=== PATIENT | female | born 1960 | race Caucasian/White ===

== ENCOUNTER 2018-01-19 02:14 | Inpatient (IN) | payer MEDICAID, SELFPAY ==
[2018-01-19] VITALS (16 sets, daily range): BP systolic 134–198; BP diastolic 61–101; PULSE 76–107; RESP 15–20; TEMP 36.4–37.3; O2SAT 92–98; BMI 13.8; BMI 14.1
--- NOTE | 2018-01-19 02:25 | ED.RN ---
LAURA HONG CALLED TO INFORM STAFF ALL OF PATIENT'S MEDICATION ARE ACCOUNTED FOR
--- NOTE | 2018-01-19 02:46 | CT_ITS ---
STUDY: CT BRAIN WITHOUT CONTRAST REASON FOR EXAM: Female, 57 years old. Altered mental status and seizures RADIATION DOSAGE (If Supplied By Facility): CTDIvol = ( 44.99 ) mGy, DLP = ( 812.98 ) mGycm TECHNIQUE: Transaxial CT imaging of the brain was performed without administration of intravenous contrast material. Individualized dose optimization techniques were used for this CT. COMPARISON: None. FINDINGS: Normal soft tissue structures. Normal calvarium. Normal size ventricles and extra-axial spaces for the patient's age. There are areas of decreased attenuation within the white matter tracts of the supratentorial brain, consistent with microvascular disease changes. Normal age-related changes of the basal ganglia. Remote lacunar infarct in the left thalamus. Remote punctate infarct in the right silver. Normal cerebellum. There is no intracranial hemorrhage. There are no findings of an acute ischemic infarction. Normal visualized paranasal sinuses. CT/Brain/Head without Contrast IMPRESSION: No CT evidence of acute infarct or hemorrhage. 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 If there is clinical concern for hyperacute ischemia that is not evident by CT, MRI should be considered if possible. Electronically Signed: Tree Rodriguez MD at 3:41 EST Tel , Service support ,
--- NOTE | 2018-01-19 02:47 | EKG12_ITS ---
Test Reason : FALL Blood Pressure : / mmHG Vent. Rate : 083 BPM Atrial Rate : 083 BPM P-R Int : 124 ms QRS Dur : 072 ms QT Int : 442 ms P-R-T Axes : 077 058 085 degrees QTc Int : 519 ms Normal sinus rhythm Nonspecific ST and T wave abnormality Prolonged QT Abnormal ECG Confirmed by CLAUDIO ACEVEDO, ALEJANDRA ([id number]), primer expeditor and drier ROYA OCAMPO ([id number]) on 01/21/2018 2:56:10 PM Referred By: BB Confirmed By:ALEJANDRA SNYDER MD
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
[2018-01-19] MEDS: 0.9% Normal Saline 1,000 ML 1000 ML IV (03:12)
[2018-01-19 03:24] LABS: Absolute Lymphocyte Count 1.63 X10^3/ul (0.83-4.51); Absolute Neutrophil Count 6.8 X10^3/uL (2.0-7.7); Basophil# 0.03 X10^3/uL; Basophil% 0.3 % (0-1); Eosinophil# 0.14 X10^3/uL; Eosinophils% 1.5 % (0-5); Hematocrit 30.7 % (37-47); Hemoglobin 9.5 g/dl (12.0-15.0); Lymphocyte # 1.63 X10^3/ul (4.0); Lymphocyte % 17.4 % (19-41); Mean Corp Hgb Conc 30.9 g/gl (32-36); Mean Corpuscular Hgb 26.5 pg (27.0-32.0); Mean Corpuscular Volume 85.5 fL (81-99); Mean Platelet Vol. 9.8 fl (6.2-12.0); Monocyte# 0.81 X10^3/uL; Monocyte% 8.6 % (0-10); Neutrophil # 6.77 X10^3/uL (2.7-7.7); Neutrophil % 72.1 % (47-70); Platelet Count 346 K/mm3 (150-450); RBC Distribution Width CV 19.9 % (11.6-14.6); Red Blood Count 3.59 M/mm3 (4.2-5.4); White Blood Count 9.4 K/mm3 (4.4-11.0)
[2018-01-19 03:30] LABS: POSITIVE COUNT NO; POSITIVE DIFFERENTIAL NO; POSITIVE MORPHOLOGY NO
--- NOTE | 2018-01-19 03:45 | RAD_ITS ---
STUDY: X-RAY CHEST REASON FOR EXAM: Female, 57 years old. Cough TECHNIQUE: Single frontal view of the chest. COMPARISON: 12/02/2013 FINDINGS: The lungs are clear and expanded. There is no demonstrated pleural abnormality. Normal size heart. Normal mediastinum and olga. Normal visualized pulmonary arteries. Normal visualized aortic arch and descending thoracic aorta. Normal visualized thoracic spine. Normal visualized ribs, clavicles, and shoulders. There is no demonstrated abnormality of the visualized soft tissue structures of the upper abdomen. RAD/Chest 1 View (Portable) IMPRESSION: No acute pulmonary findings. Electronically Signed: Tree Rodriguez MD at 4:19 EST Tel , Service support ,
--- NOTE | 2018-01-19 03:45 | RAD_ITS ---
STUDY: X-RAY - RIGHT KNEE REASON FOR EXAM: Female, 57 years old. Abrasions TECHNIQUE: 4 view(s) of the knee. COMPARISON: None. FINDINGS: Normal visualized distal femur. Normal visualized proximal tibia and fibula. Normal proximal tibiofibular articulation. There is moderate degenerative arthrosis of the medial femorotibial compartment with moderate joint space narrowing. Normal lateral femorotibial compartment. Normal patellofemoral articulation. Infrapatellar soft tissue swelling. RAD/Knee 4 or More Views IMPRESSION: No acute osseous injury is evident. Electronically Signed: Tree Rodriguez MD at 4:37 EST Tel , Service support ,
--- NOTE | 2018-01-19 03:45 | RAD_ITS ---
STUDY: X-RAY - LEFT KNEE REASON FOR EXAM: Female, 57 years old. Abrasions TECHNIQUE: 4 view(s) of the knee. COMPARISON: None. FINDINGS: Normal visualized distal femur. Normal visualized proximal tibia and fibula. Normal proximal tibiofibular articulation. There is mild degenerative arthrosis of the medial femorotibial compartment. Normal lateral femorotibial compartment. Normal patellofemoral articulation. Suprapatellar effusion. RAD/Knee 4 or More Views IMPRESSION: No acute osseous injury is evident. Suprapatellar effusion. Electronically Signed: Tree Rodriguez MD at 4:25 EST Tel , Service support ,
[2018-01-19 03:47] LABS: Anion Gap 12 (5-15); BUN 11 mg/dL (7-18); BUN/Creat Ratio 10.4 RATIO (10-20); CPK Total, Creatine Kinase 209 U/L (26-192); Calcium,Total 8.7 mg/dL (8.5-10.1); Chloride 100 mmol/L (98-107); Creatinine, Serum 1.06 mg/dL (0.55-1.02); EST Glomerular Filtration Rate 57 mL/min (>60); Est Glom Filt Rate - Afr Amer 68 mL/min (>60); Estimated Creatinine Clearance 30.23 ml/min; Glucose 117 mg/dL (74-106); Potassium 2.4 mmol/L (3.5-5.1); Sodium Level 143 mmol/L (136-145)
--- NOTE | 2018-01-19 03:52 | ED.RN ---
potassium of 2.[address] martinez. verbalized understanding
[2018-01-19 04:09] LABS: Mucous, Urine 0 SEEN /hpf (<or=2+); Squamous Epithelial Cells - UA 0 SEEN /hpf (5-10)
[2018-01-19 04:14] LABS: Color, Urine Yellow (Yellow); Glucose, Dipstick Normal (Normal); Ketone-Dipstick Negative (Negative); Leukocyte Esterase-Dipstick 25 /ul (Negative); Nitrite-Dipstick Positive (Negative); Occult Blood-Urine 10 /ul (Negative); Protein-Dipstick 15 mg/dl (Negative); Urine Bilirubin Dipstick Negative (Negative); Urine Clarity Cloudy (Clear); Urine Urobilinogen Normal (Normal)
[2018-01-19 04:55] LABS: Amorphous Sediment 2+; Bacteria 2+ /hpf (None Seen); Red Blood Cells-Urine 0-5 SEEN /hpf (0-5); White Blood Cells 10-25 SEEN /hpf (0-5)
[2018-01-19 04:56] LABS: Amphetamine Urine VISTA NEGATIVE (<1000 ng/mL); Barbiturate Urine VISTA POSITIVE (< 200 ng/mL); Benzodiazepine Urine VISTA NEGATIVE (< 200 ng/mL); Cocaine Urine VISTA NEGATIVE (< 300 ng/mL); Ecstacy Urine VISTA NEGATIVE (< 500 ng/mL); Methadone Urine VISTA NEGATIVE (< 300 ng/mL); PCP Urine VISTA NEGATIVE (< 25 ng/mL); THC Urine VISTA NEGATIVE (< 50 ng/mL); Vista UDS pH Range 5
[2018-01-19] MEDS: Ceftriaxone 1 GM/50 ML BAG IV (05:39)
--- NOTE | 2018-01-19 06:35 | ED.RN ---
DR PACHECO IN THE ROOM SPEAKING WITH THE PT. PT INFORMED DR PACHECO THAT SHE IS SUICIDAL BUT DOES NOT CURRENTLY HAVE A PLAN. WHEN THE PT WAS ADMITTED INTO THE ER SHE DENIED BEING SUICIDAL.
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
[2018-01-19 08:19] LABS: AST(SGOT) 25 U/L (15-37); Alanine Aminotransfer ALT/SGPT 20 U/L (13-56); Albumin, Serum 2.8 g/dL (3.2-5.0); Alkaline Phosphatase 168 U/L (45-117); Bilirubin, Direct 0.11 mg/dL (0.00-0.30); Ferritin 19 ng/mL (8-252); Iron 18 ug/dL (50-170); Iron Binding Capacity,Total 321 ug/dL (250-450); Magnesium 2.3 mg/dL (1.6-2.6); PERCENT IRON SATURATION 5.6 % (15.0-55.0); Phosphorus 4.3 mg/dL (2.5-4.9); Protein, Total 6.8 g/dL (6.4-8.2); Thyroid Stim Hormone (TSH) 1.58 uIU/mL (0.358-3.74)
--- NOTE | 2018-01-19 08:36 | NURSING ---
awaiting medications from pharmacy.
[2018-01-19] MEDS: Folic Acid 1 MG Tablet PO (09:15)
[2018-01-19] MEDS: Multivitamins,Therapeutic Tablet 1 TABLET PO (09:15)
[2018-01-19] MEDS: Famotidine 20 MG Tablet PO (09:17)
[2018-01-19] MEDS: Potassium Chloride 40 MEQ in 0.9% Normal Saline 1,000 ML 100 MEQ IV ×2 (09:29→19:58)
[2018-01-19 09:53] LABS: Protein, Urine (Random) 28.3 mg/dL (<11.9); Protein:Creat Ratio 487 mg/g CRE (0-200)
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
--- NOTE | 2018-01-19 11:32 | PCM.PN.HOSP ---
Patient Problems: Active and Suspected Problems UTI (urinary tract infection) (Acute) Hypokalemia due to inadequate potassium intake (Acute) Normocytic anemia (Acute) Generalized weakness (Acute) Contusion of knee, left (Acute) Contusion of knee, right (Acute) Delirium (Acute) Subjective: 57-year-old patient admitted this morning with suicidal ideation, generalized weakness and fall. Patient was seen in her room room, sitter at the bedside, family at the bedside. Family states she has history of additional do not want her to be on any pain medication. She complains of pain shooting down her lower extremities. Patient admits to wanting to hurt herself, she has no plan at the moment. Denies any fever or chills or nausea or vomiting. Vitals/I&O's: Vital Signs Temp Pulse Resp BP Pulse Ox 98.1 F 100 18 172/85 H 96 01/19/18 07:30 01/19/18 11:10 01/19/18 07:30 01/19/18 07:30 01/19/18 07:30 Oxygen Delivery Method Room Air Weight: 33.9 kg Body Mass Index (BMI) 14.1 Intake and Output for Last 24 Hours 01/17/18 01/18/18 01/19/18 23:59 23:59 23:59 Output Total 1125 / 1125 Balance -1125 / -1125 General: Alert, Oriented x3, Cooperative, - - Cachectic HEENT: Atraumatic, PERRLA, EOMI, Normocephalic Oral: Dry Mucosa Neck: Supple, No JVD, Negative Carotid Bruits Lungs: Clear to auscultation, Normal air movement, Diminished - at the lung bases Cardiovascular: Regular rate, Regular Rhythm, Normal S1, Normal S2, No murmurs Abdomen: Bowel Sounds Present, Soft, Non Tender, Non-Distended, No Hepato-splenomegaly Extremities: Edema Skin: - - Bruises over her knees and lower extremities, discoloration of the plantar surface of left foot more than the right, ulcer at the plantar surface of right 1st and 2nd metatarsal region. Musculoskeletal: No Tenderness to Palpation of Joints or Extremities Neurological: Cranial nerves II-XII grossly intact Psych/Mental Status: Normal Affect, Appropriate Laboratory Results 01/19/18 03:12: WBC 9.4, RBC 3.59 L, Hgb 9.5 L, Hct 30.7 L, MCV 85.5, MCH 26.5 L, MCHC 30.9 L, RDW 19.9 H, RDW Differential 62.0 H, Plt Count 346, MPV 9.8, Immature Gran % (Auto) 0.100, Neut % (Auto) 72.1 H, Lymph % (Auto) 17.4 L, [place] % (Auto) 8.6, Eos % (Auto) 1.5, Baso % (Auto) 0.3, Absolute Neuts (auto) 6.8, Absolute Lymphs (auto) 1.63, Total Counted Not Reportable 01/19/18 03:12: Sodium 143, Potassium 2.4 L*, Chloride 100, Carbon Dioxide 31.0, Anion Gap 12, BUN 11, Creatinine 1.06 H, Estim Creat Clear Calc 30.23, Est GFR (MDRD) Af Amer 68, Est GFR (MDRD) Non-Af 57 L, BUN/Creatinine Ratio 10.4, Glucose 117 H, Calcium 8.7, Total Creatine Kinase 209 H, Troponin I 0.024 01/19/18 03:12: Ethyl Alcohol 4.0 01/19/18 03:12: Phosphorus 4.3, Magnesium 2.3, Iron 18 L, TIBC 321, Iron Saturation 5.6 L, Ferritin 19, Total Bilirubin 0.20, Direct Bilirubin 0.11, AST 25, ALT 20, Alkaline Phosphatase 168 H, Total Protein 6.8, Albumin 2.8 L, Globulin 4.0, TSH 1.58 01/19/18 03:12: Vitamin B12 Pending, Vitamin D 25-Hydroxy Pending 01/19/18 03:12: Folate 7.80 01/19/18 04:05: Urine Color Yellow, Urine Clarity Cloudy, Urine pH 5.0, Ur Specific [place] 1.020, Urine Protein 15 H, Urine Glucose (UA) Normal, Urine Ketones Negative, Urine Occult Blood 10 H, Urine Nitrite Positive H, Urine Bilirubin Negative, Urine Urobilinogen Normal, Ur Leukocyte Esterase 25 H, Urine RBC 0-5 SEEN, Urine WBC 10-25 SEEN, Ur Squamous Epith Cells 0 SEEN, Amorphous Sediment 2+, Urine Bacteria 2+, Urine Mucus 0 SEEN 01/19/18 04:05: Urine Opiates Screen POSITIVE H, Urine Methadone Screen NEGATIVE, Ur Barbiturates Screen POSITIVE H, Ur Phencyclidine Scrn NEGATIVE, Ur Amphetamines Screen NEGATIVE, U Methamphetamin-MDMA NEGATIVE, U Benzodiazepines Scrn NEGATIVE, Urine Cocaine Screen NEGATIVE, U Cannabinoids Screen NEGATIVE, Ur Drug Screen Comment 01/19/18 09:10: U Random Total Protein 28.3 H, Urine Creatinine 58.10, Protein/Creatinin Ratio 487 H Current Medications Acetaminophen (Tylenol) 650 mg PO Q6H PRN PRN PRN Reason: Mild Pain (scale 0-3)/T>100.7 Bisacodyl (Dulcolax) 5 mg PO DAILY PRN PRN PRN Reason: Constipation Famotidine (Pepcid) 20 mg PO DAILY [facility] Last Admin: 01/19/18 09:17 Dose: 20 mg Fluoxetine HCl (Prozac) 10 mg PO DAILY [facility] Folic Acid (Folic Acid) 1 mg PO DAILY@0800 [facility] Last Admin: 01/19/18 09:15 Dose: 1 mg Ceftriaxone Sodium (Rocephin) 1 gm in 50 mls @ 100 mls/hr IV Q24 [facility] Potassium Chloride 40 meq/ (Sodium Chloride) 1,020 mls @ 100 mls/hr IV .[id number] [facility] Stop: 01/20/18 04:59 Last Admin: 01/19/18 09:29 Dose: 100 mls/hr Thiamine HCl 200 mg/ Sodium (Chloride) 52 mls @ 200 mls/hr IV DAILY [facility] Last Admin: 01/19/18 09:29 Dose: 200 mls/hr Magnesium Hydroxide (Milk Of Magnesia) 30 ml PO DAILY PRN PRN Reason: Constipation [facility]it[facility] ([facility]) [facility] Admin: 01/19/18 09:15 Dose: 1 tablet Mupirocin (Bactroban) 1 applic TOPICAL BID [facility]; Protocol Nicotine (Nicoderm Cq (Pbkc)) 14 mg TRANSDERM. DAILY [facility] Nutritional Formula (Lactose Free) (Ensure Enlive) 120 ml PO 4X/DAY [facility] Potassium Chloride (K-Dur) 40 [facility] Last Admin: 01/19/18 09:15 Dose: 40 meq Medical Necessity - Tobacco Use Smoking Status: Current every day smoker Tobacco Use: Cigarettes Assessment/Plan All Active Problems UTI (urinary tract infection) (Acute) Hypokalemia due to inadequate potassium intake (Acute) Normocytic anemia (Acute) Generalized weakness (Acute) Contusion of knee, left (Acute) Contusion of knee, right (Acute) Delirium (Acute) 57-year-old female past medical history of complex regional pain syndrome, urinary retention status post catheterization who comes in with worsening weakness, inability to walk, and suicidal ideation 1. Active suicidal ideation, anxiety/depression, patient has a sitter at the bedside, add on fluoxetine, will need mobile crisis consult 2. Severe hypokalemia, on replacement, no diarrhea or nausea or vomiting, replace electrolytes, recheck in a.m. 3. Asymptomatic bacteriuria, likely second to catheterization, started on IV ceftriaxone, urine cultures are pending, on IV ceftriaxone, follow-up on cultures 4. Urine retention, history of self-catheterization,patient is too weak to now self catheterize, will put in Olson catheter 5. Iron deficiency anemia, iron saturation 5.6, will start patient on oral iron 6. Severe protein calorie malnutrition, BMI 14.1, faculty instructor consulted, will start on supplements, started on thiamine, folic acid and multivitamin 7. AK I secondary dehydration, started on IV fluids, will trend lab 8. Bilateral leg edema, secondary to malnutrition/protein losing enteropathy, UA concerning for proteinuria, urine protein ratio is 487, will have to be careful interpreting this in the light of UTI, will need to repeat and trend 9. Complex regional pain syndrome, patient was on codeine/butalbital/aspirin/caffeine, family expressed concern about narcotic use, will hold that, continue scheduled Tylenol, will add gabapentin 100 mg p.o. nightly 10. Nicotine dependence, on replacement 11. Debility, falls, multiple abrasions on the lower extremities, wound care consulted, PT and OT to evaluate and treat 12. DVT prophylaxis-heparin subcu Code Visit Inpatient E&M: 46301 Subs Hosp L2
[2018-01-19] MEDS: FLUoxetine 10 MG Capsule PO (11:52)
[2018-01-19] MEDS: Mupirocin Ointment 22gm Tube 1 APPLIC TOPICAL ×2 (11:52→22:58)
[2018-01-19 13:17] LABS: Anion Gap 8 (5-15); BUN 8 mg/dL (7-18); BUN/Creat Ratio 9.7 RATIO (10-20); Calcium,Total 7.5 mg/dL (8.5-10.1); Chloride 107 mmol/L (98-107); Creatinine, Serum 0.82 mg/dL (0.55-1.02); EST Glomerular Filtration Rate 76 mL/min (>60); Est Glom Filt Rate - Afr Amer 91 mL/min (>60); Estimated Creatinine Clearance 40.02 ml/min; Glucose 201 mg/dL (74-106); Magnesium 2.1 mg/dL (1.6-2.6); Potassium 2.8 mmol/L (3.5-5.1); Sodium Level 143 mmol/L (136-145)
[2018-01-19] MEDS: Acetaminophen 500 MG Tablet 1000 MG PO ×2 (14:54→21:32)
[2018-01-19] MEDS: Ferrous Sulfate 325 MG Tablet PO (16:54)
[2018-01-19 18:10] LABS: International Normalized Ratio 0.9; Prothrombin Time (Protime)PT. 11.7 SECONDS (11.7-14.9)
[2018-01-19] MEDS: Gabapentin 100 MG Capsule PO (21:31)
[2018-01-19] MEDS: Labetalol 20 MG/4 ML Vial 10 MG IV (22:12)
[2018-01-19] MEDS: 0.9% NaCl Peripheral Flush Adult/Peds IV ×2 (22:12→22:19)
[2018-01-20] VITALS (37 sets, daily range): BP systolic 141–215; BP diastolic 54–111; PULSE 42–128; RESP 20–40; TEMP 36.3–38.2; O2SAT 2–100
[2018-01-20] MEDS: 0.9% NaCl Peripheral Flush Adult/Peds IV ×5 (03:29→18:41)
[2018-01-20] MEDS: Labetalol 20 MG/4 ML Vial 10 MG IV (03:29)
--- NOTE | 2018-01-20 05:01 | PCM.PN.BLA ---
Progress Note Responded to rapid response. Patient has a sitter. Patient wanted to use the restroom. She was helped onto the side of the bed. However, she began to lean forward and was about to fall. Patient was helped back to bed. Her heart rate was in the 40s and she had defecated on herself. Upon examination patient was alert and oriented. She is lethargic as previous. Heart sounds diminished. Lung sounds diminished. Patient was orthostatic negative. Assessment and plan Different diagnosis include vasovagal syncope; debility due protein calorie malnutrition; psychomotor retardation secondary to depression or other. Continue current treatment plan of potassium supplementation; and IV normal saline with potassium. Continue Telemetry monitoring. Her phosphorus level is normal. Patient on thiamine, folate and multivitamins. Continue aggressive feeding and consider checking phosphorus level while feeding patient to prevent refeeding syndrome. Patient and nursing staff were updated of the plan.
--- NOTE | 2018-01-20 05:22 | EKG12_ITS ---
Test Reason : Blood Pressure : / mmHG Vent. Rate : 090 BPM Atrial Rate : 090 BPM P-R Int : 118 ms QRS Dur : 072 ms QT Int : 382 ms P-R-T Axes : 083 047 067 degrees QTc Int : 467 ms Normal sinus rhythm Normal ECG Confirmed by CLAUDIO ACEVEDO, ALEJANDRA ([id number]), photographic editor ROYA OCAMPO ([id number] on 01/23/2018 2:14:15 PM Referred By: Confirmed By:ALEJANDRA SNYDER MD
[2018-01-20 05:25] LABS: Absolute Lymphocyte Count 1.04 X10^3/ul (0.83-4.51); Basophil# 0.02 X10^3/uL; Basophil% 0.2 % (0-1); Eosinophil# 0.01 X10^3/uL; Eosinophils% 0.1 % (0-5); Hematocrit 26.4 % (37-47); Lymphocyte # 1.04 X10^3/ul (4.0); Lymphocyte % 10.5 % (19-41); Mean Corp Hgb Conc 30.3 g/gl (32-36); Mean Corpuscular Hgb 26.6 pg (27.0-32.0); Mean Corpuscular Volume 87.7 fL (81-99); Mean Platelet Vol. 9.9 fl (6.2-12.0); Monocyte# 0.81 X10^3/uL; Monocyte% 8.2 % (0-10); Neutrophil # 8.02 X10^3/uL (2.7-7.7); Neutrophil % 80.8 % (47-70); Platelet Count 330 K/mm3 (150-450); RBC Distribution Width CV 20.8 % (11.6-14.6); RBC Distribution Width SD 67.4 fl (35.1-43.9); Red Blood Count 3.01 M/mm3 (4.2-5.4); White Blood Count 9.9 K/mm3 (4.4-11.0)
[2018-01-20 05:29] LABS: Differential Indicated SCAN CRITERIA MET; POSITIVE COUNT NO; POSITIVE DIFFERENTIAL NO; POSITIVE MORPHOLOGY YES
[2018-01-20 05:40] LABS: Bedside Glucose 156 mg/dL (70-110)
[2018-01-20 05:49] LABS: Differential Comment SCANNED
[2018-01-20 05:50] LABS: Anisocytosis 1+
[2018-01-20 05:59] LABS: Anion Gap 10 (5-15); BUN 8 mg/dL (7-18); BUN/Creat Ratio 11.4 RATIO (10-20); Calcium,Total 7.3 mg/dL (8.5-10.1); Chloride 113 mmol/L (98-107); EST Glomerular Filtration Rate 91 mL/min (>60); Est Glom Filt Rate - Afr Amer 111 mL/min (>60); Estimated Creatinine Clearance 46.88 ml/min; Glucose 140 mg/dL (74-106); Sodium Level 144 mmol/L (136-145)
[2018-01-20 06:21] LABS: Bedside Glucose 147 mg/dL (70-110)
--- NOTE | 2018-01-20 06:25 | CPS ---
stereotype caster called,ekg done.
[2018-01-20] MEDS: Acetaminophen 500 MG Tablet 1000 MG PO (06:27)
[2018-01-20] MEDS: Potassium Chloride 40 MEQ in 0.9% Normal Saline 1,000 ML 100 MEQ IV (06:33)
[2018-01-20] MEDS: cloNIDine HCl 0.1 MG Tablet PO ×2 (06:47→15:48)
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
[2018-01-20 08:21] LABS: Bedside Glucose 146 mg/dL (70-110)
--- NOTE | 2018-01-20 09:15 | RAD_ITS ---
STUDY: X-RAY - ABDOMEN/PELVIS REASON FOR EXAM: Female, 57 years old. Abdominal pain. TECHNIQUE: Two AP supine views of the abdomen and pelvis. COMPARISON: None. FINDINGS: Normal visualized lung bases. Gaseous distention of the stomach. Moderate amount of fecal material is seen in the colon. There is evidence of bilateral tubal ligation. Normal soft tissue structures. Normal visualized osseous structures. RAD/Abdomen Single View (Portable) IMPRESSION: Gaseous distention of the stomach. Moderate amount of fecal material is seen in the colon. Electronically Signed: Karan Cruz MD at 13:20 EST Tel [phone], Service support ,
[2018-01-20 10:43] LABS: Phosphorus 3.2 mg/dL (2.5-4.9)
[2018-01-20] MEDS: 0.9% Normal Saline 1,000 ML 75 ML IV (10:55)
[2018-01-20] MEDS: Ondansetron 4 MG/2 ML Vial IV (10:58)
[2018-01-20] MEDS: hydrOXYzine PAM 25 MG Capsule 50 MG PO ×2 (11:00→17:32)
[2018-01-20] MEDS: Ceftriaxone 1 GM/50 ML BAG IV (11:00)
[2018-01-20] MEDS: FLUoxetine 10 MG Capsule PO (11:24)
[2018-01-20] MEDS: Mupirocin Ointment 22gm Tube 1 APPLIC TOPICAL ×2 (11:25→21:58)
[2018-01-20] MEDS: Heparin Injection (Vial) 5,000 UNIT/ML VIAL 5000 UNIT SC (11:25)
--- NOTE | 2018-01-20 11:57 | CASEMGMT ---
Physician said patient is going to need placement. Therapy has not yet seen patient and she appears to be going through withdrawal. Patient is self pay. SW met with patient, introduced self and role at [facility]. SW asked patient if she has insurance and she does not. She has not completed a Medicaid application. SW asked if she would be able to complete application with SW and she said she could not right now. She is very anxious, shaking, and moving around in bed a lot. SW will follow up. Mitra CLINE MSW
[2018-01-20] MEDS: chlordiazePOXIDE 25 MG Capsule 50 MG PO ×3 (12:28→22:49)
--- NOTE | 2018-01-20 12:33 | CPS ---
Pt refused I.S., says she won't do it. RN sitter in room & aware.
[2018-01-20 13:08] LABS: Vitamin B12 436 pg/mL (211-911); Vitamin D,25 Hydroxy 6.9 ng/mL (29.95-100.01)
[2018-01-20] MEDS: hydrALAZINE 20 MG/ML Vial 5 MG IV (13:42)
--- NOTE | 2018-01-20 14:20 | PN_ITS ---
<Santos Trevizo - Last Filed: 01/20/18 14:15> Patient Problems: Active and Suspected Problems UTI (urinary tract infection) (Acute) Hypokalemia due to inadequate potassium intake (Acute) Normocytic anemia (Acute) Generalized weakness (Acute) Contusion of knee, left (Acute) Contusion of knee, right (Acute) Delirium (Acute) Subjective: Pt complains of LLQ abdominal pain, R lower extremity pain (this is chronic from RSD). Initial injury was foot fracture, she has been using chronic pain medications at home since this occurred in 1998. Her family is here stating that she has had multiple overdoses, they have tried to get her off of opiates. She takes T3 and Fioricet with codeine in large quantities. She smokes > 3 ppd and reportedly passes out at home while smoking and there are mason all over the house. Pt and family confirm she does not drink at all. She lives at her mothers home, who is also sick in the hospital in ICU being placed in hospice. She has a khoury in place here. No khoury discomfort. No fever or chills. She has been nauseous without vomiting. She has been incontinent of stool. She has had epis odes of lightheadedness with nausea, bowel incontinence, and bradycardia. She fell last night. Family believes she is withdrawing. She is very agitated and restless in bed thrashing frequently. She reportedly is eating very little at home as well. - Physical Exam General: Alert, Oriented x3, Cooperative HEENT: Atraumatic, PERRLA, EOMI, Normocephalic Neck: Supple, No JVD, Negative Carotid Bruits Lungs: Clear to auscultation, Normal air movement Cardiovascular: Regular rate, No murmurs Abdomen: Bowel Sounds Present, Soft, Non Tender Extremities: No edema, Capillary Refill Less than 3 Seconds Skin: No rashes, No breakdown Musculoskeletal: No Tenderness to Palpation of Joints or Extremities Neurological: Cranial nerves II-XII grossly intact Psych/Mental Status: Normal Affect, Appropriate, Alert and oriented to time, place, person, mood and affect Vital Signs Temp Pulse Resp BP Pulse Ox 97.4 F L 97 22 H 143/54 H 97 01/20/18 13:56 01/20/18 13:56 01/20/18 13:56 01/20/18 13:56 01/20/18 13:56 Oxygen Flow Rate (L/min) 2 Oxygen Delivery Method Nasal Cannula Weight: 74 lb 11.787 oz Body Mass Index (BMI) 14.1 Intake and Output for Last 24 Hours 01/18/18 01/19/18 01/20/18 23:59 23:59 23:59 Intake Total 1890 / 1890 1480 / 1480 Output Total 1275 / 1275 555 / 555 Balance 615 / 615 925 / 925 Microbiology Past 72 Hours 01/19/18 04:05 Urine Culture - Preliminary Urine, Catheterized Culture exhibits no growth. Laboratory Tests Past 24 Hrs 01/19/18 01/19/18 01/20/18 03:12 17:38 05:10 WBC 9.9 RBC 3.01 L Hgb 8.0 L Hct 26.4 L MCV 87.7 MCH 26.6 L MCHC 30.3 L RDW 20.8 H RDW Differential 67.4 H Plt Count 330 MPV 9.9 Immature Gran % (Auto) 0.200 Neut % (Auto) 80.8 H Lymph % (Auto) 10.5 L [place] % (Auto) 8.2 Eos % (Auto) 0.1 Baso % (Auto) 0.2 Absolute Neuts (auto) 8.0 H Absolute Lymphs (auto) 1.04 Total Counted Not Reportable Differential Comment SCANNED Anisocytosis 1+ PT 11.7 INR 0.9 Sodium Potassium Chloride Carbon Dioxide Anion Gap BUN Creatinine Estim Creat Clear Calc Est GFR (MDRD) Af Amer Est GFR (MDRD) Non-Af BUN/Creatinine Ratio Glucose Calcium Phosphorus Vitamin B12 436 Vitamin D 25-Hydroxy 6.9 L 01/20/18 01/20/18 05:10 05:10 WBC RBC Hgb Hct MCV MCH MCHC RDW RDW Differential Plt Count MPV Immature Gran % (Auto) Neut % (Auto) Lymph % (Auto) [place] % (Auto) Eos % (Auto) Baso % (Auto) Absolute Neuts (auto) Absolute Lymphs (auto) Total Counted Differential Comment Anisocytosis PT INR Sodium 144 Potassium 5.0 Chloride 113 H Carbon Dioxide 21.0 Anion Gap 10 BUN 8 Creatinine 0.70 Estim Creat Clear Calc 46.88 Est GFR (MDRD) Af Amer 111 Est GFR (MDRD) Non-Af 91 BUN/Creatinine Ratio 11.4 Glucose 140 H Calcium 7.3 L Phosphorus 3.2 Vitamin B12 Vitamin D 25-Hydroxy POC Glucose 01/20/18 01/20/18 01/20/18 08:17 06:13 04:56 POC Glucose 146 H 147 H 156 H Medical Necessity - Tobacco Use Smoking Status: Current every day smoker Tobacco Use: Cigarettes Assessment/Plan All Active Problems UTI (urinary tract infection) (Acute) Hypokalemia due to inadequate potassium intake (Acute) Normocytic anemia (Acute) Generalized weakness (Acute) Contusion of knee, left (Acute) Contusion of knee, right (Acute) Delirium (Acute) 1. Acute opiate and barbiturate withdrawal - initiate medical stabilization protocol with librium. KUB with gas, stool. CT brain with remote infarcts. Knee xrays neg. 2. Hypokalemia - resolved 3. Bradycardia and syncope - likely vasovagal 2/2 withdrawal, nausea, vomiting, malnourishment. Continue IV fluids. Stop potassium supplements now that this is normalized. 4. Severe HTN - should improve with withdrawal stabilization. PRN hydralazine ordered. No further lebatolol given bradycardia. 5. Iron def anemia - continue supplement. B12/folate normal. 6. Vit D def - replete. 7. Heavy smoker - > 3 ppd currently. Nicotine patch provided. currently on o2, and with some SOB. No wheezing. Aerosols added. Denies hx COPD/Asthma. CXR negative. 8. Severe protein calorie malnutrition - dietary eval, thiamine and MVI provided, vitD supplements, iron. TSH normal. Mag/Phos normal. 9. Debility / Found down - PTOT. Pt unsafe at home, falling, overdosing, not eating correctly, not caring for herself. 10. SI - sitter present. 11. UTI - ruled out. Stop rocephin. No fever/leukocytosis. Urine culture neg. DVT ppx: heparin DC planning: SNF if she is agreeable. She is unsafe to be home alone. This patient was seen by Santos Trevizo PA-C under the supervision of Doctor Tavo forbes. <Gregorio Waterman - Last Filed: 01/20/18 14:47> - Physical Exam Vital Signs Temp Pulse Resp BP Pulse Ox 97.4 F L 97 22 H 143/54 H 97 01/20/18 13:56 01/20/18 13:56 01/20/18 13:56 01/20/18 13:56 01/20/18 13:56 Oxygen Flow Rate (L/min) 2 Oxygen Delivery Method Nasal Cannula Weight: 33.9 kg Body Mass Index (BMI) 14.1 Intake and Output for Last 24 Hours 01/18/18 01/19/18 01/20/18 23:59 23:59 23:59 Intake Total 1890 / 1890 1621 / 1621 Output Total 1275 / 1275 630 / 630 Balance 615 / 615 991 / 991 Microbiology Past 72 Hours 01/19/18 04:05 Urine Culture - Preliminary Urine, Catheterized Culture exhibits no growth. Laboratory Tests Past 24 Hrs 01/19/18 01/19/18 01/20/18 03:12 17:38 05:10 WBC 9.9 RBC 3.01 L Hgb 8.0 L Hct 26.4 L MCV 87.7 MCH 26.6 L MCHC 30.3 L RDW 20.8 H RDW Differential 67.4 H Plt Count 330 MPV 9.9 Immature Gran % (Auto) 0.200 Neut % (Auto) 80.8 H Lymph % (Auto) 10.5 L [place] % (Auto) 8.2 Eos % (Auto) 0.1 Baso % (Auto) 0.2 Absolute Neuts (auto) 8.0 H Absolute Lymphs (auto) 1.04 Total Counted Not Reportable Differential Comment SCANNED Anisocytosis 1+ PT 11.7 INR 0.9 Sodium Potassium Chloride Carbon Dioxide Anion Gap BUN Creatinine Estim Creat Clear Calc Est GFR (MDRD) Af Amer Est GFR (MDRD) Non-Af BUN/Creatinine Ratio Glucose Calcium Phosphorus Vitamin B12 436 Vitamin D 25-Hydroxy 6.9 L 01/20/18 01/20/18 05:10 05:10 WBC RBC Hgb Hct MCV MCH MCHC RDW RDW Differential Plt Count MPV Immature Gran % (Auto) Neut % (Auto) Lymph % (Auto) [place] % (Auto) Eos % (Auto) Baso % (Auto) Absolute Neuts (auto) Absolute Lymphs (auto) Total Counted Differential Comment Anisocytosis PT INR Sodium 144 Potassium 5.0 Chloride 113 H Carbon Dioxide 21.0 Anion Gap 10 BUN 8 Creatinine 0.70 Estim Creat Clear Calc 46.88 Est GFR (MDRD) Af Amer 111 Est GFR (MDRD) Non-Af 91 BUN/Creatinine Ratio 11.4 Glucose 140 H Calcium 7.3 L Phosphorus 3.2 Vitamin B12 Vitamin D 25-Hydroxy POC Glucose 01/20/18 01/20/18 01/20/18 08:17 06:13 04:56 POC Glucose 146 H 147 H 156 H Assessment/Plan This patient was seen in conjunction with Santos Trevizo PA-C . I have independently interviewed and examined the patient and reviewed pertinent historical, laboratory, and other data. Please refer to Santos Trevizo PA-C note for details of this patient's presentation, findings, and recommendations. I have reviewed Santos Trevizo PA-C note and concur with documented findings. In brief, patient is a 57-year-old lady who was brought to the emergency department after she was found laying in her driveway by her niece. Was found to be severely cachectic on admission. She was hypokalemic with potassium of 2.8 admitted to a monitored bed for further Physical Examination: GENERAL: Appears cachectic HEENT: Atraumatic EYES; Anicteric, NECK; supple, normal thyroid, RESPIRATORY: Diminished to auscultation bilaterally, CARDIOVASCULAR: Regular S1 S2, GI: soft, non-tender, NEURO: Awake; PSYCH; flat affect Assessment: 1. Polysubstance abuse with suspected opioid withdrawal 2. Severe hypokalemia 3. Severe protein calorie malnutrition 4. Iron deficiency anemia 5. Transient bradycardia 6. Syncopal episode 7. Vitamin D deficiency 8. Apparent suicidal ideation 10. Tobacco dependence 11. Labile hypertension 12. Physical debility 13. DVT prophylaxis Recommendations: 1. I have discussed the results of my overview and impressions with the patient 2. Options for management were reviewed Code Visit Inpatient E&M: 07529 Subs Hosp L3
[2018-01-20] MEDS: Bisacodyl 5 MG Tablet PO (15:48)
[2018-01-20] MEDS: Dicyclomine 10 MG Capsule 20 MG PO ×2 (15:48→22:51)
[2018-01-20] MEDS: Calcium Carbonate 500 MG Tablet PO (16:42)
[2018-01-20 17:01] LABS: Iron 55 ug/dL (50-170); Iron Binding Capacity,Total 259 ug/dL (250-450); PERCENT IRON SATURATION 21.2 % (15.0-55.0)
[2018-01-20 17:06] LABS: Vitamin B12 529 pg/mL (211-911)
[2018-01-20] MEDS: Ipratropium/Albuterol Sulfate 3 ML AMPUL.NEB INHALATION (17:09)
[2018-01-20] MEDS: Ferrous Sulfate 325 MG Tablet PO (17:32)
[2018-01-20] MEDS: Gabapentin 100 MG Capsule PO (21:56)
[2018-01-20] MEDS: Acetaminophen 500 MG Tablet PO (21:58)
[2018-01-20] MEDS: Famotidine 20 MG Tablet PO (21:59)
[2018-01-20] MEDS: Metoprolol Tartrate 50 MG Tablet PO (23:29)
[2018-01-21] VITALS (30 sets, daily range): BP systolic 107–164; BP diastolic 62–109; PULSE 95–136; RESP 18–32; TEMP 37–38; O2SAT 86–100
[2018-01-21] MEDS: hydrALAZINE 20 MG/ML Vial 5 MG IV (00:26)
[2018-01-21] MEDS: 0.9% Normal Saline 1,000 ML 75 ML IV ×2 (00:26→12:29)
[2018-01-21] MEDS: 0.9% NaCl Peripheral Flush Adult/Peds IV (00:49)
[2018-01-21] MEDS: Ondansetron 4 MG/2 ML Vial IV (00:49)
[2018-01-21] MEDS: Acetaminophen 500 MG Tablet PO ×3 (02:41→19:36)
[2018-01-21] MEDS: Albuterol 2.5 MG/3 ML VIAL.NEB. INHALATION (02:51)
[2018-01-21 07:01] LABS: Anion Gap 9 (5-15); BUN 8 mg/dL (7-18); BUN/Creat Ratio 12.3 RATIO (10-20); Calcium,Total 8.3 mg/dL (8.5-10.1); Chloride 113 mmol/L (98-107); Creatinine, Serum 0.65 mg/dL (0.55-1.02); EST Glomerular Filtration Rate 99 mL/min (>60); Est Glom Filt Rate - Afr Amer 120 mL/min (>60); Estimated Creatinine Clearance 50.49 ml/min; Glucose 121 mg/dL (74-106); Potassium 4.8 mmol/L (3.5-5.1); Sodium Level 146 mmol/L (136-145)
[2018-01-21] MEDS: Ipratropium/Albuterol Sulfate 3 ML AMPUL.NEB INHALATION ×3 (07:02→19:50)
[2018-01-21 07:08] LABS: Absolute Lymphocyte Count 1.32 X10^3/ul (0.83-4.51); Absolute Neutrophil Count 7.2 X10^3/uL (2.0-7.7); Basophil# 0.01 X10^3/uL; Basophil% 0.1 % (0-1); Differential Indicated SCAN CRITERIA MET; Hematocrit 27.4 % (37-47); Hemoglobin 8.1 g/dl (12.0-15.0); Lymphocyte # 1.32 X10^3/ul (4.0); Lymphocyte % 13.7 % (19-41); Mean Corp Hgb Conc 29.6 g/gl (32-36); Mean Corpuscular Hgb 26.6 pg (27.0-32.0); Mean Corpuscular Volume 90.1 fL (81-99); Mean Platelet Vol. 11.4 fl (6.2-12.0); Monocyte# 1.03 X10^3/uL; Monocyte% 10.7 % (0-10); Neutrophil # 7.22 X10^3/uL (2.7-7.7); POSITIVE COUNT NO; POSITIVE DIFFERENTIAL NO; POSITIVE MORPHOLOGY YES; Platelet Count 338 K/mm3 (150-450); RBC Distribution Width CV 21.6 % (11.6-14.6); RBC Distribution Width SD 67.2 fl (35.1-43.9); Red Blood Count 3.04 M/mm3 (4.2-5.4); White Blood Count 9.6 K/mm3 (4.4-11.0)
[2018-01-21 07:36] LABS: Differential Comment SCAN
[2018-01-21 07:37] LABS: Anisocytosis 1+; Hypochromasia 1+; Microcytosis 1+; Polychromasia 1+
--- NOTE | 2018-01-21 08:55 | RAD_ITS ---
STUDY: X-RAY CHEST REASON FOR EXAM: Female, 57 years old. Shortness of breath. Dyspnea. TECHNIQUE: AP and lateral views of the chest. COMPARISON: Comparison is made with prior study dated January 19, 2018. FINDINGS: EKG electrodes are seen. There now is evidence of small bilateral pleural effusions with bibasilar atelectasis. There is also evidence of mild degree of vascular congestion. There is no demonstrated pleural abnormality. Normal size heart. Normal mediastinum and olga. Normal visualized pulmonary arteries. There is atherosclerotic tortuosity of the aortic arch and descending thoracic aorta. There is demineralization of the osseous structures. Normal visualized ribs, clavicles, and shoulders. There is no demonstrated abnormality of the visualized soft tissue structures of the upper abdomen. RAD/Chest PA and Lateral IMPRESSION: Vascular congestion. Small bilateral pleural effusions with some mild bibasilar atelectasis. Electronically Signed: Karan Cruz MD at 10:17 EST Tel [phone], Service support ,
[2018-01-21] MEDS: Thiamine Hydrochloride 100 MG Tablet PO (09:57)
[2018-01-21] MEDS: Mupirocin Ointment 22gm Tube 1 APPLIC TOPICAL (09:57)
[2018-01-21] MEDS: Multivitamins,Therapeutic Tablet 1 TABLET PO (09:57)
[2018-01-21] MEDS: Heparin Injection (Vial) 5,000 UNIT/ML VIAL 5000 UNIT SC (09:58)
[2018-01-21] MEDS: FLUoxetine 10 MG Capsule PO (09:59)
[2018-01-21] MEDS: Famotidine 20 MG Tablet PO ×2 (09:59→22:02)
[2018-01-21] MEDS: chlordiazePOXIDE 25 MG Capsule PO ×2 (10:02→17:15)
[2018-01-21] MEDS: Ceftriaxone 1 GM/50 ML BAG IV (12:26)
[2018-01-21] MEDS: Dicyclomine 10 MG Capsule 20 MG PO ×2 (12:26→22:02)
[2018-01-21] MEDS: Ferrous Sulfate 325 MG Tablet PO ×2 (12:27→17:16)
--- NOTE | 2018-01-21 13:29 | CASEMGMT ---
Physician feels patient needs SNF and patient is agreeable. SW went to see patient to complete Medicaid application. She was sleeping, but SW asked if she could wake up long enough to do a Medicaid application. She did this and application was completed and faxed to [facility]. Patient was not sure which facility she would go to. She asked SW to call her niece, Marianna. She did not know her phone number. Mitra CLINE MSW
[2018-01-21] MEDS: Calcium Carbonate 500 MG Tablet PO (13:42)
--- NOTE | 2018-01-21 14:16 | PN_ITS ---
Addendum entered and electronically signed by STACI Webber 01/21/18 14:23: Code Visit Addendum: Acute cystitis is likely 2/2 patient self straight cathing at home Original Note: <Santos Trevizo - Last Filed: 01/21/18 14:23> Patient Problems: Active and Suspected Problems UTI (urinary tract infection) (Acute) Hypokalemia due to inadequate potassium intake (Acute) Normocytic anemia (Acute) Generalized weakness (Acute) Contusion of knee, left (Acute) Contusion of knee, right (Acute) Delirium (Acute) Subjective: No khoury discomfort. Pt less agitated today. No thrashing behavior today. She is resting comfortably in chair at bedside. She is mildly SOB. She does not use O2 at home. She has a nonproductive cough. She complains of chronic abdominal and RLE pain. Pain is somewhat controlled but she would like more pain medication. No LE edema. No CP, dizziness, LH. She had a fever this AM. No subjective fever/chills. Pt is worried about going home, but also scared to go to SNF. I explained to her that we were concerned that she was not safe to go home with regards to her falling, overdosing, and being malnourished and she seemed amenable to considering it. Also her son was present last night and reinformed what the nieces were saying, he reports that she takes about 100 tablets of her pain medications per week and is not using them as prescribed, and that she passes out at home frequently. - Physical Exam General: Alert, Oriented x3, Cooperative HEENT: Atraumatic, PERRLA, EOMI, Normocephalic Neck: Supple, No JVD, Negative Carotid Bruits Lungs: Clear to auscultation, Normal air movement Cardiovascular: Regular rate, No murmurs Abdomen: Bowel Sounds Present, Soft, Non Tender Extremities: No edema, Capillary Refill Less than 3 Seconds Skin: No rashes, No breakdown Musculoskeletal: No Tenderness to Palpation of Joints or Extremities Neurological: Cranial nerves II-XII grossly intact Psych/Mental Status: Normal Affect, Appropriate Vital Signs Temp Pulse Resp BP Pulse Ox 98.9 F 102 H 22 H 136/90 H 100 01/21/18 10:00 01/21/18 13:53 01/21/18 13:53 01/21/18 10:00 01/21/18 10:00 Oxygen Flow Rate (L/min) 2 Oxygen Delivery Method Nasal Cannula Weight: 74 lb 11.787 oz Body Mass Index (BMI) 14.1 Intake and Output for Last 24 Hours 01/19/18 01/20/18 01/21/18 23:59 23:59 23:59 Intake Total 1890 / 1890 2340 / 2340 1220 / 1220 Output Total 1275 / 1275 930 / 930 350 / 350 Balance 615 / 615 1410 / 1410 870 / 870 Microbiology Past 72 Hours 01/19/18 04:05 Urine Culture - Preliminary Urine, Catheterized Alpha Hemolytic Streptococcus Laboratory Tests Past 24 Hrs 01/20/18 01/20/18 01/21/18 15:50 15:50 06:30 WBC 9.6 RBC 3.04 L Hgb 8.1 L Hct 27.4 L MCV 90.1 MCH 26.6 L MCHC 29.6 L RDW 21.6 H RDW Differential 67.2 H Plt Count 338 MPV 11.4 Immature Gran % (Auto) 0.500 Neut % (Auto) 75.0 H Lymph % (Auto) 13.7 L [place] % (Auto) 10.7 H Eos % (Auto) 0.0 Baso % (Auto) 0.1 Absolute Neuts (auto) 7.2 Absolute Lymphs (auto) 1.32 Total Counted Not Reportable Differential Comment SCAN Polychromasia 1+ Hypochromasia 1+ Anisocytosis 1+ Microcytosis 1+ Sodium Potassium Chloride Carbon Dioxide Anion Gap BUN Creatinine Estim Creat Clear Calc Est GFR (MDRD) Af Amer Est GFR (MDRD) Non-Af BUN/Creatinine Ratio Glucose Calcium Iron 55 TIBC 259 Iron Saturation 21.2 Vitamin B12 529 01/21/18 06:30 WBC RBC Hgb Hct MCV MCH MCHC RDW RDW Differential Plt Count MPV Immature Gran % (Auto) Neut % (Auto) Lymph % (Auto) [place] % (Auto) Eos % (Auto) Baso % (Auto) Absolute Neuts (auto) Absolute Lymphs (auto) Total Counted Differential Comment Polychromasia Hypochromasia Anisocytosis Microcytosis Sodium 146 H Potassium 4.8 Chloride 113 H Carbon Dioxide 24.0 Anion Gap 9 BUN 8 Creatinine 0.65 Estim Creat Clear Calc 50.49 Est GFR (MDRD) Af Amer 120 Est GFR (MDRD) Non-Af 99 BUN/Creatinine Ratio 12.3 Glucose 121 H Calcium 8.3 L Iron TIBC Iron Saturation Vitamin B12 Medical Necessity - Tobacco Use Smoking Status: Current every day smoker Tobacco Use: Cigarettes Assessment/Plan All Active Problems UTI (urinary tract infection) (Acute) Hypokalemia due to inadequate potassium intake (Acute) Normocytic anemia (Acute) Generalized weakness (Acute) Contusion of knee, left (Acute) Contusion of knee, right (Acute) Delirium (Acute) 1. Acute opiate and barbiturate withdrawal -Continue librium taper. Decreased taper doses due to some increased lethargy this AM, likely because patient is so frail she needs lower doses. KUB with gas, stool. CT brain with remote infarcts. Knee xrays neg. -Pts mentation drastically improved since last night 2. Suspected COPD exacerbation - increased O2 demand and wheezing last night. Added aerosols and steroids - will taper. Repeat CXR with mild pleural effusions/vasc congestions/atelectasis. Mild wheezing today. SOB is improved and O2 demand improved today. 3. Acute cystitis - fever present, culture now showing alpha hemolytic strep. Continue rocephin. No leukocytosis, will recheck in AM. 4. Hypokalemia - resolved 5. Bradycardia and syncope - No further episodes. 2/2 withdrawal, incontinence, nausea, increased abdominal pressure, vagus nerve stimulation. 6. Severe HTN - very much improved. 7. Iron def anemia - continue supplement. B12/folate normal. Repeat iron panel shows improvement in iron stores. 8. Vit D def - replete. 9. Heavy smoker - > 3 ppd currently. Nicotine patch provided. 10. Severe protein calorie malnutrition - dietary eval, thiamine and MVI provided, vitD supplements, iron. TSH normal. Mag/Phos normal. 11. Debility / Found down - PTOT. Pt unsafe at home, falling, overdosing, not eating correctly, not caring for herself. 12. SI - sitter present. She is conversational and less confused today. Crisis is consulted today. DVT ppx: heparin DC planning: SNF if she is agreeable. She is unsafe to be home alone. Mother was just placed in hospice, whom she was helping care for at home. This patient was seen by Santos Trevizo PA-C under the supervision of Doctor Guevara. <Gregorio Waterman - Last Filed: 01/21/18 14:38> - Physical Exam Vital Signs Temp Pulse Resp BP Pulse Ox 98.9 F 102 H 22 H 136/90 H 100 01/21/18 10:00 01/21/18 13:53 01/21/18 13:53 01/21/18 10:00 01/21/18 10:00 Oxygen Flow Rate (L/min) 2 Oxygen Delivery Method Nasal Cannula Weight: 33.9 kg Body Mass Index (BMI) 14.1 Intake and Output for Last 24 Hours 01/19/18 01/20/18 01/21/18 23:59 23:59 23:59 Intake Total 1890 / 1890 2340 / 2340 1220 / 1220 Output Total 1275 / 1275 930 / 930 350 / 350 Balance 615 / 615 1410 / 1410 870 / 870 Microbiology Past 72 Hours 01/19/18 04:05 Urine Culture - Preliminary Urine, Catheterized Alpha Hemolytic Streptococcus Laboratory Tests Past 24 Hrs 01/20/18 01/20/18 01/21/18 15:50 15:50 06:30 WBC 9.6 RBC 3.04 L Hgb 8.1 L Hct 27.4 L MCV 90.1 MCH 26.6 L MCHC 29.6 L RDW 21.6 H RDW Differential 67.2 H Plt Count 338 MPV 11.4 Immature Gran % (Auto) 0.500 Neut % (Auto) 75.0 H Lymph % (Auto) 13.7 L [place] % (Auto) 10.7 H Eos % (Auto) 0.0 Baso % (Auto) 0.1 Absolute Neuts (auto) 7.2 Absolute Lymphs (auto) 1.32 Total Counted Not Reportable Differential Comment SCAN Polychromasia 1+ Hypochromasia 1+ Anisocytosis 1+ Microcytosis 1+ Sodium Potassium Chloride Carbon Dioxide Anion Gap BUN Creatinine Estim Creat Clear Calc Est GFR (MDRD) Af Amer Est GFR (MDRD) Non-Af BUN/Creatinine Ratio Glucose Calcium Iron 55 TIBC 259 Iron Saturation 21.2 Vitamin B12 529 01/21/18 06:30 WBC RBC Hgb Hct MCV MCH MCHC RDW RDW Differential Plt Count MPV Immature Gran % (Auto) Neut % (Auto) Lymph % (Auto) [place] % (Auto) Eos % (Auto) Baso % (Auto) Absolute Neuts (auto) Absolute Lymphs (auto) Total Counted Differential Comment Polychromasia Hypochromasia Anisocytosis Microcytosis Sodium 146 H Potassium 4.8 Chloride 113 H Carbon Dioxide 24.0 Anion Gap 9 BUN 8 Creatinine 0.65 Estim Creat Clear Calc 50.49 Est GFR (MDRD) Af Amer 120 Est GFR (MDRD) Non-Af 99 BUN/Creatinine Ratio 12.3 Glucose 121 H Calcium 8.3 L Iron TIBC Iron Saturation Vitamin B12 Assessment/Plan This patient was seen in conjunction with Santos Trevizo PA-C . I have independently interviewed and examined the patient and reviewed pertinent historical, laboratory, and other data. Please refer to Santos Trevizo PA-C note for details of this patient's presentation, findings, and recommendations. I have reviewed Santos Trevizo PA-C note and concur with documented findings. In brief, patient is a 57-year-old lady who was brought to the emergency department after she was found laying in her driveway by her niece. Was found to be severely cachectic on admission. She was hypokalemic with potassium of 2.8 admitted to a monitored bed for further 01/21/2018: Patient did spike fever, review of patient diagnostic workup on admission demonstrated cystitis started on Rocephin cultures later obtained came back positive for alpha hemolytic strep Physical Examination: GENERAL: Appears cachectic HEENT: Atraumatic EYES; Anicteric, NECK; supple, normal thyroid, RESPIRATORY: Diminished to auscultation bilaterally, CARDIOVASCULAR: Regular S1 S2, GI: soft, non-tender, NEURO: Awake; PSYCH; flat affect Assessment: 1. Polysubstance abuse with suspected opioid withdrawal 2. Severe hypokalemia 3. Severe protein calorie malnutrition 4. Iron deficiency anemia 5. Transient bradycardia 6. Syncopal episode 7. Vitamin D deficiency 8. Apparent suicidal ideation 10. Tobacco dependence 11. Labile hypertension 12. Physical debility 13. Acute cystitis with alpha hemolytic strep 14. DVT prophylaxis Recommendations: 1. I have discussed the results of my overview and impressions with the patient 2. Options for management were reviewed Code Visit Inpatient E&M: 08657 Subs Hosp L3
--- NOTE | 2018-01-21 14:53 | CASEMGMT ---
SW tried a few different things, but was not able to find patient's niece's phone number. SW spoke with patient and let her know SW was not able to locate Marianna's phone number. JACKSON asked if it would be okay if SW started contacting facilities to see if they can take her. She said that is fine. JACKSON called [facility] with referral and also faxed over information. Mitra CLINE MSW
[2018-01-21] MEDS: Gabapentin 100 MG Capsule PO (22:02)
[2018-01-22] VITALS (21 sets, daily range): BP systolic 130–174; BP diastolic 64–115; PULSE 103–129; RESP 16–26; TEMP 36.8–37.1; O2SAT 94–98
[2018-01-22] MEDS: Acetaminophen 500 MG Tablet PO ×3 (00:03→21:59)
[2018-01-22] MEDS: Ondansetron 4 MG/2 ML Vial IV (00:03)
[2018-01-22] MEDS: 0.9% Normal Saline 1,000 ML 75 ML IV (01:04)
[2018-01-22] MEDS: Calcium Carbonate 500 MG Tablet PO (01:05)
[2018-01-22] MEDS: chlordiazePOXIDE 25 MG Capsule PO ×2 (01:08→09:02)
[2018-01-22] MEDS: hydrOXYzine PAM 25 MG Capsule 50 MG PO (04:22)
[2018-01-22] MEDS: Dicyclomine 10 MG Capsule 20 MG PO (04:22)
[2018-01-22] MEDS: cloNIDine HCl 0.1 MG Tablet PO ×2 (04:22→06:14)
[2018-01-22] MEDS: Ipratropium/Albuterol Sulfate 3 ML AMPUL.NEB INHALATION ×3 (04:27→19:17)
[2018-01-22 06:56] LABS: Absolute Lymphocyte Count 0.77 X10^3/ul (0.83-4.51); Absolute Neutrophil Count 10.1 X10^3/uL (2.0-7.7); Anion Gap 7 (5-15); BUN 8 mg/dL (7-18); BUN/Creat Ratio 11.7 RATIO (10-20); Basophil# 0.01 X10^3/uL; Basophil% 0.1 % (0-1); Calcium,Total 8.2 mg/dL (8.5-10.1); Chloride 111 mmol/L (98-107); Creatinine, Serum 0.68 mg/dL (0.55-1.02); EST Glomerular Filtration Rate 94 mL/min (>60); Est Glom Filt Rate - Afr Amer 114 mL/min (>60); Estimated Creatinine Clearance 48.26 ml/min; Glucose 164 mg/dL (74-106); Hematocrit 26.9 % (37-47); Hemoglobin 8.1 g/dl (12.0-15.0); Lymphocyte # 0.77 X10^3/ul (4.0); Lymphocyte % 6.4 % (19-41); Mean Corp Hgb Conc 30.1 g/gl (32-36); Mean Corpuscular Hgb 27.1 pg (27.0-32.0); Monocyte# 0.98 X10^3/uL; Monocyte% 8.2 % (0-10); Neutrophil % 84.2 % (47-70); Platelet Count 348 K/mm3 (150-450); RBC Distribution Width CV 21.7 % (11.6-14.6); RBC Distribution Width SD 68.1 fl (35.1-43.9); Red Blood Count 2.99 M/mm3 (4.2-5.4); Sodium Level 143 mmol/L (136-145)
[2018-01-22 07:02] LABS: Differential Indicated SCAN CRITERIA MET; POSITIVE COUNT NO; POSITIVE DIFFERENTIAL NO; POSITIVE MORPHOLOGY YES
[2018-01-22 07:23] LABS: Anisocytosis 1+; Differential Comment SCAN; Microcytosis 1+
[2018-01-22 07:24] LABS: Hypochromasia 1+; Polychromasia 1+
[2018-01-22] MEDS: Thiamine Hydrochloride 100 MG Tablet PO (07:52)
[2018-01-22] MEDS: Multivitamins,Therapeutic Tablet 1 TABLET PO (07:52)
--- NOTE | 2018-01-22 08:56 | ECHOD_ITS ---
Reason For Study: CHF Procedure This was a 2D Doppler, Color Flow transthoracic echocardiogram. The study was technically difficult. Poor parasternal accoustic windows. Exam performed portable in patient room. Left Ventricle Normal size and thickness. The estimated ejection fraction is 40-45 %. Stage 1 diastolic dysfunction. There are regional wall motion abnormalities as specified. Wall motion abnormalities may be c/w Takotsubos cardiomyopathy vs old marii/septal/apical DE. Right Ventricle Normal size and thickness. Normal systolic function. Atria Normal left atrium. Normal right atrium. Normal atrial septum. Mitral Valve The mitral valve is structurally normal. No prolapse or stenosis seen. Tricuspid Valve Normal tricuspid valve. Mild (1+) tricuspid valve insufficiency. Right ventricular systolic pressure estimated to be 40 mmHg. Mild pulmonary hypertension. Aortic Valve Normal aortic valve. Trisinus/trileaflet aortic valve. Pulmonic Valve Normal pulmonic valve. Great Vessels Normal aortic root. Normal arch. Normal inferior vena cava. Inferior vena cava collapse with sniff. Pericardium/Pleural No pericardial effusion. MMode/2D Measurements & Calculations LVIDd: 3.9 cm IVSd: 0.69 cm Ao root diam: 2.7 cm LVIDs: 3.0 cm LVPWd: 0.72 cm RVDd: 2.4 cm FS: 22.7 % LAV(MOD-bp): 40.9 ml LA A4 area: 14.2 cm2 LA dimension(2D): 2.6 cm LAV(MOD-bp) Indexed: 32.9 ml/m2 LAV(MOD-sp2): 42.8 ml LAV(MOD-sp4): 37.6 ml RA A4 area: 8.6 cm2 Doppler Measurements & Calculations MV E max antonio: 125.0 cm/sec Lat Peak E' Antonio: 12.6 cm/sec Med Peak E' Antonio: 13.0 cm/sec MV A max antonio: 32.6 cm/sec E/E' lat: 9.9 E/E' med: 9.6 MV E/A: 3.8 Ao V2 max: 119.7 cm/sec LV V1 max: 107.2 cm/sec PA V2 max: 77.9 cm/sec Ao max P.7 mmHg LV V1 max P.6 mmHg TR max antonio: 302.6 cm/sec TR max P.6 mmHg Interpretation Summary The estimated ejection fraction is 40-45 %. Stage 1 diastolic dysfunction. Wall motion abnormalities may be c/w Takotsubos cardiomyopathy vs old marii/septal/apical DE. Mild (1+) tricuspid valve insufficiency. Right ventricular systolic pressure estimated to be 40 mmHg. Mild pulmonary hypertension. There is no comparison study available. Ordering Physician: Santos Trevizo Referring Physician: Florencio Stafford Performed By: Radha Delcid, MILKA, RVT
[2018-01-22] MEDS: Ceftriaxone 1 GM/50 ML BAG IV (09:01)
[2018-01-22] MEDS: Famotidine 20 MG Tablet PO ×2 (09:02→22:03)
[2018-01-22] MEDS: Heparin Injection (Vial) 5,000 UNIT/ML VIAL 5000 UNIT SC ×2 (09:02→21:45)
[2018-01-22] MEDS: FLUoxetine 10 MG Capsule PO (09:02)
--- NOTE | 2018-01-22 09:05 | CASEMGMT ---
JACKSON spoke with Ronit from [facility] as they had some questions and concerns about patient. JACKSON answered her questions and addressed her concerns. She said they should be able to take patient as long as she is free of a sitter for 24 hours and we have the pending Medicaid. JACKSON did talk with Sanjuanita from [facility] and let her know it will likely be [facility]. She will give the levi to Yenni as she handles [facility] applications and she will call JACKSON with the pending application number. Mitra CLINE MSW
[2018-01-22 09:24] LABS: Lipase 41 U/L (73-393)
--- NOTE | 2018-01-22 11:00 | NURSING ---
Sitter removed from room, patient cleared by crisis deemed not suicidal.
[2018-01-22] MEDS: Furosemide 40 MG/4 ML Vial IV (12:33)
[2018-01-22] MEDS: Ferrous Sulfate 325 MG Tablet PO ×2 (12:34→17:40)
[2018-01-22] MEDS: Furosemide 20 MG/2 ML VIAL IV ×2 (12:34→21:47)
--- NOTE | 2018-01-22 13:00 | PN_ITS ---
<Santos Trevizo - Last Filed: 01/22/18 12:55> Patient Problems: Active and Suspected Problems UTI (urinary tract infection) (Acute) Hypokalemia due to inadequate potassium intake (Acute) Normocytic anemia (Acute) Generalized weakness (Acute) Contusion of knee, left (Acute) Contusion of knee, right (Acute) Delirium (Acute) Subjective: Pt c/o diffuse abdominal pain but this is the same chronic pain she has daily for the past three years. She remains on O2 and is SOB with a nonproductive cough. No fever or chills. No CP/tightness/heaviness, no palpitations. She is moving her bowels. She has a khoury in place. Denies prior hx of copd or CHF. - Physical Exam General: Alert, Oriented x3, Cooperative HEENT: Atraumatic, PERRLA, EOMI, Normocephalic Neck: Supple, No JVD, Negative Carotid Bruits Lungs: Diminished, Rales - scattered basilar rales Cardiovascular: Regular rate, No murmurs Abdomen: Bowel Sounds Present, Soft, Tender - diffuse Extremities: No edema, Capillary Refill Less than 3 Seconds Skin: No rashes, No breakdown Musculoskeletal: No Tenderness to Palpation of Joints or Extremities Neurological: Cranial nerves II-XII grossly intact Psych/Mental Status: Anxious, Alert and oriented to time, place, person, mood a nd affect Vital Signs Temp Pulse Resp BP Pulse Ox 98.5 F 116 H 20 H 174/96 H 96 01/22/18 09:00 01/22/18 11:00 01/22/18 09:00 01/22/18 09:00 01/22/18 09:00 Oxygen Flow Rate (L/min) 2 Oxygen Delivery Method Nasal Cannula Weight: 74 lb 11.787 oz Body Mass Index (BMI) 14.1 Intake and Output for Last 24 Hours 01/20/18 01/21/18 01/22/18 23:59 23:59 23:59 Intake Total 2340 / 2340 2595 / 2595 510 / 510 Output Total 930 / 930 625 / 625 125 / 125 Balance 1410 / 1410 1970 / 1970 385 / 385 Microbiology Past 72 Hours 01/19/18 04:05 Urine Culture - Preliminary Urine, Catheterized Alpha Hemolytic Streptococcus Lactobacillus sp. Laboratory Tests Past 24 Hrs 01/22/18 01/22/18 01/22/18 06:25 06:25 06:30 WBC 12.0 H RBC 2.99 L Hgb 8.1 L Hct 26.9 L MCV 90.0 MCH 27.1 MCHC 30.1 L RDW 21.7 H RDW Differential 68.1 H Plt Count 348 MPV 11.0 Immature Gran % (Auto) 1.100 H Neut % (Auto) 84.2 H Lymph % (Auto) 6.4 L Ellis % (Auto) 8.2 Eos % (Auto) 0.0 Baso % (Auto) 0.1 Absolute Neuts (auto) 10.1 H Absolute Lymphs (auto) 0.77 L Total Counted Not Reportable Differential Comment SCAN Polychromasia 1+ Hypochromasia 1+ Anisocytosis 1+ Microcytosis 1+ Sodium 143 Potassium 4.0 Chloride 111 H Carbon Dioxide 25.0 Anion Gap 7 BUN 8 Creatinine 0.68 Estim Creat Clear Calc 48.26 Est GFR (MDRD) Af Amer 114 Est GFR (MDRD) Non-Af 94 BUN/Creatinine Ratio 11.7 Glucose 164 H Calcium 8.2 L B-Natriuretic Peptide Lipase 41 L 01/22/18 06:30 WBC RBC Hgb Hct MCV MCH MCHC RDW RDW Differential Plt Count MPV Immature Gran % (Auto) Neut % (Auto) Lymph % (Auto) Ellis % (Auto) Eos % (Auto) Baso % (Auto) Absolute Neuts (auto) Absolute Lymphs (auto) Total Counted Differential Comment Polychromasia Hypochromasia Anisocytosis Microcytosis Sodium Potassium Chloride Carbon Dioxide Anion Gap BUN Creatinine Estim Creat Clear Calc Est GFR (MDRD) Af Amer Est GFR (MDRD) Non-Af BUN/Creatinine Ratio Glucose Calcium B-Natriuretic Peptide 2022.6 H Lipase Medical Necessity - Tobacco Use Smoking Status: Current every day smoker Tobacco Use: Cigarettes Assessment/Plan All Active Problems UTI (urinary tract infection) (Acute) Hypokalemia due to inadequate potassium intake (Acute) Normocytic anemia (Acute) Generalized weakness (Acute) Contusion of knee, left (Acute) Contusion of knee, right (Acute) Delirium (Acute) 1. Acute opiate and barbiturate withdrawal -Continue librium taper. Finishes today. KUB with gas, stool. CT brain with remote infarcts. Knee xrays neg. -Pts mentation drastically improved since last night 2. Suspected acute COPD and acute CHF (type unclear) - Repat CXR with fluid. BNP drastically elevated. Lasix started. Solumedrol to po prednisone. Continue Duonebs. Maintain khoury for accurate I/O. 3. Acute cystitis - Continue rocephin. Leukocytosis likely 2/2 steroids. 4. Hypokalemia - resolved 5. Bradycardia and syncope - No further episodes. 2/2 withdrawal, incontinence, nausea, increased abdominal pressure, vagus nerve stimulation. 6. HTN - stable. 7. Iron def anemia - continue supplement. B12/folate normal. Repeat iron panel shows improvement in iron stores. 8. Vit D def - replete. 9. Heavy smoker - > 3 ppd currently. Nicotine patch provided. 10. Severe protein calorie malnutrition - dietary eval, thiamine and MVI provided, vitD supplements, iron. TSH normal. Mag/Phos normal. 11. Debility / Found down - PTOT. Pt unsafe at home, falling, overdosing, not eating correctly, not caring for herself. 12. SI - Cleared by Crisis team. 13. Chronic abdominal pain - x 3 years. Etiology unknown. KUB as above (stool), lipase neg. She has no GB or appendix. DVT ppx: heparin DC planning: She will be going to SNF when stable as she is debilitated, malnourished, and not properly caring for herself at home. This patient was seen by Santos Trevizo PA-C under the supervision of Doctor Guevara. <Gregorio Waterman - Last Filed: 01/22/18 13:06> - Physical Exam Vital Signs Temp Pulse Resp BP Pulse Ox 98.5 F 116 H 20 H 174/96 H 96 01/22/18 09:00 01/22/18 11:00 01/22/18 09:00 01/22/18 09:00 01/22/18 09:00 Oxygen Flow Rate (L/min) 2 Oxygen Delivery Method Nasal Cannula Weight: 33.9 kg Body Mass Index (BMI) 14.1 Intake and Output for Last 24 Hours 01/20/18 01/21/18 01/22/18 23:59 23:59 23:59 Intake Total 2340 / 2340 2595 / 2595 510 / 510 Output Total 930 / 930 625 / 625 125 / 125 Balance 1410 / 1410 1970 / 1970 385 / 385 Microbiology Past 72 Hours 01/19/18 04:05 Urine Culture - Preliminary Urine, Catheterized Alpha Hemolytic Streptococcus Lactobacillus sp. Laboratory Tests Past 24 Hrs 01/22/18 01/22/18 01/22/18 06:25 06:25 06:30 WBC 12.0 H RBC 2.99 L Hgb 8.1 L Hct 26.9 L MCV 90.0 MCH 27.1 MCHC 30.1 L RDW 21.7 H RDW Differential 68.1 H Plt Count 348 MPV 11.0 Immature Gran % (Auto) 1.100 H Neut % (Auto) 84.2 H Lymph % (Auto) 6.4 L Ellis % (Auto) 8.2 Eos % (Auto) 0.0 Baso % (Auto) 0.1 Absolute Neuts (auto) 10.1 H Absolute Lymphs (auto) 0.77 L Total Counted Not Reportable Differential Comment SCAN Polychromasia 1+ Hypochromasia 1+ Anisocytosis 1+ Microcytosis 1+ Sodium 143 Potassium 4.0 Chloride 111 H Carbon Dioxide 25.0 Anion Gap 7 BUN 8 Creatinine 0.68 Estim Creat Clear Calc 48.26 Est GFR (MDRD) Af Amer 114 Est GFR (MDRD) Non-Af 94 BUN/Creatinine Ratio 11.7 Glucose 164 H Calcium 8.2 L B-Natriuretic Peptide Lipase 41 L 01/22/18 06:30 WBC RBC Hgb Hct MCV MCH MCHC RDW RDW Differential Plt Count MPV Immature Gran % (Auto) Neut % (Auto) Lymph % (Auto) Ellis % (Auto) Eos % (Auto) Baso % (Auto) Absolute Neuts (auto) Absolute Lymphs (auto) Total Counted Differential Comment Polychromasia Hypochromasia Anisocytosis Microcytosis Sodium Potassium Chloride Carbon Dioxide Anion Gap BUN Creatinine Estim Creat Clear Calc Est GFR (MDRD) Af Amer Est GFR (MDRD) Non-Af BUN/Creatinine Ratio Glucose Calcium B-Natriuretic Peptide 2022.6 H Lipase Assessment/Plan This patient was seen in conjunction with Santos Trevizo PA-C . I have independently interviewed and examined the patient and reviewed pertinent historical, laboratory, and other data. Please refer to Santos Trevizo PA-C note for details of this patient's presentation, findings, and recommendations. I have reviewed Santos Trevizo PA-C note and concur with documented findings. In brief, patient is a 57-year-old lady who was brought to the emergency d epartment after she was found laying in her driveway by her niece. Was found to be severely cachectic on admission. She was hypokalemic with potassium of 2.8 admitted to a monitored bed for further 01/21/2018: Patient did spike fever, review of patient diagnostic workup on admission demonstrated cystitis started on Rocephin cultures later obtained came back positive for alpha hemolytic strep 01/22/2018 patient seen appears significantly dyspneic at rest with edema involving both upper and lower extremities. Her BNP came back elevated greater than 2000. Chest x-ray obtained the day prior was consistent with vascular congestion. An assessment of acute congestive heart failure made echo ordered patient placed on Lasix Physical Examination: GENERAL: Appears cachectic; dyspneic at rest HEENT: Atraumatic EYES; Anicteric, NECK; supple, normal thyroid, RESPIRATORY: Diminished to auscultation bilaterally, CARDIOVASCULAR: Regular S1 S2, GI: soft, non-tender, NEURO: Awake; PSYCH; flat affect Assessment: 1. Polysubstance abuse with suspected opioid withdrawal 2. Acute congestive heart failure suspected to be secondary to diastolic dysfunction (heart failure with preserved ejection fraction) 3. Acute cystitis with alpha hemolytic strep 4. Iron deficiency anemia 5. Transient bradycardia 6. Syncopal episode 7. Vitamin D deficiency 8. Apparent suicidal ideation 10. Tobacco dependence 11. Labile hypertension 12. Physical debility 13. Severe hypokalemia 14. Severe protein calorie malnutrition 10. Polysubstance abuse 16. DVT prophylaxis: SC Lovenox Recommendations: 1. I have discussed the results of my overview and impressions with the patient 2. Options for management were reviewed Clinical Impression(s) from Imaging Studies Chest X-Ray 01/21/18 08:55 IMPRESSION: Vascular congestion. Small bilateral pleural effusions with some mild bibasilar atelectasis. Electronically Signed: Karan Cruz MD at 10:17 EST Tel [phone], Service support , Code Visit Inpatient E&M: [id number] Subs Hosp L3
--- NOTE | 2018-01-22 13:35 | CASEMGMT ---
SW spoke with patient and let her know [facility] said they can take her at d/c. She was in agreement with this plan. SW received a call from Yenni at [facility] and patient's pending Medicaid number is [id number]. Crisis saw patient and cleared her so she no longer has a sitter. Sitter was removed at 11am today. SW will work on obtaining level of care. Mitra SIERRA
[2018-01-22] MEDS: Metoprolol Tartrate 25 MG Tablet 12.5 MG PO ×2 (14:35→21:49)
--- NOTE | 2018-01-22 14:45 | PCM.TXEXTCAR ---
- Diet 01/19/18 07:33 Diet: Regular Diet Food consistency:: Puree Liquid Consistency:: Regular/Thin Dietary Modifications:: Pureed Diet Diet Comments: suicide precautions, distant supervision, small sips, one at a time - Routine Orders/Code Status Suppository Type: Dulcolax 10mg Suppository Frequency: Daily PRN O2 Frequency: PRN Keep PO Greater than or Equal to (%): 89 Routine Lab Work: CBC - 5 days, BMP - 5 days - Wound(s) deandre knee bruised areas Wound Type: scabbed arasions - Therapies Physical Therapy: Eval and Treat Occupational Therapy: Eval and Treat - Problem/Diagnosis (1) Acute UTI Status: Acute Current Visit: Yes (2) Barbiturate withdrawal Status: Acute Current Visit: Yes (3) Opioid withdrawal Status: Acute Current Visit: Yes (4) CHF (congestive heart failure) Status: Acute Current Visit: Yes (5) COPD (chronic obstructive pulmonary disease) Status: Acute Current Visit: Yes (6) Fall Status: Acute Current Visit: Yes (7) RSD lower limb Status: Chronic Current Visit: Yes (8) Chronic abdominal pain Status: Chronic Current Visit: Yes (9) Severe protein-calorie malnutrition Status: Chronic Current Visit: Yes (10) Debility Status: Acute Current Visit: Yes (11) Anemia Status: Chronic Current Visit: Yes (12) Pulmonary HTN Status: Chronic Current Visit: Yes (13) Vitamin D deficiency Status: Chronic Current Visit: Yes (14) Tobacco user Status: Chronic Current Visit: No - Allergies/Procedures Done in Hospital Allergies/Adverse Reactions: Allergies amoxicillin trihydrate [From Augmentin] Allergy (Verified 01/19/18 02:26) Abd cramps/diarrhea azithromycin [From Zithromax Z-Piter] Allergy (Verified 01/19/18 02:26) Abd cramps/diarrhea ibuprofen [From Advil] Allergy (Verified 01/19/18 02:26) Abd cramps/diarrhea levofloxacin [From Levaquin] Allergy (Verified 01/19/18 02:26) Abd cramps/diarrhea naproxen sodium [From Aleve] Allergy (Verified 01/19/18 02:26) Abd cramps/diarrhea nitrofurantoin [From Macrobid] Allergy (Verified 01/19/18 02:26) Abd cramps/diarrhea nitrofurantoin macrocrystalline [From Macrobid] Allergy (Verified 01/19/18 02:26) Abd cramps/diarrhea potassium clavulanate [From Augmentin] Allergy (Verified 01/19/18 02:26) Abd cramps/diarrhea fentanyl Adverse Reaction (Verified 01/19/18 02:26) Other FASR HEART RATE, DIZZINESS pregabalin [From Lyrica] Adverse Reaction (Verified 01/19/18 02:26) Other PAIN IN HEAD Procedures: 2-D Echocardiogram - Type of Care/Length of Stay Estimated LOS: Convalescent Care Less Than 30 days Type of Care Needed: Skilled Rehab Potential: Fair Prognosis: Fair - Additional Orders/Day of Discharge Day of Discharge: 01/22/18 - Dietary and Speech Recommendations Dietitian Recommendations/Changes: Continue regular diet. Continue Ensure Enlive 120 mL 4x/day w/ medpass. Will fortify food items on tray when possible and provide Ensure Enlive w/ meals per pt preference. Rec evaluation by mental health professional to address emotional/social issues. Nutrition support if aggressive nutrition thearpy deemed appropriate- consult RD for recommendations as needed. - Follow Up Care Primary Care Physician: Florencio Stafford MD [Primary Care Provider] - Please follow up with your Primary Care Physician in: 2 weeks
--- NOTE | 2018-01-22 15:20 | CASEMGMT ---
Sent information to [facility] to obtain level of care. Mitra [employer]
[2018-01-22] MEDS: predniSONE 20 MG Tablet PO (17:39)
[2018-01-22] MEDS: Gabapentin 100 MG Capsule PO (21:49)
[2018-01-22] MEDS: 0.9% NaCl Peripheral Flush Adult/Peds IV (21:55)
[2018-01-23] VITALS (12 sets, daily range): BP systolic 125–158; BP diastolic 66–90; PULSE 85–116; RESP 18–24; TEMP 36.7–37.2; O2SAT 92–95
[2018-01-23] MEDS: Furosemide 20 MG/2 ML VIAL IV (06:06)
[2018-01-23] MEDS: 0.9% NaCl Peripheral Flush Adult/Peds IV (06:06)
[2018-01-23 06:17] LABS: Absolute Lymphocyte Count 0.96 X10^3/ul (0.83-4.51); Absolute Neutrophil Count 5.8 X10^3/uL (2.0-7.7); Differential Indicated SCAN CRITERIA MET; Eosinophil# 0.01 X10^3/uL; Eosinophils% 0.1 % (0-5); Hematocrit 25.1 % (37-47); Hemoglobin 7.6 g/dl (12.0-15.0); Lymphocyte # 0.96 X10^3/ul (4.0); Lymphocyte % 12.8 % (19-41); Mean Corp Hgb Conc 30.3 g/gl (32-36); Mean Corpuscular Volume 89.3 fL (81-99); Monocyte# 0.69 X10^3/uL; Monocyte% 9.2 % (0-10); Neutrophil % 77.5 % (47-70); POSITIVE COUNT NO; POSITIVE DIFFERENTIAL NO; POSITIVE MORPHOLOGY YES; Platelet Count 305 K/mm3 (150-450); RBC Distribution Width CV 21.9 % (11.6-14.6); RBC Distribution Width SD 66.6 fl (35.1-43.9); Red Blood Count 2.81 M/mm3 (4.2-5.4); White Blood Count 7.5 K/mm3 (4.4-11.0)
[2018-01-23] MEDS: Acetaminophen 500 MG Tablet PO ×2 (06:18→12:38)
[2018-01-23 06:32] LABS: Anisocytosis 1+; Differential Comment SCAN; Hypochromasia 2+; Microcytosis 1+; Polychromasia 1+
[2018-01-23] MEDS: Ipratropium/Albuterol Sulfate 3 ML AMPUL.NEB INHALATION (06:57)
[2018-01-23] MEDS: Multivitamins,Therapeutic Tablet 1 TABLET PO (08:38)
[2018-01-23] MEDS: Thiamine Hydrochloride 100 MG Tablet PO (08:39)
[2018-01-23] MEDS: predniSONE 20 MG Tablet PO (08:39)
[2018-01-23] MEDS: Heparin Injection (Vial) 5,000 UNIT/ML VIAL 5000 UNIT SC (10:15)
[2018-01-23] MEDS: Metoprolol Tartrate 25 MG Tablet 12.5 MG PO (10:16)
[2018-01-23] MEDS: FLUoxetine 10 MG Capsule PO (10:17)
[2018-01-23] MEDS: Famotidine 20 MG Tablet PO (10:17)
[2018-01-23] MEDS: Ceftriaxone 1 GM/50 ML BAG IV (10:18)
--- NOTE | 2018-01-23 11:40 | PCM.DC.SUM ---
<Dina Uribe - Last Filed: 01/23/18 12:02> Discharge Date and Diagnosis Date of Admission: 01/19/18 Date of Discharge: 01/23/18 - Primary Discharge Diagnosis Active and Suspected Problems 1. Acute opiate and barbiturate withdrawal, polysubstance abuse 2. Acute hypoxic respiratory insufficiency secondary to acute COPD exacerbation and acute systolic CHF 3. Acute COPD 4. Acute systolic CHF 5. Acute Streptococcus sanguinous/lactobacillus UTI 6. Hypokalemia 7. Iron deficiency anemia 8. Vitamin D deficiency 9. Hypertension 10. Tobacco dependence 11. Severe protein calorie malnutrition 12. Debility 13. History of suicidal ideation 14. Chronic abdominal pain-workup unremarkable - Secondary Discharge Diagnosis Chronic Problems RSD lower limb (Chronic) Chronic abdominal pain (Chronic) Severe protein-calorie malnutrition (Chronic) Anemia (Chronic) Pulmonary HTN (Chronic) Vitamin D deficiency (Chronic) Tobacco user (Chronic) Reflex sympathetic dystrophy (Chronic) Hospital Course and Treatment Imaging Results: Diagnostic Data Brain CT 01/19/18 02:46 IMPRESSION: No CT evidence of acute infarct or hemorrhage. 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 If there is clinical concern for hyperacute ischemia that is not evident by CT, MRI should be considered if possible. Electronically Signed: Tree Rodriguez MD at 3:41 EST Tel , Service support , Knee X-Ray 01/19/18 03:45 IMPRESSION: No acute osseous injury is evident. Electronically Signed: Tree Rodriguez MD at 4:37 EST Tel , Service support , KUB X-Ray 01/20/18 09:15 IMPRESSION: Gaseous distention of the stomach. Moderate amount of fecal material is seen in the colon. Electronically Signed: Karan Cruz MD at 13:20 EST Tel [phone], Service support , Chest X-Ray 01/21/18 08:55 IMPRESSION: Vascular congestion. Small bilateral pleural effusions with some mild bibasilar atelectasis. 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 1. Acute opiate and barbiturate withdrawal, polysubstance abuse-completed Librium taper. Mentation improved. Stable. Recommend further outpatient counseling. 2. Acute hypoxic respiratory insufficiency secondary to acute COPD exacerbation and acute systolic CHF-continue supplement oxygen to maintain O2 sat above 90%. 3. Acute COPD-continue albuterol and DuoNeb aerosols. Prednisone 40 mg for 5 days. 4. Acute systolic CHF-echocardiogram showed an EF of 40-45%, stage I diastolic dysfunction, wall motion abnormalities consistent with takotsubos cardiomyopathy versus old [place]. +1 tricuspid valve insufficiency. RVSP estimated to be 40 mmHg. Patient received IV Lasix during admission. At discharge on Lasix 40 mg p.o. daily. Started on low-dose RIAN inhibitor. Recommend follow-up with cardiology as outpatient for further evaluation regarding echocardiogram findings. 5. Acute Streptococcus sanguinous/lactobacillus UTI-patient received IV Rocephin during admission. Discharged on amoxicillin 500 mg every 8 hours for 3 days. 6. Hypokalemia-resolved, continue potassium supplementation. 7. Iron deficiency anemia-continue iron supplementation. 8. Vitamin D deficiency-continue vitamin D supplementation 2000 units daily for 6-8 weeks. 9. Hypertension-stable, continue home metoprolol, lisinopril. 10. Tobacco dependence-encouraged tobacco cessation. 11. Severe protein calorie malnutrition 12. Debility- PT/OT. SNF at [place]. 13. History of suicidal ideation-cleared by crisis. 14. Chronic abdominal pain-workup unremarkable. KUB with gas, stool. Lipase negative. General: Alert, Oriented x3, Cooperative HEENT: Atraumatic, PERRLA, EOMI, Normocephalic Neck: Supple, No JVD, Negative Carotid Bruits Lungs: Diminished, clear to auscultation Cardiovascular: Regular rate, No murmurs Abdomen: Bowel Sounds Present, Soft, Tender - diffuse Extremities: No edema, Capillary Refill Less than 3 Seconds Skin: No rashes, No breakdown Musculoskeletal: No Tenderness to Palpation of Joints or Extremities Neurological: Cranial nerves II-XII grossly intact Psych/Mental Status: Normal affect Patient seen and examined prior to discharge. Physical assessment as noted above. Patient is stable for discharge with follow up recommendations as noted above. This patient was seen by JONES Saleh under the supervision of Dr. Waterman. - Physical Exam Vital Signs Temp Pulse Resp BP Pulse Ox 98.1 F 116 H 18 141/66 H 94 01/23/18 10:00 01/23/18 10:16 01/23/18 10:00 01/23/18 10:16 01/23/18 10:00 Oxygen Flow Rate (L/min) 2 Oxygen Delivery Method Nasal Cannula Weight: 73 lb 13.678 oz Body Mass Index (BMI) 14.1 Intake and Output for Last 24 Hours 01/21/18 01/22/18 01/23/18 23:59 23:59 23:59 Intake Total 2595 / 2595 1511.8 / 1511.8 22.8 / 22.8 Output Total 625 / 625 4000 / 4000 300 / 300 Balance 1970 / 1970 -2488.2 / -2488.2 -277.2 / -277.2 Microbiology Past 72 Hours 01/19/18 04:05 Urine Culture - Final Urine, Catheterized Streptococcus sanguinis Lactobacillus sp. Laboratory Tests Past 24 Hrs 01/23/18 05:45 WBC 7.5 RBC 2.81 L Hgb 7.6 L Hct 25.1 L MCV 89.3 MCH 27.0 MCHC 30.3 L RDW 21.9 H RDW Differential 66.6 H Plt Count 305 MPV 11.0 Immature Gran % (Auto) 0.400 Neut % (Auto) 77.5 H Lymph % (Auto) 12.8 L [place] % (Auto) 9.2 Eos % (Auto) 0.1 Baso % (Auto) 0.0 Absolute Neuts (auto) 5.8 Absolute Lymphs (auto) 0.96 Total Counted Not Reportable Differential Comment SCAN Polychromasia 1+ Hypochromasia 2+ Anisocytosis 1+ Microcytosis 1+ Home Medications: Medications to take at Discharge Codeine/Butalbital/ASA/Caffein [Fiorinal with Codeine #3 Cap] 1 each PO Q4H PRN 11/30/13 Famotidine/Ca Carb/Mag Hydrox [Pepcid Complete Tablet Chew] 10 mg PO DAILY 11/30/13 P-Ephed HCl/Cetirizine HCl [Zyrtec-D Tablet] 1 tab.sr PO DAILY 11/30/13 Albuterol Aerosols [Ventolin Aerosols] 2.5 mg INHALATION Q2H PRN PRN vial.neb. 01/23/18 Amoxicillin [Amoxil] 500 mg PO Q8H #12 capsule 01/23/18 Cholecalciferol (VIT D3) [Vitamin D3] 2,000 unit PO DAILY tablet 01/23/18 Ferrous Sulfate 325 mg PO 1200,1700 tablet 01/23/18 Fluoxetine [Prozac] 10 mg PO DAILY capsule 01/23/18 Furosemide [Lasix] 40 mg PO DAILY #30 tablet 01/23/18 Gabapentin [Neurontin] 100 mg PO QHS capsule 01/23/18 Ipratropium/Albuterol Sulfate [Duoneb] 3 ml INHALATION Q6HWA.RT ampul.neb 01/23/18 Metoprolol Tartrate [Lopressor (beta cassie)] 12.5 mg PO BID tablet 01/23/18 Multivitamins,Therapeutic [Multivitamin] 1 tablet PO DAILYCM tablet 01/23/18 Nicotine [Nicoderm Cq] 21 mg TRANSDERM. DAILY patch 01/23/18 Potassium Chloride [K-Dur] 20 meq PO BIDCM tablet 01/23/18 predniSONE tablet 40 mg PO DAILY 5 Days tablet 01/23/18 Following Prescrptions Were Given to Patient: Amoxicillin [Amoxil] 500 mg PO Q8H #12 capsule Furosemide [Lasix] 40 mg PO DAILY #30 tablet Primary Care Physician: Florencio Stafford MD [Primary Care Provider] - Please follow up with your Primary Care Physician in: 2 weeks Please Follow Up With: [facility] - Any physician When: 1-2 Weeks [facility]position[facility] Minutes spent on discharge:: 35 Patient Condition:: Stable Medical Necessity - Tobacco Use Smoking Status: Current every day smoker Tobacco Use: Cigarettes Meaningful Use Info Meaningful Use Diagnoses (Choose all that apply): CHF - CHF RIAN/ARB ordered at discharge?: Yes Documented LVEF (%): 40 <Gregorio Waterman - Last Filed: 01/23/18 12:58> Discharge Date and Diagnosis - Secondary Discharge Diagnosis Chronic Problems RSD lower limb (Chronic) Chronic abdominal pain (Chronic) Severe protein-calorie malnutrition (Chronic) Anemia (Chronic) Pulmonary HTN (Chronic) Vitamin D deficiency (Chronic) Tobacco user (Chronic) Reflex sympathetic dystrophy (Chronic) Hospital Course and Treatment Consultations 01/19/18 07:33 Consult: Onc/Wound/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 I have independently interviewed and examined the patient and reviewed pertinent historical, laboratory, and other data. Please refer to JONES Saleh note for details of this patient's presentation, findings, and recommendations. I have reviewed JONES Saleh note and concur with documented findings. In brief, patient is a 57-year-old lady who was brought to the emergency department after she was found laying in her driveway by her niece. Was found to be severely cachectic on admission. She was hypokalemic with potassium of 2.8 admitted to a monitored bed for further 1. Polysubstance abuse with suspected opioid withdrawal 2. Acute congestive heart failure suspected to be secondary to diastolic dysfunction (heart failure with preserved ejection fraction) 3. Acute cystitis with alpha hemolytic strep 4. Iron deficiency anemia 5. Transient bradycardia 6. Syncopal episode 7. Vitamin D deficiency 8. Apparent suicidal ideation 10. Tobacco dependence 11. Labile hypertension 12. Physical debility 13. Severe hypokalemia 14. Severe protein calorie malnutrition 10. Polysubstance abuse 16. DVT prophylaxis: [place] Lovenox Hospital course: As detailed above by JONES Saleh - Physical Exam Vital Signs Temp Pulse Resp BP Pulse Ox 98.1 F 85 18 141/66 H 94 01/23/18 10:00 01/23/18 11:54 01/23/18 10:00 01/23/18 10:16 01/23/18 10:00 Oxygen Flow Rate (L/min) 2 Oxygen Delivery Method Nasal Cannula Weight: 33.5 kg Body Mass Index (BMI) 14.1 Intake and Output for Last 24 Hours 01/21/18 01/22/18 01/23/18 23:59 23:59 23:59 Intake Total 2595 / 2595 1511.8 / 1511.8 462.8 / 462.8 Output Total 625 / 625 4000 / 4000 1425 / 1425 Balance 1970 / 1970 -2488.2 / -2488.2 -962.2 / -962.2 Microbiology Past 72 Hours 01/19/18 04:05 Urine Culture - Final Urine, Catheterized Streptococcus sanguinis Lactobacillus sp. Laboratory Tests Past 24 Hrs 01/23/18 05:45 WBC 7.5 RBC 2.81 L Hgb 7.6 L Hct 25.1 L MCV 89.3 MCH 27.0 MCHC 30.3 L RDW 21.9 H RDW Differential 66.6 H Plt Count 305 MPV 11.0 Immature Gran % (Auto) 0.400 Neut % (Auto) 77.5 H Lymph % (Auto) 12.8 L [place] % (Auto) 9.2 Eos % (Auto) 0.1 Baso % (Auto) 0.0 Absolute Neuts (auto) 5.8 Absolute Lymphs (auto) 0.96 Total Counted Not Reportable Differential Comment SCAN Polychromasia 1+ Hypochromasia 2+ Anisocytosis 1+ Microcytosis 1+ Code Visit Inpatient E&M: 55169 Disch Hosp
--- NOTE | 2018-01-23 11:44 | DS.PCM_ITS ---
<Dina Uribe - Last Filed: 01/23/18 12:02> Discharge Date and Diagnosis Date of Admission: 01/19/18 Date of Discharge: 01/23/18 - Primary Discharge Diagnosis Active and Suspected Problems 1. Acute opiate and barbiturate withdrawal, polysubstance abuse 2. Acute hypoxic respiratory insufficiency secondary to acute COPD exacerbation and acute systolic CHF 3. Acute COPD 4. Acute systolic CHF 5. Acute Streptococcus sanguinous/lactobacillus UTI 6. Hypokalemia 7. Iron deficiency anemia 8. Vitamin D deficiency 9. Hypertension 10. Tobacco dependence 11. Severe protein calorie malnutrition 12. Debility 13. History of suicidal ideation 14. Chronic abdominal pain-workup unremarkable - Secondary Discharge Diagnosis Chronic Problems RSD lower limb (Chronic) Chronic abdominal pain (Chronic) Severe protein-calorie malnutrition (Chronic) Anemia (Chronic) Pulmonary HTN (Chronic) Vitamin D deficiency (Chronic) Tobacco user (Chronic) Reflex sympathetic dystrophy (Chronic) Hospital Course and Treatment Imaging Results: Diagnostic Data Brain CT 01/19/18 02:46 IMPRESSION: No CT evidence of acute infarct or hemorrhage. 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 If there is clinical concern for hyperacute ischemia that is not evident by CT, MRI should be considered if possible. Electronically Signed: Tree Rodriguez MD at 3:41 EST Tel , Service support , Knee X-Ray 01/19/18 03:45 IMPRESSION: No acute osseous injury is evident. Electronically Signed: Tree Rodriguez MD at 4:37 EST Tel , Service support , KUB X-Ray 01/20/18 09:15 IMPRESSION: Gaseous distention of the stomach. Moderate amount of fecal material is seen in the colon. Electronically Signed: Karan Cruz MD at 13:20 EST Tel [phone], Service support , Chest X-Ray 01/21/18 08:55 IMPRESSION: Vascular congestion. Small bilateral pleural effusions with some mild bibasilar atelectasis. Electronically Signed: Karan Cruz MD at 10:17 EST Tel [phone], Service support , Consultations 01/19/18 07:33 Consult: Onc/Wound/physiatrist Routine Comment: Reason for Consult:: Bilateral leg wounds and knee wounds 01/21/18 12:12 Consult: Mental Health/Crisis Routine Reason for consult?: SI Date Notified:: 01/21/18 Time notified:: 12:59 Operations: None Procedures: 2-D Echocardiogram Summary of Care Provided: The patient is a 57 year old F 01/19/2018 due to generalized weakness. 1. Acute opiate and barbiturate withdrawal, polysubstance abuse-completed Librium taper. Mentation improved. Stable. Recommend further outpatient counseling. 2. Acute hypoxic respiratory insufficiency secondary to acute COPD exacerbation and acute systolic CHF-continue supplement oxygen to maintain O2 sat above 90%. 3. Acute COPD-continue albuterol and DuoNeb aerosols. Prednisone 40 mg for 5 days. 4. Acute systolic CHF-echocardiogram showed an EF of 40-45%, stage I diastolic dysfunction, wall motion abnormalities consistent with takotsubos cardiomyopathy versus old [place]. +1 tricuspid valve insufficiency. RVSP estimated to be 40 mmHg. Patient received IV Lasix during admission. At discharge on Lasix 40 mg p.o. daily. Started on low-dose RIAN inhibitor. Recommend follow-up with cardiology as outpatient for further evaluation regarding echocardiogram findings. 5. Acute Streptococcus sanguinous/lactobacillus UTI-patient received IV Rocephin during admission. Discharged on amoxicillin 500 mg every 8 hours for 3 days. 6. Hypokalemia-resolved, continue potassium supplementation. 7. Iron deficiency anemia-continue iron supplementation. 8. Vitamin D deficiency-continue vitamin D supplementation 2000 units daily for 6-8 weeks. 9. Hypertension-stable, continue home metoprolol, lisinopril. 10. Tobacco dependence-encouraged tobacco cessation. 11. Severe protein calorie malnutrition 12. Debility- PT/OT. SNF at [place]. 13. History of suicidal ideation-cleared by crisis. 14. Chronic abdominal pain-workup unremarkable. KUB with gas, stool. Lipase negative. General: Alert, Oriented x3, Cooperative HEENT: Atraumatic, PERRLA, EOMI, Normocephalic Neck: Supple, No JVD, Negative Carotid Bruits Lungs: Diminished, clear to auscultation Cardiovascular: Regular rate, No murmurs Abdomen: Bowel Sounds Present, Soft, Tender - diffuse Extremities: No edema, Capillary Refill Less than 3 Seconds Skin: No rashes, No breakdown Musculoskeletal: No Tenderness to Palpation of Joints or Extremities Neurological: Cranial nerves II-XII grossly intact Psych/Mental Status: Normal affect Patient seen and examined prior to discharge. Physical assessment as noted above. Patient is stable for discharge with follow up recommendations as noted above. This patient was seen by JONES Saleh under the supervision of Dr. Waterman. - Physical Exam Vital Signs Temp Pulse Resp BP Pulse Ox 98.1 F 116 H 18 141/66 H 94 01/23/18 10:00 01/23/18 10:16 01/23/18 10:00 01/23/18 10:16 01/23/18 10:00 Oxygen Flow Rate (L/min) 2 Oxygen Delivery Method Nasal Cannula Weight: 73 lb 13.678 oz Body Mass Index (BMI) 14.1 Intake and Output for Last 24 Hours 01/21/18 01/22/18 01/23/18 23:59 23:59 23:59 Intake Total 2595 / 2595 1511.8 / 1511.8 22.8 / 22.8 Output Total 625 / 625 4000 / 4000 300 / 300 Balance 1970 / 1970 -2488.2 / -2488.2 -277.2 / -277.2 Microbiology Past 72 Hours 01/19/18 04:05 Urine Culture - Final Urine, Catheterized Streptococcus sanguinis Lactobacillus sp. Laboratory Tests Past 24 Hrs 01/23/18 05:45 WBC 7.5 RBC 2.81 L Hgb 7.6 L Hct 25.1 L MCV 89.3 MCH 27.0 MCHC 30.3 L RDW 21.9 H RDW Differential 66.6 H Plt Count 305 MPV 11.0 Immature Gran % (Auto) 0.400 Neut % (Auto) 77.5 H Lymph % (Auto) 12.8 L [place] % (Auto) 9.2 Eos % (Auto) 0.1 Baso % (Auto) 0.0 Absolute Neuts (auto) 5.8 Absolute Lymphs (auto) 0.96 Total Counted Not Reportable Differential Comment SCAN Polychromasia 1+ Hypochromasia 2+ Anisocytosis 1+ Microcytosis 1+ Home Medications: Medications to take at Discharge Codeine/Butalbital/ASA/Caffein [Fiorinal with Codeine #3 Cap] 1 each PO Q4H PRN 11/30/13 Famotidine/Ca Carb/Mag Hydrox [Pepcid Complete Tablet Chew] 10 mg PO DAILY 11/30/13 P-Ephed HCl/Cetirizine HCl [Zyrtec-D Tablet] 1 tab.sr PO DAILY 11/30/13 Albuterol Aerosols [Ventolin Aerosols] 2.5 mg INHALATION Q2H PRN PRN vial.neb. 01/23/18 Amoxicillin [Amoxil] 500 mg PO Q8H #12 capsule 01/23/18 Cholecalciferol (VIT D3) [Vitamin D3] 2,000 unit PO DAILY tablet 01/23/18 Ferrous Sulfate 325 mg PO 1200,1700 tablet 01/23/18 Fluoxetine [Prozac] 10 mg PO DAILY capsule 01/23/18 Furosemide [Lasix] 40 mg PO DAILY #30 tablet 01/23/18 Gabapentin [Neurontin] 100 mg PO QHS capsule 01/23/18 Ipratropium/Albuterol Sulfate [Duoneb] 3 ml INHALATION Q6HWA.RT ampul.neb 01/23/18 Metoprolol Tartrate [Lopressor (beta cassie)] 12.5 mg PO BID tablet 01/23/18 Multivitamins,Therapeutic [Multivitamin] 1 tablet PO DAILYCM tablet 01/23/18 Nicotine [Nicoderm Cq] 21 mg TRANSDERM. DAILY patch 01/23/18 Potassium Chloride [K-Dur] 20 meq PO BIDCM tablet 01/23/18 predniSONE tablet 40 mg PO DAILY 5 Days tablet 01/23/18 Following Prescrptions Were Given to Patient: Amoxicillin [Amoxil] 500 mg PO Q8H #12 capsule Furosemide [Lasix] 40 mg PO DAILY #30 tablet Primary Care Physician: Florencio Stafford MD [Primary Care Provider] - Please follow up with your Primary Care Physician in: 2 weeks Please Follow Up With: [facility] - Any physician When: 1-2 Weeks Disposition: [facility] facility Minutes spent on discharge:: 35 Patient Condition:: Stable Medical Necessity - Tobacco Use Smoking Status: Current every day smoker Tobacco Use: Cigarettes Meaningful Use Info Meaningful Use Diagnoses (Choose all that apply): CHF - CHF RIAN/ARB ordered at discharge?: Yes Documented LVEF (%): 40 <Gregorio Waterman - Last Filed: 01/23/18 12:58> Discharge Date and Diagnosis - Secondary Discharge Diagnosis Chronic Problems RSD lower limb (Chronic) Chronic abdominal pain (Chronic) Severe protein-calorie malnutrition (Chronic) Anemia (Chronic) Pulmonary HTN (Chronic) Vitamin D deficiency (Chronic) Tobacco user (Chronic) Reflex sympathetic dystrophy (Chronic) Hospital Course and Treatment Consultations 01/19/18 07:33 Consult: Onc/Wound/physiatrist Routine Comment: Reason for Consult:: Bilateral leg wounds and knee wounds 01/21/18 12:12 Consult: Mental Health/Crisis Routine Reason for consult?: SI Date Notified:: 01/21/18 Time notified:: 12:59 Summary of Care Provided: This patient was seen in conjunction with JONES Saleh . I have independently interviewed and examined the patient and reviewed pertinent historical, laboratory, and other data. Please refer to JONES Saleh note for details of this patient's presentation, findings, and recommendations. I have reviewed JONES Saleh note and concur with documented kam stephens. In brief, patient is a 57-year-old lady who was brought to the emergency department after she was found laying in her driveway by her niece. Was found to be severely cachectic on admission. She was hypokalemic with potassium of 2.8 admitted to a monitored bed for further 1. Polysubstance abuse with suspected opioid withdrawal 2. Acute congestive heart failure suspected to be secondary to diastolic dysfunction (heart failure with preserved ejection fraction) 3. Acute cystitis with alpha hemolytic strep 4. Iron deficiency anemia 5. Transient bradycardia 6. Syncopal episode 7. Vitamin D deficiency 8. Apparent suicidal ideation 10. Tobacco dependence 11. Labile hypertension 12. Physical debility 13. Severe hypokalemia 14. Severe protein calorie malnutrition 10. Polysubstance abuse 16. DVT prophylaxis: [place] Lovex Hospital course: As detailed above by JONES Saleh - Physical Exam Vital Signs Temp Pulse Resp BP Pulse Ox 98.1 F 85 18 141/66 H 94 01/23/18 10:00 01/23/18 11:54 01/23/18 10:00 01/23/18 10:16 01/23/18 10:00 Oxygen Flow Rate (L/min) 2 Oxygen Delivery Method Nasal Cannula Weight: 33.5 kg Body Mass Index (BMI) 14.1 Intake and Output for Last 24 Hours 01/21/18 01/22/18 01/23/18 23:59 23:59 23:59 Intake Total 2595 / 2595 1511.8 / 1511.8 462.8 / 462.8 Output Total 625 / 625 4000 / 4000 1425 / 1425 Balance 1970 / 1970 -2488.2 / -2488.2 -962.2 / -962.2 Microbiology Past 72 Hours 01/19/18 04:05 Urine Culture - Final Urine, Catheterized Streptococcus sanguinis Lactobacillus sp. Laboratory Tests Past 24 Hrs 01/23/18 05:45 WBC 7.5 RBC 2.81 L Hgb 7.6 L Hct 25.1 L MCV 89.3 MCH 27.0 MCHC 30.3 L RDW 21.9 H RDW Differential 66.6 H Plt Count 305 MPV 11.0 Immature Gran % (Auto) 0.400 Neut % (Auto) 77.5 H Lymph % (Auto) 12.8 L [place] % (Auto) 9.2 Eos % (Auto) 0.1 Baso % (Auto) 0.0 Absolute Neuts (auto) 5.8 Absolute Lymphs (auto) 0.96 Total Counted Not Reportable Differential Comment SCAN Polychromasia 1+ Hypochromasia 2+ Anisocytosis 1+ Microcytosis 1+ Code Visit Inpatient E&M: 69406 Disch Hosp
[2018-01-23] MEDS: Ferrous Sulfate 325 MG Tablet PO (11:47)
--- NOTE | 2018-01-23 12:06 | CASEMGMT ---
Received level of care. Faxed orders to [facility]. [place] [facility] [place] via [employer] van. JACKSON notified Ronit at [facility], supply chain development manager, and bedside RN. JACKSON also let patient know this information. She does not have any clothes. JACKSON told her SW can see if we can give her some pajama pants and top. She does not have her cell phone. The only contact people listed are her mom who is at the inpatient Hospice unit and her who she is from currently. JACKSON did find a number for one of her nieces, Mildred Palm. JACKSON let her know patient was going to [facility] and asked if someone could bring her some clothes. She said they will do that. JACKSON spoke with patient and let her know this information. She thanked JACKSON. Plan: [facility] under intermediate level of care on a convalescent stay on pending Medicaid ([id number]). [facility] [place] [employer]. Mitra CLINE MSW
--- NOTE | 2018-01-23 12:27 | PHA.DC.MR ---
Pharmacy Service has performed discharge medication reconciliation for this patient upon transfer to [facility]. The patient's discharge medication list was reviewed for discrepancies and discrepancies were resolved. Home Medications Codeine/Butalbital/ASA/Caffein [Fiorinal with Codeine #3 Cap] 1 each PO Q4H PRN 11/30/13 Famotidine/Ca Carb/Mag Hydrox [Pepcid Complete Tablet Chew] 10 mg PO DAILY 11/30/13 P-Ephed HCl/Cetirizine HCl [Zyrtec-D Tablet] 1 tab.sr PO DAILY 11/30/13 Albuterol Aerosols [Ventolin Aerosols] 2.5 mg INHALATION Q2H PRN PRN vial.neb. 01/23/18 Amoxicillin [Amoxil] 500 mg PO Q8H #12 capsule 01/23/18 Cholecalciferol (VIT D3) [Vitamin D3] 2,000 unit PO DAILY tablet 01/23/18 Ferrous Sulfate 325 mg PO 1200,1700 tablet 01/23/18 Fluoxetine [Prozac] 10 mg PO DAILY capsule 01/23/18 Furosemide [Lasix] 40 mg PO DAILY #30 tablet 01/23/18 Gabapentin [Neurontin] 100 mg PO QHS capsule 01/23/18 Ipratropium/Albuterol Sulfate [Duoneb] 3 ml INHALATION Q6HWA.RT ampul.neb 01/23/18 Metoprolol Tartrate [Lopressor (beta cassie)] 12.5 mg PO BID tablet 01/23/18 Multivitamins,Therapeutic [Multivitamin] 1 tablet PO DAILYCM tablet 01/23/18 Nicotine [Nicoderm Cq] 21 mg TRANSDERM. DAILY patch 01/23/18 Potassium Chloride [K-Dur] 20 meq PO BIDCM tablet 01/23/18 predniSONE tablet 40 mg PO DAILY 5 Days tablet 01/23/18
== END 2018-01-23 13:29 | disposition intermediate care facility (04) | DRG 689 ==
LOC: ED 04:59 → PCU 06:31
PROVIDERS: Internal Medicine; Physician Assistant; Admitting Provider Hospitalist; Emergency Provider Emergency Medicine; Family Provider Family Medicine; PCP Family Medicine; Visit Provider Internal Medicine
DX: N30.00 Acute cystitis without hematuria (principal); E43 Unspecified severe protein-calorie malnutrition; I50.21 Acute systolic (congestive) heart failure; G90.521 Complex regional pain syndrome I of right lower limb; Z68.1 Body mass index [BMI] 19.9 or less, adult; N17.9 Acute kidney failure, unspecified; R45.851 Suicidal ideations; F11.23 Opioid dependence with withdrawal; J44.1 Chronic obstructive pulmonary disease with (acute) exacerbation; F13.239 Sedative, hypnotic or anxiolytic dependence with withdrawal, unspecified; S80.02XA Contusion of left knee, initial encounter; S80.01XA Contusion of right knee, initial encounter; W18.30XA Fall on same level, unspecified, initial encounter; E87.6 Hypokalemia; F17.210 Nicotine dependence, cigarettes, uncomplicated; D50.9 Iron deficiency anemia, unspecified; E86.0 Dehydration; E55.9 Vitamin D deficiency, unspecified; G89.29 Other chronic pain; R10.9 Unspecified abdominal pain; I11.0 Hypertensive heart disease with heart failure; R06.89 Other abnormalities of breathing; I27.20 Pulmonary hypertension, unspecified
CPT/HCPCS: 36415; 70450; 71045; 71046; 73564; 74018; 80048; 80076; 80307; 80320; 81001; 82306; 82550; 82570; 82607; 82728; 82746; 82962; 83540; 83550; 83690; 83735; 83880; 84100; 84156; 84443; 84484; 85025; 85610; 87077; 87086; 87088; 87186; 92526; 93005; 93306; 94640; 94799; 97162; 97165; 97530; 97802; 99285; 99406; J7030; P9612; A4216; G0480; J1940; J2405; J3490

== ENCOUNTER → 2018-02-24 08:10 | Outpatient (CLI) | payer MEDICAID, SELFPAY ==
[2018-01-19 07:30] VITALS: BMI 14.1
[2018-02-24] VITALS (7 sets, daily range): BP systolic 72–106; BP diastolic 43–63; PULSE 106–114; RESP 16; TEMP 36.6–37.4; O2SAT 96–98; BMI 12.8
[2018-02-24] MEDS: Furosemide 20 MG/2 ML VIAL IV (11:46)
== END ==
PROVIDERS: Family Provider Family Medicine; PCP Family Medicine; Referring Provider Nurse Practitioner Adult Health; Visit Provider Nurse Practitioner Adult Health
DX: D64.9 Anemia, unspecified (principal)
CPT/HCPCS: 36415; 36430; 86644; 86850; 86900; 86920; 86922; J7040; P9016; A4216; J1940

== ENCOUNTER 2018-04-30 21:38 | Inpatient (IN) | payer MEDICAID, SELFPAY ==
[2018-02-24 08:50] VITALS: BMI 12.8
[2018-04-30 21:40] VITALS: BP 87/53; PULSE 84; RESP 16; TEMP 36.4; O2SAT 93; BMI 14.1
[2018-04-30 22:09] VITALS: BP 105/74; PULSE 108; RESP 25; O2SAT 100
--- NOTE | 2018-04-30 22:15 | ED.RN ---
DURING EVAL PT WAS ASKED IS SHE WAS ANOREXIC. PT DENIED, BUT STATED SHE DOESN'T EAT. SHE HAS NEVER BEEN ADMITTED FOR AN EATING DISORDER. HER LAST MEAL WAS 2 DAYS AGO AND IT WAS JUST 1 SANDWICH. WAS CONSULTED ABOUT MY CONCERNS. AFTER LEAVING THE ROOM PATIENT'S FRIEND APPROACHED ME IN THE HALLWAY AND STATED THE PATIENT WAS ANOREXIC. CASE MANAGEMENT WAS CONSULTED. Noe NAIDU RN. [id number]
--- NOTE | 2018-04-30 22:30 | CM.ED ---
SOCIAL WORK ASSESSMENT Referral Date: 04/30/18 Date of Assessment: 04/30/18 Informant: NURSELEYDI Reason for Consult: MENTAL HEALTH/D/C PLANNING/RESOURCES Information obtained from: PATIENT AND FRIEND, VALENTIN INMAN [phone] Living Arrangements: PATIENT STATES LIVES IN OWN HOME WITH 2 SONS JOHN AND DEBORAH DOWNS. HOME SET UP IS 2 STORY WITH 2 STEPS TO ENTER. Employment/Financial: PATIENT STATES IS UNEMPLOYED AND IS ON MEDICAID. Supports: PATIENT STATES GOOD SUPPORT FROM FRIEND. Social/Family Stressors: PATIENT STATES HAS HAD A BAD COUPLE DAYS, WEEKS, MONTH. PATIENT STATES I FEEL I HAVE GIVEN UP. PATIENT DOES NOT GO INTO DETAIL AND REQUIRES ADDITIONAL TIME TO ANSWER QUESTIONS. Mental Health History: PATIENT ADMITS TO HX OF ANXIETY AND STATES IT IS NOT TREATED. Substance Abuse History: PATIENT ADMITS TO HX OF MARIJUANA USE. Interventions: PATIENT OPEN TO REFERRAL FOR COUNSELING SERVICES AT THE [facility] C[facility] PATIENT OPEN TO REFERRAL TO [facility] WILL FOLLOW UP WITH [facility] TO DISCUSS REFERRALS FOR HOME HEALTH AND WAIVER AND WILL ASSIST WITH SET UP. Assessment: PATIENT IS A 57 Y/O FEMALE WHO RESIDES IN OWN HOME WITH 2 SONS. PATIENT STATES SHE FELL X2 TODAY AND DOES NOT KNOW WHY. PATIENT STATES I CAN'T GET THE SHAKING TO STOP OR THE PAIN TO GO AWAY. PATIENT REQUIRES ADDITIONAL TIME TO ANSWER ALL QUESTIONS. PATIENT STATES USES A CANE PRN FOR ASSISTANCE WITH AMBULATION AND FRIEND ASSISTS WITH TRANSPORTATION NEEDS. PATIENT STATES SONS DO NOT ASSIST PATIENT IN THE HOME. PER PATIENT AND FRIEND, PATIENT WAS D/C'ED FROM [facility] 2 WEEKS AGO AFTER A MONTH ADMISSION. FRIEND STATES PATIENT WAS ADMITTED TO PENITENTIARY AFTER FALLING OUTSIDE OF HER MOTHER'S HOUSE. FRIEND STATES PATIENT WENT TO HER MOTHER'S HOUSE AT 2AM IN HER BARE FEET AND FELL. PATIENT STATES HAS FALLEN MULTIPLE TIMES AND HAS NOT EATEN IN 2 DAYS. PATIENT STATES D/C PLAN IS FOR HOME AND WOULD LIKE SERVICES SET UP IN THE HOME. PATIENT REFUSING TO RETURN TO A PENITENTIARY THIS TIME. PATIENT OPEN TO HOME HEALTH, MOW, AND COUNSELING SERVICES. FRIEND REPORTS HOME HEALTH AND AIDE SERVICES WERE TO BE SET UP UPON D/C FROM [facility],BUT NO ONE HAS BEEN IN CONTACT WITH PATIENT REGARDING SERVICES. TABLE ASSEMBLER TO FOLLOW UP TOMORROW AND MAKE APPROPRIATE REFERRALS. PLAN: ADMIT
--- NOTE | 2018-04-30 22:38 | EKG12_ITS ---
Test Reason : CONFUSION Blood Pressure : / mmHG Vent. Rate : 107 BPM Atrial Rate : 107 BPM P-R Int : 150 ms QRS Dur : 048 ms QT Int : 330 ms P-R-T Axes : 085 054 081 degrees QTc Int : 440 ms Sinus tachycardia Low voltage QRS Nonspecific ST and T wave abnormality Abnormal ECG Confirmed by PAMELA ACEVEDO, ROSY ([id number]), business editor ROYA OCAMPO ([id number]) on 05/02/2018 8:27:17 AM Referred By: Madhavi Baires Confirmed By:ROSY SANTIAGO MD
--- NOTE | 2018-04-30 22:38 | RAD_ITS ---
STUDY: X-RAY CHEST REASON FOR EXAM: Female, 57 years old. Cough, chest pain TECHNIQUE: Single AP portable view of the chest. COMPARISON: 01/21/2018. FINDINGS: The lungs are hyperexpanded. There are coarsened interstitial markings suggestive of mild chronic fibrosis. No gross focal infiltrates. No gross effusions. Normal size heart. Normal mediastinum and olga. Normal visualized pulmonary arteries. Normal visualized aortic arch and descending thoracic aorta. Normal visualized thoracic spine. Normal visualized ribs, clavicles, and shoulders. There is no demonstrated abnormality of the visualized soft tissue structures of the upper abdomen. RAD/Chest 1 View (Portable) IMPRESSION: There are findings consistent with COPD. There is no evidence of acute chest disease. Electronically Signed: Maninder Bowser MD at 23:17 EDT , Service support ,
[2018-04-30 22:40] VITALS: BP 147/103; PULSE 108; RESP 11; O2SAT 98
[2018-04-30] MEDS: 0.9% Normal Saline 1,000 ML 1000 ML IV (22:45)
[2018-04-30 23:06] LABS: Absolute Lymphocyte Count 1.15 X10^3/ul (0.83-4.51); Absolute Neutrophil Count 5.2 X10^3/uL (2.0-7.7); Basophil# 0.03 X10^3/uL; Basophil% 0.4 % (0-1); Eosinophil# 0.34 X10^3/uL; Eosinophils% 4.3 % (0-5); Hematocrit 37.4 % (37-47); Hemoglobin 11.8 g/dl (12.0-15.0); Lymphocyte # 1.15 X10^3/ul (4.0); Lymphocyte % 14.6 % (19-41); Mean Corp Hgb Conc 31.6 g/gl (32-36); Mean Corpuscular Hgb 31.9 pg (27.0-32.0); Mean Corpuscular Volume 101.1 fL (81-99); Monocyte# 1.15 X10^3/uL; Monocyte% 14.6 % (0-10); Neutrophil # 5.19 X10^3/uL (2.7-7.7); Neutrophil % 65.8 % (47-70); POSITIVE COUNT NO; POSITIVE DIFFERENTIAL NO; POSITIVE MORPHOLOGY NO; Platelet Count 282 K/mm3 (150-450); RBC Distribution Width CV 16.6 % (11.6-14.6); RBC Distribution Width SD 60.6 fl (35.1-43.9); White Blood Count 7.9 K/mm3 (4.4-11.0)
[2018-04-30] MEDS: LORazepam 2 MG/ML Syringe 0.5 MG IV (23:24)
[2018-04-30 23:25] LABS: Phosphorus 7.2 mg/dL (2.5-4.9)
[2018-04-30 23:26] LABS: Allen Test POS; Base Excess -12 mmol/L (-2 to +2); Bicarbonate 16.3 mmol/L (22-26); Blood Gas Specimen Type ART; O2 Delivery Device Nasal Can; PO2 125 mmHG (75-100); SITE R Radial; SO2 98 % (95-99); Time Given 2310; Total Carbon Dioxide 18 mmol/L; pCO2 46.4 mmHg (35-45); pH 7.16 (7.35-7.45)
[2018-04-30 23:27] LABS: ALB/GLOB Ratio 0.8 RATIO (0.9-2.4); AST(SGOT) 70 U/L (15-37); Alanine Aminotransfer ALT/SGPT 22 U/L (13-56); Albumin, Serum 3.4 g/dL (3.2-5.0); Alkaline Phosphatase 230 U/L (45-117); Anion Gap 15 (5-15); BUN 73 mg/dL (7-18); BUN/Creat Ratio 11.6 RATIO (10-20); Calcium,Total 8.8 mg/dL (8.5-10.1); Chloride 101 mmol/L (98-107); Creatinine, Serum 6.32 mg/dL (0.55-1.02); EST Glomerular Filtration Rate 7 mL/min (>60); Est Glom Filt Rate - Afr Amer 9 mL/min (>60); Globulin 4.1 g/dL (2.2-4.2); Glucose 81 mg/dL (74-106); Magnesium 3.5 mg/dL (1.6-2.6); Potassium 5.4 mmol/L (3.5-5.1); Protein, Total 7.5 g/dL (6.4-8.2); Sodium Level 133 mmol/L (136-145); Thyroid Stim Hormone (TSH) 0.27 uIU/mL (0.358-3.74)
[2018-05-01] VITALS (52 sets, daily range): BP systolic 64–129; BP diastolic 36–89; PULSE 79–116; RESP 10–21; TEMP 35.7–37.1; O2SAT 92–100; BMI 14.7
[2018-05-01 01:00] LABS: Bedside Glucose 62 mg/dL (70-110)
[2018-05-01] MEDS: Dextrose 50%-Water 25 GM/50 ML DISP.SYRIN IV (01:04)
[2018-05-01] MEDS: 0.9% Normal Saline 1,000 ML 999 ML IV ×2 (01:04→02:36)
--- NOTE | 2018-05-01 02:04 | ED.RN ---
dr. salamanca informed of pt glucose.
[2018-05-01 02:06] LABS: Mucous, Urine 0 SEEN /hpf (<or=2+); Red Blood Cells-Urine 0 SEEN /hpf (0-5)
[2018-05-01 02:08] LABS: Color, Urine Yellow (Yellow); Glucose, Dipstick Normal (Normal); Ketone-Dipstick Negative (Negative); Leukocyte Esterase-Dipstick 500 /ul (Negative); Nitrite-Dipstick Negative (Negative); Occult Blood-Urine 50 /ul (Negative); Protein-Dipstick 100 mg/dl (Negative); Specific Gravity, Urine 1.015 (1.002-1.030); Urine Bilirubin Dipstick Negative (Negative); Urine Clarity Cloudy (Clear); Urine Urobilinogen Normal (Normal)
[2018-05-01 02:15] LABS: White Blood Cells >100 SEEN /hpf (0-5)
[2018-05-01 02:17] LABS: Bacteria 4+ /hpf (None Seen)
[2018-05-01 02:18] LABS: Squamous Epithelial Cells - UA 0-5 SEEN /hpf (5-10); Transitional Epithelial - Ur 0-5 SEEN /hpf (0-5)
[2018-05-01 02:31] LABS: Amphetamine Urine VISTA NEGATIVE (<1000 ng/mL); Barbiturate Urine VISTA POSITIVE (< 200 ng/mL); Benzodiazepine Urine VISTA NEGATIVE (< 200 ng/mL); Cocaine Urine VISTA NEGATIVE (< 300 ng/mL); Ecstacy Urine VISTA NEGATIVE (< 500 ng/mL); Methadone Urine VISTA NEGATIVE (< 300 ng/mL); PCP Urine VISTA NEGATIVE (< 25 ng/mL); THC Urine VISTA NEGATIVE (< 50 ng/mL); Vista UDS pH Range 5
[2018-05-01] MEDS: Ceftriaxone 1 GM/50 ML BAG IV ×2 (02:53→21:21)
--- NOTE | 2018-05-01 02:53 | HP.PCM_ITS ---
Problem List (1) Septic shock Status: Acute (2) Acute UTI Status: Acute (3) Encephalopathy acute Status: Acute (4) GURVINDER (acute kidney injury) Status: Acute (5) Polysubstance abuse Status: Acute (6) COPD (chronic obstructive pulmonary disease) Status: Chronic Qualifiers: COPD type: unspecified COPD Qualified Code(s): J44.9 - Chronic obstructive pulmonary disease, unspecified (7) Severe protein-calorie malnutrition Status: Chronic (8) Tobacco user Status: Chronic History of Present Illness Date of Admission: 05/01/18 Chief Complaint: Lethargy, muscle spasms, poor intake The patient is a 57 y/o F w/ PMHx: Severe Protein-Calorie Malnutrition, Reflex Sympathetic Dystrophy, Tobacco use, Chronic COPD, Anxiety and Depression, HTN, Allergic Rhinitis, Urogenic Bladder with self-catheterization program who presents to the [facility] ED on 05/01/18 with history of poor intake over the last several days, noting that she is forgetting to eat with last intake noted to be a sandwich 2 days prior with onset worsening muscle spasms and tremors and progressively worsening generalized weakness, brought in per a friend with recent discharge over the last several weeks from long term facility with no home health care currently in place. Patient is very lethargic and slow to respond although answers orientation questions appropriately. Patient cannot give any information regarding possible dysuria, adherence with her self- catheterization regimen the presence or absence of fevers, chills. Work-up in the ED included T 97.5, heart rate 84, BP initially 87/53, respiratory rate 16, 93% on room air--> heart rate 100, BP 71/53, respiratory rate 14, 94% on 4 L nasal cannula, CBC with WBC 7.9, hemoglobin 11.8, platelet 282 without market left shift, ABG with pH 7.16, PCO2 46.4, PO2 125 on 4 L nasal cannula, CMP with sodium 133, potassium 5.4, carbon dioxide 17, BUN/creatinine 73/6.32, lactic acid pending, AST/ALT 70/22, alk phos 230, TSH 0.27, urinalysis concerning for acute urinary tract infection with pending urine culture, urine drug screen with positive opiates and barbiturates, ethyl alcohol level 4, acetone level negative, blood culture x2 pending, chest x-ray with chronic COPD changes but no acute cardio primary findings otherwise, CT head with chronic involutional changes with old lacunar infarcts of the thalami, right basal ganglia and right silver with no demonstrated acute intercranial process. In the ED patient ministered aggressive IV fluids with 3L normal saline eventually transitioned to dextrose sodium chloride, Ativan 0.5 mg IV x1, dextrose, Rocephin. Past Medical History Past Medical History (Chronic Problems): Chronic Problems RSD lower limb (Chronic) Chronic abdominal pain (Chronic) COPD (chronic obstructive pulmonary disease) (Chronic) Severe protein-calorie malnutrition (Chronic) Anemia (Chronic) Pulmonary HTN (Chronic) Vitamin D deficiency (Chronic) Tobacco user (Chronic) Reflex sympathetic dystrophy (Chronic) Allergies amoxicillin trihydrate [From Augmentin] Allergy (Verified 04/30/18 21:46) Abd cramps/diarrhea azithromycin [From Zithromax Z-Piter] Allergy (Verified 04/30/18 21:46) Abd cramps/diarrhea ibuprofen [From Advil] Allergy (Verified 04/30/18 21:46) Abd cramps/diarrhea levofloxacin [From Levaquin] Allergy (Verified 04/30/18 21:46) Abd cramps/diarrhea naproxen sodium [From Aleve] Allergy (Verified 04/30/18 21:46) Abd cramps/diarrhea nitrofurantoin [From Macrobid] Allergy (Verified 04/30/18 21:46) Abd cramps/diarrhea nitrofurantoin macrocrystalline [From Macrobid] Allergy (Verified 04/30/18 21:46) Abd cramps/diarrhea potassium clavulanate [From Augmentin] Allergy (Verified 04/30/18 21:46) Abd cramps/diarrhea fentanyl Adverse Reaction (Verified 04/30/18 21:46) Other FASR HEART RATE, DIZZINESS pregabalin [From Lyrica] Adverse Reaction (Verified 04/30/18 21:46) Other PAIN IN HEAD Home Medications: Ambulatory Orders Medication Instructions Recorded Cetirizine HCl/Pseudoephedrine 1 each PO DAILY 05/01/18 [Zyrtec-D Tablet] Fluoxetine [Prozac] 10 mg PO DAILY 05/01/18 Fluticasone 0.05% [Flonase Nasal 2 spray NASAL DAILY 05/01/18 Morris] Furosemide [Lasix] 20 mg PO DAILY 05/01/18 Gabapentin [Neurontin] 100 mg PO QHS 05/01/18 Lisinopril 5 mg PO DAILY 05/01/18 Metoprolol Tartrate 12.5 mg PO BID 05/01/18 Mirtazapine [Remeron] 15 mg PO QHS 05/01/18 Surgical History: appendectomy, cholecystectomy, tonsillectomy, - - Laparotomy x2 Psychiatric History: Anxiety, Depression FORENSIC ECONOMIST History: No pertinent FORENSIC ECONOMIST history Lives: With Family Smoking Status: Current every day smoker Tobacco Use: Cigarettes Alcohol: None Drugs: None - *Family History Maternal Family History: Family History (Last Updated 01/19/18 @ 08:02 by Luis Eduardo Patel MD) Father Alzheimers disease Mother Heart problem History Items: Heart Disease Paternal Family History: Family History (Last Updated 01/19/18 @ 08:02 by Luis Eduardo Patel MD) Father Alzheimers disease Mother Heart problem History Items: - - Father with history of Alzheimer's disease. Review of Systems Constitutional: Reports: Anorexia, Malaise, Weakness, Fatigue. Denies: Chills, Fever, Weight Change HEENT: Denies: Head Aches, Sinus Congestion, Sinus Drainage Cardiovascular: Denies: Chest Pain, Palpitations Respiratory: Reports: Shortness of breath upon exertion. Denies: Cough, Shortness of breath at rest, Sputum production Gastrointestinal: Denies: Abdominal Pain, Nausea, Vomiting Genitourinary: Reports: Retention. Denies: Dysuria Musculoskeletal: Reports: Back Pain, Joint Pain. Denies: Joint Tenderness Skin: Denies: Rash, Wounds Neurological: Reports: Confusion. Denies: Focal weakness, Numbness, Tingling Psychiatric: Reports: Anxiety, Depression. Denies: Homicidal Ideations, Suicidal Ideations Hematologic/ Lymphatic: Reports: Anemia. Denies: Easy Bruising, Easy Bleeding VTE Information - Inpt Only VTE Present on Admission: No VTE Mechan Device Prophylaxis: SCD's VTE Pharm Prophylaxis ordered?: Yes Patient Problems: Active and Suspected Problems Septic shock (Acute) Acute UTI (Acute) Encephalopathy acute (Acute) GURVINDER (acute kidney injury) (Acute) Polysubstance abuse (Acute) Subjective: Laying in the ED bed, lethargic, slow to respond, no acute distress currently noted. Objective: Physical Examination: General: awake, intermittently appears alert, oriented to self, place, year but very slow to respond to questions and very lethargic still, remains intermittently cooperative, laying in the ED bed, no acute distress currently. Skin: normal color, turgor, no icterus, cyanosis. HEENT: AT/NC, EOMI, PERRLA, dry MM, no carotid bruits or JVD noted. Lungs: Diffusely diminished breath sounds, greater bilateral bases, poor effort, no rales, ronchi or wheezing. Heart: Mildly tachycardic with regular rhythm; no gallop, rub audible. Abdomen: soft, thin, cachectic, mild grimacing with suprapubic palpation otherwi se no overt tenderness palpation, ND, normal BS, no HSM. Extremities: no cyanosis, clubbing, or edema, evident muscle wasting. Neurological: awake, intermittently appears alert, oriented to self, place, year but very slow to respond to questions and very lethargic still, remains intermittently cooperative, laying in the ED bed, no acute distress currently; cognitive function not baseline intact; pupils equally reactive to light and accomodation; cranial nerves II-XII grossly normal, moving all 4 extremities, no focal deficits, strength severely globally decreased. Psychiatric: affect appears flat, lethargic, no acute evidence of depressive or anxiety feelings. - Physical Exam Vital Signs Temp Pulse Resp BP Pulse Ox 97.5 F L 100 14 71/53 L 94 04/30/18 21:40 05/01/18 02:03 05/01/18 02:03 05/01/18 02:03 05/01/18 02:03 Oxygen Flow Rate (L/min) 4 Oxygen Delivery Method Nasal Cannula Weight: 72 lb Body Mass Index (BMI) 14.1 Finger Stick Blood Glucose 62 Laboratory Tests Past 24 Hrs 04/30/18 04/30/18 04/30/18 21:59 21:59 21:59 WBC 7.9 RBC 3.70 L Hgb 11.8 L Hct 37.4 MCV 101.1 H MCH 31.9 MCHC 31.6 L RDW 16.6 H RDW Differential 60.6 H Plt Count 282 MPV 11.0 Immature Gran % (Auto) 0.300 Neut % (Auto) 65.8 Lymph % (Auto) 14.6 L Marshall % (Auto) 14.6 H Eos % (Auto) 4.3 Baso % (Auto) 0.4 Absolute Neuts (auto) 5.2 Absolute Lymphs (auto) 1.15 Total Counted Not Reportable Specimen Type Sample Site pH Bicarbonate Actual POC Total CO2 Base Excess O2 Saturation ABG pCO2 ABG pO2 Shar Test O2 Delivery Device Liter Flow Blood Gas Notified Whom Blood Gas Notified Time Sodium 133 L Potassium 5.4 H Chloride 101 Carbon Dioxide 17.0 L Anion Gap 15 BUN 73 H Creatinine 6.32 H Estim Creat Clear Calc 5.00 Est GFR (MDRD) Af Amer 9 L Est GFR (MDRD) Non-Af 7 L BUN/Creatinine Ratio 11.6 Glucose 81 Lactic Acid Calcium 8.8 Phosphorus 7.2 H Magnesium 3.5 H Total Bilirubin 0.30 AST 70 H ALT 22 Alkaline Phosphatase 230 H Total Protein 7.5 Albumin 3.4 Globulin 4.1 Albumin/Globulin Ratio 0.8 L TSH 0.27 L Urine Color Urine Clarity Urine pH Ur Specific [place] Urine Protein Urine Glucose (UA) Urine Ketones Urine Occult Blood Urine Nitrite Urine Bilirubin Urine Urobilinogen Ur Leukocyte Esterase Urine RBC Urine WBC Ur Squamous Epith Cells Ur Transition Epith Cell Urine Bacteria Urine Mucus Urine Opiates Screen Urine Methadone Screen Ur Barbiturates Screen Ur Phencyclidine Scrn Ur Amphetamines Screen U Methamphetamin-MDMA U Benzodiazepines Scrn Urine Cocaine Screen U Cannabinoids Screen Ur Drug Screen Comment Ethyl Alcohol Acetone Level 04/30/18 04/30/18 04/30/18 23:05 23:05 23:15 WBC RBC Hgb Hct MCV MCH MCHC RDW RDW Differential Plt Count MPV Immature Gran % (Auto) Neut % (Auto) Lymph % (Auto) Marshall % (Auto) Eos % (Auto) Baso % (Auto) Absolute Neuts (auto) Absolute Lymphs (auto) Total Counted Specimen Type ART Sample Site R Radial pH 7.16 L* Bicarbonate Actual 16.3 L POC Total CO2 18 Base Excess -12 L O2 Saturation 98 ABG pCO2 46.4 H ABG pO2 125 H Shar Test POS O2 Delivery Device Nasal Can Liter Flow 4.0 Blood Gas Notified Whom ED Blood Gas Notified Time 2310 Sodium Potassium Chloride Carbon Dioxide Anion Gap BUN Creatinine Estim Creat Clear Calc Est GFR (MDRD) Af Amer Est GFR (MDRD) Non-Af BUN/Creatinine Ratio Glucose Lactic Acid Calcium Phosphorus Magnesium Total Bilirubin AST ALT Alkaline Phosphatase Total Protein Albumin Globulin Albumin/Globulin Ratio TSH Urine Color Urine Clarity Urine pH Ur Specific [place] Urine Protein Urine Glucose (UA) Urine Ketones Urine Occult Blood Urine Nitrite Urine Bilirubin Urine Urobilinogen Ur Leukocyte Esterase Urine RBC Urine WBC Ur Squamous Epith Cells Ur Transition Epith Cell Urine Bacteria Urine Mucus Urine Opiates Screen Urine Methadone Screen Ur Barbiturates Screen Ur Phencyclidine Scrn Ur Amphetamines Screen U Methamphetamin-MDMA U Benzodiazepines Scrn Urine Cocaine Screen U Cannabinoids Screen Ur Drug Screen Comment Ethyl Alcohol 4.0 Acetone Level NEGATIVE 05/01/18 05/01/18 05/01/18 01:55 01:55 02:30 WBC RBC Hgb Hct MCV MCH MCHC RDW RDW Differential Plt Count MPV Immature Gran % (Auto) Neut % (Auto) Lymph % (Auto) Marshall % (Auto) Eos % (Auto) Baso % (Auto) Absolute Neuts (auto) Absolute Lymphs (auto) Total Counted Specimen Type Sample Site pH Bicarbonate Actual POC Total CO2 Base Excess O2 Saturation ABG pCO2 ABG pO2 Shar Test O2 Delivery Device Liter Flow Blood Gas Notified Whom Blood Gas Notified Time Sodium Potassium Chloride Carbon Dioxide Anion Gap BUN Creatinine Estim Creat Clear Calc Est GFR (MDRD) Af Amer Est GFR (MDRD) Non-Af BUN/Creatinine Ratio Glucose Lactic Acid Pending Calcium Phosphorus Magnesium Total Bilirubin AST ALT Alkaline Phosphatase Total Protein Albumin Globulin Albumin/Globulin Ratio TSH Urine Color Yellow Urine Clarity Cloudy Urine pH 5.0 Ur Specific [place] 1.015 Urine Protein 100 H Urine Glucose (UA) Normal Urine Ketones Negative Urine Occult Blood 50 H Urine Nitrite Negative Urine Bilirubin Negative Urine Urobilinogen Normal Ur Leukocyte Esterase 500 H Urine RBC 0 SEEN Urine WBC >100 SEEN Ur Squamous Epith Cells 0-5 SEEN Ur Transition Epith Cell 0-5 SEEN Urine Bacteria 4+ Urine Mucus 0 SEEN Urine Opiates Screen POSITIVE H Urine Methadone Screen NEGATIVE Ur Barbiturates Screen POSITIVE H Ur Phencyclidine Scrn NEGATIVE Ur Amphetamines Screen NEGATIVE U Methamphetamin-MDMA NEGATIVE U Benzodiazepines Scrn NEGATIVE Urine Cocaine Screen NEGATIVE U Cannabinoids Screen NEGATIVE Ur Drug Screen Comment Ethyl Alcohol Acetone Level POC Glucose 05/01/18 00:57 POC Glucose 62 L Assessment/Plan All Active Problems Septic shock (Acute) Acute UTI (Acute) Encephalopathy acute (Acute) GURVINDER (acute kidney injury) (Acute) Polysubstance abuse (Acute) UTI (urinary tract infection) (Acute) Hypokalemia due to inadequate potassium intake (Acute) Normocytic anemia (Acute) Generalized weakness (Acute) Contusion of knee, left (Acute) Contusion of knee, right (Acute) Delirium (Acute) CHF (congestive heart failure) (Acute) Fall (Acute) Debility (Acute) Opioid withdrawal (Acute) Barbiturate withdrawal (Acute) Acute UTI (Acute) The patient is a 57 y/o F w/ PMHx: Severe Protein-Calorie Malnutrition, Reflex Sympathetic Dystrophy, Tobacco use, Chronic COPD, Anxiety and Depression, HTN, Allergic Rhinitis, Urogenic Bladder with self-catheterization program who presents to the [facility] ED on 05/01/18 with history of poor intake over the last several days, noting that she is forgetting to eat with last intake noted to be a sandwich 2 days prior with onset worsening muscle spasms and tremors and progressively worsening generalized weakness, brought in per a friend with recent discharge over the last several weeks from long term facility with no home health care currently in place. Patient is very lethargic and slow to respond although answers orientation questions appropriately. (1) Acute Septic versus Hypovolemic Shock secondary to Acute UTI w/ associated Acute (Metabolic and Infectious) Encephalopathy: Patient w/ evidence of sepsis- induced organ dysfunction/tissue hypoperfusion and sepsis induced hypotension despite adequate fluid administration as evidenced by severe GURVINDER, hypotension. Will admit patient to the ICU, maintain on cardiac monitoring, continue to maintain on cardiac monitoring, continue IVF bolus per protocol, maintain on IV abx regimen w/ rocephin, administer IV vasopressor therapy for persistent hypotension, pending Bld Cx x 2, UCx. ICU physician consulted, pending. (2) Acute kidney injury: Secondary to severe dehydration, acute UTI with history of neurogenic bladder likely not recently self catheterizing. Admission BUN/Cr 73/6.32, prior baseline creatinine noted to be 0.6. Will need to aggressively hydrate, hold nephrotoxic medications and repeat chemistry in AM. Will obtain renal ultrasound and FeNa assessment. Nephrology consulted. (3) Concern for polysubstance abuse: Drug screen with positive opiates as well as barbiturates, not consistent with any of patient current regimen, likely contributing to encephalopathic presentation as well as acute kidney injury and hypotension. Case management consulted. (4) Chronic COPD: Will maintain on oxygen with wean as tolerated to room air, continue ATC duonebs, PRN albuterol, HOB, IS parameters. (5) Severe Protein-Calorie Malnutrition: Evidenced by reduced BMI, obvious fat and muscle loss, nutrition consulted. (6) Hypertension: Currently patient hypotensive, holding Lasix, lisinopril and metoprolol regimen. (7) Anxiety and depression given severity of renal function alterations will hold Prozac:, Mirtazapine regimen with restart once appropriate. (8) Tobacco Abuse: Encouraged cessation, inpatient consultation per RT, NR if desired. (9) Low TSH: TSH 0.27, obtained in the acute setting, will obtain free T4 but will benefit from having these repeated once clinically improved in the outpatient setting. (10) DVT prophylaxis: SCD, heparin. Critical Care Time: 60 minutes, time from 2:50-3:50, were spent addressing patients acute presentation, septic shock appearance, acute urinary tract infection, acute kidney injury, review of all data in collaboration with care team in addition. Code Visit Procedures: [id number] Critial Care 1st Hr
[2018-05-01] MEDS: Dext 5%-0.45% NS 1,000 ML 125 ML IV (02:58)
[2018-05-01 03:13] LABS: Lactic Acid 0.6 mmol/L (0.4-2.0)
[2018-05-01 03:56] LABS: Bedside Glucose 68 mg/dL (70-110)
[2018-05-01 03:56] LABS: Bedside Glucose 99 mg/dL (70-110)
--- NOTE | 2018-05-01 04:33 | RAD_ITS ---
STUDY: X-RAY CHEST REASON FOR EXAM: Female, 57 years old. Line placement. TECHNIQUE: Single AP portable view of the chest. COMPARISON: 04/30/2018. FINDINGS: There is a right internal jugular central venous catheter with its tip overlying the superior cava There is no demonstrated pneumothorax. There is hyperinflation of the lungs consistent with chronic obstructive lung disease (COPD). There is interstitial prominence in the lungs which is probably chronic. There is mild bilateral basilar atelectasis. There is no demonstrated pleural abnormality. Normal size heart. Normal mediastinum and olga. Normal visualized pulmonary arteries. Normal visualized aortic arch and descending thoracic aorta. Normal visualized thoracic spine. Normal visualized ribs, clavicles, and shoulders. There is no demonstrated abnormality of the visualized soft tissue structures of the upper abdomen. RAD/CXR for Line Placement IMPRESSION: Central line is in adequate position. COPD. No evidence for acute cardiopulmonary pathology. Electronically Signed: Iron Schmidt MD at 5:19 EDT , Service support ,
--- NOTE | 2018-05-01 04:46 | ED.RN ---
pending levophed medication from pharmacy. placed in reverse Trendelenburg position. pt disoriented and confused, mumbling at times. unable to state her name or .
--- NOTE | 2018-05-01 04:55 | ED.DCSUM_ITS ---
- ER Visit Summary Date of Service: 05/01/18 Chief Complaint: Shaking and tremor History of Present Illness: The patient is a 57 F who presents with a tremor. This began today. She reports repeated jerking movements. She fell twice today. She complains of generalized weakness. She also complains of chronic right foot pain which she has had for 18 years. She had some diarrhea couple weeks ago but this has since resolved. She denies fever cough rhinorrhea chest pain shortness of breath rashes headaches. Her friend with her does state that she is anorexic. The patient admits that she has not eaten anything in at least 2 days and last thing she had was a sandwich. Physical Examination: Initial blood pressure 105/74, heart rate 108, respiratory rate 25, pulse ox 100% on room air Patient appears malnourished she is severely underweight Dry mucous membranes Heart regular tachycardia Patient has scattered next Tory wheezes Abdomen soft nontender Extremities nontender calves nontender Skin warm and dry Drowsy slow to respond but does awake to voice and answers questions appropriately although sometimes she requires repeated questioning she is actually oriented x3 Blunted affect Test Results: EKG shows sinus rhythm at a rate of 107. Chest x-ray shows COPD, no acute disease. CT of the head shows chronic changes, old lacunar infarct, no acute findings. Labs notable for potassium 5.4, BUN 73, creatinine 6.32. Alkaline phosphatase 230 and AST 70. Urinalysis consistent with infection with 500 leukocyte esterase, greater than 100 WBCs. Lactic acid normal. Acetone negative. TSH 0.27. Alcohol negative. Urine drug screen positive for barbiturates and opiates. Phosphorus 7.2, magnesium 3.5. ABG shows pH of 7.15 with PCO2 of 46, PO2 of 125, bicarbonate of 16. Emergency Department Course and Treatment: Patient was placed on oxygen by nasal cannula. It was difficult to obtain a good waveform on her pulse oximetry so an ABG was obtained to assess her oxygenation. This shows normal oxygen saturation, PO2 of 125 although she does have a metabolic acidosis. Her workup as above is notable for significant elevation of her creatinine at greater than 6 when previous was less than 1.. She also developed significant hypotension. Her blood pressure was 60s-70s. However it is unclear if this is due to an infectious process versus severe dehydration. She had also been given 0.5 mg of IV Ativan for the tremor. This did resolve her tremor but her hypertension developed after administration of Ativan. Therefore hypotension is likely multifactorial related to hypovolemia infection and medication. Lactic acid was normal. However she remained hypotensive spite 2 L of IV fluid and was on her third liter. In discussion with the hospitalist that a decision was made to start pressors. After informed consent discussion of risks and benefits including risks of infection, bleeding, pneumothorax she verbally consented and a right internal jugular central venous catheter was placed without any immediate complication. Dark red nonpulsatile blood was obtained on first stick and the catheter was easily passed. Chest x-ray afterwards shows no pneumothorax and the line appears to be in appropriate position. Even before Levophed was started her blood pressure had improved to 85 systolic. She was treated for UTI with IV Rocephin. Patient admitted to the intensive care unit. Treatment Plan: [] Disposition: Admit Impression: Acute kidney injury Malnutrition UTI Hypotension Right IJ central venous catheter This note was generated with [employer] dictation software. It may contain incorrect words, spelling, and punctuation that were not noted in review of the chart prior to signing
--- NOTE | 2018-05-01 05:00 | NURSING ---
Report received from NELLIE Wallace in ER. Requested nurse to begin Levophed prior to transport to floor for SBP in 60's. Nurse states the medication had not arrived from pharmacy at this time. This nurse requested the delivering nurse wait for medication to assure pt stability during transport. Nurse agreed with plan for transport. Advised nurse ICU room 8 is ready for patient, as soon as pt is started on Levophed.
--- NOTE | 2018-05-01 05:03 | ED.RN ---
Called report to Marlyn in ICU. She wants Levophed started. Called pharmacy as it has been 28 minutes since order placed, no answer. Will attempt to call back in 5 minutes.
--- NOTE | 2018-05-01 05:13 | ED.RN ---
spoke with Anderson, he did not receive a fax for Levofed, he will work on that now.
--- NOTE | 2018-05-01 06:00 | US_ITS ---
STUDY: RENAL ULTRASOUND - COMPLETE REASON FOR EXAM: Female, 57 years old. Acute renal failure. TECHNIQUE: Ultrasound evaluation of the kidneys was performed with real-time and static sauer-scale imaging. COMPARISON: None. FINDINGS: RIGHT KIDNEY: Normal location of the right kidney, which is normal in size. The right kidney measures 9.3 cm x 4.7 cm x 3.6 cm. There is a normal cortex of the right kidney. The renal cortex measures 1.3 cm. There is no right renal mass or cyst. There are no right renal calculi. There is no right hydronephrosis. DISTAL RIGHT URETER: There is non-visualization of the distal right ureter. There is no demonstrated right ureterovesical junction calculus. There is no demonstrated right ureteral jet. LEFT KIDNEY: Normal location of the left kidney, which is normal in size. The left kidney measures 8.1 cm x 3.3 cm x 3.7 cm. There is a normal cortex of the left kidney. The renal cortex measures 1.5 cm. There is no left renal mass or cyst. There are no left renal calculi. There is no left hydronephrosis. DISTAL LEFT URETER: There is non-visualization of the distal left ureter. There is no demonstrated left ureterovesical junction calculus. There is no demonstrated left ureteral jet. BLADDER: A Olson catheter is seen within the urinary bladder. There is evidence of a soft tissue polypoid mass at the base of the bladder on the left side. There is diffuse bladder wall thickening. US/Kidney and Bladder IMPRESSION: Diffuse bladder wall thickening with a large polypoid mass at the base of the bladder more prominent on the left side. Electronically Signed: Karan Cruz, at 13:47 EDT , Service support ,
--- NOTE | 2018-05-01 06:27 | PCM.CON.CC ---
Reason for Consult Date of Consultation: 05/01/18 Reason for Consultation: Septic versus hypovolemic shock, UTI, GURVINDER History of Present Illness: The patient is a 57-year-old female, with a history as outlined below, who presented to the emergency department on May 01 with complaints of failure to thrive, poor p.o. intake and worsening muscle spasms. It is unclear to me what the patient's baseline mentation is. However, as of this morning, history pertinent to her hospitalization was quite difficult to ascertain from the patient herself. She is quite lethargic and often times mumbles incoherently. She does report the presence of a cough and foot pain. On presentation to the emergency department, the patient was initially noted to be afebrile and was hypotensive with a blood pressure of 87/53 mmHg. Laboratory evaluation revealed no evidence of a leukocytosis. Chemistry profile was notable for a sodium of 133, potassium of 5.4, bicarbonate of 17 and acute kidney injury with creatinine of 6.32. Lactate was within normal limits. Phosphorus was elevated at 7.2. Magnesium was elevated at 3.5. AST was increased to 70 with an increased alkaline phosphatase to 230. TSH was low at 0.27. Urinalysis was positive for leukocyte esterase with greater than 100 urine white blood cells and 4+ urine bacteria. Urine toxicology screen was positive for opiates and barbiturates. Plain film chest x-ray revealed no acute cardiopulmonary process. CT head revealed chronic involutional changes of the brain along with evidence of old lacunar infarcts. While in the emergency department, a right-sided central venous catheter was placed. The patient received a total of 3 L of supplemental IV fluids. She was placed on antibiotics and admitted to the medical intensive care unit. The patient is currently hemodynamically stable, requiring levophed to maintain hemodynamic stability. Past Medical History Past Medical History (Chronic Problems): Chronic Problems RSD lower limb (Chronic) Chronic abdominal pain (Chronic) COPD (chronic obstructive pulmonary disease) (Chronic) Severe protein-calorie malnutrition (Chronic) Anemia (Chronic) Pulmonary HTN (Chronic) Vitamin D deficiency (Chronic) Tobacco user (Chronic) Reflex sympathetic dystrophy (Chronic) Allergies amoxicillin trihydrate [From Augmentin] Allergy (Verified 04/30/18 21:46) Abd cramps/diarrhea azithromycin [From Zithromax Z-Piter] Allergy (Verified 04/30/18 21:46) Abd cramps/diarrhea ibuprofen [From Advil] Allergy (Verified 04/30/18 21:46) Abd cramps/diarrhea levofloxacin [From Levaquin] Allergy (Verified 04/30/18 21:46) Abd cramps/diarrhea naproxen sodium [From Aleve] Allergy (Verified 04/30/18 21:46) Abd cramps/diarrhea nitrofurantoin [From Macrobid] Allergy (Verified 04/30/18 21:46) Abd cramps/diarrhea nitrofurantoin macrocrystalline [From Macrobid] Allergy (Verified 04/30/18 21:46) Abd cramps/diarrhea potassium clavulanate [From Augmentin] Allergy (Verified 04/30/18 21:46) Abd cramps/diarrhea fentanyl Adverse Reaction (Verified 04/30/18 21:46) Other FASR HEART RATE, DIZZINESS pregabalin [From Lyrica] Adverse Reaction (Verified 04/30/18 21:46) Other PAIN IN HEAD Home Medications: Ambulatory Orders Medication Instructions Recorded Cetirizine HCl/Pseudoephedrine 1 each PO DAILY 05/01/18 [Zyrtec-D Tablet] Fluoxetine [Prozac] 10 mg PO DAILY 05/01/18 Fluticasone 0.05% [Flonase Nasal 2 spray NASAL DAILY 05/01/18 Cougar] Furosemide [Lasix] 20 mg PO DAILY 05/01/18 Gabapentin [Neurontin] 100 mg PO QHS 05/01/18 Lisinopril 5 mg PO DAILY 05/01/18 Metoprolol Tartrate 12.5 mg PO BID 05/01/18 Mirtazapine [Remeron] 15 mg PO QHS 05/01/18 Surgical History: appendectomy, cholecystectomy, tonsillectomy, - - Laparotomy x2 Psychiatric History: Anxiety, Depression 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 Review of Systems Constitutional: Reports: Malaise, Fatigue Eyes: Denies: Blurred vision, Double vision HEENT: Denies: Head Aches, Sinus Congestion, Sinus Drainage Cardiovascular: Denies: Chest Pain, Palpitations Respiratory: Reports: Cough Gastrointestinal: Denies: Abdominal Pain, Nausea, Vomiting Genitourinary: Denies: Dysuria Musculoskeletal: Reports: Foot Pain Skin: Reports: Rash Neurological: Reports: Confusion Psychiatric: Denies: Anxiety, Depression, Homicidal Ideations, Suicidal Ideations Hematologic/ Lymphatic: Denies: Easy Bruising, Easy Bleeding Patient Problems: Active and Suspected Problems Septic shock (Acute) Acute UTI (Acute) Encephalopathy acute (Acute) GURVINDER (acute kidney injury) (Acute) Polysubstance abuse (Acute) Objective: The patient's most recent lab work, culture data and imaging studies have all been personally reviewed. - Physical Exam General: No apparent distress, Lethargic HEENT: Atraumatic, Normocephalic Oral: Dry Mucosa Neck: Supple, No Nodes, Trachea Midline Lungs: No rhonchi, No wheeze, No rales, Diminished Cardiovascular: Regular rate, Regular Rhythm, Normal S1, Normal S2, No murmurs Abdomen: Soft, Non Tender, Hypoactive Bowel Sounds Extremities: No clubbing, No cyanosis, No edema Skin: - - Erythema noted over dorsum of bilateral feet Musculoskeletal: Cachexia, Muscle Wasting Lymphatic: No Cervical, Supraclavicular, or Inguinal Adenopathy Neurological: - - No focal deficits Psych/Mental Status: Flat Affect Vital Signs Temp Pulse Resp BP Pulse Ox 35.8 C L 109 H 10 L 129/57 H 92 05/01/18 04:45 05/01/18 05:58 05/01/18 05:01 05/01/18 05:32 05/01/18 04:45 Oxygen Flow Rate (L/min) 6 Oxygen Delivery Method Nasal Cannula Weight: 72 lb Body Mass Index (BMI) 14.1 Finger Stick Blood Glucose 99 Intake and Output for Last 24 Hours 04/29/18 04/30/18 05/01/18 23:59 23:59 23:59 Output Total 800 / 800 Balance -800 / -800 Laboratory Tests Past 24 Hrs 04/30/18 04/30/18 04/30/18 21:59 21:59 21:59 WBC 7.9 RBC 3.70 L Hgb 11.8 L Hct 37.4 MCV 101.1 H MCH 31.9 MCHC 31.6 L RDW 16.6 H RDW Differential 60.6 H Plt Count 282 MPV 11.0 Immature Gran % (Auto) 0.300 Neut % (Auto) 65.8 Lymph % (Auto) 14.6 L [place] % (Auto) 14.6 H Eos % (Auto) 4.3 Baso % (Auto) 0.4 Absolute Neuts (auto) 5.2 Absolute Lymphs (auto) 1.15 Total Counted Not Reportable Specimen Type Sample Site pH Bicarbonate Actual POC Total CO2 Base Excess O2 Saturation ABG pCO2 ABG pO2 Shar Test O2 Delivery Device Liter Flow Blood Gas Notified Whom Blood Gas Notified Time Sodium 133 L Potassium 5.4 H Chloride 101 Carbon Dioxide 17.0 L Anion Gap 15 BUN 73 H Creatinine 6.32 H Estim Creat Clear Calc 5.00 Est GFR (MDRD) Af Amer 9 L Est GFR (MDRD) Non-Af 7 L BUN/Creatinine Ratio 11.6 Glucose 81 Lactic Acid Calcium 8.8 Phosphorus 7.2 H Magnesium 3.5 H Total Bilirubin 0.30 AST 70 H ALT 22 Alkaline Phosphatase 230 H Total Protein 7.5 Albumin 3.4 Globulin 4.1 Albumin/Globulin Ratio 0.8 L TSH 0.27 L Free T4 Urine Color Urine Clarity Urine pH Ur Specific Maxwell Urine Protein Urine Glucose (UA) Urine Ketones Urine Occult Blood Urine Nitrite Urine Bilirubin Urine Urobilinogen Ur Leukocyte Esterase Urine RBC Urine WBC Ur Squamous Epith Cells Ur Transition Epith Cell Urine Bacteria Urine Mucus Urine Opiates Screen Urine Methadone Screen Ur Barbiturates Screen Ur Phencyclidine Scrn Ur Amphetamines Screen U Methamphetamin-MDMA U Benzodiazepines Scrn Urine Cocaine Screen U Cannabinoids Screen Ur Drug Screen Comment Ethyl Alcohol Acetone Level 04/30/18 04/30/18 04/30/18 23:05 23:05 23:15 WBC RBC Hgb Hct MCV MCH MCHC RDW RDW Differential Plt Count MPV Immature Gran % (Auto) Neut % (Auto) Lymph % (Auto) [place] % (Auto) Eos % (Auto) Baso % (Auto) Absolute Neuts (auto) Absolute Lymphs (auto) Total Counted Specimen Type ART Sample Site R Radial pH 7.16 L* Bicarbonate Actual 16.3 L POC Total CO2 18 Base Excess -12 L O2 Saturation 98 ABG pCO2 46.4 H ABG pO2 125 H Shar Test POS O2 Delivery Device Nasal Can Liter Flow 4.0 Blood Gas Notified Whom ED Blood Gas Notified Time 2310 Sodium Potassium Chloride Carbon Dioxide Anion Gap BUN Creatinine Estim Creat Clear Calc Est GFR (MDRD) Af Amer Est GFR (MDRD) Non-Af BUN/Creatinine Ratio Glucose Lactic Acid Calcium Phosphorus Magnesium Total Bilirubin AST ALT Alkaline Phosphatase Total Protein Albumin Globulin Albumin/Globulin Ratio TSH Free T4 Urine Color Urine Clarity Urine pH Ur Specific Maxwell Urine Protein Urine Glucose (UA) Urine Ketones Urine Occult Blood Urine Nitrite Urine Bilirubin Urine Urobilinogen Ur Leukocyte Esterase Urine RBC Urine WBC Ur Squamous Epith Cells Ur Transition Epith Cell Urine Bacteria Urine Mucus Urine Opiates Screen Urine Methadone Screen Ur Barbiturates Screen Ur Phencyclidine Scrn Ur Amphetamines Screen U Methamphetamin-MDMA U Benzodiazepines Scrn Urine Cocaine Screen U Cannabinoids Screen Ur Drug Screen Comment Ethyl Alcohol 4.0 Acetone Level NEGATIVE 05/01/18 05/01/18 05/01/18 01:55 01:55 02:45 WBC RBC Hgb Hct MCV MCH MCHC RDW RDW Differential Plt Count MPV Immature Gran % (Auto) Neut % (Auto) Lymph % (Auto) [place] % (Auto) Eos % (Auto) Baso % (Auto) Absolute Neuts (auto) Absolute Lymphs (auto) Total Counted Specimen Type Sample Site pH Bicarbonate Actual POC Total CO2 Base Excess O2 Saturation ABG pCO2 ABG pO2 Shar Test O2 Delivery Device Liter Flow Blood Gas Notified Whom Blood Gas Notified Time Sodium Potassium Chloride Carbon Dioxide Anion Gap BUN Creatinine Estim Creat Clear Calc Est GFR (MDRD) Af Amer Est GFR (MDRD) Non-Af BUN/Creatinine Ratio Glucose Lactic Acid 0.6 Calcium Phosphorus Magnesium Total Bilirubin AST ALT Alkaline Phosphatase Total Protein Albumin Globulin Albumin/Globulin Ratio TSH Free T4 Urine Color Yellow Urine Clarity Cloudy Urine pH 5.0 Ur Specific Maxwell 1.015 Urine Protein 100 H Urine Glucose (UA) Normal Urine Ketones Negative Urine Occult Blood 50 H Urine Nitrite Negative Urine Bilirubin Negative Urine Urobilinogen Normal Ur Leukocyte Esterase 500 H Urine RBC 0 SEEN Urine WBC >100 SEEN Ur Squamous Epith Cells 0-5 SEEN Ur Transition Epith Cell 0-5 SEEN Urine Bacteria 4+ Urine Mucus 0 SEEN Urine Opiates Screen POSITIVE H Urine Methadone Screen NEGATIVE Ur Barbiturates Screen POSITIVE H Ur Phencyclidine Scrn NEGATIVE Ur Amphetamines Screen NEGATIVE U Methamphetamin-MDMA NEGATIVE U Benzodiazepines Scrn NEGATIVE Urine Cocaine Screen NEGATIVE U Cannabinoids Screen NEGATIVE Ur Drug Screen Comment Ethyl Alcohol Acetone Level 05/01/18 06:05 WBC RBC Hgb Hct MCV MCH MCHC RDW RDW Differential Plt Count MPV Immature Gran % (Auto) Neut % (Auto) Lymph % (Auto) [place] % (Auto) Eos % (Auto) Baso % (Auto) Absolute Neuts (auto) Absolute Lymphs (auto) Total Counted Specimen Type Sample Site pH Bicarbonate Actual POC Total CO2 Base Excess O2 Saturation ABG pCO2 ABG pO2 Shar Test O2 Delivery Device Liter Flow Blood Gas Notified Whom Blood Gas Notified Time Sodium Pending Potassium Pending Chloride Pending Carbon Dioxide Pending Anion Gap Pending BUN Pending Creatinine Pending Estim Creat Clear Calc Est GFR (MDRD) Af Amer Pending Est GFR (MDRD) Non-Af Pending BUN/Creatinine Ratio Pending Glucose Pending Lactic Acid Calcium Pending Phosphorus Magnesium Total Bilirubin Pending AST Pending ALT Pending Alkaline Phosphatase Pending Total Protein Pending Albumin Pending Globulin Albumin/Globulin Ratio TSH Free T4 Pending Urine Color Urine Clarity Urine pH Ur Specific Maxwell Urine Protein Urine Glucose (UA) Urine Ketones Urine Occult Blood Urine Nitrite Urine Bilirubin Urine Urobilinogen Ur Leukocyte Esterase Urine RBC Urine WBC Ur Squamous Epith Cells Ur Transition Epith Cell Urine Bacteria Urine Mucus Urine Opiates Screen Urine Methadone Screen Ur Barbiturates Screen Ur Phencyclidine Scrn Ur Amphetamines Screen U Methamphetamin-MDMA U Benzodiazepines Scrn Urine Cocaine Screen U Cannabinoids Screen Ur Drug Screen Comment Ethyl Alcohol Acetone Level POC Glucose 05/01/18 05/01/18 05/01/18 02:50 01:50 00:57 POC Glucose 99 68 L 62 L Clinical Impression(s) from Imaging Studies Chest X-Ray 04/30/18 22:38 IMPRESSION: There are findings consistent with COPD. There is no evidence of acute chest disease. Electronically Signed: Maninder Bowser MD at 23:17 EDT , Service support , Chest X-Ray 05/01/18 04:33 IMPRESSION: Central line is in adequate position. COPD. No evidence for acute cardiopulmonary pathology. Electronically Signed: Iron Schmidt MD at 5:19 EDT , Service support , Brain CT 05/01/18 22:38 IMPRESSION: Chronic involutional changes of the brain. 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 No demonstrated acute intracranial process. Electronically Signed: Iron Schmidt MD at 2:02 EDT , Service support , Assessment/Plan Active and Suspected Problems Septic shock (Acute) Acute UTI (Acute) Encephalopathy acute (Acute) GURVINDER (acute kidney injury) (Acute) Polysubstance abuse (Acute) RECOMMENDATIONS: 1. Discontinue morphine, given renal insufficiency. 2. Continue Levophed in an attempt to maintain a mean arterial pressure at or above 65 mmHg. 3. Continue antibiotics, pending infectious workup 4. Will defer management of the patient's IV fluids to nephrology 5. Obtain speech therapy evaluation. Appreciate dietary recommendations 6. Avoid sedating medications. 7. Continue bronchodilators. 8. Wean supplemental oxygen to maintain saturations at or above 90%. IMPRESSIONS: 1. Septic shock with concerns for acute cystitis and lower extremity cellulitis The patient has been adequately volume resuscitated at this time. Would plan to continue Levophed to maintain a mean arterial pressure at or above 65 mmHg. Continue antimicrobial coverage, pending infectious workup. Supplemental IV fluids will be continued per nephrology recommendations. 2. Acute kidney injury Concern for prerenal etiology. Continue supplemental IV fluids as ordered. Urine culture is currently pending. Renal ultrasound is currently pending. 3. Severe protein/calorie malnutrition Nursing to encourage p.o. feeding. Appreciate nutrition recommendations. 4. Encephalopathy Likely metabolic in nature, with polypharmacy also likely a contributing factor. Recommend holding all sedating medications as tolerated. 5. Self-reported COPD/hypertension/anxiety/depression/tobacco dependency Complicates care, management, recovery and prognosis. Continue bronchodilators as ordered. Physical therapy to evaluate patient. TIME: 38 minutes of critical care time, independent of procedures, was spent addressing the patient's septic shock, acute cystitis, lower extremity cellulitis, acute kidney injury, malnutrition, encephalopathy, review of all data and collaboration with the care team. ([id number]) Code Visit [id number]: [id number] Critical care first hour
[2018-05-01 06:47] LABS: Absolute Lymphocyte Count 0.96 X10^3/ul (0.83-4.51); Absolute Neutrophil Count 4.9 X10^3/uL (2.0-7.7); Basophil# 0.02 X10^3/uL; Basophil% 0.3 % (0-1); Eosinophil# 0.26 X10^3/uL; Eosinophils% 3.8 % (0-5); Hematocrit 34.7 % (37-47); Hemoglobin 10.5 g/dl (12.0-15.0); Lymphocyte # 0.96 X10^3/ul (4.0); Mean Corp Hgb Conc 30.3 g/gl (32-36); Mean Corpuscular Hgb 30.7 pg (27.0-32.0); Mean Corpuscular Volume 101.5 fL (81-99); Monocyte# 0.65 X10^3/uL; Monocyte% 9.5 % (0-10); Neutrophil # 4.92 X10^3/uL (2.7-7.7); Neutrophil % 71.8 % (47-70); Platelet Count 272 K/mm3 (150-450); RBC Distribution Width CV 16.6 % (11.6-14.6); RBC Distribution Width SD 60.5 fl (35.1-43.9); Red Blood Count 3.42 M/mm3 (4.2-5.4); White Blood Count 6.9 K/mm3 (4.4-11.0)
[2018-05-01 06:49] LABS: ALB/GLOB Ratio 0.8 RATIO (0.9-2.4); AST(SGOT) 76 U/L (15-37); Alanine Aminotransfer ALT/SGPT 23 U/L (13-56); Albumin, Serum 2.6 g/dL (3.2-5.0); Alkaline Phosphatase 289 U/L (45-117); Anion Gap 8 (5-15); BUN 59 mg/dL (7-18); BUN/Creat Ratio 12.9 RATIO (10-20); Calcium,Total 7.4 mg/dL (8.5-10.1); Chloride 112 mmol/L (98-107); Creatinine, Serum 4.57 mg/dL (0.55-1.02); EST Glomerular Filtration Rate 11 mL/min (>60); Est Glom Filt Rate - Afr Amer 13 mL/min (>60); Estimated Creatinine Clearance 7.48 ml/min; Globulin 3.3 g/dL (2.2-4.2); Glucose 123 mg/dL (74-106); Potassium 4.6 mmol/L (3.5-5.1); Protein, Total 5.9 g/dL (6.4-8.2); Sodium Level 136 mmol/L (136-145); T4 Free Direct 1.01 ng/dL (0.76-1.46)
[2018-05-01 06:55] LABS: POSITIVE COUNT NO; POSITIVE DIFFERENTIAL NO; POSITIVE MORPHOLOGY NO
[2018-05-01 06:57] LABS: International Normalized Ratio 1.1; Prothrombin Time (Protime)PT. 13.9 SECONDS (11.7-14.9)
[2018-05-01 07:01] LABS: Urine Sodium 80 mmol/L (Not Establ.)
[2018-05-01] MEDS: Ipratropium/Albuterol Sulfate 3 ML AMPUL.NEB INHALATION ×3 (08:33→18:35)
--- NOTE | 2018-05-01 08:45 | PCM.CONS.R ---
Consultation - Renal 05/01/18 PCP/ Referring MD: Requesting physician: Madhavi Baires MD Primary care physician: Florencio Stafford MD Reason for Consultation:: GUVRINDER - History of Present Illness History of Present Illness: The patient is a 57 year old F admitted to ICU for sepsis, UTI, GURVINDER, FTT, altered mental status, polysubstance abuse. She was pancultured and started on iv antibiotics. Urine suggestive of UTI. FeNA >1%. She received fluid resuscitation and is on pressors for hypotension, shock with SBP in the 60's. Denies syncope, lightheadedness or fall. She is nonoliguric with khoury catheter insertion. She has a history of neurogenic bladder with self catheterization, RSD, polysubstance abuse, tobacco use, COPD, pulmonary hypertension. She does not recall when she did her last self cath at home. She has chronic pain syndrome on opiates. She is a poor historian. She is disoriented to time. She denied urinary complaints. She admits to a cough, no fever, chills, chest pain. She had poor oral intake for several days. She lives with her sons but her mother is the one who had her sent to the hospital. Creatinine on admit was 6.32 improved to 4.57. Baseline creatinine 0.68 in January 2018. She had severe AG metabolic acidosis with respiratory acidosis. Lactic acid 0.6. Tox screen positive for barbiturates and opiates. Denied suicidal ideation. - Allergies Allergies: Allergies amoxicillin trihydrate [From Augmentin] Allergy (Verified 04/30/18 21:46) Abd cramps/diarrhea azithromycin [From Zithromax Z-Piter] Allergy (Verified 04/30/18 21:46) Abd cramps/diarrhea ibuprofen [From Advil] Allergy (Verified 04/30/18 21:46) Abd cramps/diarrhea levofloxacin [From Levaquin] Allergy (Verified 04/30/18 21:46) Abd cramps/diarrhea naproxen sodium [From Aleve] Allergy (Verified 04/30/18 21:46) Abd cramps/diarrhea nitrofurantoin [From Macrobid] Allergy (Verified 04/30/18 21:46) Abd cramps/diarrhea nitrofurantoin macrocrystalline [From Macrobid] Allergy (Verified 04/30/18 21:46) Abd cramps/diarrhea potassium clavulanate [From Augmentin] Allergy (Verified 04/30/18 21:46) Abd cramps/diarrhea fentanyl Adverse Reaction (Verified 04/30/18 21:46) Other FASR HEART RATE, DIZZINESS pregabalin [From Lyrica] Adverse Reaction (Verified 04/30/18 21:46) Other PAIN IN HEAD - Current Medications Current Medications: Current Medications Acetaminophen (Tylenol) 650 mg PO Q6H PRN PRN PRN Reason: Non-cardiac pain (mod-severe) Hydrocodone Bitart/Acetaminophen ([place] 5mg-325mg) 1 - 2 tablet PO Q6H PRN PRN PRN Reason: Moderate-severe pain Al Hydroxide/Mg Hydroxide (Mylanta Ii) 30 ml PO Q6H PRN PRN PRN Reason: Gastric burning Albuterol Sulfate (Ventolin Aerosols) 2.5 mg INHALATION Q2H PRN PRN PRN Reason: dyspnea, wheezing Albuterol/Ipratropium (Duoneb) 3 ml INHALATION Q6HWA.RT [facility] Last Admin: 05/01/18 08:33 Dose: 3 ml Heparin Sodium (Porcine) (Heparin Na) 5,000 unit SC Q12 [facility] Hydralazine HCl (Apresoline Iv) 10 mg IV Q4H PRN PRN PRN Reason: SBP > 160 Dextrose/Sodium Chloride () 1,000 mls @ 125 mls/hr IV .Q8H [facility] Last Admin: 05/01/18 02:58 Dose: 125 mls/hr Norepinephrine Bitartrate 8 mg (/ Dextrose) 258 mls @ 9.68 mls/hr IV .[id number] [facility] Last Admin: 05/01/18 05:25 Dose: 9.68 mls/hr Ceftriaxone Sodium (Rocephin) 1 gm in 50 mls @ 100 mls/hr IV QHS [facility] Norepinephrine Bitartrate 8 mg (/ Dextrose) 258 mls @ 9.68 mls/hr IV .[id number] [facility] Sodium Chloride () 250 mls @ 15 mls/hr IV .[id number] PRN PRN Reason: SALINE FLUSH Magnesium Hydroxide (Milk Of Magnesia) 30 ml PO DAILY PRN PRN PRN Reason: Constipation Nutritional Formula (Lactose Free) (Ensure Enlive) 120 ml PO 4X/DAY [facility] Ondansetron HCl (Zofran) 4 mg IV Q8H PRN PRN PRN Reason: NAUSEA/VOMITING Sodium Chloride () 5 - 15 ml IV UD PRN PRN Reason: SALINE FLUSH Sodium Chloride () 10 - 40 ml IV UD PRN PRN Reason: MULTILUMEN/HICMAN CATH FLUSH - Past Medical History Past Medical History (Chronic Problems): Chronic Problems RSD lower limb (Chronic) Chronic abdominal pain (Chronic) COPD (chronic obstructive pulmonary disease) (Chronic) Severe protein-calorie malnutrition (Chronic) Anemia (Chronic) Pulmonary HTN (Chronic) Vitamin D deficiency (Chronic) Tobacco user (Chronic) Reflex sympathetic dystrophy (Chronic) - Past Surgical History Surgical History: appendectomy, cholecystectomy, tonsillectomy, - - Laparotomy x2 - Social History Smoking Status: Current every day smoker Alcohol: None Drugs: None - Family History Maternal Family History: Family History (Last Updated 01/19/18 @ 08:02 by Luis Eduardo Patel MD) Father Alzheimers disease Mother Heart problem History Items: Heart Disease Paternal Family History: Family History (Last Updated 01/19/18 @ 08:02 by Luis Eduardo Patel MD) Father Alzheimers disease Mother Heart problem History Items: - - Father with history of Alzheimer's disease. Review of Systems Constitutional: Reports: Anorexia, Malaise, Weakness, Fatigue. Denies: Chills, Fever Eyes: Denies: Vision Change Cardiovascular: Denies: Chest Pain, Edema, Syncope Patient Problems: Active and Suspected Problems Septic shock (Acute) Acute UTI (Acute) Encephalopathy acute (Acute) GURVINDER (acute kidney injury) (Acute) Polysubstance abuse (Acute) - Physical Exam General: Alert, Cooperative, No apparent distress, Confused, Disoriented - thinks it is 2011, - - cachectic HEENT: PERRLA, EOMI Oral: Dry Mucosa Neck: Supple Lungs: Clear to auscultation Cardiovascular: No rub noted, Tachycardic Abdomen: Bowel Sounds Present, Soft, Non Tender, Non-Distended Extremities: No edema Musculoskeletal: Muscle Wasting, - - weakness Lymphatic: No Cervical, Supraclavicular, or Inguinal Adenopathy Neurological: - - no tremor Psych/Mental Status: Anxious, Depressed, - - confused Vital Signs Temp Pulse Resp BP Pulse Ox 97.2 F L 95 11 L 93/62 92 05/01/18 07:00 05/01/18 07:41 05/01/18 07:00 05/01/18 07:00 05/01/18 04:45 Oxygen Flow Rate (L/min) 6 Oxygen Delivery Method Nasal Cannula Weight: 35.3 kg Body Mass Index (BMI) 14.7 Finger Stick Blood Glucose 99 Intake and Output for Last 24 Hours 04/29/18 04/30/18 05/01/18 23:59 23:59 23:59 Intake Total 443.5 / 443.5 Output Total 1100 / 1100 Balance -656.5 / -656.5 Laboratory Tests Past 24 Hrs 04/30/18 04/30/18 04/30/18 21:59 21:59 21:59 WBC 7.9 RBC 3.70 L Hgb 11.8 L Hct 37.4 MCV 101.1 H MCH 31.9 MCHC 31.6 L RDW 16.6 H RDW Differential 60.6 H Plt Count 282 MPV 11.0 Immature Gran % (Auto) 0.300 Neut % (Auto) 65.8 Lymph % (Auto) 14.6 L [place] % (Auto) 14.6 H Eos % (Auto) 4.3 Baso % (Auto) 0.4 Absolute Neuts (auto) 5.2 Absolute Lymphs (auto) 1.15 Total Counted Not Reportable PT INR Specimen Type Sample Site pH Bicarbonate Actual POC Total CO2 Base Excess O2 Saturation ABG pCO2 ABG pO2 Shar Test O2 Delivery Device Liter Flow Blood Gas Notified Whom Blood Gas Notified Time Sodium 133 L Potassium 5.4 H Chloride 101 Carbon Dioxide 17.0 L Anion Gap 15 BUN 73 H Creatinine 6.32 H Estim Creat Clear Calc 5.00 Est GFR (MDRD) Af Amer 9 L Est GFR (MDRD) Non-Af 7 L BUN/Creatinine Ratio 11.6 Glucose 81 Lactic Acid Calcium 8.8 Phosphorus 7.2 H Magnesium 3.5 H Total Bilirubin 0.30 AST 70 H ALT 22 Alkaline Phosphatase 230 H Total Protein 7.5 Albumin 3.4 Globulin 4.1 Albumin/Globulin Ratio 0.8 L TSH 0.27 L Free T4 Urine Color Urine Clarity Urine pH Ur Specific [place] Urine Protein Urine Glucose (UA) Urine Ketones Urine Occult Blood Urine Nitrite Urine Bilirubin Urine Urobilinogen Ur Leukocyte Esterase Urine RBC Urine WBC Ur Squamous Epith Cells Ur Transition Epith Cell Urine Bacteria Urine Mucus Ur Random Sodium Urine Creatinine Urine Opiates Screen Urine Methadone Screen Ur Barbiturates Screen Ur Phencyclidine Scrn Ur Amphetamines Screen U Methamphetamin-MDMA U Benzodiazepines Scrn Urine Cocaine Screen U Cannabinoids Screen Ur Drug Screen Comment Ethyl Alcohol Acetone Level 04/30/18 04/30/18 04/30/18 23:05 23:05 23:15 WBC RBC Hgb Hct MCV MCH MCHC RDW RDW Differential Plt Count MPV Immature Gran % (Auto) Neut % (Auto) Lymph % (Auto) [place] % (Auto) Eos % (Auto) Baso % (Auto) Absolute Neuts (auto) Absolute Lymphs (auto) Total Counted PT INR Specimen Type ART Sample Site R Radial pH 7.16 L* Bicarbonate Actual 16.3 L POC Total CO2 18 Base Excess -12 L O2 Saturation 98 ABG pCO2 46.4 H ABG pO2 125 H Shar Test POS O2 Delivery Device Nasal Can Liter Flow 4.0 Blood Gas Notified Whom ED Blood Gas Notified Time 2310 Sodium Potassium Chloride Carbon Dioxide Anion Gap BUN Creatinine Estim Creat Clear Calc Est GFR (MDRD) Af Amer Est GFR (MDRD) Non-Af BUN/Creatinine Ratio Glucose Lactic Acid Calcium Phosphorus Magnesium Total Bilirubin AST ALT Alkaline Phosphatase Total Protein Albumin Globulin Albumin/Globulin Ratio TSH Free T4 Urine Color Urine Clarity Urine pH Ur Specific [place] Urine Protein Urine Glucose (UA) Urine Ketones Urine Occult Blood Urine Nitrite Urine Bilirubin Urine Urobilinogen Ur Leukocyte Esterase Urine RBC Urine WBC Ur Squamous Epith Cells Ur Transition Epith Cell Urine Bacteria Urine Mucus Ur Random Sodium Urine Creatinine Urine Opiates Screen Urine Methadone Screen Ur Barbiturates Screen Ur Phencyclidine Scrn Ur Amphetamines Screen U Methamphetamin-MDMA U Benzodiazepines Scrn Urine Cocaine Screen U Cannabinoids Screen Ur Drug Screen Comment Ethyl Alcohol 4.0 Acetone Level NEGATIVE 05/01/18 05/01/18 05/01/18 01:55 01:55 01:55 WBC RBC Hgb Hct MCV MCH MCHC RDW RDW Differential Plt Count MPV Immature Gran % (Auto) Neut % (Auto) Lymph % (Auto) [place] % (Auto) Eos % (Auto) Baso % (Auto) Absolute Neuts (auto) Absolute Lymphs (auto) Total Counted PT INR Specimen Type Sample Site pH Bicarbonate Actual POC Total CO2 Base Excess O2 Saturation ABG pCO2 ABG pO2 Shar Test O2 Delivery Device Liter Flow Blood Gas Notified Whom Blood Gas Notified Time Sodium Potassium Chloride Carbon Dioxide Anion Gap BUN Creatinine Estim Creat Clear Calc Est GFR (MDRD) Af Amer Est GFR (MDRD) Non-Af BUN/Creatinine Ratio Glucose Lactic Acid Calcium Phosphorus Magnesium Total Bilirubin AST ALT Alkaline Phosphatase Total Protein Albumin Globulin Albumin/Globulin Ratio TSH Free T4 Urine Color Yellow Urine Clarity Cloudy Urine pH 5.0 Ur Specific [place] 1.015 Urine Protein 100 H Urine Glucose (UA) Normal Urine Ketones Negative Urine Occult Blood 50 H Urine Nitrite Negative Urine Bilirubin Negative Urine Urobilinogen Normal Ur Leukocyte Esterase 500 H Urine RBC 0 SEEN Urine WBC >100 SEEN Ur Squamous Epith Cells 0-5 SEEN Ur Transition Epith Cell 0-5 SEEN Urine Bacteria 4+ Urine Mucus 0 SEEN Ur Random Sodium Urine Creatinine 97.00 Urine Opiates Screen POSITIVE H Urine Methadone Screen NEGATIVE Ur Barbiturates Screen POSITIVE H Ur Phencyclidine Scrn NEGATIVE Ur Amphetamines Screen NEGATIVE U Methamphetamin-MDMA NEGATIVE U Benzodiazepines Scrn NEGATIVE Urine Cocaine Screen NEGATIVE U Cannabinoids Screen NEGATIVE Ur Drug Screen Comment Ethyl Alcohol Acetone Level 05/01/18 05/01/18 05/01/18 01:55 02:45 06:05 WBC RBC Hgb Hct MCV MCH MCHC RDW RDW Differential Plt Count MPV Immature Gran % (Auto) Neut % (Auto) Lymph % (Auto) [place] % (Auto) Eos % (Auto) Baso % (Auto) Absolute Neuts (auto) Absolute Lymphs (auto) Total Counted PT INR Specimen Type Sample Site pH Bicarbonate Actual POC Total CO2 Base Excess O2 Saturation ABG pCO2 ABG pO2 Shar Test O2 Delivery Device Liter Flow Blood Gas Notified Whom Blood Gas Notified Time Sodium 136 Potassium 4.6 Chloride 112 H Carbon Dioxide 16.0 L Anion Gap 8 BUN 59 H Creatinine 4.57 H Estim Creat Clear Calc 7.48 Est GFR (MDRD) Af Amer 13 L Est GFR (MDRD) Non-Af 11 L BUN/Creatinine Ratio 12.9 Glucose 123 H Lactic Acid 0.6 Calcium 7.4 L Phosphorus Magnesium Total Bilirubin 0.30 AST 76 H ALT 23 Alkaline Phosphatase 289 H Total Protein 5.9 L Albumin 2.6 L Globulin 3.3 Albumin/Globulin Ratio 0.8 L TSH Free T4 1.01 Urine Color Urine Clarity Urine pH Ur Specific [place] Urine Protein Urine Glucose (UA) Urine Ketones Urine Occult Blood Urine Nitrite Urine Bilirubin Urine Urobilinogen Ur Leukocyte Esterase Urine RBC Urine WBC Ur Squamous Epith Cells Ur Transition Epith Cell Urine Bacteria Urine Mucus Ur Random Sodium 80 Urine Creatinine Urine Opiates Screen Urine Methadone Screen Ur Barbiturates Screen Ur Phencyclidine Scrn Ur Amphetamines Screen U Methamphetamin-MDMA U Benzodiazepines Scrn Urine Cocaine Screen U Cannabinoids Screen Ur Drug Screen Comment Ethyl Alcohol Acetone Level 05/01/18 05/01/18 06:05 06:05 WBC 6.9 RBC 3.42 L Hgb 10.5 L Hct 34.7 L MCV 101.5 H MCH 30.7 MCHC 30.3 L RDW 16.6 H RDW Differential 60.5 H Plt Count 272 MPV 11.0 Immature Gran % (Auto) 0.600 Neut % (Auto) 71.8 H Lymph % (Auto) 14.0 L [place] % (Auto) 9.5 Eos % (Auto) 3.8 Baso % (Auto) 0.3 Absolute Neuts (auto) 4.9 Absolute Lymphs (auto) 0.96 Total Counted Not Reportable PT 13.9 INR 1.1 Specimen Type Sample Site pH Bicarbonate Actual POC Total CO2 Base Excess O2 Saturation ABG pCO2 ABG pO2 Shar Test O2 Delivery Device Liter Flow Blood Gas Notified Whom Blood Gas Notified Time Sodium Potassium Chloride Carbon Dioxide Anion Gap BUN Creatinine Estim Creat Clear Calc Est GFR (MDRD) Af Amer Est GFR (MDRD) Non-Af BUN/Creatinine Ratio Glucose Lactic Acid Calcium Phosphorus Magnesium Total Bilirubin AST ALT Alkaline Phosphatase Total Protein Albumin Globulin Albumin/Globulin Ratio TSH Free T4 Urine Color Urine Clarity Urine pH Ur Specific [place] Urine Protein Urine Glucose (UA) Urine Ketones Urine Occult Blood Urine Nitrite Urine Bilirubin Urine Urobilinogen Ur Leukocyte Esterase Urine RBC Urine WBC Ur Squamous Epith Cells Ur Transition Epith Cell Urine Bacteria Urine Mucus Ur Random Sodium Urine Creatinine Urine Opiates Screen Urine Methadone Screen Ur Barbiturates Screen Ur Phencyclidine Scrn Ur Amphetamines Screen U Methamphetamin-MDMA U Benzodiazepines Scrn Urine Cocaine Screen U Cannabinoids Screen Ur Drug Screen Comment Ethyl Alcohol Acetone Level POC Glucose 05/01/18 05/01/18 05/01/18 02:50 01:50 00:57 POC Glucose 99 68 L 62 L Clinical Impression(s) from Imaging Studies Chest X-Ray 04/30/18 22:38 IMPRESSION: There are findings consistent with COPD. There is no evidence of acute chest disease. Electronically Signed: Maninder Bowser MD at 23:17 EDT , Service support , Brain CT 05/01/18 22:38 IMPRESSION: Chronic involutional changes of the brain. 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 No demonstrated acute intracranial process. Electronically Signed: Iron Schmidt MD at 2:02 EDT , Service support , Assessment/Plan All Active Problems Septic shock (Acute) Acute UTI (Acute) Encephalopathy acute (Acute) GURVINDER (acute kidney injury) (Acute) Polysubstance abuse (Acute) UTI (urinary tract infection) (Acute) Hypokalemia due to inadequate potassium intake (Acute) Normocytic anemia (Acute) Generalized weakness (Acute) Contusion of knee, left (Acute) Contusion of knee, right (Acute) Delirium (Acute) CHF (congestive heart failure) (Acute) Fall (Acute) Debility (Acute) Opioid withdrawal (Acute) Barbiturate withdrawal (Acute) Acute UTI (Acute) 1. GURVINDER likely due to ATN, nonoliguric from sepsis, shock. FeNa >1% with UTI. Baseline creatinine 0.68 on 01/22/18. History of neurogenic bladder with self catheterization. Creatinine 6.32 with potassium 5.4 on admission improved to creatinine 4.57, potassium 4.6. Continue with iv hydration, pressors, iv antibiotics. Await renal US. Check CPK level r/o rhabdo 2. AG metabolic acidosis with respiratory acidosis 3. Sepsis await cx, continue iv antbx. 4. elevated AST 5. Hyperkalemia, hyperphosphatemia. 6. polysubstance abuse positive tox screen 7. COPD 8. Tobacco use.
--- NOTE | 2018-05-01 08:50 | CON.PCM_ITS ---
Consultation - Renal 05/01/18 PCP/ Referring MD: Requesting physician: Madhavi Baires MD Primary care physician: Florencio Stafford MD Reason for Consultation:: GURVINDER - History of Present Illness History of Present Illness: The patient is a 57 year old F admitted to ICU for sepsis, UTI, GURVINDER, FTT, altered mental status, polysubstance abuse. She was pancultured and started on iv antibiotics. Urine suggestive of UTI. FeNA >1%. She received fluid resuscitation and is on pressors for hypotension, shock with SBP in the 60's. Denies syncope, lightheadedness or fall. She is nonoliguric with khoury catheter insertion. She has a history of neurogenic bladder with self catheterization, RSD, polysubstance abuse, tobacco use, COPD, pulmonary hypertension. She does not recall when she did her last self cath at home. She has chronic pain syndrome on opiates. She is a poor historian. She is disoriented to time. She denied urinary complaints. She admits to a cough, no fever, chills, chest pain. She had poor oral intake for several days. She lives with her sons but her mother is the one who had her sent to the hospital. Creatinine on admit was 6.32 improved to 4.57. Baseline creatinine 0.68 in January 2018. She had severe AG metabolic acidosis with respiratory acidosis. Lactic acid 0.6. Tox screen positive for barbiturates and opiates. Denied suicidal ideation. - Allergies Allergies: Allergies amoxicillin trihydrate [From Augmentin] Allergy (Verified 04/30/18 21:46) Abd cramps/diarrhea azithromycin [From Zithromax Z-Piter] Allergy (Verified 04/30/18 21:46) Abd cramps/diarrhea ibuprofen [From Advil] Allergy (Verified 04/30/18 21:46) Abd cramps/diarrhea levofloxacin [From Levaquin] Allergy (Verified 04/30/18 21:46) Abd cramps/diarrhea naproxen sodium [From Aleve] Allergy (Verified 04/30/18 21:46) Abd cramps/diarrhea nitrofurantoin [From Macrobid] Allergy (Verified 04/30/18 21:46) Abd cramps/diarrhea nitrofurantoin macrocrystalline [From Macrobid] Allergy (Verified 04/30/18 21:46) Abd cramps/diarrhea potassium clavulanate [From Augmentin] Allergy (Verified 04/30/18 21:46) Abd cramps/diarrhea fentanyl Adverse Reaction (Verified 04/30/18 21:46) Other FASR HEART RATE, DIZZINESS pregabalin [From Lyrica] Adverse Reaction (Verified 04/30/18 21:46) Other PAIN IN HEAD - Current Medications Current Medications: Current Medications Acetaminophen (Tylenol) 650 mg PO Q6H PRN PRN PRN Reason: Non-cardiac pain (mod-severe) Hydrocodone Bitart/Acetaminophen ([place] 5mg-325mg) 1 - 2 tablet PO Q6H PRN PRN PRN Reason: Moderate-severe pain Al Hydroxide/Mg Hydroxide (Mylanta Ii) 30 ml PO Q6H PRN PRN PRN Reason: Gastric burning Albuterol Sulfate (Ventolin Aerosols) 2.5 mg INHALATION Q2H PRN PRN PRN Reason: dyspnea, wheezing Albuterol/Ipratropium (Duoneb) 3 ml INHALATION Q6HWA.RT [facility] Last Admin: 05/01/18 08:33 Dose: 3 ml Heparin Sodium (Porcine) (Heparin Na) 5,000 unit SC Q12 [facility] Hydralazine HCl (Apresoline Iv) 10 mg IV Q4H PRN PRN PRN Reason: SBP > 160 Dextrose/Sodium Chloride () 1,000 mls @ 125 mls/hr IV .Q8H [facility] Last Admin: 05/01/18 02:58 Dose: 125 mls/hr Norepinephrine Bitartrate 8 mg (/ Dextrose) 258 mls @ 9.68 mls/hr IV .[id number] [facility] Last Admin: 05/01/18 05:25 Dose: 9.68 mls/hr Ceftriaxone Sodium (Rocephin) 1 gm in 50 mls @ 100 mls/hr IV QHS [facility] Norepinephrine Bitartrate 8 mg (/ Dextrose) 258 mls @ 9.68 mls/hr IV .[id number] [facility] Sodium Chloride () 250 mls @ 15 mls/hr IV .[id number] PRN PRN Reason: SALINE FLUSH Magnesium Hydroxide (Milk Of Magnesia) 30 ml PO DAILY PRN PRN PRN Reason: Constipation Nutritional Formula (Lactose Free) (Ensure Enlive) 120 ml PO 4X/DAY [facility] Ondansetron HCl (Zofran) 4 mg IV Q8H PRN PRN PRN Reason: NAUSEA/VOMITING Sodium Chloride () 5 - 15 ml IV UD PRN PRN Reason: SALINE FLUSH Sodium Chloride () 10 - 40 ml IV UD PRN PRN Reason: MULTILUMEN/HICMAN CATH FLUSH - Past Medical History Past Medical History (Chronic Problems): Chronic Problems RSD lower limb (Chronic) Chronic abdominal pain (Chronic) COPD (chronic obstructive pulmonary disease) (Chronic) Severe protein-calorie malnutrition (Chronic) Anemia (Chronic) Pulmonary HTN (Chronic) Vitamin D deficiency (Chronic) Tobacco user (Chronic) Reflex sympathetic dystrophy (Chronic) - Past Surgical History Surgical History: appendectomy, cholecystectomy, tonsillectomy, - - Laparotomy x2 - Social History Smoking Status: Current every day smoker Alcohol: None Drugs: None - Family History Maternal Family History: Family History (Last Updated 01/19/18 @ 08:02 by Luis Eduardo Patel MD) Father Alzheimers disease Mother Heart problem History Items: Heart Disease Paternal Family History: Family History (Last Updated 01/19/18 @ 08:02 by Luis Eduardo Patel MD) Father Alzheimers disease Mother Heart problem History Items: - - Father with history of Alzheimer's disease. Review of Systems Constitutional: Reports: Anorexia, Malaise, Weakness, Fatigue. Denies: Chills, Fever Eyes: Denies: Vision Change Cardiovascular: Denies: Chest Pain, Edema, Syncope Patient Problems: Active and Suspected Problems Septic shock (Acute) Acute UTI (Acute) Encephalopathy acute (Acute) GURVINDER (acute kidney injury) (Acute) Polysubstance abuse (Acute) - Physical Exam General: Alert, Cooperative, No apparent distress, Confused, Disoriented - thinks it is 2011, - - cachectic HEENT: PERRLA, EOMI Oral: Dry Mucosa Neck: Supple Lungs: Clear to auscultation Cardiovascular: No rub noted, Tachycardic Abdomen: Bowel Sounds Present, Soft, Non Tender, Non-Distended Extremities: No edema Musculoskeletal: Muscle Wasting, - - weakness Lymphatic: No Cervical, Supraclavicular, or Inguinal Adenopathy Neurological: - - no tremor Psych/Mental Status: Anxious, Depressed, - - confused Vital Signs Temp Pulse Resp BP Pulse Ox 97.2 F L 95 11 L 93/62 92 05/01/18 07:00 05/01/18 07:41 05/01/18 07:00 05/01/18 07:00 05/01/18 04:45 Oxygen Flow Rate (L/min) 6 Oxygen Delivery Method Nasal Cannula Weight: 35.3 kg Body Mass Index (BMI) 14.7 Finger Stick Blood Glucose 99 Intake and Output for Last 24 Hours 04/29/18 04/30/18 05/01/18 23:59 23:59 23:59 Intake Total 443.5 / 443.5 Output Total 1100 / 1100 Balance -656.5 / -656.5 Laboratory Tests Past 24 Hrs 04/30/18 04/30/18 04/30/18 21:59 21:59 21:59 WBC 7.9 RBC 3.70 L Hgb 11.8 L Hct 37.4 MCV 101.1 H MCH 31.9 MCHC 31.6 L RDW 16.6 H RDW Differential 60.6 H Plt Count 282 MPV 11.0 Immature Gran % (Auto) 0.300 Neut % (Auto) 65.8 Lymph % (Auto) 14.6 L [place] % (Auto) 14.6 H Eos % (Auto) 4.3 Baso % (Auto) 0.4 Absolute Neuts (auto) 5.2 Absolute Lymphs (auto) 1.15 Total Counted Not Reportable PT INR Specimen Type Sample Site pH Bicarbonate Actual POC Total CO2 Base Excess O2 Saturation ABG pCO2 ABG pO2 Shar Test O2 Delivery Device Liter Flow Blood Gas Notified Whom Blood Gas Notified Time Sodium 133 L Potassium 5.4 H Chloride 101 Carbon Dioxide 17.0 L Anion Gap 15 BUN 73 H Creatinine 6.32 H Estim Creat Clear Calc 5.00 Est GFR (MDRD) Af Amer 9 L Est GFR (MDRD) Non-Af 7 L BUN/Creatinine Ratio 11.6 Glucose 81 Lactic Acid Calcium 8.8 Phosphorus 7.2 H Magnesium 3.5 H Total Bilirubin 0.30 AST 70 H ALT 22 Alkaline Phosphatase 230 H Total Protein 7.5 Albumin 3.4 Globulin 4.1 Albumin/Globulin Ratio 0.8 L TSH 0.27 L Free T4 Urine Color Urine Clarity Urine pH Ur Specific [place] Urine Protein Urine Glucose (UA) Urine Ketones Urine Occult Blood Urine Nitrite Urine Bilirubin Urine Urobilinogen Ur Leukocyte Esterase Urine RBC Urine WBC Ur Squamous Epith Cells Ur Transition Epith Cell Urine Bacteria Urine Mucus Ur Random Sodium Urine Creatinine Urine Opiates Screen Urine Methadone Screen Ur Barbiturates Screen Ur Phencyclidine Scrn Ur Amphetamines Screen U Methamphetamin-MDMA U Benzodiazepines Scrn Urine Cocaine Screen U Cannabinoids Screen Ur Drug Screen Comment Ethyl Alcohol Acetone Level 04/30/18 04/30/18 04/30/18 23:05 23:05 23:15 WBC RBC Hgb Hct MCV MCH MCHC RDW RDW Differential Plt Count MPV Immature Gran % (Auto) Neut % (Auto) Lymph % (Auto) [place] % (Auto) Eos % (Auto) Baso % (Auto) Absolute Neuts (auto) Absolute Lymphs (auto) Total Counted PT INR Specimen Type ART Sample Site R Radial pH 7.16 L* Bicarbonate Actual 16.3 L POC Total CO2 18 Base Excess -12 L O2 Saturation 98 ABG pCO2 46.4 H ABG pO2 125 H Shar Test POS O2 Delivery Device Nasal Can Liter Flow 4.0 Blood Gas Notified Whom ED Blood Gas Notified Time 2310 Sodium Potassium Chloride Carbon Dioxide Anion Gap BUN Creatinine Estim Creat Clear Calc Est GFR (MDRD) Af Amer Est GFR (MDRD) Non-Af BUN/Creatinine Ratio Glucose Lactic Acid Calcium Phosphorus Magnesium Total Bilirubin AST ALT Alkaline Phosphatase Total Protein Albumin Globulin Albumin/Globulin Ratio TSH Free T4 Urine Color Urine Clarity Urine pH Ur Specific [place] Urine Protein Urine Glucose (UA) Urine Ketones Urine Occult Blood Urine Nitrite Urine Bilirubin Urine Urobilinogen Ur Leukocyte Esterase Urine RBC Urine WBC Ur Squamous Epith Cells Ur Transition Epith Cell Urine Bacteria Urine Mucus Ur Random Sodium Urine Creatinine Urine Opiates Screen Urine Methadone Screen Ur Barbiturates Screen Ur Phencyclidine Scrn Ur Amphetamines Screen U Methamphetamin-MDMA U Benzodiazepines Scrn Urine Cocaine Screen U Cannabinoids Screen Ur Drug Screen Comment Ethyl Alcohol 4.0 Acetone Level NEGATIVE 05/01/18 05/01/18 05/01/18 01:55 01:55 01:55 WBC RBC Hgb Hct MCV MCH MCHC RDW RDW Differential Plt Count MPV Immature Gran % (Auto) Neut % (Auto) Lymph % (Auto) [place] % (Auto) Eos % (Auto) Baso % (Auto) Absolute Neuts (auto) Absolute Lymphs (auto) Total Counted PT INR Specimen Type Sample Site pH Bicarbonate Actual POC Total CO2 Base Excess O2 Saturation ABG pCO2 ABG pO2 Shar Test O2 Delivery Device Liter Flow Blood Gas Notified Whom Blood Gas Notified Time Sodium Potassium Chloride Carbon Dioxide Anion Gap BUN Creatinine Estim Creat Clear Calc Est GFR (MDRD) Af Amer Est GFR (MDRD) Non-Af BUN/Creatinine Ratio Glucose Lactic Acid Calcium Phosphorus Magnesium Total Bilirubin AST ALT Alkaline Phosphatase Total Protein Albumin Globulin Albumin/Globulin Ratio TSH Free T4 Urine Color Yellow Urine Clarity Cloudy Urine pH 5.0 Ur Specific [place] 1.015 Urine Protein 100 H Urine Glucose (UA) Normal Urine Ketones Negative Urine Occult Blood 50 H Urine Nitrite Negative Urine Bilirubin Negative Urine Urobilinogen Normal Ur Leukocyte Esterase 500 H Urine RBC 0 SEEN Urine WBC >100 SEEN Ur Squamous Epith Cells 0-5 SEEN Ur Transition Epith Cell 0-5 SEEN Urine Bacteria 4+ Urine Mucus 0 SEEN Ur Random Sodium Urine Creatinine 97.00 Urine Opiates Screen POSITIVE H Urine Methadone Screen NEGATIVE Ur Barbiturates Screen POSITIVE H Ur Phencyclidine Scrn NEGATIVE Ur Amphetamines Screen NEGATIVE U Methamphetamin-MDMA NEGATIVE U Benzodiazepines Scrn NEGATIVE Urine Cocaine Screen NEGATIVE U Cannabinoids Screen NEGATIVE Ur Drug Screen Comment Ethyl Alcohol Acetone Level 05/01/18 05/01/18 05/01/18 01:55 02:45 06:05 WBC RBC Hgb Hct MCV MCH MCHC RDW RDW Differential Plt Count MPV Immature Gran % (Auto) Neut % (Auto) Lymph % (Auto) [place] % (Auto) Eos % (Auto) Baso % (Auto) Absolute Neuts (auto) Absolute Lymphs (auto) Total Counted PT INR Specimen Type Sample Site pH Bicarbonate Actual POC Total CO2 Base Excess O2 Saturation ABG pCO2 ABG pO2 Shar Test O2 Delivery Device Liter Flow Blood Gas Notified Whom Blood Gas Notified Time Sodium 136 Potassium 4.6 Chloride 112 H Carbon Dioxide 16.0 L Anion Gap 8 BUN 59 H Creatinine 4.57 H Estim Creat Clear Calc 7.48 Est GFR (MDRD) Af Amer 13 L Est GFR (MDRD) Non-Af 11 L BUN/Creatinine Ratio 12.9 Glucose 123 H Lactic Acid 0.6 Calcium 7.4 L Phosphorus Magnesium Total Bilirubin 0.30 AST 76 H ALT 23 Alkaline Phosphatase 289 H Total Protein 5.9 L Albumin 2.6 L Globulin 3.3 Albumin/Globulin Ratio 0.8 L TSH Free T4 1.01 Urine Color Urine Clarity Urine pH Ur Specific [place] Urine Protein Urine Glucose (UA) Urine Ketones Urine Occult Blood Urine Nitrite Urine Bilirubin Urine Urobilinogen Ur Leukocyte Esterase Urine RBC Urine WBC Ur Squamous Epith Cells Ur Transition Epith Cell Urine Bacteria Urine Mucus Ur Random Sodium 80 Urine Creatinine Urine Opiates Screen Urine Methadone Screen Ur Barbiturates Screen Ur Phencyclidine Scrn Ur Amphetamines Screen U Methamphetamin-MDMA U Benzodiazepines Scrn Urine Cocaine Screen U Cannabinoids Screen Ur Drug Screen Comment Ethyl Alcohol Acetone Level 05/01/18 05/01/18 06:05 06:05 WBC 6.9 RBC 3.42 L Hgb 10.5 L Hct 34.7 L MCV 101.5 H MCH 30.7 MCHC 30.3 L RDW 16.6 H RDW Differential 60.5 H Plt Count 272 MPV 11.0 Immature Gran % (Auto) 0.600 Neut % (Auto) 71.8 H Lymph % (Auto) 14.0 L [place] % (Auto) 9.5 Eos % (Auto) 3.8 Baso % (Auto) 0.3 Absolute Neuts (auto) 4.9 Absolute Lymphs (auto) 0.96 Total Counted Not Reportable PT 13.9 INR 1.1 Specimen Type Sample Site pH Bicarbonate Actual POC Total CO2 Base Excess O2 Saturation ABG pCO2 ABG pO2 Shar Test O2 Delivery Device Liter Flow Blood Gas Notified Whom Blood Gas Notified Time Sodium Potassium Chloride Carbon Dioxide Anion Gap BUN Creatinine Estim Creat Clear Calc Est GFR (MDRD) Af Amer Est GFR (MDRD) Non-Af BUN/Creatinine Ratio Glucose Lactic Acid Calcium Phosphorus Magnesium Total Bilirubin AST ALT Alkaline Phosphatase Total Protein Albumin Globulin Albumin/Globulin Ratio TSH Free T4 Urine Color Urine Clarity Urine pH Ur Specific [place] Urine Protein Urine Glucose (UA) Urine Ketones Urine Occult Blood Urine Nitrite Urine Bilirubin Urine Urobilinogen Ur Leukocyte Esterase Urine RBC Urine WBC Ur Squamous Epith Cells Ur Transition Epith Cell Urine Bacteria Urine Mucus Ur Random Sodium Urine Creatinine Urine Opiates Screen Urine Methadone Screen Ur Barbiturates Screen Ur Phencyclidine Scrn Ur Amphetamines Screen U Methamphetamin-MDMA U Benzodiazepines Scrn Urine Cocaine Screen U Cannabinoids Screen Ur Drug Screen Comment Ethyl Alcohol Acetone Level POC Glucose 05/01/18 05/01/18 05/01/18 02:50 01:50 00:57 POC Glucose 99 68 L 62 L Clinical Impression(s) from Imaging Studies Chest X-Ray 04/30/18 22:38 IMPRESSION: There are findings consistent with COPD. There is no evidence of acute chest disease. Electronically Signed: Maninder Bowser MD at 23:17 EDT , Service support , Brain CT 05/01/18 22:38 IMPRESSION: Chronic involutional changes of the brain. 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 No demonstrated acute intracranial process. Electronically Signed: Iron Schmidt MD at 2:02 EDT , Service support , Assessment/Plan All Active Problems Septic shock (Acute) Acute UTI (Acute) Encephalopathy acute (Acute) GURVINDER (acute kidney injury) (Acute) Polysubstance abuse (Acute) UTI (urinary tract infection) (Acute) Hypokalemia due to inadequate potassium intake (Acute) Normocytic anemia (Acute) Generalized weakness (Acute) Contusion of knee, left (Acute) Contusion of knee, right (Acute) Delirium (Acute) CHF (congestive heart failure) (Acute) Fall (Acute) Debility (Acute) Opioid withdrawal (Acute) Barbiturate withdrawal (Acute) Acute UTI (Acute) 1. GURVINDER likely due to ATN, nonoliguric from sepsis, shock. FeNa >1% with UTI. Baseline creatinine 0.68 on 01/22/18. History of neurogenic bladder with self catheterization. Creatinine 6.32 with potassium 5.4 on admission improved to creatinine 4.57, potassium 4.6. Continue with iv hydration, pressors, iv antibiotics. Await renal US. Check CPK level r/o rhabdo 2. AG metabolic acidosis with respiratory acidosis 3. Sepsis await cx, continue iv antbx. 4. elevated AST 5. Hyperkalemia, hyperphosphatemia. 6. polysubstance abuse positive tox screen 7. COPD 8. Tobacco use.
[2018-05-01] MEDS: HYDROcodone Bitartrate/Apap 5/325 Tablet PO ×2 (08:57→21:28)
[2018-05-01 09:57] LABS: CPK Total, Creatine Kinase 1367 U/L (26-192)
[2018-05-01] MEDS: Heparin Injection (Vial) 5,000 UNIT/ML VIAL 5000 UNIT SC ×2 (09:59→21:21)
[2018-05-01] MEDS: 0.9% Normal Saline 1,000 ML 100 ML IV ×2 (09:59→20:43)
--- NOTE | 2018-05-01 11:42 | CASEMGMT ---
Addendum entered by Makenzie Laboy 05/01/18 13:18: SW spoke w/Dalton from [facility], they can take pt, it is anticipated they can open the case next Saturday. She asked to be called when discharge date is known. SW will continue to follow. MONTY Lenz, MATRIX BATH ATTENDANT Original Note: Addendum entered by Makenzie Laboy 05/01/18 12:18: SW called [facility] to see if pt ever started any services, they have no record of her. SW called [facility], faxed initial referral. They are to call this SW back in regard to whether or not they can take pt. ( , fax: [phone]). MONTY Lenz, MATRIX BATH ATTENDANT Original Note: SW attempted to speak w/pt, pt is very sleepy and difficult to wake up. Pt did agree by nodding for SW to add sons to demographics, however pt is not able at this time to tell SW their numbers. As per ED SW, pt lives w/sons but they do not help her. SW explained to pt will speak w/her again when she is more able to have a conversation. Pt apologized, SW explained that it is okay and SW can come back later today or tomorrow. SW did call [facility] and made an appointment for her on May 06 at 2:30pm. SW will give pt this information when she is more awake. SW started the [facility] referral, will speak w/pt in order to complete this. SW also called [facility] in regard to the home health. As per the conference planner, pt declined home health referral at discharge and said her friend Lashae was going to assist her at home. She also was able to give this SW pt's son's numbers: Daniel: [phone], and Albaro: [phone]. Also, pt's served her with divorce papers while she was at [facility]. In our chart a number was found for him: Tree Galan: [phone]. SW will continue to follow, will speak w/pt when she is more able to speak w/this SW. MONTY Lenz, MATRIX BATH ATTENDANT
[2018-05-01 12:16] LABS: Bedside Glucose 126 mg/dL (70-110)
--- NOTE | 2018-05-01 13:34 | CASEMGMT ---
Addendum entered by Makenzie Laboy 05/01/18 13:50: Referral faxed to [facility]. MONTY Lenz, UTILITY SALES AND SERVICE MANAGER Original Note: Pt awake now, in chair. SW spoke w/pt in regard initially to discharge plan. Pt wants to go home, even though she acknowledges that getting from the bed to chair w/PT was difficult. Pt states being at [facility] was too much. She reports feeling better since being home. Pt denies wanting to harm herself, does not acknowledge and mental health concerns at this time. SW spoke w/pt in regard to home health. SW explained that a referral had not been made from [facility]. Pt is agreeable to home care referral now. SW explained did speak to S and they would be able to see pt at home next week. SW also asked pt about applying for Waiver Services, pt agreeable. SW will have pt sign form and send it in tomorrow. SW explained made an appointment for her at [facility], pt is still agreeable to this, SW will give her the appointment information tomorrow. Pt also is still agreeable to [facility] referral, would like one hot meal per day, SW will fax the referral in. SW spoke w/pt about support system. Pt reports her sons and friend to be supportive, her sons live with her. SW asked pt about POA, pt is not certain who she would want. SW encouraged pt to think about it, as SW spoke w/pt about her family, and it may be a good idea to complete this paperwork. Pt became tearful in regard to her , thought pt did not elaborate about their current relationship or situation. JACKSON offered support to pt. JACKSON let pt know can come back to speak w/her tomorrow regarding POA. JACKSON explained that she can even come in as an outpt to complete at a later time. SW will follow up w/pt tomorrow regarding waiver application and POA. SW will complete [facility] referral and fax this today. MONTY Lenz, UTILITY SALES AND SERVICE MANAGER
--- NOTE | 2018-05-01 16:07 | PCM.HOSP.N ---
Hospitalist Note Patient was seen and examined earlier today in ICU, she was admitted due to generalized weakness and confusion from home, white blood cell count was found to be normal, she was acidotic on her blood gases, patient was also hypotensive and required pressor agents. Urinalysis indicated urinary tract infection, patient's creatinine was elevated at 6.32. BUN was elevated at 73. At this time, patient remains on IV fluids, IV antibiotics, pressor agents, and is being seen in consultation by critical care and nephrology. Ultrasound was obtained today which showed a possible bladder mass/polyp, I talked to urology this afternoon and they will see the patient in consultation. Urology requested we obtain a CT of the pelvis. Patient remains confused.
--- NOTE | 2018-05-01 18:00 | CT_ITS ---
STUDY: CT PELVIS WITHOUT CONTRAST REASON FOR EXAM: Female, 57 years old. POLYP IN BLADDER SEEN ON US RADIATION DOSAGE (If Supplied By Facility): CTDIvol = ( 16.51 ) mGy, DLP = ( 566.82 ) mGycm TECHNIQUE: Transaxial imaging of the pelvis was performed with oral contrast, and without intravenous administration of contrast material. Individualized dose optimization techniques were used for this CT. COMPARISON: Ultrasound 05/01/2018. FINDINGS: There is a Olson catheter in the bladder. There is marked diffuse thickening of the bladder wall, as much as 1 cm. A definite mass is not seen but not excluded on this noncontrast study. Cystoscopy is recommended. Normal visualized small intestine. Normal visualized colon. There is no pelvic fluid. There is no pelvic mass lesion or lymphadenopathy. There is diffuse atherosclerotic calcification of the pelvic arteries. Normal abdominal wall. Nondisplaced fracture seen of the tip of the greater trochanter. CT/Pelvis without IV Contrast IMPRESSION: Marked diffuse thickening of the bladder wall. Although no definite mass is seen, mass is not excluded. Cystoscopy is recommended. Nondisplaced fracture of the tip of the right greater trochanter. Electronically Signed: Maninder Bowser MD at 19:26 EDT , Service support ,
--- NOTE | 2018-05-01 22:38 | CT_ITS ---
STUDY: CT BRAIN WITHOUT CONTRAST REASON FOR EXAM: Female, 57 years old. Sudden onset of choking tonight. Patient fell twice. Lethargy and weakness. Low blood pressure. History of seizures. RADIATION DOSAGE (If Supplied By Facility): CTDIvol = ( 44.99 ) mGy, DLP = ( 812.98 ) mGycm TECHNIQUE: Transaxial CT imaging of the brain was performed without administration of intravenous contrast material. Individualized dose optimization techniques were used for this CT. COMPARISON: 01/19/2018. FINDINGS: Normal soft tissue structures. Normal calvarium. There is mild cerebral atrophy with widening of the extra-axial spaces and ventricular dilatation. There are areas of decreased attenuation within the white matter tracts of the supratentorial brain, consistent with microvascular disease changes. There is an old lacunar infarction of the right basal ganglia and there are old lacunar infarctions of the thalami bilaterally. There is an old lacunar infarction of the right para midline silver. There is mild cerebellar atrophy. There is minimal atherosclerotic calcification of the cavernous carotid arteries. There is no intracranial hemorrhage. There are no findings of an acute ischemic infarction. Normal visualized paranasal sinuses. CT/Brain/Head without Contrast IMPRESSION: Chronic involutional changes of the brain. 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 No demonstrated acute intracranial process. Electronically Signed: Iron Schmidt MD at 2:02 EDT , Service support ,
[2018-05-02] VITALS (40 sets, daily range): BP systolic 91–143; BP diastolic 48–79; PULSE 71–117; RESP 12–22; TEMP 36.3–37.1; O2SAT 92–99
[2018-05-02 04:27] LABS: Absolute Lymphocyte Count 0.79 X10^3/ul (0.83-4.51); Absolute Neutrophil Count 4.2 X10^3/uL (2.0-7.7); Basophil# 0.02 X10^3/uL; Basophil% 0.3 % (0-1); Eosinophil# 0.08 X10^3/uL; Eosinophils% 1.3 % (0-5); Hematocrit 30.6 % (37-47); Hemoglobin 9.6 g/dl (12.0-15.0); Lymphocyte # 0.79 X10^3/ul (4.0); Lymphocyte % 13.3 % (19-41); Mean Corp Hgb Conc 31.4 g/gl (32-36); Mean Corpuscular Hgb 31.4 pg (27.0-32.0); Mean Platelet Vol. 10.7 fl (6.2-12.0); Monocyte# 0.87 X10^3/uL; Monocyte% 14.7 % (0-10); Neutrophil # 4.16 X10^3/uL (2.7-7.7); Neutrophil % 70.2 % (47-70); POSITIVE COUNT NO; POSITIVE DIFFERENTIAL NO; POSITIVE MORPHOLOGY NO; Platelet Count 248 K/mm3 (150-450); RBC Distribution Width CV 16.3 % (11.6-14.6); RBC Distribution Width SD 58.5 fl (35.1-43.9); Red Blood Count 3.06 M/mm3 (4.2-5.4); White Blood Count 5.9 K/mm3 (4.4-11.0)
[2018-05-02 04:40] LABS: Albumin, Serum 2.4 g/dL (3.2-5.0); BUN 31 mg/dL (7-18); BUN/Creat Ratio 18.5 RATIO (10-20); Calcium,Total 7.6 mg/dL (8.5-10.1); Chloride 119 mmol/L (98-107); Creatinine, Serum 1.68 mg/dL (0.55-1.02); EST Glomerular Filtration Rate 33 mL/min (>60); Est Glom Filt Rate - Afr Amer 40 mL/min (>60); Estimated Creatinine Clearance 20.34 ml/min; Glucose 116 mg/dL (74-106); Phosphorus 2.6 mg/dL (2.5-4.9); Potassium 4.2 mmol/L (3.5-5.1); Sodium Level 144 mmol/L (136-145)
[2018-05-02] MEDS: 0.9% Normal Saline 1,000 ML 100 ML IV (06:33)
--- NOTE | 2018-05-02 07:02 | PCM.PN.INT ---
Subjective: The patient was seen and examined at the bedside this morning. Events from the last 24 hours have been reviewed. The patient is currently afebrile, hemodynamically stable and maintaining appropriate oxygen saturations on room air. The patient's Levophed was able to be discontinued this morning at approximately 0600 hrs. Normal saline is currently infusing at 100 cc/h. Creatinine has improved to 1.68 this morning. Serum bicarbonate is 19. Renal ultrasound completed yesterday revealed diffuse bladder wall thickening with a large polypoid mass at the base of the bladder, more prominent on the left side. CT pelvis was also obtained which again demonstrated diffuse thickening of the bladder wall along with a nondisplaced fracture of the tip of the right greater trochanter. The patient did report a mild degree of abdominal pain this morning along with ongoing pain over the dorsum of her feet. Objective: The patient's most recent lab work, culture data and imaging studies have all been personally reviewed. CT head revealed chronic involutional changes of the brain along with evidence of old lacunar infarcts. Respiratory viral panel was negative. Blood and urine cultures are currently pending. General: Alert, Cooperative, No apparent distress HEENT: Atraumatic, PERRLA, Normocephalic Oral: Dry Mucosa Neck: Supple, No Nodes, Trachea Midline Lungs: No rhonchi, No wheeze, No rales, Diminished, - - Poor inspiratory effort Cardiovascular: Regular rate, Regular Rhythm, Normal S1, Normal S2, No murmurs Abdomen: Bowel Sounds Present, Soft, Non Tender Extremities: No clubbing, No cyanosis, No edema Skin: - - Improving erythema over dorsum of feet Musculoskeletal: Cachexia, Muscle Wasting Lymphatic: No Cervical, Supraclavicular, or Inguinal Adenopathy Neurological: - - No focal neurological deficits. Psych/Mental Status: Flat Affect Vital Signs Temp Pulse Resp BP Pulse Ox 36.6 C 98 14 106/59 L 94 05/02/18 06:00 05/02/18 06:45 05/02/18 06:00 05/02/18 06:45 05/02/18 06:00 Oxygen Flow Rate (L/min) 1 Oxygen Delivery Method Room Air Weight: 81 lb 2.082 oz Body Mass Index (BMI) 14.7 Finger Stick Blood Glucose 99 Intake and Output for Last 24 Hours 04/30/18 05/01/18 05/02/18 23:59 23:59 23:59 Intake Total 1844.5 / 1844.5 1255.5 / 1255.5 Output Total 2049 / 2049 1150 / 1150 Balance -205.5 / -205.5 105.5 / 105.5 Labs (Last 48 Hours) 04/30/18 04/30/18 04/30/18 21:59 21:59 21:59 WBC 7.9 RBC 3.70 L Hgb 11.8 L Hct 37.4 MCV 101.1 H MCH 31.9 MCHC 31.6 L RDW 16.6 H RDW Differential 60.6 H Plt Count 282 MPV 11.0 Immature Gran % (Auto) 0.300 Neut % (Auto) 65.8 Lymph % (Auto) 14.6 L [place] % (Auto) 14.6 H Eos % (Auto) 4.3 Baso % (Auto) 0.4 Absolute Neuts (auto) 5.2 Absolute Lymphs (auto) 1.15 Total Counted Not Reportable PT INR Specimen Type Sample Site pH Bicarbonate Actual POC Total CO2 Base Excess O2 Saturation ABG pCO2 ABG pO2 Shar Test O2 Delivery Device Liter Flow Blood Gas Notified Whom Blood Gas Notified Time Sodium 133 L Potassium 5.4 H Chloride 101 Carbon Dioxide 17.0 L Anion Gap 15 BUN 73 H Creatinine 6.32 H Estim Creat Clear Calc 5.00 Est GFR (MDRD) Af Amer 9 L Est GFR (MDRD) Non-Af 7 L BUN/Creatinine Ratio 11.6 Glucose 81 Lactic Acid Calcium 8.8 Phosphorus 7.2 H Magnesium 3.5 H Total Bilirubin 0.30 AST 70 H ALT 22 Alkaline Phosphatase 230 H Total Creatine Kinase Total Protein 7.5 Albumin 3.4 Globulin 4.1 Albumin/Globulin Ratio 0.8 L TSH 0.27 L Free T4 Urine Color Urine Clarity Urine pH Ur Specific [place] Urine Protein Urine Glucose (UA) Urine Ketones Urine Occult Blood Urine Nitrite Urine Bilirubin Urine Urobilinogen Ur Leukocyte Esterase Urine RBC Urine WBC Ur Squamous Epith Cells Ur Transition Epith Cell Urine Bacteria Urine Mucus Ur Random Sodium Urine Creatinine Urine Opiates Screen Urine Methadone Screen Ur Barbiturates Screen Ur Phencyclidine Scrn Ur Amphetamines Screen U Methamphetamin-MDMA U Benzodiazepines Scrn Urine Cocaine Screen U Cannabinoids Screen Ur Drug Screen Comment Ethyl Alcohol Acetone Level POC Glucose 04/30/18 04/30/1804/30/19 23:05 23:05 23:15 WBC RBC Hgb Hct MCV MCH MCHC RDW RDW Differential Plt Count MPV Immature Gran % (Auto) Neut % (Auto) Lymph % (Auto) [place] % (Auto) Eos % (Auto) Baso % (Auto) Absolute Neuts (auto) Absolute Lymphs (auto) Total Counted PT INR Specimen Type ART Sample Site R Radial pH 7.16 L* Bicarbonate Actual 16.3 L POC Total CO2 18 Base Excess -12 L O2 Saturation 98 ABG pCO2 46.4 H ABG pO2 125 H Shar Test POS O2 Delivery Device Nasal Can Liter Flow 4.0 Blood Gas Notified Whom ED Blood Gas Notified Time 2310 Sodium Potassium Chloride Carbon Dioxide Anion Gap BUN Creatinine Estim Creat Clear Calc Est GFR (MDRD) Af Amer Est GFR (MDRD) Non-Af BUN/Creatinine Ratio Glucose Lactic Acid Calcium Phosphorus Magnesium Total Bilirubin AST ALT Alkaline Phosphatase Total Creatine Kinase Total Protein Albumin Globulin Albumin/Globulin Ratio TSH Free T4 Urine Color Urine Clarity Urine pH Ur Specific [place] Urine Protein Urine Glucose (UA) Urine Ketones Urine Occult Blood Urine Nitrite Urine Bilirubin Urine Urobilinogen Ur Leukocyte Esterase Urine RBC Urine WBC Ur Squamous Epith Cells Ur Transition Epith Cell Urine Bacteria Urine Mucus Ur Random Sodium Urine Creatinine Urine Opiates Screen Urine Methadone Screen Ur Barbiturates Screen Ur Phencyclidine Scrn Ur Amphetamines Screen U Methamphetamin-MDMA U Benzodiazepines Scrn Urine Cocaine Screen U Cannabinoids Screen Ur Drug Screen Comment Ethyl Alcohol 4.0 Acetone Level NEGATIVE POC Glucose 05/01/18 05/01/18 05/01/18 00:57 01:50 01:55 WBC RBC Hgb Hct MCV MCH MCHC RDW RDW Differential Plt Count MPV Immature Gran % (Auto) Neut % (Auto) Lymph % (Auto) [place] % (Auto) Eos % (Auto) Baso % (Auto) Absolute Neuts (auto) Absolute Lymphs (auto) Total Counted PT INR Specimen Type Sample Site pH Bicarbonate Actual POC Total CO2 Base Excess O2 Saturation ABG pCO2 ABG pO2 Shar Test O2 Delivery Device Liter Flow Blood Gas Notified Whom Blood Gas Notified Time Sodium Potassium Chloride Carbon Dioxide Anion Gap BUN Creatinine Estim Creat Clear Calc Est GFR (MDRD) Af Amer Est GFR (MDRD) Non-Af BUN/Creatinine Ratio Glucose Lactic Acid Calcium Phosphorus Magnesium Total Bilirubin AST ALT Alkaline Phosphatase Total Creatine Kinase Total Protein Albumin Globulin Albumin/Globulin Ratio TSH Free T4 Urine Color Yellow Urine Clarity Cloudy Urine pH 5.0 Ur Specific [place] 1.015 Urine Protein 100 H Urine Glucose (UA) Normal Urine Ketones Negative Urine Occult Blood 50 H Urine Nitrite Negative Urine Bilirubin Negative Urine Urobilinogen Normal Ur Leukocyte Esterase 500 H Urine RBC 0 SEEN Urine WBC >100 SEEN Ur Squamous Epith Cells 0-5 SEEN Ur Transition Epith Cell 0-5 SEEN Urine Bacteria 4+ Urine Mucus 0 SEEN Ur Random Sodium Urine Creatinine Urine Opiates Screen Urine Methadone Screen Ur Barbiturates Screen Ur Phencyclidine Scrn Ur Amphetamines Screen U Methamphetamin-MDMA U Benzodiazepines Scrn Urine Cocaine Screen U Cannabinoids Screen Ur Drug Screen Comment Ethyl Alcohol Acetone Level POC Glucose 62 L 68 L 05/01/18 05/01/18 05/01/18 01:55 01:55 01:55 WBC RBC Hgb Hct MCV MCH MCHC RDW RDW Differential Plt Count MPV Immature Gran % (Auto) Neut % (Auto) Lymph % (Auto) [place] % (Auto) Eos % (Auto) Baso % (Auto) Absolute Neuts (auto) Absolute Lymphs (auto) Total Counted PT INR Specimen Type Sample Site pH Bicarbonate Actual POC Total CO2 Base Excess O2 Saturation ABG pCO2 ABG pO2 Shar Test O2 Delivery Device Liter Flow Blood Gas Notified Whom Blood Gas Notified Time Sodium Potassium Chloride Carbon Dioxide Anion Gap BUN Creatinine Estim Creat Clear Calc Est GFR (MDRD) Af Amer Est GFR (MDRD) Non-Af BUN/Creatinine Ratio Glucose Lactic Acid Calcium Phosphorus Magnesium Total Bilirubin AST ALT Alkaline Phosphatase Total Creatine Kinase Total Protein Albumin Globulin Albumin/Globulin Ratio TSH Free T4 Urine Color Urine Clarity Urine pH Ur Specific [place] Urine Protein Urine Glucose (UA) Urine Ketones Urine Occult Blood Urine Nitrite Urine Bilirubin Urine Urobilinogen Ur Leukocyte Esterase Urine RBC Urine WBC Ur Squamous Epith Cells Ur Transition Epith Cell Urine Bacteria Urine Mucus Ur Random Sodium 80 Urine Creatinine 97.00 Urine Opiates Screen POSITIVE H Urine Methadone Screen NEGATIVE Ur Barbiturates Screen POSITIVE H Ur Phencyclidine Scrn NEGATIVE Ur Amphetamines Screen NEGATIVE U Methamphetamin-MDMA NEGATIVE U Benzodiazepines Scrn NEGATIVE Urine Cocaine Screen NEGATIVE U Cannabinoids Screen NEGATIVE Ur Drug Screen Comment Ethyl Alcohol Acetone Level POC Glucose 05/01/18 05/01/18 05/01/18 02:45 02:50 06:05 WBC RBC Hgb Hct MCV MCH MCHC RDW RDW Differential Plt Count MPV Immature Gran % (Auto) Neut % (Auto) Lymph % (Auto) [place] % (Auto) Eos % (Auto) Baso % (Auto) Absolute Neuts (auto) Absolute Lymphs (auto) Total Counted PT INR Specimen Type Sample Site pH Bicarbonate Actual POC Total CO2 Base Excess O2 Saturation ABG pCO2 ABG pO2 Shar Test O2 Delivery Device Liter Flow Blood Gas Notified Whom Blood Gas Notified Time Sodium 136 Potassium 4.6 Chloride 112 H Carbon Dioxide 16.0 L Anion Gap 8 BUN 59 H Creatinine 4.57 H Estim Creat Clear Calc 7.48 Est GFR (MDRD) Af Amer 13 L Est GFR (MDRD) Non-Af 11 L BUN/Creatinine Ratio 12.9 Glucose 123 H Lactic Acid 0.6 Calcium 7.4 L Phosphorus Magnesium Total Bilirubin 0.30 AST 76 H ALT 23 Alkaline Phosphatase 289 H Total Creatine Kinase Total Protein 5.9 L Albumin 2.6 L Globulin 3.3 Albumin/Globulin Ratio 0.8 L TSH Free T4 1.01 Urine Color Urine Clarity Urine pH Ur Specific [place] [facility] Urine Protein Urine Glucose (UA) Urine Ketones Urine Occult Blood Urine Nitrite Urine Bilirubin Urine Urobilinogen Ur Leukocyte Esterase Urine RBC Urine WBC Ur Squamous Epith Cells Ur Transition Epith Cell Urine Bacteria Urine Mucus Ur Random Sodium Urine Creatinine Urine Opiates Screen Urine Methadone Screen Ur Barbiturates Screen Ur Phencyclidine Scrn Ur Amphetamines Screen U Methamphetamin-MDMA U Benzodiazepines Scrn Urine Cocaine Screen U Cannabinoids Screen Ur Drug Screen Comment Ethyl Alcohol Acetone Level POC Glucose 99 05/01/18 05/01/18 05/01/18 06:05 06:05 06:05 WBC 6.9 RBC 3.42 L Hgb 10.5 L Hct 34.7 L MCV 101.5 H MCH 30.7 MCHC 30.3 L RDW 16.6 H RDW Differential 60.5 H Plt Count 272 MPV 11.0 Immature Gran % (Auto) 0.600 Neut % (Auto) 71.8 H Lymph % (Auto) 14.0 L [place] % (Auto) 9.5 Eos % (Auto) 3.8 Baso % (Auto) 0.3 Absolute Neuts (auto) 4.9 Absolute Lymphs (auto) 0.96 Total Counted Not Reportable PT 13.9 INR 1.1 Specimen Type Sample Site pH Bicarbonate Actual POC Total CO2 Base Excess O2 Saturation ABG pCO2 ABG pO2 Shar Test O2 Delivery Device Liter Flow Blood Gas Notified Whom Blood Gas Notified Time Sodium Potassium Chloride Carbon Dioxide Anion Gap BUN Creatinine Estim Creat Clear Calc Est GFR (MDRD) Af Amer Est GFR (MDRD) Non-Af BUN/Creatinine Ratio Glucose Lactic Acid Calcium Phosphorus Magnesium Total Bilirubin AST ALT Alkaline Phosphatase Total Creatine Kinase 1367 H Total Protein Albumin Globulin Albumin/Globulin Ratio TSH Free T4 Urine Color Urine Clarity Urine pH Ur Specific [place] Urine Protein Urine Glucose (UA) Urine Ketones Urine Occult Blood Urine Nitrite Urine Bilirubin Urine Urobilinogen Ur Leukocyte Esterase Urine RBC Urine WBC Ur Squamous Epith Cells Ur Transition Epith Cell Urine Bacteria Urine Mucus Ur Random Sodium Urine Creatinine Urine Opiates Screen Urine Methadone Screen Ur Barbiturates Screen Ur Phencyclidine Scrn Ur Amphetamines Screen U Methamphetamin-MDMA U Benzodiazepines Scrn Urine Cocaine Screen U Cannabinoids Screen Ur Drug Screen Comment Ethyl Alcohol Acetone Level POC Glucose 05/01/18 05/02/18 05/02/18 12:11 04:05 04:05 WBC 5.9 RBC 3.06 L Hgb 9.6 L Hct 30.6 L MCV 100.0 H MCH 31.4 MCHC 31.4 L RDW 16.3 H RDW Differential 58.5 H Plt Count 248 MPV 10.7 Immature Gran % (Auto) 0.200 Neut % (Auto) 70.2 H Lymph % (Auto) 13.3 L [place] % (Auto) 14.7 H Eos % (Auto) 1.3 Baso % (Auto) 0.3 Absolute Neuts (auto) 4.2 Absolute Lymphs (auto) 0.79 L Total Counted Not Reportable PT INR Specimen Type Sample Site pH Bicarbonate Actual POC Total CO2 Base Excess O2 Saturation ABG pCO2 ABG pO2 Shar Test O2 Delivery Device Liter Flow Blood Gas Notified Whom Blood Gas Notified Time Sodium 144 Potassium 4.2 Chloride 119 H Carbon Dioxide 19.0 L Anion Gap BUN 31 H Creatinine 1.68 H Estim Creat Clear Calc 20.34 Est GFR (MDRD) Af Amer 40 L Est GFR (MDRD) Non-Af 33 L BUN/Creatinine Ratio 18.5 Glucose 116 H Lactic Acid Calcium 7.6 L Phosphorus 2.6 Magnesium Total Bilirubin AST ALT Alkaline Phosphatase Total Creatine Kinase Total Protein Albumin 2.4 L Globulin Albumin/Globulin Ratio TSH Free T4 Urine Color Urine Clarity Urine pH Ur Specific [place] [facility] Urine Protein Urine Glucose (UA) Urine Ketones Urine Occult Blood Urine Nitrite Urine Bilirubin Urine Urobilinogen Ur Leukocyte Esterase Urine RBC Urine WBC Ur Squamous Epith Cells Ur Transition Epith Cell Urine Bacteria Urine Mucus Ur Random Sodium Urine Creatinine Urine Opiates Screen Urine Methadone Screen Ur Barbiturates Screen Ur Phencyclidine Scrn Ur Amphetamines Screen U Methamphetamin-MDMA U Benzodiazepines Scrn Urine Cocaine Screen U Cannabinoids Screen Ur Drug Screen Comment Ethyl Alcohol Acetone Level POC Glucose 126 H Microbiology 05/01/18 08:30 Mucosa - Nasopharyngeal Respiratory Panel (PCR) - Final Clinical Impression(s) from Imaging Studies Chest X-Ray 04/30/18 22:38 IMPRESSION: There are findings consistent with COPD. There is no evidence of acute chest disease. Electronically Signed: Maninder Bowser MD at 23:17 EDT , Service support , Chest X-Ray 05/01/18 04:33 IMPRESSION: Central line is in adequate position. COPD. No evidence for acute cardiopulmonary pathology. Electronically Signed: Iron Schmidt MD at 5:19 EDT , Service support , Renal Ultrasound 05/01/18 06:00 IMPRESSION: Diffuse bladder wall thickening with a large polypoid mass at the base of the bladder more prominent on the left side. Electronically Signed: Karan Cruz, at 13:47 EDT , Service support , Pelvis CT 05/01/18 18:00 IMPRESSION: Marked diffuse thickening of the bladder wall. Although no definite mass is seen, mass is not excluded. Cystoscopy is recommended. Nondisplaced fracture of the tip of the right greater trochanter. Electronically Signed: Maninder Bowser MD at 19:26 EDT , Service support , Brain CT 05/01/18 22:38 IMPRESSION: Chronic involutional changes of the brain. 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 No demonstrated acute intracranial process. Electronically Signed: Iron Schmidt MD at 2:02 EDT , Service support , Medical Necessity - Tobacco Use Smoking Status: Current every day smoker Tobacco Use: Cigarettes Assessment/Plan All Active Problems Septic shock (Acute) Acute UTI (Acute) Encephalopathy acute (Acute) GURVINDER (acute kidney injury) (Acute) Polysubstance abuse (Acute) UTI (urinary tract infection) (Acute) Hypokalemia due to inadequate potassium intake (Acute) Normocytic anemia (Acute) Generalized weakness (Acute) Contusion of knee, left (Acute) Contusion of knee, right (Acute) Delirium (Acute) CHF (congestive heart failure) (Acute) Fall (Acute) Debility (Acute) Opioid withdrawal (Acute) Barbiturate withdrawal (Acute) Acute UTI (Acute) RECOMMENDATIONS: 1. Continue supplemental IV fluid hydration per nephrology recommendations. 2. Continue to encourage p.o. intake. 3. Physical therapy to work with patient. 4. Continue antibiotics. 5. Continue bronchodilators as ordered. IMPRESSIONS: 1. Septic shock with concerns for acute cystitis and lower extremity cellulitis Stable. The patient did have a transient vasopressor requirement. As of this morning, her Levophed has been weaned off. She is currently hemodynamically stable. Supplemental IV fluids will be continued per nephrology recommendations. The patient will remain on her current antimicrobials. Urine culture is still pending. 2. Acute kidney injury Improving. Concern for prerenal etiology. Continue supplemental IV fluids as ordered. 3. Severe protein/calorie malnutrition Nursing to encourage p.o. feeding. Appreciate nutrition recommendations. 4. Encephalopathy Improved. Likely metabolic in nature, with polypharmacy also likely a contributing factor. 5. Self-reported COPD/hypertension/anxiety/depression/tobacco dependency Complicates care, management, recovery and prognosis. Continue bronchodilators as ordered. Physical therapy to work with the patient. I strongly feel that the patient would benefit from [facility] facility placement. This note was generated with [employer] software. It may contain incorrect words, spelling, and punctuation that were not noted in checking the note before signing. DISPOSITION: The patient is medically stable for transfer out of the intensive care unit. Given her lack of ICU/pulmonary needs, will sign off. Please call with any additional questions. Code Visit Inpatient E&M: [id number] Subs Hosp L3
[2018-05-02] MEDS: Ipratropium/Albuterol Sulfate 3 ML AMPUL.NEB INHALATION (07:04)
--- NOTE | 2018-05-02 07:06 | PN_ITS ---
Subjective: The patient was seen and examined at the bedside this morning. Events from the last 24 hours have been reviewed. The patient is currently afebrile, hemodynamically stable and maintaining appropriate oxygen saturations on room air. The patient's Levophed was able to be discontinued this morning at approximately 0600 hrs. Normal saline is currently infusing at 100 cc/h. Creatinine has improved to 1.68 this morning. Serum bicarbonate is 19. Renal ultrasound completed yesterday revealed diffuse bladder wall thickening with a large polypoid mass at the base of the bladder, more prominent on the left side. CT pelvis was also obtained which again demonstrated diffuse thickening of the bladder wall along with a nondisplaced fracture of the tip of the right greater trochanter. The patient did report a mild degree of abdominal pain this morning along with ongoing pain over the dorsum of her feet. Objective: The patient's most recent lab work, culture data and imaging studies have all been personally reviewed. CT head revealed chronic involutional changes of the brain along with evidence of old lacunar infarcts. Respiratory viral panel was negative. Blood and urine cultures are currently pending. General: Alert, Cooperative, No apparent distress HEENT: Atraumatic, PERRLA, Normocephalic Oral: Dry Mucosa Neck: Supple, No Nodes, Trachea Midline Lungs: No rhonchi, No wheeze, No rales, Diminished, - - Poor inspiratory effort Cardiovascular: Regular rate, Regular Rhythm, Normal S1, Normal S2, No murmurs Abdomen: Bowel Sounds Present, Soft, Non Tender Extremities: No clubbing, No cyanosis, No edema Skin: - - Improving erythema over dorsum of feet Musculoskeletal: Cachexia, Muscle Wasting Lymphatic: No Cervical, Supraclavicular, or Inguinal Adenopathy Neurological: - - No focal neurological deficits. Psych/Mental Status: Flat Affect Vital Signs Temp Pulse Resp BP Pulse Ox 36.6 C 98 14 106/59 L 94 05/02/18 06:00 05/02/18 06:45 05/02/18 06:00 05/02/18 06:45 05/02/18 06:00 Oxygen Flow Rate (L/min) 1 Oxygen Delivery Method Room Air Weight: 81 lb 2.082 oz Body Mass Index (BMI) 14.7 Finger Stick Blood Glucose 99 Intake and Output for Last 24 Hours 04/30/18 05/01/18 05/02/18 23:59 23:59 23:59 Intake Total 1844.5 / 1844.5 1255.5 / 1255.5 Output Total 2049 / 2049 1150 / 1150 Balance -205.5 / -205.5 105.5 / 105.5 Labs (Last 48 Hours) 04/30/18 04/30/18 04/30/18 21:59 21:59 21:59 WBC 7.9 RBC 3.70 L Hgb 11.8 L Hct 37.4 MCV 101.1 H MCH 31.9 MCHC 31.6 L RDW 16.6 H RDW Differential 60.6 H Plt Count 282 MPV 11.0 Immature Gran % (Auto) 0.300 Neut % (Auto) 65.8 Lymph % (Auto) 14.6 L [place] % (Auto) 14.6 H Eos % (Auto) 4.3 Baso % (Auto) 0.4 Absolute Neuts (auto) 5.2 Absolute Lymphs (auto) 1.15 Total Counted Not Reportable PT INR Specimen Type Sample Site pH Bicarbonate Actual POC Total CO2 Base Excess O2 Saturation ABG pCO2 ABG pO2 Shar Test O2 Delivery Device Liter Flow Blood Gas Notified Whom Blood Gas Notified Time Sodium 133 L Potassium 5.4 H Chloride 101 Carbon Dioxide 17.0 L Anion Gap 15 BUN 73 H Creatinine 6.32 H Estim Creat Clear Calc 5.00 Est GFR (MDRD) Af Amer 9 L Est GFR (MDRD) Non-Af 7 L BUN/Creatinine Ratio 11.6 Glucose 81 Lactic Acid Calcium 8.8 Phosphorus 7.2 H Magnesium 3.5 H Total Bilirubin 0.30 AST 70 H ALT 22 Alkaline Phosphatase 230 H Total Creatine Kinase Total Protein 7.5 Albumin 3.4 Globulin 4.1 Albumin/Globulin Ratio 0.8 L TSH 0.27 L Free T4 Urine Color Urine Clarity Urine pH Ur Specific [place] Urine Protein Urine Glucose (UA) Urine Ketones Urine Occult Blood Urine Nitrite Urine Bilirubin Urine Urobilinogen Ur Leukocyte Esterase Urine RBC Urine WBC Ur Squamous Epith Cells Ur Transition Epith Cell Urine Bacteria Urine Mucus Ur Random Sodium Urine Creatinine Urine Opiates Screen Urine Methadone Screen Ur Barbiturates Screen Ur Phencyclidine Scrn Ur Amphetamines Screen U Methamphetamin-MDMA U Benzodiazepines Scrn Urine Cocaine Screen U Cannabinoids Screen Ur Drug Screen Comment Ethyl Alcohol Acetone Level POC Glucose 04/30/18 04/30/1804/30/19 23:05 23:05 23:15 WBC RBC Hgb Hct MCV MCH MCHC RDW RDW Differential Plt Count MPV Immature Gran % (Auto) Neut % (Auto) Lymph % (Auto) [place] % (Auto) Eos % (Auto) Baso % (Auto) Absolute Neuts (auto) Absolute Lymphs (auto) Total Counted PT INR Specimen Type ART Sample Site R Radial pH 7.16 L* Bicarbonate Actual 16.3 L POC Total CO2 18 Base Excess -12 L O2 Saturation 98 ABG pCO2 46.4 H ABG pO2 125 H Shar Test POS O2 Delivery Device Nasal Can Liter Flow 4.0 Blood Gas Notified Whom ED Blood Gas Notified Time 2310 Sodium Potassium Chloride Carbon Dioxide Anion Gap BUN Creatinine Estim Creat Clear Calc Est GFR (MDRD) Af Amer Est GFR (MDRD) Non-Af BUN/Creatinine Ratio Glucose Lactic Acid Calcium Phosphorus Magnesium Total Bilirubin AST ALT Alkaline Phosphatase Total Creatine Kinase Total Protein Albumin Globulin Albumin/Globulin Ratio TSH Free T4 Urine Color Urine Clarity Urine pH Ur Specific [place] Urine Protein Urine Glucose (UA) Urine Ketones Urine Occult Blood Urine Nitrite Urine Bilirubin Urine Urobilinogen Ur Leukocyte Esterase Urine RBC Urine WBC Ur Squamous Epith Cells Ur Transition Epith Cell Urine Bacteria Urine Mucus Ur Random Sodium Urine Creatinine Urine Opiates Screen Urine Methadone Screen Ur Barbiturates Screen Ur Phencyclidine Scrn Ur Amphetamines Screen U Methamphetamin-MDMA U Benzodiazepines Scrn Urine Cocaine Screen U Cannabinoids Screen Ur Drug Screen Comment Ethyl Alcohol 4.0 Acetone Level NEGATIVE POC Glucose 05/01/18 05/01/18 05/01/18 00:57 01:50 01:55 WBC RBC Hgb Hct MCV MCH MCHC RDW RDW Differential Plt Count MPV Immature Gran % (Auto) Neut % (Auto) Lymph % (Auto) [place] % (Auto) Eos % (Auto) Baso % (Auto) Absolute Neuts (auto) Absolute Lymphs (auto) Total Counted PT INR Specimen Type Sample Site pH Bicarbonate Actual POC Total CO2 Base Excess O2 Saturation ABG pCO2 ABG pO2 Shar Test O2 Delivery Device Liter Flow Blood Gas Notified Whom Blood Gas Notified Time Sodium Potassium Chloride Carbon Dioxide Anion Gap BUN Creatinine Estim Creat Clear Calc Est GFR (MDRD) Af Amer Est GFR (MDRD) Non-Af BUN/Creatinine Ratio Glucose Lactic Acid Calcium Phosphorus Magnesium Total Bilirubin AST ALT Alkaline Phosphatase Total Creatine Kinase Total Protein Albumin Globulin Albumin/Globulin Ratio TSH Free T4 Urine Color Yellow Urine Clarity Cloudy Urine pH 5.0 Ur Specific [place] 1.015 Urine Protein 100 H Urine Glucose (UA) Normal Urine Ketones Negative Urine Occult Blood 50 H Urine Nitrite Negative Urine Bilirubin Negative Urine Urobilinogen Normal Ur Leukocyte Esterase 500 H Urine RBC 0 SEEN Urine WBC >100 SEEN Ur Squamous Epith Cells 0-5 SEEN Ur Transition Epith Cell 0-5 SEEN Urine Bacteria 4+ Urine Mucus 0 SEEN Ur Random Sodium Urine Creatinine Urine Opiates Screen Urine Methadone Screen Ur Barbiturates Screen Ur Phencyclidine Scrn Ur Amphetamines Screen U Methamphetamin-MDMA U Benzodiazepines Scrn Urine Cocaine Screen U Cannabinoids Screen Ur Drug Screen Comment Ethyl Alcohol Acetone Level POC Glucose 62 L 68 L 05/01/18 05/01/18 05/01/18 01:55 01:55 01:55 WBC RBC Hgb Hct MCV MCH MCHC RDW RDW Differential Plt Count MPV Immature Gran % (Auto) Neut % (Auto) Lymph % (Auto) [place] % (Auto) Eos % (Auto) Baso % (Auto) Absolute Neuts (auto) Absolute Lymphs (auto) Total Counted PT INR Specimen Type Sample Site pH Bicarbonate Actual POC Total CO2 Base Excess O2 Saturation ABG pCO2 ABG pO2 Shar Test O2 Delivery Device Liter Flow Blood Gas Notified Whom Blood Gas Notified Time Sodium Potassium Chloride Carbon Dioxide Anion Gap BUN Creatinine Estim Creat Clear Calc Est GFR (MDRD) Af Amer Est GFR (MDRD) Non-Af BUN/Creatinine Ratio Glucose Lactic Acid Calcium Phosphorus Magnesium Total Bilirubin AST ALT Alkaline Phosphatase Total Creatine Kinase Total Protein Albumin Globulin Albumin/Globulin Ratio TSH Free T4 Urine Color Urine Clarity Urine pH Ur Specific [place] Urine Protein Urine Glucose (UA) Urine Ketones Urine Occult Blood Urine Nitrite Urine Bilirubin Urine Urobilinogen Ur Leukocyte Esterase Urine RBC Urine WBC Ur Squamous Epith Cells Ur Transition Epith Cell Urine Bacteria Urine Mucus Ur Random Sodium 80 Urine Creatinine 97.00 Urine Opiates Screen POSITIVE H Urine Methadone Screen NEGATIVE Ur Barbiturates Screen POSITIVE H Ur Phencyclidine Scrn NEGATIVE Ur Amphetamines Screen NEGATIVE U Methamphetamin-MDMA NEGATIVE U Benzodiazepines Scrn NEGATIVE Urine Cocaine Screen NEGATIVE U Cannabinoids Screen NEGATIVE Ur Drug Screen Comment Ethyl Alcohol Acetone Level POC Glucose 05/01/18 05/01/18 05/01/18 02:45 02:50 06:05 WBC RBC Hgb Hct MCV MCH MCHC RDW RDW Differential Plt Count MPV Immature Gran % (Auto) Neut % (Auto) Lymph % (Auto) [place] % (Auto) Eos % (Auto) Baso % (Auto) Absolute Neuts (auto) Absolute Lymphs (auto) Total Counted PT INR Specimen Type Sample Site pH Bicarbonate Actual POC Total CO2 Base Excess O2 Saturation ABG pCO2 ABG pO2 Shar Test O2 Delivery Device Liter Flow Blood Gas Notified Whom Blood Gas Notified Time Sodium 136 Potassium 4.6 Chloride 112 H Carbon Dioxide 16.0 L Anion Gap 8 BUN 59 H Creatinine 4.57 H Estim Creat Clear Calc 7.48 Est GFR (MDRD) Af Amer 13 L Est GFR (MDRD) Non-Af 11 L BUN/Creatinine Ratio 12.9 Glucose 123 H Lactic Acid 0.6 Calcium 7.4 L Phosphorus Magnesium Total Bilirubin 0.30 AST 76 H ALT 23 Alkaline Phosphatase 289 H Total Creatine Kinase Total Protein 5.9 L Albumin 2.6 L Globulin 3.3 Albumin/Globulin Ratio 0.8 L TSH Free T4 1.01 Urine Color Urine Clarity Urine pH Ur Specific [place] Urine Protein Urine Glucose (UA) Urine Ketones Urine Occult Blood Urine Nitrite Urine Bilirubin Urine Urobilinogen Ur Leukocyte Esterase Urine RBC Urine WBC Ur Squamous Epith Cells Ur Transition Epith Cell Urine Bacteria Urine Mucus Ur Random Sodium Urine Creatinine Urine Opiates Screen Urine Methadone Screen Ur Barbiturates Screen Ur Phencyclidine Scrn Ur Amphetamines Screen U Methamphetamin-MDMA U Benzodiazepines Scrn Urine Cocaine Screen U Cannabinoids Screen Ur Drug Screen Comment Ethyl Alcohol Acetone Level POC Glucose 99 05/01/18 05/01/18 05/01/18 06:05 06:05 06:05 WBC 6.9 RBC 3.42 L Hgb 10.5 L Hct 34.7 L MCV 101.5 H MCH 30.7 MCHC 30.3 L RDW 16.6 H RDW Differential 60.5 H Plt Count 272 MPV 11.0 Immature Gran % (Auto) 0.600 Neut % (Auto) 71.8 H Lymph % (Auto) 14.0 L [place] % (Auto) 9.5 Eos % (Auto) 3.8 Baso % (Auto) 0.3 Absolute Neuts (auto) 4.9 Absolute Lymphs (auto) 0.96 Total Counted Not Reportable PT 13.9 INR 1.1 Specimen Type Sample Site pH Bicarbonate Actual POC Total CO2 Base Excess O2 Saturation ABG pCO2 ABG pO2 Shar Test O2 Delivery Device Liter Flow Blood Gas Notified Whom Blood Gas Notified Time Sodium Potassium Chloride Carbon Dioxide Anion Gap BUN Creatinine Estim Creat Clear Calc Est GFR (MDRD) Af Amer Est GFR (MDRD) Non-Af BUN/Creatinine Ratio Glucose Lactic Acid Calcium Phosphorus Magnesium Total Bilirubin AST ALT Alkaline Phosphatase Total Creatine Kinase 1367 H Total Protein Albumin Globulin Albumin/Globulin Ratio TSH Free T4 Urine Color Urine Clarity Urine pH Ur Specific [place] Urine Protein Urine Glucose (UA) Urine Ketones Urine Occult Blood Urine Nitrite Urine Bilirubin Urine Urobilinogen Ur Leukocyte Esterase Urine RBC Urine WBC Ur Squamous Epith Cells Ur Transition Epith Cell Urine Bacteria Urine Mucus Ur Random Sodium Urine Creatinine Urine Opiates Screen Urine Methadone Screen Ur Barbiturates Screen Ur Phencyclidine Scrn Ur Amphetamines Screen U Methamphetamin-MDMA U Benzodiazepines Scrn Urine Cocaine Screen U Cannabinoids Screen Ur Drug Screen Comment Ethyl Alcohol Acetone Level POC Glucose 05/01/18 05/02/18 05/02/18 12:11 04:05 04:05 WBC 5.9 RBC 3.06 L Hgb 9.6 L Hct 30.6 L MCV 100.0 H MCH 31.4 MCHC 31.4 L RDW 16.3 H RDW Differential 58.5 H Plt Count 248 MPV 10.7 Immature Gran % (Auto) 0.200 Neut % (Auto) 70.2 H Lymph % (Auto) 13.3 L [place] % (Auto) 14.7 H Eos % (Auto) 1.3 Baso % (Auto) 0.3 Absolute Neuts (auto) 4.2 Absolute Lymphs (auto) 0.79 L Total Counted Not Reportable PT INR Specimen Type Sample Site pH Bicarbonate Actual POC Total CO2 Base Excess O2 Saturation ABG pCO2 ABG pO2 Shar Test O2 Delivery Device Liter Flow Blood Gas Notified Whom Blood Gas Notified Time Sodium 144 Potassium 4.2 Chloride 119 H Carbon Dioxide 19.0 L Anion Gap BUN 31 H Creatinine 1.68 H Estim Creat Clear Calc 20.34 Est GFR (MDRD) Af Amer 40 L Est GFR (MDRD) Non-Af 33 L BUN/Creatinine Ratio 18.5 Glucose 116 H Lactic Acid Calcium 7.6 L Phosphorus 2.6 Magnesium Total Bilirubin AST ALT Alkaline Phosphatase Total Creatine Kinase Total Protein Albumin 2.4 L Globulin Albumin/Globulin Ratio TSH Free T4 Urine Color Urine Clarity Urine pH Ur Specific [place] Urine Protein Urine Glucose (UA) Urine Ketones Urine Occult Blood Urine Nitrite Urine Bilirubin Urine Urobilinogen Ur Leukocyte Esterase Urine RBC Urine WBC Ur Squamous Epith Cells Ur Transition Epith Cell Urine Bacteria Urine Mucus Ur Random Sodium Urine Creatinine Urine Opiates Screen Urine Methadone Screen Ur Barbiturates Screen Ur Phencyclidine Scrn Ur Amphetamines Screen U Methamphetamin-MDMA U Benzodiazepines Scrn Urine Cocaine Screen U Cannabinoids Screen Ur Drug Screen Comment Ethyl Alcohol Acetone Level POC Glucose 126 H Microbiology 05/01/18 08:30 Mucosa - Nasopharyngeal Respiratory Panel (PCR) - Final Clinical Impression(s) from Imaging Studies Chest X-Ray 04/30/18 22:38 IMPRESSION: There are findings consistent with COPD. There is no evidence of acute chest disease. Electronically Signed: Maninder Bowser MD at 23:17 EDT , Service support , Chest X-Ray 05/01/18 04:33 IMPRESSION: Central line is in adequate position. COPD. No evidence for acute cardiopulmonary pathology. Electronically Signed: Iron Schmidt MD at 5:19 EDT , Service support , Renal Ultrasound 05/01/18 06:00 IMPRESSION: Diffuse bladder wall thickening with a large polypoid mass at the base of the bladder more prominent on the left side. Electronically Signed: Karan Cruz, at 13:47 EDT , Service support , Pelvis CT 05/01/18 18:00 IMPRESSION: Marked diffuse thickening of the bladder wall. Although no definite mass is seen, mass is not excluded. Cystoscopy is recommended. Nondisplaced fracture of the tip of the right greater trochanter. Electronically Signed: Maninder Bowser MD at 19:26 EDT , Service support , Brain CT 05/01/18 22:38 IMPRESSION: Chronic involutional changes of the brain. 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 No demonstrated acute intracranial process. Electronically Signed: Iron Schmidt MD at 2:02 EDT , Service support , Medical Necessity - Tobacco Use Smoking Status: Current every day smoker Tobacco Use: Cigarettes Assessment/Plan All Active Problems Septic shock (Acute) Acute UTI (Acute) Encephalopathy acute (Acute) GURVINDER (acute kidney injury) (Acute) Polysubstance abuse (Acute) UTI (urinary tract infection) (Acute) Hypokalemia due to inadequate potassium intake (Acute) Normocytic anemia (Acute) Generalized weakness (Acute) Contusion of knee, left (Acute) Contusion of knee, right (Acute) Delirium (Acute) CHF (congestive heart failure) (Acute) Fall (Acute) Debility (Acute) Opioid withdrawal (Acute) Barbiturate withdrawal (Acute) Acute UTI (Acute) RECOMMENDATIONS: 1. Continue supplemental IV fluid hydration per nephrology recommendations. 2. Continue to encourage p.o. intake. 3. Physical therapy to work with patient. 4. Continue antibiotics. 5. Continue bronchodilators as ordered. IMPRESSIONS: 1. Septic shock with concerns for acute cystitis and lower extremity cellulitis Stable. The patient did have a transient vasopressor requirement. As of this morning, her Levophed has been weaned off. She is currently hemodynamically stable. Supplemental IV fluids will be continued per nephrology recommendations. The patient will remain on her current antimicrobials. Urine culture is still pending. 2. Acute kidney injury Improving. Concern for prerenal etiology. Continue supplemental IV fluids as ordered. 3. Severe protein/calorie malnutrition Nursing to encourage p.o. feeding. Appreciate nutrition recommendations. 4. Encephalopathy Improved. Likely metabolic in nature, with polypharmacy also likely a contributing factor. 5. Self-reported COPD/hypertension/anxiety/depression/tobacco dependency Complicates care, management, recovery and prognosis. Continue bronchodilators as ordered. Physical therapy to work with the patient. I strongly feel that the patient would benefit from shelter facility placement. This note was generated with [employer] Studio[employer] software. It may contain incorrect words, spelling, and punctuation that were not noted in checking the note before signing. DISPOSITION: The patient is medically stable for transfer out of the intensive care unit. Given her lack of ICU/pulmonary needs, will sign off. Please call with any additional questions. Code Visit Inpatient E&M: 43990 Subs Hosp L3
--- NOTE | 2018-05-02 10:23 | CASEMGMT ---
Addendum entered by Makenzie Laboy 05/02/18 11:06: SW called [facility] and cancelled pt's home care. SW called [facility] and cancelled pt's appointment. MONTY Lenz, PROCESS EXPERT Original Note: Physician spoke w/pt about going somewhere for rehab short term, as pt is not moving well w/PT. SW followed up with this conversation. Today pt is stating that she would agreeable to go to [facility] for a short time. Pt did ask if she would have to stay there, SW explained that yes, it would be for her to stay, but for a short time. SW explained to pt also they cannot keep her there against her will, pt did not know this. SW explained can make the referral and will let them know when the referral is made that pt would like to come for a short time. Pt agreeable to referral. SW also spoke w/pt about POA, pt is not certain who she would put down. SW explained to pt the importance of designating a person to make decisions if she is not able. SW explained that at this point, it would still be her . He could decline, and then it would be her children to make decisions. Pt wants to think about this. SW gave her the blank papers and the card w/the SW number, let her know that if she would like to complete the forms, she can make an appointment after she leaves [facility]. Pt states understanding. SW had pt sign the waiver application, and put this in the mail. SW called [facility], spoke w/Brenda in admissions. She anticipates they will be able to take pt. She will review referral and let this SW know. Referral will be faxed shortly. SW will continue to follow. MONTY Lenz, PROCESS EXPERT
[2018-05-02] MEDS: Heparin Injection (Vial) 5,000 UNIT/ML VIAL 5000 UNIT SC ×2 (10:27→22:38)
--- NOTE | 2018-05-02 10:27 | CASEMGMT ---
Per JACKSON Banegas, referral needs sent to [facility]. JACKSON states she will contact facility. Referral faxed to [phone], fax confirmation received. Dina Love LPN Clinical Support
--- NOTE | 2018-05-02 13:12 | CASEMGMT ---
SW spoke w/[facility], they can take pt and are working on precert. JACKSON let pt know. Renetta to call Mitra if precert is attained and she will put green sheet on the chart. Hospital exemption is completed and on chart w/transport forms. MONTY Lenz, RETICLE PRINTER
--- NOTE | 2018-05-02 14:42 | PCM.PN.REN ---
Patient Problems: Active and Suspected Problems E-coli UTI (Acute) Septic shock (Acute) Acute UTI (Acute) Encephalopathy acute (Acute) GURVINDER (acute kidney injury) (Acute) Polysubstance abuse (Acute) Subjective: Renal function improved with creatinine 1.68. Blood pressure stable off pressors. Complains of SOB with minimal exertion, purse lipped. Urine culture with E. coli UTI. Continues to complain of foot pain from RSD Renal ultrasound revealed diffuse bladder wall thickening with a large polypoid mass at the base of the bladder, more prominent on the left side. CT pelvis was also obtained which again demonstrated diffuse thickening of the bladder wall along with a nondisplaced fracture of the tip of the right greater trochanter. - Physical Exam Vital Signs Temp Pulse Resp BP Pulse Ox 98.3 F 84 20 H 138/76 H 95 05/02/18 14:00 05/02/18 14:00 05/02/18 14:00 05/02/18 14:00 05/02/18 14:00 Oxygen Flow Rate (L/min) 1 Oxygen Delivery Method Room Air Weight: 36.8 kg Body Mass Index (BMI) 14.7 Finger Stick Blood Glucose 99 Intake and Output for Last 24 Hours 04/30/18 05/01/18 05/02/18 23:59 23:59 23:59 Intake Total 1844.5 / 1844.5 2184.5 / 2184.5 Output Total 2049 / 2049 1525 / 1525 Balance -205.5 / -205.5 659.5 / 659.5 Microbiology Past 72 Hours 05/01/18 01:55 Urine Culture - Preliminary Urine Catheter - Catheter Presumptive E. coli 05/01/18 08:30 Respiratory Panel (PCR) - Final Mucosa - Nasopharyngeal Laboratory Tests Past 24 Hrs 05/02/18 05/02/18 04:05 04:05 WBC 5.9 RBC 3.06 L Hgb 9.6 L Hct 30.6 L MCV 100.0 H MCH 31.4 MCHC 31.4 L RDW 16.3 H RDW Differential 58.5 H Plt Count 248 MPV 10.7 Immature Gran % (Auto) 0.200 Neut % (Auto) 70.2 H Lymph % (Auto) 13.3 L [place] % (Auto) 14.7 H Eos % (Auto) 1.3 Baso % (Auto) 0.3 Absolute Neuts (auto) 4.2 Absolute Lymphs (auto) 0.79 L Total Counted Not Reportable Sodium 144 Potassium 4.2 Chloride 119 H Carbon Dioxide 19.0 L BUN 31 H Creatinine 1.68 H Estim Creat Clear Calc 20.34 Est GFR (MDRD) Af Amer 40 L Est GFR (MDRD) Non-Af 33 L BUN/Creatinine Ratio 18.5 Glucose 116 H Calcium 7.6 L Phosphorus 2.6 Albumin 2.4 L Medical Necessity - Tobacco Use Smoking Status: Current every day smoker Tobacco Use: Cigarettes Assessment/Plan All Active Problems E-coli UTI (Acute) Septic shock (Acute) Acute UTI (Acute) Encephalopathy acute (Acute) GURVINDER (acute kidney injury) (Acute) Polysubstance abuse (Acute) UTI (urinary tract infection) (Acute) Hypokalemia due to inadequate potassium intake (Acute) Normocytic anemia (Acute) Generalized weakness (Acute) Contusion of knee, left (Acute) Contusion of knee, right (Acute) Delirium (Acute) CHF (congestive heart failure) (Acute) Fall (Acute) Debility (Acute) Opioid withdrawal (Acute) Barbiturate withdrawal (Acute) Acute UTI (Acute) 1. GURVINDER due to ischemic ATN. Creatinine improved to 1.68 with IV hydration. Currently off pressors. Baseline creatinine 0.68 on 01/22/18. History of neurogenic bladder with self catheterization. CPK level elevated at 1367 due to rhabdo. 2. AG metabolic acidosis with respiratory acidosis. Acidosis improved. 3. Sepsis await blood cx, continue iv antbx. Currently off pressors. 4. E. coli UTI 5. Hyperkalemia, hyperphosphatemia resolved. 6. polysubstance abuse positive tox screen 7. Failure to thrive, protein calorie malnutrition. Recommend protein supplement. 8. Bladder polyp. consulted 9. Change NSS to 0.45% saline.
[2018-05-02] MEDS: 0.45% Normal Saline 1,000 ML 60 ML IV (15:41)
[2018-05-02] MEDS: Mag Hydrox/Al Hydrox/Simeth 30 ML UDC PO (15:46)
[2018-05-02] MEDS: Acetaminophen 325 MG Tablet 650 MG PO (15:59)
--- NOTE | 2018-05-02 16:04 | CASEMGMT ---
SW received a call from Ronit at [facility] and she has not heard from insurance yet. Patient will have to stay at [facility] until pre-cert received. Mitra CLINE MSW
--- NOTE | 2018-05-02 18:24 | PCM.PROGNOTE ---
Patient Problems: Active and Suspected Problems E-coli UTI (Acute) Septic shock (Acute) Acute UTI (Acute) Encephalopathy acute (Acute) GURVINDER (acute kidney injury) (Acute) Polysubstance abuse (Acute) Subjective: Patient was seen and examined today, she was transferred to [facility], she will no longer needed pressor agents and urine culture grew out E. coli, sensitivity is pending - Physical Exam General: Alert, Oriented x3, Cooperative, No apparent distress, Well developed HEENT: Atraumatic, PERRLA, EOMI, Normocephalic Oral: Moist Mucosa Neck: Supple, No Nuchal Rigidity, Trachea Midline, Thyroid Normal Size and Texture Lungs: Clear to auscultation, Normal air movement, No rhonchi, No wheeze, No rales Cardiovascular: Regular rate, Regular Rhythm, Normal S1, Normal S2, No murmurs Abdomen: Bowel Sounds Present, Soft, Non Tender, Non-Distended Extremities: No clubbing, No cyanosis, No edema, Capillary Refill Less than 3 Seconds Skin: No rashes, No breakdown Musculoskeletal: Cachexia Neurological: Cranial nerves II-XII grossly intact, Neuro grossly intact, Sensory exam intact to light touch and pain, Coordination normal Psych/Mental Status: Normal Affect, Appropriate, Alert and oriented to time, place, person, mood and affect Vital Signs Temp Pulse Resp BP Pulse Ox 98.5 F 89 17 125/66 H 94 05/02/18 17:00 05/02/18 17:00 05/02/18 17:00 05/02/18 17:00 05/02/18 17:00 Oxygen Flow Rate (L/min) 1 Oxygen Delivery Method Room Air Weight: 36.8 kg Body Mass Index (BMI) 14.7 Finger Stick Blood Glucose 99 Intake and Output for Last 24 Hours 04/30/18 05/01/18 05/02/18 23:59 23:59 23:59 Intake Total 1844.5 / 1844.5 2733.5 / 2733.5 Output Total 2049 / 2049 1875 / 1875 Balance -205.5 / -205.5 858.5 / 858.5 Microbiology Past 72 Hours 05/01/18 01:55 Urine Culture - Preliminary Urine Catheter - Catheter Presumptive E. coli 05/01/18 08:30 Respiratory Panel (PCR) - Final Mucosa - Nasopharyngeal Laboratory Tests Past 24 Hrs 05/02/18 05/02/18 04:05 04:05 WBC 5.9 RBC 3.06 L Hgb 9.6 L Hct 30.6 L MCV 100.0 H MCH 31.4 MCHC 31.4 L RDW 16.3 H RDW Differential 58.5 H Plt Count 248 MPV 10.7 Immature Gran % (Auto) 0.200 Neut % (Auto) 70.2 H Lymph % (Auto) 13.3 L Lamar % (Auto) 14.7 H Eos % (Auto) 1.3 Baso % (Auto) 0.3 Absolute Neuts (auto) 4.2 Absolute Lymphs (auto) 0.79 L Total Counted Not Reportable Sodium 144 Potassium 4.2 Chloride 119 H Carbon Dioxide 19.0 L BUN 31 H Creatinine 1.68 H Estim Creat Clear Calc 20.34 Est GFR (MDRD) Af Amer 40 L Est GFR (MDRD) Non-Af 33 L BUN/Creatinine Ratio 18.5 Glucose 116 H Calcium 7.6 L Phosphorus 2.6 Albumin 2.4 L Medical Necessity - Tobacco Use Smoking Status: Current every day smoker Tobacco Use: Cigarettes Assessment/Plan All Active Problems E-coli UTI (Acute) Septic shock (Acute) Acute UTI (Acute) Encephalopathy acute (Acute) GURVINDER (acute kidney injury) (Acute) Polysubstance abuse (Acute) UTI (urinary tract infection) (Acute) Hypokalemia due to inadequate potassium intake (Acute) Normocytic anemia (Acute) Generalized weakness (Acute) Contusion of knee, left (Acute) Contusion of knee, right (Acute) Delirium (Acute) CHF (congestive heart failure) (Acute) Fall (Acute) Debility (Acute) Opioid withdrawal (Acute) Barbiturate withdrawal (Acute) Acute UTI (Acute) #1 septic shock-secondary to E. coli cystitis, continue Rocephin for now, await sensitivity on organism #2 acute cystitis secondary to E. coli-again continue Rocephin, await sensitivities #3 acute kidney injury-nephrology is following the patient, patient's kidney functions are improving #4 COPD-[facility] is following patient #5 severe protein and caloric malnutrition-we will place the patient on Remeron at night to see if this will stimulate her appetite, nutritional services is seeing the patient #6 hypertension-blood pressure medications may have to be restarted, continue to observe patient's blood pressure for now #7 anxiety and depression-patient will be placed on Remeron at night, will also resume her Prozac Code Visit Inpatient E&M: 16787 Subs Hosp L2
[2018-05-02] MEDS: ALPRAZolam 0.25 MG Tablet PO (22:36)
[2018-05-02] MEDS: Mirtazapine 15 MG Tablet PO (22:37)
[2018-05-02] MEDS: Ceftriaxone 1 GM/50 ML BAG IV (22:37)
[2018-05-03] VITALS (13 sets, daily range): BP systolic 106–127; BP diastolic 58–68; PULSE 76–99; RESP 14–20; TEMP 36.5–36.8; O2SAT 94–96
[2018-05-03] MEDS: Mag Hydrox/Al Hydrox/Simeth 30 ML UDC PO (06:38)
[2018-05-03] MEDS: Ondansetron 4 MG/2 ML Vial IV (06:38)
[2018-05-03] MEDS: Ipratropium/Albuterol Sulfate 3 ML AMPUL.NEB INHALATION ×2 (07:30→13:18)
[2018-05-03] MEDS: 0.45% Normal Saline 1,000 ML 60 ML IV (08:57)
[2018-05-03] MEDS: FLUoxetine 10 MG Capsule PO (08:58)
[2018-05-03] MEDS: Famotidine 20 MG Tablet PO (08:58)
[2018-05-03] MEDS: Heparin Injection (Vial) 5,000 UNIT/ML VIAL 5000 UNIT SC ×2 (09:00→21:47)
[2018-05-03 09:29] LABS: Albumin, Serum 2.7 g/dL (3.2-5.0); BUN 18 mg/dL (7-18); BUN/Creat Ratio 15.8 RATIO (10-20); Chloride 118 mmol/L (98-107); Creatinine, Serum 1.14 mg/dL (0.55-1.02); EST Glomerular Filtration Rate 52 mL/min (>60); Est Glom Filt Rate - Afr Amer 63 mL/min (>60); Estimated Creatinine Clearance 31.84 ml/min; Glucose 84 mg/dL (74-106); Phosphorus 1.5 mg/dL (2.5-4.9); Potassium 4.2 mmol/L (3.5-5.1); Sodium Level 144 mmol/L (136-145)
--- NOTE | 2018-05-03 09:39 | PCM.PROGNOTE ---
Patient Problems: Active and Suspected Problems E-coli UTI (Acute) Septic shock (Acute) Acute UTI (Acute) Encephalopathy acute (Acute) GURVINDER (acute kidney injury) (Acute) Polysubstance abuse (Acute) Subjective: This 57-year-old female was who was admitted to the hospital for acute UTI was consulted to podiatry for thickened, painful, elongated, discolored toenails with subungual debris of toes 1, 2, 3, 4, 5 of the right and left foot. Patient relates that her toenails are causing her discomfort and she is unable to safely trim them on her own. She said it has been since October since they have last been debrided. Patient currently relates that she is feeling tired but denies any feelings of nausea, vomiting, fever, chills. - Physical Exam General: Alert, Oriented x3, Cooperative Extremities: No cyanosis, No edema, Capillary Refill Less than 3 Seconds - To all distal digits of the right and left foot, No Calf Tenderness - Negative Nehemias and Saenz signs bilateral, Peripheral Pulses Normal - DP and PT pulses palpable bilateral Skin: - - Toenails 1, 2, 3, 4, 5 of the right and left foot are thickened, elongated, discolored, painful on palpation, with the presence of subungual debris. Musculoskeletal: Muscle Wasting Neurological: Sensory exam intact to light touch and pain Psych/Mental Status: Normal Affect, Appropriate Vital Signs Temp Pulse Resp BP Pulse Ox 97.7 F L 95 20 H 127/68 H 94 05/03/18 08:30 05/03/18 08:30 05/03/18 08:30 05/03/18 08:30 05/03/18 08:30 Oxygen Flow Rate (L/min) 4 Oxygen Delivery Method Room Air Weight: 37.5 kg Body Mass Index (BMI) 14.7 Finger Stick Blood Glucose 99 Intake and Output for Last 24 Hours 05/01/18 05/02/18 05/03/18 23:59 23:59 23:59 Intake Total 1844.5 / 1844.5 2733.5 / 2733.5 791 / 791 Output Total 2049 / 2049 1875 / 1875 250 / 250 Balance -205.5 / -205.5 858.5 / 858.5 541 / 541 Microbiology Past 72 Hours 05/01/18 01:55 Urine Culture - Preliminary Urine Catheter - Catheter Presumptive E. coli 05/01/18 08:30 Respiratory Panel (PCR) - Final Mucosa - Nasopharyngeal Laboratory Tests Past 24 Hrs 05/03/18 08:34 Sodium 144 Potassium 4.2 Chloride 118 H Carbon Dioxide 21.0 BUN 18 Creatinine 1.14 H Estim Creat Clear Calc 31.84 Est GFR (MDRD) Af Amer 63 Est GFR (MDRD) Non-Af 52 L BUN/Creatinine Ratio 15.8 Glucose 84 Calcium 8.0 L Phosphorus 1.5 L Albumin 2.7 L Medical Necessity - Tobacco Use Smoking Status: Current every day smoker Tobacco Use: Cigarettes Assessment/Plan All Active Problems E-coli UTI (Acute) Septic shock (Acute) Acute UTI (Acute) Encephalopathy acute (Acute) GURVINDER (acute kidney injury) (Acute) Polysubstance abuse (Acute) UTI (urinary tract infection) (Acute) Hypokalemia due to inadequate potassium intake (Acute) Normocytic anemia (Acute) Generalized weakness (Acute) Contusion of knee, left (Acute) Contusion of knee, right (Acute) Delirium (Acute) CHF (congestive heart failure) (Acute) Fall (Acute) Debility (Acute) Opioid withdrawal (Acute) Barbiturate withdrawal (Acute) Acute UTI (Acute) Tinea unguium Pain right toes Pain left toes This patient was carefully examined and evaluated resting bedside this morning. Following the lower extremity examination, toenails 1, 2, 3, 4, 5 of the right and left foot were carefully debrided in length using a nail nipper. This was done without incident. Upon completion patient stated that she had relief of pain to her toenails. No other issues with the patient's feet were appreciated at this time. Podiatry can follow this patient on an as-needed basis from this point on. Please contact with any questions. Thank you for this consult.
--- NOTE | 2018-05-03 10:37 | PN_ITS ---
Patient Problems: Active and Suspected Problems E-coli UTI (Acute) Septic shock (Acute) Acute UTI (Acute) Encephalopathy acute (Acute) GURVINDER (acute kidney injury) (Acute) Polysubstance abuse (Acute) Subjective: Patient was seen and examined. She complains of loose stools, stool for C. difficile is pending. Complains of fever and chills. Denies any chest pain or dizziness. Objective: Physical Exam General: Alert, Oriented x3, Cooperative, No apparent distress, cachectic HEENT: Atraumatic, PERRLA, EOMI, Normocephalic Oral: Moist Mucosa Neck: Supple, No Nuchal Rigidity, Trachea Midline, Thyroid Normal Size and Texture Lungs: Clear to auscultation, Normal air movement, No rhonchi, No wheeze, No rales Cardiovascular: Regular rate, Regular Rhythm, Normal S1, Normal S2, No murmurs Abdomen: Bowel Sounds Present, Soft, Non Tender, Non-Distended Extremities: No clubbing, No cyanosis, No edema, Capillary Refill Less than 3 Seconds Skin: No rashes, No breakdown Musculoskeletal: Cachexia Neurological: Cranial nerves II-XII grossly intact, Neuro grossly intact, Sensory exam intact to light touch and pain, Coordination normal Psych/Mental Status: Normal Affect, Appropriate, Alert and oriented to time, place, person, mood and affect Vitals/I&O's: Vital Signs Temp Pulse Resp BP Pulse Ox 97.7 F L 95 20 H 127/68 H 94 05/03/18 08:30 05/03/18 08:30 05/03/18 08:30 05/03/18 08:30 05/03/18 08:30 Oxygen Flow Rate (L/min) 4 Oxygen Delivery Method Room Air Weight: 37.5 kg Body Mass Index (BMI) 14.7 Finger Stick Blood Glucose 99 Intake and Output for Last 24 Hours 05/01/18 05/02/18 05/03/18 23:59 23:59 23:59 Intake Total 1844.5 / 1844.5 2733.5 / 2733.5 791 / 791 Output Total 2049 1875 / 1875 250 / 250 Balance -205.5 / -205.5 858.5 / 858.5 541 / 541 Microbiology Past 72 Hours 05/01/18 02:45 Blood Culture (Wb) - Anticubital Right Blood Culture - Preliminary No growth in 48 hours. 05/01/18 02:30 Blood Culture (Wb) - Right Forearm Blood Culture - Preliminary No growth in 48 hours. 05/01/18 01:55 Urine Catheter - Catheter Urine Culture - Preliminary Presumptive E. coli 05/01/18 08:30 Mucosa - Nasopharyngeal Respiratory Panel (PCR) - Final Laboratory Results 05/03/18 08:34: Sodium 144, Potassium 4.2, Chloride 118 H, Carbon Dioxide 21.0, BUN 18, Creatinine 1.14 H, Estim Creat Clear Calc 31.84, Est GFR (MDRD) Af Amer 63, Est GFR (MDRD) Non-Af 52 L, BUN/Creatinine Ratio 15.8, Glucose 84, Calcium 8.0 L, Phosphorus 1.5 L, Albumin 2.7 L Current Medications Acetaminophen (Tylenol) 650 mg PO Q6H PRN PRN PRN Reason: Non-cardiac pain (mod-severe) Last Admin: 05/02/18 15:59 Dose: 650 mg Acetaminophen/Butalbital/Caffeine (Fioricet) 1 - 2 tablet PO Q6H PRN PRN PRN Reason: HEADACHE Al Hydroxide/Mg Hydroxide (Mylanta Ii) 30 ml PO Q6H PRN PRN PRN Reason: Gastric burning Last Admin: 05/03/18 06:38 Dose: 30 ml Albuterol Sulfate (Ventolin Aerosols) 2.5 mg INHALATION Q2H PRN PRN PRN Reason: dyspnea, wheezing Albuterol/Ipratropium (Duoneb) 3 ml INHALATION Q6HWA.RT [facility] Last Admin: 05/03/18 07:30 Dose: 3 ml Alprazolam (Xanax) 0.25 mg PO QHS PRN PRN PRN Reason: SLEEP Last Admin: 05/02/18 22:36 Dose: 0.25 mg Famotidine (Pepcid) 20 mg PO DAILY [facility] Last Admin: 05/03/18 08:58 Dose: 20 mg Fluoxetine HCl (Prozac) 10 mg PO DAILY [facility] Last Admin: 05/03/18 08:58 Dose: 10 mg Heparin Sodium (Porcine) (Heparin Na) 5,000 unit SC Q12 [facility] Last Admin: 05/03/18 09:00 Dose: 5,000 unit Hydralazine HCl (Apresoline Iv) 10 mg IV Q4H PRN PRN PRN Reason: SBP > 160 Ceftriaxone Sodium (Rocephin) 1 gm in 50 mls @ 100 mls/hr IV QHS [facility] Last Admin: 05/02/18 22:37 Dose: 100 mls/hr Sodium Chloride () 250 mls @ 15 mls/hr IV .[id number] PRN PRN Reason: SALINE FLUSH Sodium Chloride () 1,000 mls @ 60 mls/hr IV .[id number] [facility] Last Admin: 05/03/18 08:57 Dose: 60 mls/hr Magnesium Hydroxide (Milk Of Magnesia) 30 ml PO DAILY PRN PRN PRN Reason: Constipation Mirtazapine (Remeron) 15 mg PO QHS [facility] Last Admin: 05/02/18 22:37 Dose: 15 mg Nutritional Formula (Lactose Free) (Ensure Enlive) 120 ml PO 4X/DAY [facility] Last Admin: 05/03/18 08:58 Dose: Not Given Ondansetron HCl (Zofran) 4 mg IV Q8H PRN PRN PRN Reason: NAUSEA/VOMITING Last Admin: 05/03/18 06:38 Dose: 4 mg Sodium Chloride () 5 - 15 ml IV UD PRN PRN Reason: SALINE FLUSH Sodium Chloride () 10 - 40 ml IV UD PRN PRN Reason: MULTILUMEN/HICMAN CATH FLUSH Medical Necessity - Tobacco Use Smoking Status: Current every day smoker Tobacco Use: Cigarettes Assessment/Plan All Active Problems E-coli UTI (Acute) Septic shock (Acute) Acute UTI (Acute) Encephalopathy acute (Acute) GURVINDER (acute kidney injury) (Acute) Polysubstance abuse (Acute) UTI (urinary tract infection) (Acute) Hypokalemia due to inadequate potassium intake (Acute) Normocytic anemia (Acute) Generalized weakness (Acute) Contusion of knee, left (Acute) Contusion of knee, right (Acute) Delirium (Acute) CHF (congestive heart failure) (Acute) Fall (Acute) Debility (Acute) Opioid withdrawal (Acute) Barbiturate withdrawal (Acute) Acute UTI (Acute) 57-year-old female past medical history of severe protein calorie malnutrition, COPD, anxiety/depression, who comes in with complaints of poor p.o. intake and lethargy. 1. Septic shock secondary to E. coli cystitis, blood pressure is improved, Urine cultures growing E. coli resistant to ceftriaxone, will switch to Ertapenem IV Follows labs in am 2. Acute E. coli cystitis, on IV ertapenem, labs in am 3. Acute kidney injury secondary to dehydration, Cr improved to 1.14 from 4.57 4. Severe protein and caloric malnutrition, on Remeron and Ensure supplements. 5. Acute diarrhea, antibiotic associated, C. difficile negative 6. Hypertension, controlled, 7. COPD, not in acute exacerbation 8. Anxiety/depression - on Remeron and Prozac. 9. DVT PPx- Heparin SC Code Visit Inpatient E&M: 92497 Subs Hosp L2
[2018-05-03] MEDS: Acetaminophen/Butalbital/Caffe 1 Tablet PO ×2 (14:34→20:37)
[2018-05-03] MEDS: Mirtazapine 15 MG Tablet PO (20:39)
[2018-05-04] VITALS (12 sets, daily range): BP systolic 113–123; BP diastolic 58–70; PULSE 74–101; RESP 16–18; TEMP 36.6–37.4; O2SAT 91–98
--- NOTE | 2018-05-04 | FLU_PTH ---
PATIENT: FIDENCIO BARRIOS LOC: MS3 U#:[id number] AGE/SX: 57/F ROOM: [facility] [place] RE05/01/[address]: Dr. Vira Odonnell MD : 1960 BED: 1 DIS: 05/06/2018 SPEC #: [id number] RECD: 05/04/18 21:23 STATUS: CALIXTO RESuze #: [id number] ZORAN: 05/04/18 00:[address]: Eric Razo DEPT: CYTOLOGY RECD BY: Starr Baez ENTERED: 05/05/18 09:03 SP TYPE: Fluid OTHR DR: MD Dr. Madhavi Perez MD Dr. Christine Lee, DO Dr. Florencio Anna Dr., MD Dr. Michael Jack, ALEXUS Tissues: Urine Procedures: Special Stain Group II Cytospin Fluid HEADER OPERATION: Not noted PRE-OP DIAGNOSIS: Septic versus Hypovolemic shock TISSUE SUBMITTED: Urine for cytology DIAGNOSIS CYTOLOGY Urine for cytology (cytospin): Negative for malignant cells. Acute inflammation. See cytology study and comment. SJ:donna 05/06/18 COMMENT Clinical correlation and appropriate follow up are necessary. CYTOLOGY STUDY Slides are reviewed. The specimen predominantly consists of numerous neutrophils and a few squamous cells and urothelial cells. CYTOLOGY GROSS Received is 60 ml of cloudy dark fluid labeled with the patient's name and and designated per the requisition as urine. Submitted for cytology preparation. /CC:cc 05/05/18 TC:2 CPT: 14706
[2018-05-04] MEDS: Acetaminophen/Butalbital/Caffe 1 Tablet PO ×3 (03:51→18:37)
[2018-05-04] MEDS: Ipratropium/Albuterol Sulfate 3 ML AMPUL.NEB INHALATION ×2 (07:31→13:00)
[2018-05-04 07:40] LABS: Albumin, Serum 2.1 g/dL (3.2-5.0); BUN 12 mg/dL (7-18); BUN/Creat Ratio 11.9 RATIO (10-20); Calcium,Total 7.7 mg/dL (8.5-10.1); Chloride 122 mmol/L (98-107); Creatinine, Serum 1.01 mg/dL (0.55-1.02); EST Glomerular Filtration Rate 60 mL/min (>60); Est Glom Filt Rate - Afr Amer 72 mL/min (>60); Estimated Creatinine Clearance 37.48 ml/min; Glucose 72 mg/dL (74-106); Phosphorus 1.7 mg/dL (2.5-4.9); Potassium 4.2 mmol/L (3.5-5.1); Sodium Level 148 mmol/L (136-145)
--- NOTE | 2018-05-04 10:30 | PN_ITS ---
Patient Problems: Active and Suspected Problems Septic shock (Acute) Acute UTI (Acute) Encephalopathy acute (Acute) GURVINDER (acute kidney injury) (Acute) Polysubstance abuse (Acute) Subjective: Recent was seen and examined. Admits to frequent bowel movements yesterday. Stool for C. difficile has been negative. Denied any fever or chills. Discussed with urology, okay with Olson catheter being discontinued. Do not think patient has a bladder mass; feels this is bladder wall thickening from acute cystitis Objective: Physical Exam General: Alert, Oriented x3, Cooperative, No apparent distress, cachectic HEENT: Atraumatic, PERRLA, EOMI, Normocephalic Oral: Moist Mucosa Neck: Supple, No Nuchal Rigidity, Trachea Midline, Thyroid Normal Size and Texture Lungs: Clear to auscultation, Normal air movement, No rhonchi, No wheeze, No rales Cardiovascular: Regular rate, Regular Rhythm, Normal S1, Normal S2, No murmurs Abdomen: Bowel Sounds Present, Soft, Non Tender, Non-Distended Extremities: No clubbing, No cyanosis, No edema, Capillary Refill Less than 3 Seconds Skin: No rashes, No breakdown Musculoskeletal: Cachexia Neurological: Cranial nerves II-XII grossly intact, Neuro grossly intact, Sensory exam intact to light touch and pain, Coordination normal Psych/Mental Status: Normal Affect, Appropriate, Alert and oriented to time, place, person, mood and affect Vitals/I&O's: Vital Signs Temp Pulse Resp BP Pulse Ox 98.1 F 76 18 119/69 96 05/04/18 08:49 05/04/18 08:50 05/04/18 08:49 05/04/18 08:49 05/04/18 08:49 Oxygen Flow Rate (L/min) 4 Oxygen Delivery Method Room Air Weight: 39.1 kg Body Mass Index (BMI) 14.7 Finger Stick Blood Glucose 99 Intake and Output for Last 24 Hours 05/02/18 05/03/18 05/04/18 23:59 23:59 23:59 Intake Total 2733.5 / 2733.5 1692 / 1692 284.6 / 284.6 Output Total 1875 / 1875 1000 / 1000 420 / 420 Balance 858.5 / 858.5 692 / 692 -135.4 / -135.4 Microbiology Past 72 Hours 05/01/18 01:55 Urine Catheter - Catheter Urine Culture - Final Presumptive E. coli 05/03/18 06:55 Stool C. difficile DNA Amplification - Final 05/01/18 02:45 Blood Culture (Wb) - Anticubital Right Blood Culture - Preliminary No growth in 48 hours. 05/01/18 02:30 Blood Culture (Wb) - Right Forearm Blood Culture - Preliminary No growth in 48 hours. 05/01/18 08:30 Mucosa - Nasopharyngeal Respiratory Panel (PCR) - Final Laboratory Results 05/04/18 06:53: Sodium 148 H, Potassium 4.2, Chloride 122 H, Carbon Dioxide 18.0 L, BUN 12, Creatinine 1.01, Estim Creat Clear Calc 37.48, Est GFR (MDRD) Af Amer 72, Est GFR (MDRD) Non-Af 60, BUN/Creatinine Ratio 11.9, Glucose 72 L, Calcium 7.7 L, Phosphorus 1.7 L, Albumin 2.1 L Current Medications Acetaminophen (Tylenol) 650 mg PO Q6H PRN PRN PRN Reason: Non-cardiac pain (mod-severe) Last Admin: 05/02/18 15:59 Dose: 650 mg Acetaminophen/Butalbital/Caffeine (Fioricet) 1 - 2 tablet PO Q6H PRN PRN PRN Reason: HEADACHE Last Admin: 05/04/18 03:51 Dose: 2 tablet Al Hydroxide/Mg Hydroxide (Mylanta Ii) 30 ml PO Q6H PRN PRN PRN Reason: Gastric burning Last Admin: 05/03/18 06:38 Dose: 30 ml Albuterol Sulfate (Ventolin Aerosols) 2.5 mg INHALATION Q2H PRN PRN PRN Reason: dyspnea, wheezing Albuterol/Ipratropium (Duoneb) 3 ml INHALATION Q6HWA.RT [facility] Last Admin: 05/04/18 07:31 Dose: 3 ml Alprazolam (Xanax) 0.25 mg PO QHS PRN PRN PRN Reason: SLEEP Last Admin: 05/02/18 22:36 Dose: 0.25 mg Calamine/Phenol (Calmoseptine Ointment) 1 applic TOPICAL 4X/DAY [facility]; Protocol Famotidine (Pepcid) 20 mg PO DAILY [facility] Last Admin: 05/03/18 08:58 Dose: 20 mg Fluoxetine HCl (Prozac) 10 mg PO DAILY [facility] Last Admin: 05/03/18 08:58 Dose: 10 mg Heparin Sodium (Porcine) (Heparin Na) 5,000 unit SC Q12 [facility] Last Admin: 05/03/18 21:47 Dose: 5,000 unit Hydralazine HCl (Apresoline Iv) 10 mg IV Q4H PRN PRN PRN Reason: SBP > 160 Ertapenem 1 gm/ Sodium (Chloride) 60 mls @ 100 mls/hr IV Q24 [facility] Last Admin: 05/03/18 11:37 Dose: 100 mls/hr Lactobacillus Acidophilus (Acidophilus) 2 tablet PO 4X/DAY [facility] Magnesium Hydroxide (Milk Of Magnesia) 30 ml PO DAILY PRN PRN PRN Reason: Constipation Mirtazapine (Remeron) 15 mg PO QHS [facility] Last Admin: 05/03/18 20:39 Dose: 15 mg Nutritional Formula (Lactose Free) (Ensure Enlive) 120 ml PO 4X/DAY [facility] Last Admin: 05/03/18 20:38 Dose: Not Given Ondansetron HCl (Zofran) 4 mg IV Q8H PRN PRN PRN Reason: NAUSEA/VOMITING Last Admin: 05/03/18 06:38 Dose: 4 mg Sodium Chloride () 5 - 15 ml IV UD PRN PRN Reason: SALINE FLUSH Sodium Chloride () 10 - 40 ml IV UD PRN PRN Reason: MULTILUMEN/HICMAN CATH FLUSH Medical Necessity - Tobacco Use Smoking Status: Current every day smoker Tobacco Use: Cigarettes Assessment/Plan All Active Problems E-coli UTI (Acute) Septic shock (Acute) Acute UTI (Acute) Encephalopathy acute (Acute) GURVINDER (acute kidney injury) (Acute) Polysubstance abuse (Acute) UTI (urinary tract infection) (Acute) Hypokalemia due to inadequate potassium intake (Acute) Normocytic anemia (Acute) Generalized weakness (Acute) Contusion of knee, left (Acute) Contusion of knee, right (Acute) Delirium (Acute) CHF (congestive heart failure) (Acute) Fall (Acute) Debility (Acute) Opioid withdrawal (Acute) Barbiturate withdrawal (Acute) Acute UTI (Acute) 57-year-old female past medical history of severe protein calorie malnutrition, COPD, anxiety/depression, who comes in with complaints of poor p.o. intake and lethargy. 1. Septic shock secondary to E. coli cystitis, urine cultures growing possible ESBL E. Coli, stable BP on Ertapenem IV, labs in am 2. Acute E. coli ESBL cystitis, on IV ertapenem, labs in am 3. Hypernatremia secondary to dehydration, patient encouraged to take in more fluids, labs in am 4. Acute kidney injury secondary to dehydration, resolved, will continue to monitor 5. Possible bladder mass seen on ultrasound, history of neurogenic bladder, status post self-catheterization, urology consult Catheter discontinued, patient to resume intermittent self-catheterization, urologist does not think patient have had a mass, Patient will follow-up in the outpatient with her urologist in [facility]. 6. Severe protein and caloric malnutrition, BMI 16.3, on Remeron and Ensure supplements. 7. Acute diarrhea, antibiotic associated, C. difficile negative, will give patient Imodium, start on probiotics 8. Hypertension, controlled, 9. COPD, not in acute exacerbation 10. Anxiety/depression - on Remeron and Prozac. 11. DVT PPx- Heparin SC 12. Disposition: Possible DC to SNF when bed is available; insurance precert pending Code Visit Inpatient E&M: 21302 Subs Hosp L2
[2018-05-04] MEDS: Menthol/Lanolin/Calamine/Znox 113 GM Tube 1 APPLIC TOPICAL (11:00)
[2018-05-04] MEDS: Heparin Injection (Vial) 5,000 UNIT/ML VIAL 5000 UNIT SC ×2 (11:01→21:28)
[2018-05-04] MEDS: Loperamide 2 MG Capsule 4 MG PO (11:02)
[2018-05-04] MEDS: FLUoxetine 10 MG Capsule PO (11:04)
[2018-05-04] MEDS: Famotidine 20 MG Tablet PO (11:04)
--- NOTE | 2018-05-04 11:08 | PCM.CONS.U ---
Reason for Consult Date of Consultation: 05/04/18 Reason for Consultation: Urinary tract infection History of Present Illness: The patient is a 57 year old female who presented to the hospital with an E. coli resistant infection. She sees a urologist at the [facility] normally and has been diagnosed with a neurogenic bladder she does self intermittent catheterization to empty out her bladder. She presented to the hospital with a urinary tract infection. E. coli positive bacteria out of the urine. Ultrasound of the bladder was done question of thickening of the bladder wall CAT scan was done and she has diffuse thickening of the bladder wall consistent with cystitis but no mass no abnormal mass in the bladder. Just thickening of the bladder wall most consistent with cystitis. She reports having cystoscopies in the past that were normal. Currently she has a catheter in place the urine is crystal clear. Past Medical History Past Medical History (Chronic Problems): Chronic Problems RSD lower limb (Chronic) Chronic abdominal pain (Chronic) COPD (chronic obstructive pulmonary disease) (Chronic) Severe protein-calorie malnutrition (Chronic) Anemia (Chronic) Pulmonary HTN (Chronic) Vitamin D deficiency (Chronic) Tobacco user (Chronic) Reflex sympathetic dystrophy (Chronic) Allergies amoxicillin trihydrate [From Augmentin] Allergy (Verified 04/30/18 21:46) Abd cramps/diarrhea azithromycin [From Zithromax Z-Ipter] Allergy (Verified 04/30/18 21:46) Abd cramps/diarrhea ibuprofen [From Advil] Allergy (Verified 04/30/18 21:46) Abd cramps/diarrhea levofloxacin [From Levaquin] Allergy (Verified 04/30/18 21:46) Abd cramps/diarrhea naproxen sodium [From Aleve] Allergy (Verified 04/30/18 21:46) Abd cramps/diarrhea nitrofurantoin [From Macrobid] Allergy (Verified 04/30/18 21:46) Abd cramps/diarrhea nitrofurantoin macrocrystalline [From Macrobid] Allergy (Verified 04/30/18 21:46) Abd cramps/diarrhea potassium clavulanate [From Augmentin] Allergy (Verified 04/30/18 21:46) Abd cramps/diarrhea fentanyl Adverse Reaction (Verified 04/30/18 21:46) Other FASR HEART RATE, DIZZINESS pregabalin [From Lyrica] Adverse Reaction (Verified 04/30/18 21:46) Other PAIN IN HEAD Home Medications: Ambulatory Orders Medication Instructions Recorded Cetirizine HCl/Pseudoephedrine 1 each PO DAILY 05/01/18 [Zyrtec-D Tablet] Fluoxetine [Prozac] 10 mg PO DAILY 05/01/18 Fluticasone 0.05% [Flonase Nasal 2 spray NASAL DAILY 05/01/18 [place]] Furosemide [Lasix] 20 mg PO DAILY 05/01/18 Gabapentin [Neurontin] 100 mg PO QHS 05/01/18 Lisinopril 5 mg PO DAILY 05/01/18 Metoprolol Tartrate 12.5 mg PO BID 05/01/18 Mirtazapine [Remeron] 15 mg PO QHS 05/01/18 Surgical History: appendectomy, cholecystectomy, tonsillectomy, - - Laparotomy x2 Psychiatric History: Anxiety, Depression 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 Review of Systems Constitutional: Denies: Chills, Fever, Weight Change HEENT: Denies: Head Aches, Sinus Congestion, Sinus Drainage Cardiovascular: Denies: Chest Pain, Palpitations Respiratory: Denies: Cough, Shortness of breath at rest, Sputum production Gastrointestinal: Denies: Abdominal Pain, Nausea, Vomiting Genitourinary: Reports: Dysuria, Incontinence, Retention, Urgency Musculoskeletal: Denies: Joint Pain, Joint Tenderness Skin: Denies: Rash, Wounds Neurological: Denies: Numbness, Tingling, Focal weakness Psychiatric: Denies: Anxiety, Depression, Homicidal Ideations, Suicidal Ideations Hematologic/ Lymphatic: Denies: Easy Bruising, Easy Bleeding Physical Exam - Physical Exam Vital Signs Temp 98.1 F 05/04/18 08:49 Pulse 76 05/04/18 08:50 Resp 18 05/04/18 08:49 BP 119/69 05/04/18 08:49 Pulse Ox 96 05/04/18 08:49 Intake & Output 05/02/18 05/03/18 05/04/18 23:59 23:59 23:59 Intake Total 2733.5 / 2733.5 1692 / 1692 284.6 / 284.6 Output Total 1874 / 1874 1000 / 1000 420 / 420 Balance 858.5 / 858.5 692 / 692 -135.4 / -135.4 Weight: 36.8 kg 37.5 kg 39.1 kg Intake: Oral 320 / 320 510 / 510 100 / 100 IV fluid/meds 2413.5 / 2413.5 1182 / 1182 184.6 / 184.6 Output: Urine 1874 1000 / 1000 420 / 420 Other: Number of Voids 1 Number of Bowel Movements 3 General: Alert, Oriented x3 HEENT: Atraumatic Oral: Moist Mucosa Neck: Supple Lungs: Normal air movement Abdomen: Soft Microbiology Past 72 Hours 05/01/18 01:55 Urine Culture - Final Urine Catheter - Catheter Presumptive E. coli 05/03/18 06:55 C. difficile DNA Amplification - Final Stool 05/01/18 02:45 Blood Culture - Preliminary Blood Culture (Wb) - Anticubital Right No growth in 48 hours. 05/01/18 02:30 Blood Culture - Preliminary Blood Culture (Wb) - Right Forearm No growth in 48 hours. 05/01/18 08:30 Respiratory Panel (PCR) - Final Mucosa - Nasopharyngeal Laboratory Tests Past 24 Hrs 05/04/18 06:53 Sodium 148 H Potassium 4.2 Chloride 122 H Carbon Dioxide 18.0 L BUN 12 Creatinine 1.01 Estim Creat Clear Calc 37.48 Est GFR (MDRD) Af Amer 72 Est GFR (MDRD) Non-Af 60 BUN/Creatinine Ratio 11.9 Glucose 72 L Calcium 7.7 L Phosphorus 1.7 L Albumin 2.1 L Assessment/Plan All Active Problems E-coli UTI (Acute) Septic shock (Acute) Acute UTI (Acute) Encephalopathy acute (Acute) GURVINDER (acute kidney injury) (Acute) Polysubstance abuse (Acute) UTI (urinary tract infection) (Acute) Hypokalemia due to inadequate potassium intake (Acute) Normocytic anemia (Acute) Generalized weakness (Acute) Contusion of knee, left (Acute) Contusion of knee, right (Acute) Delirium (Acute) CHF (congestive heart failure) (Acute) Fall (Acute) Debility (Acute) Opioid withdrawal (Acute) Barbiturate withdrawal (Acute) Acute UTI (Acute) 57-year-old female with multiple medical problems who presented to the hospital with a resistant E. coli infection she has a neurogenic bladder and is on self intermittent catheterization which he does resolve. I think we can DC the Olson and have her resume self intermittent catheterization with the help of the nursing staff on discharge out to go back to self intermittent catheterization she is always establish urological care at the [facility] with a urologist there she cannot quite remember the name she can follow-up with her urologist on discharge if you have any questions or concerns please let me low. I will send the urine for cytology but my suspicion for malignancy is quite low.
--- NOTE | 2018-05-04 11:12 | CON.PCM_ITS ---
Reason for Consult Date of Consultation: 05/04/18 Reason for Consultation: Urinary tract infection History of Present Illness: The patient is a 57 year old female who presented to the hospital with an E. coli resistant infection. She sees a urologist at the [facility] normally and has been diagnosed with a neurogenic bladder she does self intermittent catheterization to empty out her bladder. She presented to the hospital with a urinary tract infection. E. coli positive bacteria out of the urine. Ultrasound of the bladder was done question of thickening of the bladder wall CAT scan was done and she has diffuse thickening of the bladder wall consistent with cystitis but no mass no abnormal mass in the bladder. Just thickening of the bladder wall most consistent with cystitis. She reports having cystoscopies in the past that were normal. Currently she has a catheter in place the urine is crystal clear. Past Medical History Past Medical History (Chronic Problems): Chronic Problems RSD lower limb (Chronic) Chronic abdominal pain (Chronic) COPD (chronic obstructive pulmonary disease) (Chronic) Severe protein-calorie malnutrition (Chronic) Anemia (Chronic) Pulmonary HTN (Chronic) Vitamin D deficiency (Chronic) Tobacco user (Chronic) Reflex sympathetic dystrophy (Chronic) Allergies amoxicillin trihydrate [From Augmentin] Allergy (Verified 04/30/18 21:46) Abd cramps/diarrhea azithromycin [From Zithromax Z-Piter] Allergy (Verified 04/30/18 21:46) Abd cramps/diarrhea ibuprofen [From Advil] Allergy (Verified 04/30/18 21:46) Abd cramps/diarrhea levofloxacin [From Levaquin] Allergy (Verified 04/30/18 21:46) Abd cramps/diarrhea naproxen sodium [From Aleve] Allergy (Verified 04/30/18 21:46) Abd cramps/diarrhea nitrofurantoin [From Macrobid] Allergy (Verified 04/30/18 21:46) Abd cramps/diarrhea nitrofurantoin macrocrystalline [From Macrobid] Allergy (Verified 04/30/18 21:46) Abd cramps/diarrhea potassium clavulanate [From Augmentin] Allergy (Verified 04/30/18 21:46) Abd cramps/diarrhea fentanyl Adverse Reaction (Verified 04/30/18 21:46) Other FASR HEART RATE, DIZZINESS pregabalin [From Lyrica] Adverse Reaction (Verified 04/30/18 21:46) Other PAIN IN HEAD Home Medications: Ambulatory Orders Medication Instructions Recorded Cetirizine HCl/Pseudoephedrine 1 each PO DAILY 05/01/18 [Zyrtec-D Tablet] Fluoxetine [Prozac] 10 mg PO DAILY 05/01/18 Fluticasone 0.05% [Flonase Nasal 2 spray NASAL DAILY 05/01/18 [place]] Furosemide [Lasix] 20 mg PO DAILY 05/01/18 Gabapentin [Neurontin] 100 mg PO QHS 05/01/18 Lisinopril 5 mg PO DAILY 05/01/18 Metoprolol Tartrate 12.5 mg PO BID 05/01/18 Mirtazapine [Remeron] 15 mg PO QHS 05/01/18 Surgical History: appendectomy, cholecystectomy, tonsillectomy, - - Laparotomy x2 Psychiatric History: Anxiety, Depression 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 Review of Systems Constitutional: Denies: Chills, Fever, Weight Change HEENT: Denies: Head Aches, Sinus Congestion, Sinus Drainage Cardiovascular: Denies: Chest Pain, Palpitations Respiratory: Denies: Cough, Shortness of breath at rest, Sputum production Gastrointestinal: Denies: Abdominal Pain, Nausea, Vomiting Genitourinary: Reports: Dysuria, Incontinence, Retention, Urgency Musculoskeletal: Denies: Joint Pain, Joint Tenderness Skin: Denies: Rash, Wounds Neurological: Denies: Numbness, Tingling, Focal weakness Psychiatric: Denies: Anxiety, Depression, Homicidal Ideations, Suicidal Ideations Hematologic/ Lymphatic: Denies: Easy Bruising, Easy Bleeding Physical Exam - Physical Exam Vital Signs Temp 98.1 F 05/04/18 08:49 Pulse 76 05/04/18 08:50 Resp 18 05/04/18 08:49 BP 119/69 05/04/18 08:49 Pulse Ox 96 05/04/18 08:49 Intake & Output 05/02/18 05/03/18 05/04/18 23:59 23:59 23:59 Intake Total 2733.5 / 2733.5 1692 / 1692 284.6 / 284.6 Output Total 1874 / 1874 1000 / 1000 420 / 420 Balance 858.5 / 858.5 692 / 692 -135.4 / -135.4 Weight: 36.8 kg 37.5 kg 39.1 kg Intake: Oral 320 / 320 510 / 510 100 / 100 IV fluid/meds 2413.5 / 2413.5 1182 / 1182 184.6 / 184.6 Output: Urine 1874 1000 / 1000 420 / 420 Other: Number of Voids 1 Number of Bowel Movements 3 General: Alert, Oriented x3 HEENT: Atraumatic Oral: Moist Mucosa Neck: Supple Lungs: Normal air movement Abdomen: Soft Microbiology Past 72 Hours 05/01/18 01:55 Urine Culture - Final Urine Catheter - Catheter Presumptive E. coli 05/03/18 06:55 C. difficile DNA Amplification - Final Stool 05/01/18 02:45 Blood Culture - Preliminary Blood Culture (Wb) - Anticubital Right No growth in 48 hours. 05/01/18 02:30 Blood Culture - Preliminary Blood Culture (Wb) - Right Forearm No growth in 48 hours. 05/01/18 08:30 Respiratory Panel (PCR) - Final Mucosa - Nasopharyngeal Laboratory Tests Past 24 Hrs 05/04/18 06:53 Sodium 148 H Potassium 4.2 Chloride 122 H Carbon Dioxide 18.0 L BUN 12 Creatinine 1.01 Estim Creat Clear Calc 37.48 Est GFR (MDRD) Af Amer 72 Est GFR (MDRD) Non-Af 60 BUN/Creatinine Ratio 11.9 Glucose 72 L Calcium 7.7 L Phosphorus 1.7 L Albumin 2.1 L Assessment/Plan All Active Problems E-coli UTI (Acute) Septic shock (Acute) Acute UTI (Acute) Encephalopathy acute (Acute) GURVINDER (acute kidney injury) (Acute) Polysubstance abuse (Acute) UTI (urinary tract infection) (Acute) Hypokalemia due to inadequate potassium intake (Acute) Normocytic anemia (Acute) Generalized weakness (Acute) Contusion of knee, left (Acute) Contusion of knee, right (Acute) Delirium (Acute) CHF (congestive heart failure) (Acute) Fall (Acute) Debility (Acute) Opioid withdrawal (Acute) Barbiturate withdrawal (Acute) Acute UTI (Acute) 57-year-old female with multiple medical problems who presented to the hospital with a resistant E. coli infection she has a neurogenic bladder and is on self intermittent catheterization which he does resolve. I think we can DC the [facility] and have her resume self intermittent catheterization with the help of the nursing staff on discharge out to go back to self intermittent catheterization she is always establish urological care at the [facility] with a urologist there she cannot quite remember the name she can follow-up with her urologist on discharge if you have any questions or concerns please let me low. I will send the urine for cytology but my suspicion for malignancy is quite low.
[2018-05-04 22:15] LABS: Cytology, Body Fluid / CSF SEE PATHOLOGY REPORT
[2018-05-05] VITALS (13 sets, daily range): BP systolic 142–168; BP diastolic 76–86; PULSE 87–101; RESP 14–18; TEMP 36.6–36.9; O2SAT 91–96
[2018-05-05] MEDS: Acetaminophen/Butalbital/Caffe 1 Tablet PO ×3 (02:28→17:13)
[2018-05-05] MEDS: Ondansetron 4 MG/2 ML Vial IV ×2 (02:33→12:08)
[2018-05-05 06:27] LABS: Absolute Lymphocyte Count 0.97 X10^3/ul (0.83-4.51); Absolute Neutrophil Count 2.9 X10^3/uL (2.0-7.7); Basophil# 0.01 X10^3/uL; Basophil% 0.2 % (0-1); Eosinophil# 0.02 X10^3/uL; Eosinophils% 0.5 % (0-5); Hematocrit 30.9 % (37-47); Hemoglobin 9.8 g/dl (12.0-15.0); Lymphocyte # 0.97 X10^3/ul (4.0); Lymphocyte % 22.6 % (19-41); Mean Corp Hgb Conc 31.7 g/gl (32-36); Mean Corpuscular Hgb 30.8 pg (27.0-32.0); Mean Corpuscular Volume 97.2 fL (81-99); Mean Platelet Vol. 9.6 fl (6.2-12.0); Monocyte# 0.43 X10^3/uL; Neutrophil # 2.85 X10^3/uL (2.7-7.7); Neutrophil % 66.5 % (47-70); Platelet Count 215 K/mm3 (150-450); Red Blood Count 3.18 M/mm3 (4.2-5.4); White Blood Count 4.3 K/mm3 (4.4-11.0)
[2018-05-05 06:29] LABS: POSITIVE COUNT NO; POSITIVE DIFFERENTIAL NO; POSITIVE MORPHOLOGY NO
[2018-05-05 06:41] LABS: Anion Gap 8 (5-15); BUN 9 mg/dL (7-18); BUN/Creat Ratio 10.3 RATIO (10-20); Chloride 120 mmol/L (98-107); Creatinine, Serum 0.88 mg/dL (0.55-1.02); EST Glomerular Filtration Rate 70 mL/min (>60); Est Glom Filt Rate - Afr Amer 85 mL/min (>60); Estimated Creatinine Clearance 40.81 ml/min; Glucose 94 mg/dL (74-106); Potassium 3.7 mmol/L (3.5-5.1); Sodium Level 149 mmol/L (136-145)
[2018-05-05] MEDS: Calcium Carbonate 500 MG Tablet PO ×2 (09:04→19:34)
[2018-05-05] MEDS: Famotidine 20 MG Tablet PO (09:04)
[2018-05-05] MEDS: Menthol/Lanolin/Calamine/Znox 113 GM Tube 1 APPLIC TOPICAL ×4 (09:05→21:38)
[2018-05-05] MEDS: Heparin Injection (Vial) 5,000 UNIT/ML VIAL 5000 UNIT SC ×2 (09:05→21:28)
[2018-05-05] MEDS: FLUoxetine 10 MG Capsule PO (09:06)
[2018-05-05] MEDS: 0.9% NaCl IVPB Med Flush (250 mL) 15 ML IV (12:07)
[2018-05-05] MEDS: 0.9% NaCl Peripheral Flush Adult/Peds IV (12:08)
--- NOTE | 2018-05-05 12:12 | CASEMGMT ---
Social Work: TC from Renetta at [facility]. Renetta requesting additional therapy notes as [facility] is requesting updated notes. Updated therapy notes faxed to Renetta. MONTY Valdez
[2018-05-05] MEDS: Loperamide 2 MG Capsule PO ×2 (13:08→17:13)
--- NOTE | 2018-05-05 16:08 | NURSING ---
[facility] called, stating that they did get insurance approval for patient to be admitted to their facility.
[2018-05-05] MEDS: Dicyclomine 10 MG Capsule 20 MG PO (17:13)
[2018-05-05] MEDS: 0.9% Normal Saline 1,000 ML 75 ML IV (17:18)
--- NOTE | 2018-05-05 18:59 | PCM.PN.HOSP ---
Patient Problems: Active and Suspected Problems Septic shock (Acute) Acute UTI (Acute) Encephalopathy acute (Acute) GURVINDER (acute kidney injury) (Acute) Polysubstance abuse (Acute) Subjective: Patient was seen and examined. complains of frequent stools. No fever or chills Objective: Physical Exam General: Alert, Oriented x3, Cooperative, No apparent distress, cachectic HEENT: Atraumatic, PERRLA, EOMI, Normocephalic Oral: Moist Mucosa Neck: Supple, No Nuchal Rigidity, Trachea Midline, Thyroid Normal Size and Texture Lungs: Clear to auscultation, Normal air movement, No rhonchi, No wheeze, No rales Cardiovascular: Regular rate, Regular Rhythm, Normal S1, Normal S2, No murmurs Abdomen: Bowel Sounds Present, Soft, mild generalise tenderness from abdominal cramping, Non-Distended Extremities: No clubbing, No cyanosis, No edema, Capillary Refill Less than 3 Seconds Skin: No rashes, No breakdown Musculoskeletal: Cachexia Neurological: Cranial nerves II-XII grossly intact, Neuro grossly intact, Sensory exam intact to light touch and pain, Coordination normal Psych/Mental Status: Normal Affect, Appropriate, Alert and oriented to time, place, person, mood and affect Vitals/I&O's: Vital Signs Temp Pulse Resp BP Pulse Ox 97.8 F 100 16 148/77 H 94 05/05/18 17:00 05/05/18 17:00 05/05/18 17:00 05/05/18 17:00 05/05/18 17:00 Oxygen Flow Rate (L/min) 4 Oxygen Delivery Method Room Air Weight: 37.1 kg Body Mass Index (BMI) 14.7 Finger Stick Blood Glucose 99 Intake and Output for Last 24 Hours 05/03/18 05/04/18 05/05/18 23:59 23:59 23:59 Intake Total 1692 / 1692 842.6 / 842.6 651 / 651 Output Total 1000 / 1000 620 / 620 500 / 500 Balance 692 / 692 222.6 / 222.6 151 / 151 Microbiology Past 72 Hours 05/01/18 01:55 Urine Catheter - Catheter Urine Culture - Final Presumptive E. coli 05/03/18 06:55 Stool C. difficile DNA Amplification - Final 05/01/18 02:45 Blood Culture (Wb) - Anticubital Right Blood Culture - Preliminary No growth in 48 hours. 05/01/18 02:30 Blood Culture (Wb) - Right Forearm Blood Culture - Preliminary No growth in 48 hours. Laboratory Results 05/04/18 21:21: Miscellaneous Cytology Pending 05/05/18 06:10: WBC 4.3 L, RBC 3.18 L, Hgb 9.8 L, Hct 30.9 L, MCV 97.2, MCH 30.8, MCHC 31.7 L, RDW 16.0 H, RDW Differential 55.0 H, Plt Count 215, MPV 9.6, Immature Gran % (Auto) 0.200, Neut % (Auto) 66.5, Lymph % (Auto) 22.6, [place] % (Auto) 10.0, Eos % (Auto) 0.5, Baso % (Auto) 0.2, Absolute Neuts (auto) 2.9, Absolute Lymphs (auto) 0.97, Total Counted Not Reportable 05/05/18 06:10: Sodium 149 H, Potassium 3.7, Chloride 120 H, Carbon Dioxide 21.0, Anion Gap 8, BUN 9, Creatinine 0.88, Estim Creat Clear Calc 40.81, Est GFR (MDRD) Af Amer 85, Est GFR (MDRD) Non-Af 70, BUN/Creatinine Ratio 10.3, Glucose 94, Calcium 8.0 L Current Medications Acetaminophen/Butalbital/Caffeine (Fioricet) 1 - 2 tablet PO Q6H PRN PRN PRN Reason: HEADACHE Last Admin: 05/05/18 17:13 Dose: 2 tablet Al Hydroxide/Mg Hydroxide (Mylanta Ii) 30 ml PO Q6H PRN PRN PRN Reason: Gastric burning Last Admin: 05/03/18 06:38 Dose: 30 ml Albuterol Sulfate (Ventolin Aerosols) 2.5 mg INHALATION Q2H PRN PRN PRN Reason: dyspnea, wheezing Albuterol/Ipratropium (Duoneb) 3 ml INHALATION Q6HWA.RT KINJAL Last Admin: 05/05/18 13:20 Dose: Not Given Alprazolam (Xanax) 0.25 mg PO QHS PRN PRN PRN Reason: SLEEP Last Admin: 05/02/18 22:36 Dose: 0.25 mg Calamine/Phenol (Calmoseptine Ointment) 1 applic TOPICAL 4X/DAY [facility]; Protocol Last Admin: 05/05/18 17:18 Dose: 1 applicatio Calcium Carbonate (Tums) 500 mg PO Q4H PRN PRN PRN Reason: DYSPNEA Last Admin: 05/05/18 09:04 Dose: 500 mg Dicyclomine HCl (Bentyl) 20 mg PO TIDAC [facility] Last Admin: 05/05/18 17:13 Dose: 20 mg Famotidine (Pepcid) 20 mg PO DAILY [facility] Last Admin: 05/05/18 09:04 Dose: 20 mg Fluoxetine HCl (Prozac) 10 mg PO DAILY [facility] Last Admin: 05/05/18 09:06 Dose: 10 mg Heparin Sodium (Porcine) (Heparin Na) 5,000 unit SC Q12 [facility] Last Admin: 05/05/18 09:05 Dose: 5,000 unit Hydralazine HCl (Apresoline Iv) 10 mg IV Q4H PRN PRN PRN Reason: SBP > 160 Ertapenem 1 gm/ Sodium (Chloride) 60 mls @ 100 mls/hr IV Q24 [facility] Last Admin: 05/05/18 09:04 Dose: 100 mls/hr Sodium Chloride () 1,000 mls @ 75 mls/hr IV .[id number] [facility] Last Admin: 05/05/18 17:18 Dose: 75 mls/hr Lactobacillus Acidophilus (Acidophilus) 2 tablet PO Q2H PRN PRN PRN Reason: Diarrhea Loperamide HCl (Imodium) 2 mg PO Q4H PRN PRN PRN Reason: Diarrhea Last Admin: 05/05/18 17:13 Dose: 2 mg Magnesium Hydroxide (Milk Of Magnesia) 30 ml PO DAILY PRN PRN PRN Reason: Constipation Metoprolol Tartrate (Lopressor (Beta Jenna)) 12.5 mg PO BID [facility] Mirtazapine (Remeron) 15 mg PO QHS [facility] Last Admin: 05/04/18 21:28 Dose: Not Given Nutritional Formula (Lactose Free) (Ensure Enlive) 120 ml PO 4X/DAY [facility] Last Admin: 05/05/18 17:19 Dose: Not Given Ondansetron HCl (Zofran) 4 mg IV Q8H PRN PRN PRN Reason: NAUSEA/VOMITING Last Admin: 05/05/18 12:08 Dose: 4 mg Sodium Chloride () 5 - 15 ml IV UD PRN PRN Reason: SALINE FLUSH Last Admin: 05/05/18 12:08 Dose: 10 ml Sodium Chloride () 10 - 40 ml IV UD PRN PRN Reason: MULTILUMEN/HICMAN CATH FLUSH Medical Necessity - Tobacco Use Smoking Status: Current every day smoker Tobacco Use: Cigarettes Assessment/Plan All Active Problems E-coli UTI (Acute) Septic shock (Acute) Acute UTI (Acute) Encephalopathy acute (Acute) GURVINDER (acute kidney injury) (Acute) Polysubstance abuse (Acute) UTI (urinary tract infection) (Acute) Hypokalemia due to inadequate potassium intake (Acute) Normocytic anemia (Acute) Generalized weakness (Acute) Contusion of knee, left (Acute) Contusion of knee, right (Acute) Delirium (Acute) CHF (congestive heart failure) (Acute) Fall (Acute) Debility (Acute) Opioid withdrawal (Acute) Barbiturate withdrawal (Acute) Acute UTI (Acute) 57-year-old female past medical history of severe protein calorie malnutrition, COPD, anxiety/depression, who comes in with complaints of poor p.o. intake and lethargy. 1. Septic shock secondary to E. coli cystitis, urine cultures growing possible ESBL E. Coli, stable BP on Ertapenem IV, will consult ID 2. Acute E. coli ESBL cystitis, on IV ertapenem 3. Hypernatremia secondary to dehydration, patient encouraged to take in more fluids, D51/2 NS 4. Acute kidney injury secondary to dehydration, resolved, will continue to monitor 5. Possible bladder mass seen on ultrasound, history of neurogenic bladder, status post self-catheterization, urology consult Catheter discontinued, on intermittent self-catheterization, urologist does not think patient have had a mass, Patient will follow-up in the outpatient with her urologist in [facility]. 6. Severe protein and caloric malnutrition, BMI 16.3, on Remeron and Ensure supplements. 7. Acute diarrhea, antibiotic associated, C. difficile negative, on Imodium, start on probiotics 8. Hypertension, controlled, 9. COPD, not in acute exacerbation 10. Anxiety/depression - on Remeron and Prozac. 11. DVT PPx- Heparin SC 12. Disposition: Possible DC to SNF when bed is available; insurance precert pending Code Visit Inpatient E&M: 70033 Subs Hosp L2
[2018-05-05] MEDS: Metoprolol Tartrate 25 MG Tablet 12.5 MG PO (21:28)
[2018-05-05] MEDS: Mag Hydrox/Al Hydrox/Simeth 30 ML UDC PO (21:28)
[2018-05-05] MEDS: Mirtazapine 15 MG Tablet PO (21:29)
[2018-05-06] VITALS (9 sets, daily range): BP systolic 154–161; BP diastolic 88–91; PULSE 81–96; RESP 14–18; TEMP 36.4–36.7; O2SAT 93–97
[2018-05-06] MEDS: Acetaminophen/Butalbital/Caffe 1 Tablet PO ×2 (06:44→12:44)
[2018-05-06] MEDS: Dicyclomine 10 MG Capsule 20 MG PO (06:49)
--- NOTE | 2018-05-06 09:15 | CASEMGMT ---
Social Work Note SW received call from Renetta at [facility] stating she received authorization yesterday and pt is still able to discharge today. Physician updated. Plan: [facility] once medically cleared Lauren Valdez SALES COMMISSIONS ANALYST, FINANCIAL REPORTING MANAGER
--- NOTE | 2018-05-06 10:17 | PCM.HP.ID ---
Problem List (1) Septic shock Status: Acute Reason for Consult: esbl ecoli Consulted by: Dr. Odonnell History of Present Illness: The patient is a 57 year old F with chronic self-cath at home (does not re-use catheters) who presented 05/01 with about a week of not feeling well, chills, weakness, nausea, aches. Came to ED, found to have septic shock and GURVINDER. Admitted to icu, given ceftriaxone. Ucx with esbl ecoli, so changed to ertapenem 05/03. Now cr recovered, out of icu, off pressors, feeling better but now with lots of diarrhea. Full ROS performed and neg except as noted above. - Medical History Past Medical History (Chronic Problems): Chronic Problems RSD lower limb (Chronic) Chronic abdominal pain (Chronic) COPD (chronic obstructive pulmonary disease) (Chronic) Severe protein-calorie malnutrition (Chronic) Anemia (Chronic) Pulmonary HTN (Chronic) Vitamin D deficiency (Chronic) Tobacco user (Chronic) Reflex sympathetic dystrophy (Chronic) Allergies/Adverse Reactions: Allergies amoxicillin trihydrate [From Augmentin] Allergy (Verified 04/30/18 21:46) Abd cramps/diarrhea azithromycin [From Zithromax Z-Piter] Allergy (Verified 04/30/18 21:46) Abd cramps/diarrhea ibuprofen [From Advil] Allergy (Verified 04/30/18 21:46) Abd cramps/diarrhea levofloxacin [From Levaquin] Allergy (Verified 04/30/18 21:46) Abd cramps/diarrhea naproxen sodium [From Aleve] Allergy (Verified 04/30/18 21:46) Abd cramps/diarrhea nitrofurantoin [From Macrobid] Allergy (Verified 04/30/18 21:46) Abd cramps/diarrhea nitrofurantoin macrocrystalline [From Macrobid] Allergy (Verified 04/30/18 21:46) Abd cramps/diarrhea potassium clavulanate [From Augmentin] Allergy (Verified 04/30/18 21:46) Abd cramps/diarrhea fentanyl Adverse Reaction (Verified 04/30/18 21:46) Other FASR HEART RATE, DIZZINESS pregabalin [From Lyrica] Adverse Reaction (Verified 04/30/18 21:46) Other PAIN IN HEAD Home Medications: Ambulatory Orders Medication Instructions Recorded Cetirizine HCl/Pseudoephedrine 1 each PO DAILY 05/01/18 [Zyrtec-D Tablet] Fluoxetine [Prozac] 10 mg PO DAILY 05/01/18 Fluticasone 0.05% [Flonase Nasal 2 spray NASAL DAILY 05/01/18 [place]] Furosemide [Lasix] 20 mg PO DAILY 05/01/18 Gabapentin [Neurontin] 100 mg PO QHS 05/01/18 Lisinopril 5 mg PO DAILY 05/01/18 Metoprolol Tartrate 12.5 mg PO BID 05/01/18 Mirtazapine [Remeron] 15 mg PO QHS 05/01/18 - Social History Tobacco Use: cigarettes Vital Signs Temp Pulse Resp BP Pulse Ox 97.5 F L 90 18 161/88 H 94 05/06/18 08:00 05/06/18 08:00 05/06/18 08:00 05/06/18 08:00 05/06/18 08:00 Oxygen Flow Rate (L/min) 1 Oxygen Delivery Method Room Air Weight: 36.9 kg Body Mass Index (BMI) 14.7 Finger Stick Blood Glucose 99 Microbiology Past 72 Hours 05/01/18 02:30 Blood Culture - Final Blood Culture (Wb) - Right Forearm No growth in 5 days. 05/01/18 02:45 Blood Culture - Final Blood Culture (Wb) - Anticubital Right No growth in 5 days. 05/01/18 01:55 Urine Culture - Final Urine Catheter - Catheter Presumptive E. coli 05/03/18 06:55 C. difficile DNA Amplification - Final Stool - Other Studies Radiology: [] reviewed Other Studies: [] Route of nutrition/ use of supplements: [] Nutritional Intake: [] IV Site: [] Olson Catheter: [] - Physical Exam General: Alert, Oriented x3, Cooperative, No apparent distress HEENT: Atraumatic, PERRLA, EOMI Neck: Supple, No Nodes Lungs: Clear to auscultation, Normal air movement Cardiovascular: Regular rate, Regular Rhythm Abdomen: Soft, Non Tender, Non-Distended Extremities: No edema Skin: No rashes Musculoskeletal: No Tenderness to Palpation of Joints or Extremities Neurological: Cranial nerves II-XII grossly intact - Assessment/Plan Antibiotics: [] Assessment/Plan: [] Active and Suspected Problems Septic shock (Acute) Acute UTI (Acute) Encephalopathy acute (Acute) GURVINDER (acute kidney injury) (Acute) Polysubstance abuse (Acute) septic shock due to esbl ecoli complicated uti and GURVINDER - much improved. Cdiff was neg, but ongoing diarrhea. Will change ertapenem to po doxy for 5 more days to treat the ESBL; this may also help her diarrhea. Will follow, d/w primary team, thank you.
--- NOTE | 2018-05-06 10:35 | PCM.TXEXTCAR ---
- Diet 05/01/18 06:00 Diet: Regular Diet Food consistency:: Regular Liquid Consistency:: Regular/Thin Diet Comments: Seated upright at 90 degrees; meds w/ liquid chaser - Routine Orders/Code Status Routine Lab Work: CBC - within 3 days, BMP - within 3 days Code Status: Full Code - Wound(s) R IJ site Wound Type: Surgical Incision - Therapies Weight Bearing: Weight bearing as tolerated Physical Therapy: Eval and Treat Occupational Therapy: Eval and Treat - Allergies/Procedures Done in Hospital Allergies/Adverse Reactions: Allergies amoxicillin trihydrate [From Augmentin] Allergy (Verified 04/30/18 21:46) Abd cramps/diarrhea azithromycin [From Zithromax Z-Piter] Allergy (Verified 04/30/18 21:46) Abd cramps/diarrhea ibuprofen [From Advil] Allergy (Verified 04/30/18 21:46) Abd cramps/diarrhea levofloxacin [From Levaquin] Allergy (Verified 04/30/18 21:46) Abd cramps/diarrhea naproxen sodium [From Aleve] Allergy (Verified 04/30/18 21:46) Abd cramps/diarrhea nitrofurantoin [From Macrobid] Allergy (Verified 04/30/18 21:46) Abd cramps/diarrhea nitrofurantoin macrocrystalline [From Macrobid] Allergy (Verified 04/30/18 21:46) Abd cramps/diarrhea potassium clavulanate [From Augmentin] Allergy (Verified 04/30/18 21:46) Abd cramps/diarrhea fentanyl Adverse Reaction (Verified 04/30/18 21:46) Other FASR HEART RATE, DIZZINESS pregabalin [From Lyrica] Adverse Reaction (Verified 04/30/18 21:46) Other PAIN IN HEAD Procedures: None - Type of Care/Length of Stay Estimated LOS: Convalescent Care Less Than 30 days Type of Care Needed: Skilled Rehab Potential: Good Prognosis: Good - Additional Orders/Day of Discharge Additional Orders: Patient in contact isolation for ESBL. patient will need help with intermittent self-catheterisations Day of Discharge: 05/06/18 - Dietary and Speech Recommendations Dietitian Recommendations/Changes: Continue regular diet- consistency per [employer]IVER. Will continue to fortify foods when possible and provide Ensure Enlive w/ medpass for additional calories/protein if consumed. Will continue to provide additional ONS w/ meals and adjust per pt preference. Would recommend enteral nutrition support as it does not appear likely pt will meet estimated nutritional needs via PO diet. Consult RD for recommendations as indicated. - Follow Up Care Primary Care Physician: Florencio Stafford MD [Primary Care Provider] - Please follow up with your Primary Care Physician in: within 1-2 weeks of discharge Please Follow Up With: [facility] When: Saturday Please Follow Up With: Dora Caballero DO When: within 2 weeks with repeat kidney function test When: [facility] urologist in 2-4 weeks
--- NOTE | 2018-05-06 10:38 | TREXTCAR_ITS ---
- Diet 05/01/18 06:00 Diet: Regular Diet Food consistency:: Regular Liquid Consistency:: Regular/Thin Diet Comments: Seated upright at 90 degrees; meds w/ liquid chaser - Routine Orders/Code Status Routine Lab Work: CBC - within 3 days, BMP - within 3 days Code Status: Full Code - Wound(s) R IJ site Wound Type: Surgical Incision - Therapies Weight Bearing: Weight bearing as tolerated Physical Therapy: Eval and Treat Occupational Therapy: Eval and Treat - Allergies/Procedures Done in Hospital Allergies/Adverse Reactions: Allergies amoxicillin trihydrate [From Augmentin] Allergy (Verified 04/30/18 21:46) Abd cramps/diarrhea azithromycin [From Zithromax Z-Piter] Allergy (Verified 04/30/18 21:46) Abd cramps/diarrhea ibuprofen [From Advil] Allergy (Verified 04/30/18 21:46) Abd cramps/diarrhea levofloxacin [From Levaquin] Allergy (Verified 04/30/18 21:46) Abd cramps/diarrhea naproxen sodium [From Aleve] Allergy (Verified 04/30/18 21:46) Abd cramps/diarrhea nitrofurantoin [From Macrobid] Allergy (Verified 04/30/18 21:46) Abd cramps/diarrhea nitrofurantoin macrocrystalline [From Macrobid] Allergy (Verified 04/30/18 21:46) Abd cramps/diarrhea potassium clavulanate [From Augmentin] Allergy (Verified 04/30/18 21:46) Abd cramps/diarrhea fentanyl Adverse Reaction (Verified 04/30/18 21:46) Other FASR HEART RATE, DIZZINESS pregabalin [From Lyrica] Adverse Reaction (Verified 04/30/18 21:46) Other PAIN IN HEAD Procedures: None - Type of Care/Length of Stay Estimated LOS: Convalescent Care Less Than 30 days Type of Care Needed: Skilled Rehab Potential: Good Prognosis: Good - Additional Orders/Day of Discharge Additional Orders: Patient in contact isolation for ESBL. patient will need h elp with intermittent self-catheterisations Day of Discharge: 05/06/18 - Dietary and Speech Recommendations Dietitian Recommendations/Changes: Continue regular diet- consistency per INVESTIGATOR. Will continue to fortify foods when possible and provide Ensure Enlive w/ medpass for additional calories/protein if consumed. Will continue to provide additional ONS w/ meals and adjust per pt preference. Would recommend enteral nutrition support as it does not appear likely pt will meet estimated nutritional needs via PO diet. Consult RD for recommendations as indicated. - Follow Up Care Primary Care Physician: Florencio Stafford MD [Primary Care Provider] - Please follow up with your Primary Care Physician in: within 1-2 weeks of discharge Please Follow Up With: [facility] When: Saturday Please Follow Up With: Dora Caballero DO When: within 2 weeks with repeat kidney function test When: [facility] urologist in 2-4 weeks
--- NOTE | 2018-05-06 10:39 | DS.PCM_ITS ---
Discharge Date and Diagnosis Date of Admission: 05/01/18 Date of Discharge: 05/06/18 - Primary Discharge Diagnosis Active and Suspected Problems Septic shock E. coli probable ESBL cystitis Hypernatremia Acute kidney injury Possible bladder mass Severe protein calorie malnutrition Acute diarrhea, antibiotic associated, C. difficile ruled out - Secondary Discharge Diagnosis Chronic Problems RSD lower limb (Chronic) Chronic abdominal pain (Chronic) COPD (chronic obstructive pulmonary disease) (Chronic) Severe protein-calorie malnutrition (Chronic) Anemia (Chronic) Pulmonary HTN (Chronic) Vitamin D deficiency (Chronic) Tobacco user (Chronic) Reflex sympathetic dystrophy (Chronic) Hospital Course and Treatment Imaging Results: Clinical Impression(s) from Imaging Studies Chest X-Ray 04/30/18 22:38 IMPRESSION: There are findings consistent with COPD. There is no evidence of acute chest disease. Electronically Signed: Maninder Bowser MD at 23:17 EDT , Service support , Chest X-Ray 05/01/18 04:33 IMPRESSION: Central line is in adequate position. COPD. No evidence for acute cardiopulmonary pathology. Electronically Signed: Iron Schmidt MD at 5:19 EDT , Service support , Renal Ultrasound 05/01/18 06:00 IMPRESSION: Diffuse bladder wall thickening with a large polypoid mass at the base of the bladder more prominent on the left side. Electronically Signed: Karan Cruz, at 13:47 EDT , Service support , Pelvis CT 05/01/18 18:00 IMPRESSION: Marked diffuse thickening of the bladder wall. Although no definite mass is seen, mass is not excluded. Cystoscopy is recommended. Nondisplaced fracture of the tip of the right greater trochanter. Electronically Signed: Maninder Bowser MD at 19:26 EDT , Service support , Brain CT 05/01/18 22:38 IMPRESSION: Chronic involutional changes of the brain. 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 No demonstrated acute intracranial process. Electronically Signed: Iron Schmidt MD at 2:02 EDT , Service support , Infectious disease Critical care Nephrology Operations: None Procedures: None Summary of Care Provided: 57-year-old female with past medical history of severe protein calorie malnutrition, COPD, anxiety/depression, who comes in with complaints of poor p.o. intake and lethargy. Patient has history of neurogenic bladder with self- catheterization. [facility] with no home health care in place. She was admitted with hypotension and managed as septic shock secondary to acute UTI related to intermittent catheterization. She also had acute kidney injury with admitting BUN of 73, creatinine 6.32. Patient was started on IV antibiotics, managed with improvement in the intensive care unit. The scan of the abdomen done as well as ultrasound of the bladder showed thickening of the bladder wall and possible bladder mass. Urology was consulted. Urology did not feel that this was a bladder mass but felt it was related to her cystitis. Urine cultures were positive for E. coli with possible ESBL. Her ceftriaxone was switched to IV ertapenem Over the course of her stay, patient continued to have diarrhea. C. difficile was negative. She was started on Imodium. Infectious disease was consulted. Antibiotics were switched to doxycycline for 5 more days. Patient was [facility] a jail facility. Subjective: On the day of discharge, patient was seen in the discharge. Complains of intermittent abdominal cramps. Diarrhea had improved with the switch of antibiotics. Objective: Physical Exam General: Alert, Oriented x3, Cooperative, No apparent distress, cachectic HEENT: Atraumatic, PERRLA, EOMI, Normocephalic Oral: Moist Mucosa Neck: Supple, No Nuchal Rigidity, Trachea Midline, Thyroid Normal Size and Texture Lungs: Clear to auscultation, Normal air movement, No rhonchi, No wheeze, No rales Cardiovascular: Regular rate, Regular Rhythm, Normal S1, Normal S2, No murmurs Abdomen: Bowel Sounds Present, Soft, mild generalise tenderness from abdominal cramping, Non-Distended Extremities: No clubbing, No cyanosis, No edema, Capillary Refill Less than 3 Seconds Skin: No rashes, No breakdown Musculoskeletal: Cachexia Neurological: Cranial nerves II-XII grossly intact, Neuro grossly intact, Sensory exam intact to light touch and pain, Coordination normal Psych/Mental Status: Normal Affect, Appropriate, Alert and oriented to time, place, person, mood and affect - Physical Exam Vital Signs Temp Pulse Resp BP Pulse Ox 97.5 F L 90 18 161/88 H 94 05/06/18 08:00 05/06/18 08:00 05/06/18 08:00 05/06/18 08:00 05/06/18 08:00 Oxygen Flow Rate (L/min) 1 Oxygen Delivery Method Room Air Weight: 36.9 kg Body Mass Index (BMI) 14.7 Finger Stick Blood Glucose 99 Intake and Output for Last 24 Hours 05/04/18 05/05/18 05/06/18 23:59 23:59 23:59 Intake Total 842.6 / 842.6 851 / 851 873 / 873 Output Total 620 / 620 1075 / 1075 450 / 450 Balance 222.6 / 222.6 -224 / -224 423 / 423 Microbiology Past 72 Hours 05/01/18 02:30 Blood Culture - Final Blood Culture (Wb) - Right Forearm No growth in 5 days. 05/01/18 02:45 Blood Culture - Final Blood Culture (Wb) - Anticubital Right No growth in 5 days. 05/01/18 01:55 Urine Culture - Final Urine Catheter - Catheter Presumptive E. coli 05/03/18 06:55 C. difficile DNA Amplification - Final Stool Discharge Diet: No Restrictions Discharge Activity: Return to Normal Activity Home Medications: Medications to take at Discharge Fluoxetine [Prozac] 10 mg PO DAILY 05/01/18 Fluticasone 0.05% [Flonase Nasal [place]] 2 spray NASAL DAILY 05/01/18 Gabapentin [Neurontin] 100 mg PO QHS 05/01/18 Metoprolol Tartrate 12.5 mg PO BID 05/01/18 Mirtazapine [Remeron] 15 mg PO QHS 05/01/18 ALPRAZolam [Xanax] 0.25 mg PO QHS PRN PRN #7 tab 05/06/18 Acetaminophen/Butalbital/Caffe [Fioricet] 1 - 2 tablet PO Q6H PRN PRN tablet 05/06/18 Albuterol Aerosols [Ventolin Aerosols] 2.5 mg INHALATION Q2H PRN PRN vial.neb. 05/06/18 Dicyclomine HCl [Bentyl] 20 mg PO TIDAC PRN capsule 05/06/18 Doxycycline 100 mg PO BID #10 capsule 05/06/18 Ensure Enlive 120 ml PO 4X/DAY liquid 05/06/18 Lactobacillus Acidophilus [Acidophilus] 2 tablet PO Q2H PRN PRN tablet 05/06/18 Loperamide [Imodium] 2 mg PO Q4H PRN PRN capsule 05/06/18 Menthol/Lanolin/Calamine/Znox [Calmoseptine Ointment] 1 applic TOPICAL 4X/DAY tube 05/06/18 Following Prescrptions Were Given to Patient: ALPRAZolam [Xanax] 0.25 mg PO QHS PRN PRN #7 tab PRN Reason: SLEEP Primary Care Physician: Florencio Stafford MD [Primary Care Provider] - Please follow up with your Primary Care Physician in: within 1-2 weeks of discharge Please Follow Up With: [facility] When: Saturday Please Follow Up With: Dora Caballero DO When: within 2 weeks with repeat kidney function test When: [facility] urologist in 2-4 weeks Disposition: Long-Term facility Minutes spent on discharge:: 40 Patient Condition:: Stable Medical Necessity - Tobacco Use Smoking Status: Current every day smoker Tobacco Use: Cigarettes Meaningful Use Info Meaningful Use Diagnoses (Choose all that apply): None applicable Code Visit Inpatient E&M: 83868 Disch Hosp
--- NOTE | 2018-05-06 10:40 | CASEMGMT ---
Social Work Note Physician is discharging pt today. JACKSON faxed completed discharge paperwork to Renetta at [facility] including transfer to extended care facility, signed medication list and any scripts. Originals in SNF folder and copy on pt's chart. JACKSON completed convalescent 7000 in [facility]. Originals in SNF folder and copy on pt's chart. SW in to update pt on approval to go to [facility]. Pt states understanding and states that her friend Lashae will be transporting her. Pt gave this worker permission to call Lashae to confirm she is able to transport pt. SW placed a call to pt's friend Lashae and left her a message asking if she is able to transport pt. SW waiting for call back. JACKSON placed a call to Renetta at [facility] and updated her that pt is discharging today and that pt's friend will likely be transporting pt later this afternoon. 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
[2018-05-06] MEDS: Metoprolol Tartrate 25 MG Tablet 12.5 MG PO (11:06)
[2018-05-06] MEDS: Famotidine 20 MG Tablet PO (11:06)
[2018-05-06] MEDS: Loperamide 2 MG Capsule PO (11:07)
[2018-05-06] MEDS: Doxycycline 100 MG CAPSULE PO (11:07)
[2018-05-06] MEDS: Heparin Injection (Vial) 5,000 UNIT/ML VIAL 5000 UNIT SC (11:08)
[2018-05-06] MEDS: Menthol/Lanolin/Calamine/Znox 113 GM Tube 1 APPLIC TOPICAL ×2 (11:20→12:42)
[2018-05-06] MEDS: FLUoxetine 10 MG Capsule PO (12:42)
[2018-05-06] MEDS: Acetaminophen 325 MG Tablet PO (13:23)
--- NOTE | 2018-05-06 13:45 | NURSING ---
report called to jina nurse at [facility]. pts friend is here to transport
== END 2018-05-06 13:53 | disposition skilled nursing facility (03) | DRG 466 ==
LOC: ED 23:12 → ICU 05-01 04:15 → MS3 05-02 23:56
PROVIDERS: Internal Medicine; Internal Medicine Critical Care Medicine; Internal Medicine Nephrology; Urology; Admitting Provider Family Medicine; Emergency Provider Emergency Medicine; Family Provider Family Medicine; PCP Family Medicine; Referring Provider Family Medicine; Visit Provider Internal Medicine
DX: T83.518A Infection and inflammatory reaction due to other urinary catheter, initial encounter (principal); A41.51 Sepsis due to Escherichia coli [E. coli]; N30.00 Acute cystitis without hematuria; R65.21 Severe sepsis with septic shock; Z16.12 Extended spectrum beta lactamase (ESBL) resistance; N17.9 Acute kidney failure, unspecified; E86.0 Dehydration; N31.9 Neuromuscular dysfunction of bladder, unspecified; E43 Unspecified severe protein-calorie malnutrition; Z68.1 Body mass index [BMI] 19.9 or less, adult; E87.0 Hyperosmolality and hypernatremia; K52.1 Toxic gastroenteritis and colitis; T36.95XA Adverse effect of unspecified systemic antibiotic, initial encounter; G90.529 Complex regional pain syndrome I of unspecified lower limb; E55.9 Vitamin D deficiency, unspecified; J44.9 Chronic obstructive pulmonary disease, unspecified; F17.210 Nicotine dependence, cigarettes, uncomplicated; D64.9 Anemia, unspecified; I27.20 Pulmonary hypertension, unspecified; N32.9 Bladder disorder, unspecified; E87.5 Hyperkalemia; F19.10 Other psychoactive substance abuse, uncomplicated; E83.39 Other disorders of phosphorus metabolism
CPT/HCPCS: 36415; 36600; 70450; 71045; 72192; 76770; 80048; 80053; 80069; 80307; 80320; 81001; 82009; 82550; 82570; 82803; 82962; 83605; 83735; 84100; 84300; 84439; 84443; 85025; 85610; 87040; 87086; 87088; 87186; 87493; 87633; 88108; 88305; 88313; 92526; 92610; 93005; 94640; 97110; 97116; 97162; 97166; 97530; 97535; 97802; 99285; J7030; J7050; A4216; C1751; G0480; J2405; J7799

== ENCOUNTER 2019-03-13 09:45 | Inpatient (IN) | payer MEDICAID, SELFPAY ==
[2018-05-01 05:58] VITALS: BMI 14.7
[2019-03-13] VITALS (14 sets, daily range): BP systolic 101–152; BP diastolic 44–93; PULSE 98–125; RESP 18–37; TEMP 36.7–37; O2SAT 75–100; BMI 20.1; BMI 18.1; BMI 18.2
--- NOTE | 2019-03-13 10:08 | EKG12_ITS ---
Test Reason : SOB Blood Pressure : / mmHG Vent. Rate : 123 BPM Atrial Rate : 123 BPM P-R Int : 106 ms QRS Dur : 066 ms QT Int : 340 ms P-R-T Axes : 081 044 079 degrees QTc Int : 486 ms Sinus tachycardia with short MS Inferior-posterior infarct , age undetermined ST & T wave abnormality, consider lateral ischemia Abnormal ECG Confirmed by PAMELA ACEVEDO, ROSY ([id number]), editor managing director ELDER OG ([id number]) on 03/16/2019 12:11:05 PM Referred By: JEREMÍAS Confirmed By:ROSY SANTIAGO MD
--- NOTE | 2019-03-13 10:12 | ED.DCSUM_ITS ---
- ER Visit Summary Date of Service: 03/13/19 Chief Complaint: Shortness of breath History of Present Illness: The patient is a 58 F history of COPD, hypertension, reflex sympathetic dystrophy, anemia and prior lacunar strokes. Patient is not on oxygen at home. She states she is had trouble breathing last several days. Subjectively she is had a fever and loose stools. Denies vomiting. Denies chest pain. Denies hemoptysis. She does still smoke 1/2 pack of cigarettes a day. Physical Examination: Middle-aged female. Vital signs stable she is tachycardic on 100% oxygen she is on a percent. H EENT exam she is without dentition. Posterior pharynx unremarkable. Moist with membranes. Neck nontender no JVD no lymphadenopathy. Lungs prolonged expiratory phase. Expiratory wheezing throughout. No obvious rales or rhonchi. Equal symmetrical. Heart tachycardic rate about 125 no murmur. Chest wall is nontender. There is no obvious subcu air or crepitance. Abdomen is soft and nontender. Normal bowel sounds. No peritoneal signs. She is had a prior with a vertical well-healed scar. Extremities moves all 4. She is edema in both feet and lower legs. It is equal and symmetrical. Calves are nontender. There is no cords. Neurologically she is awake alert. She is moving all 4 extremities. She is working to breathe but she knows the day of the week, month and year. She follows commands. Test Results: Chest x-ray portable 1 view read by myself shows no acute abnormality chronic changes. Also read by the radiologist. EKG sinus tachycardia rate of 123. Artifact. No acute ME. There is ST depression in leads V4 and 5. No ST elevation. CBC is an elevated white count 20,000 hemoglobin of 8 which is her baseline chemistries potassium 3.1 gap of 8 BUN 18 creatinine 1.6. Liver enzymes unremarkable alk phos 160. PT PTT INR unremarkable UA positive for infection and 25-50 whites 2+ bacteria. Culture sent. Blood cultures pending. Lactic acid slightly elevated 2.1. Emergency Department Course and Treatment: Middle-aged female with shortness of breath will be worked up and treated for COPD exacerbation and possible sepsis. She will receive DuoNeb and albuterol aerosols along with IV Solu-Medrol. Due to the swelling in her feet currently I am not getting give her a bunch of IV fluids initially we will see how the labs turning out and determine if this is an infectious process versus a pure respiratory issue. Obviously if there is a significant concern for sepsis she will be treated with IV fluids. Patient will need to be admitted to the hospital. Treatment Plan: Repeat exam patient looks much better after IV Solu-Medrol and aerosols. Due to the UTI and possible sepsis because she meets several SIRS criteria patient be started on IV Levaquin. She will be admitted. Disposition: Admission Impression: Acute dyspnea same exacerbation of COPD Acute UTI Acute leukocytosis Sirs This note was generated with [employer] dictation software. It may contain incorrect words, spelling, and punctuation that were not noted in review of the chart prior to signing ED Disposition - Plan for ED Patient: Referrals: Florencio Stafford MD [Primary Care Provider] -
[2019-03-13] MEDS: MethylPREDNISolone 125 MG/2 ML Vial IV (10:17)
[2019-03-13] MEDS: Ipratropium/Albuterol Sulfate 3 ML AMPUL.NEB INHALATION ×2 (10:17→19:40)
[2019-03-13] MEDS: Albuterol 2.5 MG/3 ML VIAL.NEB. INHALATION (10:17)
[2019-03-13 10:20] LABS: Hematocrit 28.7 % (37-47); Hemoglobin 8.1 g/dL (12.0-15.0); Red Blood Count 3.35 M/mm3 (4.2-5.4); White Blood Count 20.2 K/mm3 (4.4-11.0)
[2019-03-13 10:21] LABS: Absolute Lymphocyte Count 0.74 X10^3/uL (0.83-4.51); Absolute Neutrophil Count 18.1 X10^3/uL (2.0-7.7); Basophil# 0.03 X10^3/uL; Basophil% 0.1 % (0-1); Lymphocyte # 0.74 X10^3/ul (4.0); Lymphocyte % 3.7 % (19-41); Mean Corp Hgb Conc 28.2 g/dL (32-36); Mean Corpuscular Hgb 24.2 pg (27.0-32.0); Mean Corpuscular Volume 85.7 fL (81-99); Mean Platelet Vol. 11.6 fl (6.2-12.0); Monocyte# 1.16 X10^3/uL; Monocyte% 5.7 % (0-10); NRBC Flagged by Analyzer 0 % (0-5); Neutrophil # 18.11 X10^3/uL (2.7-7.7); Neutrophil % 89.7 % (47-70); POSITIVE MORPHOLOGY YES; Platelet Count 292 K/mm3 (150-450); RBC Distribution Width CV 18.5 % (11.6-14.6); RBC Distribution Width SD 57.6 fl (35.1-43.9)
[2019-03-13 10:23] LABS: Differential Indicated SCAN CRITERIA MET
[2019-03-13 10:28] LABS: International Normalized Ratio 1.1; Prothrombin Time (Protime)PT. 14.1 SECONDS (11.7-14.9)
[2019-03-13 10:29] LABS: Partial Thromboplast Time 28.5 Seconds (24.1-36.2)
[2019-03-13 10:34] LABS: ALB/GLOB Ratio 0.9 RATIO (0.9-2.4); AST(SGOT) 51 U/L (15-37); Alanine Aminotransfer ALT/SGPT 25 U/L (13-56); Albumin, Serum 3.1 g/dL (3.2-5.0); Alkaline Phosphatase 160 U/L (45-117); Anion Gap 8 (5-15); BUN 18 mg/dL (7-18); BUN/Creat Ratio 11.2 RATIO (10-20); Calcium,Total 8.5 mg/dL (8.5-10.1); Chloride 107 mmol/L (98-107); Creatinine, Serum 1.61 mg/dL (0.55-1.02); EST Glomerular Filtration Rate 35 mL/min (>60); Est Glom Filt Rate - Afr Amer 42 mL/min (>60); Estimated Creatinine Clearance 28.39 ml/min; Globulin 3.6 g/dL (2.2-4.2); Glucose 76 mg/dL (74-106); Potassium 3.1 mmol/L (3.5-5.1); Protein, Total 6.7 g/dL (6.4-8.2); Sodium Level 145 mmol/L (136-145)
[2019-03-13 10:36] LABS: Base Excess 5 mmol/L (-2 to +2); Bicarbonate 31.2 mmol/L (22-26); Blood Gas Specimen Type ART; O2 Delivery Device Nasal Can; PO2 188 mmHG (75-100); SITE L Radial; SO2 100 % (95-99); Time Given 1030; Total Carbon Dioxide 33 mmol/L; pCO2 59.2 mmHg (35-45); pH 7.33 (7.35-7.45)
[2019-03-13 10:42] LABS: Lactic Acid 2.1 mmol/L (0.4-1.9)
--- NOTE | 2019-03-13 10:42 | ED.RN ---
lactic 2.[address] lab. dr adler aware
[2019-03-13 10:50] LABS: Mucous, Urine 0 SEEN /hpf (<or=2+)
[2019-03-13 10:54] LABS: Color, Urine Yellow (Yellow); Glucose, Dipstick Normal (Normal); Ketone-Dipstick Negative (Negative); Leukocyte Esterase-Dipstick 500 /ul (Negative); Nitrite-Dipstick Negative (Negative); Occult Blood-Urine 50 /ul (Negative); Protein-Dipstick 100 mg/dl (Negative); Specific Gravity, Urine 1.015 (1.002-1.030); Urine Bilirubin Dipstick Negative (Negative); Urine Clarity Sl. Cloudy (Clear); Urine Urobilinogen Normal (Normal)
[2019-03-13 11:05] LABS: Bacteria 2+ /hpf (None Seen); Red Blood Cells-Urine 0-5 SEEN /hpf (0-5); Squamous Epithelial Cells - UA 0-5 SEEN /hpf (5-10); White Blood Cells 25-50 SEEN /hpf (0-5)
--- NOTE | 2019-03-13 12:17 | RAD_ITS ---
STUDY: X-RAY CHEST REASON FOR EXAM: Female, 58 years old. DYSPNEA; -- COPD, CHF TECHNIQUE: Single AP portable view of the chest. COMPARISON: Comparison is made with prior examination dated May 01, 2018. FINDINGS: EKG electrodes are seen. Hyperinflation. Scattered calcified granulomas. Stable increased interstitial markings at the left lung base as well as the upper lobes most likely similar to scarring. There is no demonstrated pleural abnormality. Normal size heart. Normal mediastinum and loga. Normal visualized pulmonary arteries. Normal visualized aortic arch and descending thoracic aorta. There is a dextroscoliosis of the thoracic spine. Normal visualized ribs, clavicles, and shoulders. There is no demonstrated abnormality of the visualized soft tissue structures of the upper abdomen. RAD/Chest 1 View (Portable) IMPRESSION: Hyperinflation. No acute abnormality is seen. Electronically Signed: Karan Cruz, at 12:41 EST , Service support ,
[2019-03-13 14:14] LABS: Reflex Lactate? Y
[2019-03-13] MEDS: levoFLOXacin IV 750 MG/150 ML BAG 100 MG IV (14:48)
--- NOTE | 2019-03-13 15:08 | HP.PCM_ITS ---
Problem List (1) Severe sepsis Status: Acute (2) COPD exacerbation Status: Chronic (3) GURVINDER (acute kidney injury) Status: Acute (4) Acute UTI Status: Acute (5) Encephalopathy acute Status: Acute (6) Debility Status: Chronic (7) COPD (chronic obstructive pulmonary disease) Status: Chronic Qualifiers: (8) Pulmonary HTN Status: Chronic (9) Reflex sympathetic dystrophy Status: Chronic (10) Nicotine abuse Status: Chronic History of Present Illness Date of Admission: 03/13/19 Chief Complaint: confusion The patient is a 58 year old F with pmhx of RSD, COPD, HTN, depression, ongoing nicotine abuse, chronic anemia, prior strokes, who presented to the ER with incr eased confusion. The family noted that she has been progressively declining for about 2 weeks and has been hallucinating at home recently as well. She primarily complains of SOB and nonproductive cough. She is wheezy and smokes about 1/2 ppd. She is A/Ox3 here, difficulty to understand but appears to be answering questions appropriately. Her mother is currently sick with a respiratory illness. The patient did not received a flu shot this year stating they make her sick. She appears to have a UTI as well, however denies overt dysuria. She has a hx of neurogenic bladder and self caths, and has had resistant E coli ESBL + in the past. She is resting comfortably in bed on o2 at this point. She does not use O2 at home. She was 75% on room air initially, currently satting well with 6lpm o2 via NC. [] Past Medical History Past Medical History (Chronic Problems): Chronic Problems Nicotine abuse (Chronic) COPD exacerbation (Chronic) RSD lower limb (Chronic) Chronic abdominal pain (Chronic) COPD (chronic obstructive pulmonary disease) (Chronic) Severe protein-calorie malnutrition (Chronic) Debility (Chronic) Anemia (Chronic) Pulmonary HTN (Chronic) Vitamin D deficiency (Chronic) Tobacco user (Chronic) Reflex sympathetic dystrophy (Chronic) Allergies amoxicillin trihydrate [From Augmentin] Allergy (Verified 03/13/19 10:05) Abd cramps/diarrhea azithromycin [From Zithromax Z-Piter] Allergy (Verified 03/13/19 10:05) Abd cramps/diarrhea ibuprofen [From Advil] Allergy (Verified 03/13/19 10:05) Abd cramps/diarrhea levofloxacin [From Levaquin] Allergy (Verified 03/13/19 10:05) Abd cramps/diarrhea naproxen sodium [From Aleve] Allergy (Verified 03/13/19 10:05) Abd cramps/diarrhea nitrofurantoin [From Macrobid] Allergy (Verified 03/13/19 10:05) Abd cramps/diarrhea nitrofurantoin macrocrystalline [From Macrobid] Allergy (Verified 03/13/19 10:05) Abd cramps/diarrhea potassium clavulanate [From Augmentin] Allergy (Verified 03/13/19 10:05) Abd cramps/diarrhea fentanyl Adverse Reaction (Verified 03/13/19 10:05) Other FASR HEART RATE, DIZZINESS pregabalin [From Lyrica] Adverse Reaction (Verified 03/13/19 10:05) Other PAIN IN HEAD Home Medications: Ambulatory Orders Medication Instructions Recorded Fluoxetine [Prozac] 10 mg PO DAILY 05/01/18 Fluticasone 0.05% [Flonase Nasal 2 spray NASAL DAILY 05/01/18 [place]] Gabapentin [Neurontin] 100 mg PO QHS 05/01/18 Metoprolol Tartrate 12.5 mg PO BID 05/01/18 Acetaminophen/Butalbital/Caffe 1 - 2 tablet PO Q6H PRN PRN tablet 05/06/18 [Fioricet] Albuterol Aerosols [Ventolin 2.5 mg INHALATION Q4H PRN PRN 03/13/19 Aerosols] Dicyclomine HCl [Bentyl] 10 mg PO ACHS 03/13/19 Loperamide [Imodium] 2 mg PO BID 03/13/19 Mirtazapine 30 mg PO QHS 03/13/19 Surgical History: appendectomy, cholecystectomy, tonsillectomy, - - Laparotomy x2 Psychiatric History: Anxiety, Depression CERAMIC CHEMIST History: No pertinent CERAMIC CHEMIST history Lives: With Family Smoking Status: Current every day smoker Tobacco Use: Cigarettes Alcohol: None Drugs: None - *Family History Maternal Family History: Family History (Last Reviewed 03/13/19 @ 15:14 by STACI Webber) Father Alzheimers disease Mother Heart problem History Items: Heart Disease Paternal Family History: Family History (Last Reviewed 03/13/19 @ 15:14 by STACI Webber) Father Alzheimers disease Mother Heart problem History Items: - - Father with history of Alzheimer's disease. Review of Systems Constitutional: Reports: Malaise, Weakness, Fatigue. Denies: Chills, Fever, Weight Change HEENT: Denies: Head Aches, Sinus Congestion, Sinus Drainage Cardiovascular: Reports: Edema. Denies: Chest Pain, Chest Pressure, Heaviness, Light Headedness, Palpitations Respiratory: Reports: Cough, Shortness of Breath, Shortness of breath at rest, Shortness of breath upon exertion, Wheezing. Denies: Sputum production Gastrointestinal: Denies: Abdominal Pain, Diarrhea, Nausea, Vomiting Genitourinary: Reports: Retention. Denies: Dysuria, Urgency Musculoskeletal: Denies: Joint Pain, Joint Tenderness, Muscle pain Skin: Denies: Lesions, Rash, Wounds Neurological: Denies: Numbness, Tingling, Focal weakness Psychiatric: Reports: Depression. Denies: Anxiety, Homicidal Ideations, Suicidal Ideations Hematologic/ Lymphatic: Denies: Easy Bruising, Easy Bleeding VTE Information - Inpt Only VTE Present on Admission: No VTE Mechan Device Prophylaxis: None VTE Pharm Prophylaxis ordered?: Yes Patient Problems: Active and Suspected Problems Severe sepsis (Acute) - Physical Exam Vitals/I&O's: Vital Signs Temp Pulse Resp BP Pulse Ox 98.2 F 103 H 20 H 148/77 H 98 03/13/19 13:46 03/13/19 14:25 03/13/19 14:25 03/13/19 14:25 03/13/19 14:25 Oxygen Flow Rate (L/min) 6 Oxygen Delivery Method Nasal Cannula Weight: 106 lb 7.732 oz Body Mass Index (BMI) 20.1 Finger Stick Blood Glucose 99 General: Alert, Oriented x3, Cooperative, - - frail HEENT: Atraumatic, PERRLA, EOMI, Normocephalic, - - exopthalmos Oral: - - poor dentition Neck: Supple, No JVD, Negative Carotid Bruits Lungs: Diminished, Wheezes Cardiovascular: No murmurs, Tachycardic Abdomen: Bowel Sounds Present, Soft, Non Tender Extremities: Capillary Refill Less than 3 Seconds, Edema - BL Pedal edema, dry skin and excoriations on BLE Skin: Excoriated Musculoskeletal: No Tenderness to Palpation of Joints or Extremities Neurological: Cranial nerves II-XII grossly intact Psych/Mental Status: Normal Affect, Appropriate, Alert and oriented to time, place, person, mood and affect Laboratory Results 03/13/19 09:55: WBC 20.2 H, RBC 3.35 L, Hgb 8.1 L, Hct 28.7 L, MCV 85.7, MCH 24.2 L, MCHC 28.2 L, RDW Std Deviation 57.6 H, RDW Coeff of Caren 18.5 H, Plt Count 292, MPV 11.6, Immature Gran % (Auto) 0.800, Neut % (Auto) 89.7 H, Lymph % (Auto) 3.7 L, [place] % (Auto) 5.7, Eos % (Auto) 0.0, Baso % (Auto) 0.1, Absolute Neuts (auto) 18.1 H, Absolute Lymphs (auto) 0.74 L, Nucleated RBC % 0 03/13/19 09:55: PT 14.1, INR 1.1, APTT 28.5 03/13/19 09:55: Sodium 145, Potassium 3.1 L, Chloride 107, Carbon Dioxide 30.0, Anion Gap 8, BUN 18, Creatinine 1.61 H, Estim Creat Clear Calc 28.39, Est GFR (MDRD) Af Amer 42 L, Est GFR (MDRD) Non-Af 35 L, BUN/Creatinine Ratio 11.2, Glucose 76, Calcium 8.5, Total Bilirubin 0.40, AST 51 H, ALT 25, Alkaline Phosphatase 160 H, Total Protein 6.7, Albumin 3.1 L, Globulin 3.6, Album in/Globulin Ratio 0.9 03/13/19 09:55: Lactic Acid 2.1 H* 03/13/19 10:31: Specimen Type ART, Sample Site L Radial, pH 7.33 L, Bicarbonate Actual 31.2 H, POC Total CO2 33, Base Excess 5 H, O2 Saturation 100 H, ABG pCO2 59.2 H, ABG pO2 188 H, O2 Delivery Device Nasal Can, Liter Flow 5.0, Blood Gas Notified Whom ED , Blood Gas Notified Time 1030 03/13/19 10:45: Urine Color Yellow, Urine Clarity Sl. Cloudy, Urine pH 6.0, Ur Specific [place] 1.015, Urine Protein 100 H, Urine Glucose (UA) Normal, Urine Ketones Negative, Urine Occult Blood 50 H, Urine Nitrite Negative, Urine Bilirubin Negative, Urine Urobilinogen Normal, Ur Leukocyte Esterase 500 H, Urine RBC 0-5 SEEN, Urine WBC 25-50 SEEN, Ur Squamous Epith Cells 0-5 SEEN, Urine Bacteria 2+, Urine Mucus 0 SEEN Current Medications Dicyclomine HCl (Bentyl) 10 mg PO ACHS KINJAL Fluoxetine HCl (Prozac) 10 mg PO DAILY [facility] Fluticasone Propionate (Flonase Nasal [place]) 2 spray NASAL DAILY [facility] Levofloxacin (Levaquin Iv) 750 mg in 150 mls @ 100 mls/hr IV X1 ONE Stop: 03/13/19 15:55 Last Admin: 03/13/19 14:48 Dose: 100 mls/hr Documented by: Metoprolol Tartrate (Lopressor (Beta Jenna)) 12.5 mg PO BID KINJAL Mirtazapine (Remeron) 30 mg PO QHS [facility] Assessment/Plan All Active Problems Severe sepsis (Acute) E-coli UTI (Acute) Septic shock (Acute) Acute UTI (Acute) Encephalopathy acute (Acute) GURVINDER (acute kidney injury) (Acute) Polysubstance abuse (Acute) UTI (urinary tract infection) (Acute) Hypokalemia due to inadequate potassium intake (Acute) Normocytic anemia (Acute) Generalized weakness (Acute) Contusion of knee, left (Acute) Contusion of knee, right (Acute) Delirium (Acute) CHF (congestive heart failure) (Acute) Fall (Acute) Opioid withdrawal (Acute) Barbiturate withdrawal (Acute) Acute UTI (Acute) 1. Acute severe sepsis 2/2 recurrent UTI, 2/2 straight cath for neurogenic bladder - prior ESBL+ E coli. Start meropenem. + Leuckoytosis, lactic acidosis, abnormal LFTs, tachycardia, tachypnea. No fever. Follow culture with hx of multiple organisms. Pt would likely benefit from prophylactic abx at ut. 2. GURVINDER suspect due to sepsis / dehydration - hold nephrotoxic agents, initiate IV fluids. 3. Acute mixed respiratory failure 2/2 COPD exacerbation - 75% on presentation stable now on 6lpm NC. Mild acidosis with increased CO2 on ABG. Continue O2, solumedrol, aerosol therapy. CXR with hyperinflation. Check resp panel, mother is sick and she has not had flu vaccine. 4. Acute toxic vs metabolic encephalopathy - hallucinating at home. Currently A/O x3 not presenting any behavior concerning for hallucinations. Multiple possible factors including sepsis/UTI, somewhat elevated CO2, home medications, GURVINDER. Hold gabapentin, fioricet. Check Ammonia. 5. Hx prior strokes - not on aspirin or statin. Need to obtain records from most recent visit with Dr. Stafford to verify meds and what her baseline function is. Need PT OT evals. 6. Chronic anemia - normocytic. prior visits seems to run 8-10. Trend. 7. Exopthalmos, tachycardia, encephalopathic - obtain TSH/FT4/FT3 8. Hx RSD - hold gabapentin/fioricet 9. Depression - continue remeron and prozac 10. Suspect protein calorie malnutrition - dietary eval for further quantification 11. LE edema - doubt acute chf. Add RIAN wraps daily. DVT ppx: heparin DC planning: PTOT evals. Does not appear to be doing well at home. This patient was seen by Santos Trevizo PA-C under the supervision of Dr. Gamble.
[2019-03-13] MEDS: Acetaminophen 325 MG Tablet 650 MG PO (16:43)
[2019-03-13] MEDS: 0.9% Normal Saline 1,000 ML 100 ML IV (16:51)
[2019-03-13] MEDS: Dicyclomine 10 MG Capsule PO (16:51)
[2019-03-13 17:08] LABS: Free T3 1.9 pg/mL (2.18-3.98); Magnesium 2.6 mg/dL (1.6-2.6); Phosphorus 4.2 mg/dL (2.5-4.9); T4 Free Direct 1.49 ng/dL (0.76-1.46); Thyroid Stim Hormone (TSH) 0.29 uIU/mL (0.358-3.74)
[2019-03-13] MEDS: oxyCODONE 5 MG Tablet PO (19:12)
[2019-03-13 20:59] LABS: Ferritin 13 ng/mL (8-252); Iron 12 ug/dL (50-170); Iron Binding Capacity,Total 372 ug/dL (250-450); PERCENT IRON SATURATION 3.2 % (15.0-55.0)
[2019-03-13] MEDS: Metoprolol Tartrate 25 MG Tablet 12.5 MG PO (22:01)
[2019-03-13] MEDS: Mirtazapine 30 MG Tablet PO (22:02)
[2019-03-13] MEDS: guaiFENesin 1,200 MG Tablet 1200 MG PO (22:02)
[2019-03-13] MEDS: Heparin Injection (Vial) 5,000 UNIT/ML VIAL 5000 UNIT SC (22:02)
[2019-03-13] MEDS: 0.9% Saline Lock 10 ML Syringe IV (22:02)
[2019-03-13 22:53] LABS: Amphetamine Urine VISTA NEGATIVE (<1000 ng/mL); Barbiturate Urine VISTA NEGATIVE (< 200 ng/mL); Benzodiazepine Urine VISTA NEGATIVE (< 200 ng/mL); Cocaine Urine VISTA NEGATIVE (< 300 ng/mL); Ecstacy Urine VISTA NEGATIVE (< 500 ng/mL); Methadone Urine VISTA NEGATIVE (< 300 ng/mL); PCP Urine VISTA NEGATIVE (< 25 ng/mL); THC Urine VISTA NEGATIVE (< 50 ng/mL); Vista UDS pH Range 5
[2019-03-14] VITALS (24 sets, daily range): BP systolic 106–157; BP diastolic 54–123; PULSE 85–122; RESP 12–26; TEMP 36.4–37.1; O2SAT 90–100
[2019-03-14] MEDS: oxyCODONE 5 MG Tablet PO (01:31)
[2019-03-14] MEDS: 0.9% Normal Saline 1,000 ML 100 ML IV (01:35)
[2019-03-14] MEDS: Ipratropium/Albuterol Sulfate 3 ML AMPUL.NEB INHALATION ×3 (07:01→21:58)
[2019-03-14 07:17] LABS: Absolute Lymphocyte Count 0.38 X10^3/uL (0.83-4.51); Absolute Neutrophil Count 21.7 X10^3/uL (2.0-7.7); Basophil# 0.02 X10^3/uL; Basophil% 0.1 % (0-1); Hematocrit 27.8 % (37-47); Hemoglobin 7.6 g/dL (12.0-15.0); Lymphocyte # 0.38 X10^3/ul (4.0); Lymphocyte % 1.7 % (19-41); Mean Corp Hgb Conc 27.3 g/dL (32-36); Mean Corpuscular Hgb 24.2 pg (27.0-32.0); Mean Corpuscular Volume 88.5 fL (81-99); Monocyte# 0.36 X10^3/uL; Monocyte% 1.6 % (0-10); NRBC Flagged by Analyzer 0.2 % (0-5); Neutrophil # 21.68 X10^3/uL (2.7-7.7); Neutrophil % 95.8 % (47-70); POSITIVE DIFFERENTIAL YES; Platelet Count 247 K/mm3 (150-450); RBC Distribution Width CV 18.6 % (11.6-14.6); Red Blood Count 3.14 M/mm3 (4.2-5.4); White Blood Count 22.6 K/mm3 (4.4-11.0)
[2019-03-14 07:23] LABS: Differential Indicated SCAN CRITERIA MET
[2019-03-14 07:46] LABS: ALB/GLOB Ratio 0.8 RATIO (0.9-2.4); AST(SGOT) 32 U/L (15-37); Alanine Aminotransfer ALT/SGPT 23 U/L (13-56); Albumin, Serum 2.7 g/dL (3.2-5.0); Alkaline Phosphatase 148 U/L (45-117); Anion Gap 4 (5-15); BUN 17 mg/dL (7-18); Calcium,Total 8.4 mg/dL (8.5-10.1); Chloride 113 mmol/L (98-107); Creatinine, Serum 1.31 mg/dL (0.55-1.02); EST Glomerular Filtration Rate 44 mL/min (>60); Est Glom Filt Rate - Afr Amer 53 mL/min (>60); Estimated Creatinine Clearance 31.82 ml/min; Globulin 3.5 g/dL (2.2-4.2); Glucose 133 mg/dL (74-106); Potassium 4.1 mmol/L (3.5-5.1); Protein, Total 6.2 g/dL (6.4-8.2); Sodium Level 145 mmol/L (136-145)
--- NOTE | 2019-03-14 08:40 | PCM.PN.HOSP ---
Patient Problems: Active and Suspected Problems Severe sepsis (Acute) Reason for Visit: COPD Subjective: breathing is slow. Confusion by nursing, though did received oxycodone at 0131 for unspecified pain. Vitals/I&O's: Vital Signs Temp Pulse Resp BP Pulse Ox 36.8 C 100 18 157/97 H 99 03/14/19 06:00 03/14/19 07:01 03/14/19 07:01 03/14/19 06:00 03/14/19 07:01 Oxygen Flow Rate (L/min) 3 Oxygen Delivery Method Nasal Cannula Weight: 43.59 kg Body Mass Index (BMI) 18.1 Finger Stick Blood Glucose 99 Intake and Output for Last 24 Hours 03/12/19 03/13/19 03/14/19 23:59 23:59 23:59 Intake Total 1031.67 / 1031.67 411.67 / 411.67 Output Total 1000 / 1000 400 / 400 Balance 31.67 / 31.67 11.67 / 11.67 General: - - awake. disshevled. no respiratory distress. no conversatinal dyspnea. weak voice. HEENT: Atraumatic, Normocephalic Oral: Moist Mucosa, No Gingival or Mucosal Lesions/ Ulcerations Neck: No Nodes, Trachea Midline Lungs: Diminished, Wheezes Cardiovascular: Regular rate, Regular Rhythm, Normal S1, Normal S2, No murmurs Abdomen: Bowel Sounds Present, Soft, Non Tender, Non-Distended, No Hepato-splenomegaly Extremities: No edema, No Calf Tenderness Skin: No rashes, No breakdown Musculoskeletal: Cachexia, Muscle Wasting Neurological: - - diminished muscle tone, though may be lack of effort on patient's part. difficult to understand speech due to weak voice. Psych/Mental Status: Restless Laboratory Results 03/13/19 09:55: WBC 20.2 H, RBC 3.35 L, Hgb 8.1 L, Hct 28.7 L, MCV 85.7, MCH 24.2 L, MCHC 28.2 L, RDW Std Deviation 57.6 H, RDW Coeff of Caren 18.5 H, Plt Count 292, MPV 11.6, Immature Gran % (Auto) 0.800, Neut % (Auto) 89.7 H, Lymph % (Auto) 3.7 L, Becker % (Auto) 5.7, Eos % (Auto) 0.0, Baso % (Auto) 0.1, Absolute Neuts (auto) 18.1 H, Absolute Lymphs (auto) 0.74 L, Nucleated RBC % 0 03/13/19 09:55: PT 14.1, INR 1.1, APTT 28.5 03/13/19 09:55: Sodium 145, Potassium 3.1 L, Chloride 107, Carbon Dioxide 30.0, Anion Gap 8, BUN 18, Creatinine 1.61 H, Estim Creat Clear Calc 28.39, Est GFR (MDRD) Af Amer 42 L, Est GFR (MDRD) Non-Af 35 L, BUN/Creatinine Ratio 11.2, Glucose 76, Calcium 8.5, Total Bilirubin 0.40, AST 51 H, ALT 25, Alkaline Phosphatase 160 H, Total Protein 6.7, Albumin 3.1 L, Globulin 3.6, Albumin/Globulin Ratio 0.9 03/13/19 09:55: Lactic Acid 2.1 H* 03/13/19 09:55: Phosphorus 4.2, Magnesium 2.6, TSH 0.29 L, Free T4 1.49 H, Free T3 pg/dL 1.9 L 03/13/19 09:55: Iron 12 L, TIBC 372, Iron Saturation 3.2 L, Ferritin 13 03/13/19 09:55: Thyroglobulin Antibody Pending, Thyroid Peroxidase Ab Pending 03/13/19 10:31: Specimen Type ART, Sample Site L Radial, pH 7.33 L, Bicarbonate Actual 31.2 H, POC Total CO2 33, Base Excess 5 H, O2 Saturation 100 H, ABG pCO2 59.2 H, ABG pO2 188 H, O2 Delivery Device Nasal Can, Liter Flow 5.0, Blood Gas Notified Whom ED , Blood Gas Notified Time 1030 03/13/19 10:45: Urine Color Yellow, Urine Clarity Sl. Cloudy, Urine pH 6.0, Ur Specific [place] 1.015, Urine Protein 100 H, Urine Glucose (UA) Normal, Urine Ketones Negative, Urine Occult Blood 50 H, Urine Nitrite Negative, Urine Bilirubin Negative, Urine Urobilinogen Normal, Ur Leukocyte Esterase 500 H, Urine RBC 0-5 SEEN, Urine WBC 25-50 SEEN, Ur Squamous Epith Cells 0-5 SEEN, Urine Bacteria 2+, Urine Mucus 0 SEEN 03/13/19 16:13: Ammonia 34.0 H 03/13/19 22:00: Urine Opiates Screen NEGATIVE, Urine Methadone Screen NEGATIVE, Ur Barbiturates Screen NEGATIVE, Ur Phencyclidine Scrn NEGATIVE, Ur Amphetamines Screen NEGATIVE, U Methamphetamin-MDMA NEGATIVE, U Benzodiazepines Scrn NEGATIVE, Urine Cocaine Screen NEGATIVE, U Cannabinoids Screen NEGATIVE, Ur Drug Screen Comment 03/14/19 06:34: WBC 22.6 H, RBC 3.14 L, Hgb 7.6 L, Hct 27.8 L, MCV 88.5, MCH 24.2 L, MCHC 27.3 L, RDW Std Deviation 60.0 H, RDW Coeff of Caren 18.6 H, Plt Count 247, MPV 12.0, Immature Gran % (Auto) 0.800, Neut % (Auto) 95.8 H, Lymph % (Auto) 1.7 L, Becker % (Auto) 1.6, Eos % (Auto) 0.0, Baso % (Auto) 0.1, Absolute Neuts (auto) 21.7 H, Absolute Lymphs (auto) 0.38 L, Nucleated RBC % 0.2 03/14/19 06:34: Sodium 145, Potassium 4.1, Chloride 113 H, Carbon Dioxide 28.0, Anion Gap 4 L, BUN 17, Creatinine 1.31 H, Estim Creat Clear Calc 31.82, Est GFR (MDRD) Af Amer 53 L, Est GFR (MDRD) Non-Af 44 L, BUN/Creatinine Ratio 13.0, Glucose 133 H, Calcium 8.4 L, Total Bilirubin 0.40, AST 32, ALT 23, Alkaline Phosphatase 148 H, Total Protein 6.2 L, Albumin 2.7 L, Globulin 3.5, Albumin/Globulin Ratio 0.8 L Current Medications Acetaminophen (Tylenol) 650 mg PO Q6H PRN PRN PRN Reason: Pain or Fever Last Admin: 03/13/19 16:43 Dose: 650 mg Documented by: Albuterol Sulfate (Ventolin Aerosols) 2.5 mg INHALATION Q2H PRN PRN PRN Reason: SOB &/OR WHEEZING Albuterol/Ipratropium (Duoneb) 3 ml INHALATION Q6HWA.RT KINJAL Last Admin: 03/14/19 07:01 Dose: 3 ml Documented by: Fluoxetine HCl (Prozac) 10 mg PO DAILY [facility] Fluticasone Propionate (Flonase Nasal [place]) 2 spray NASAL DAILY [facility] Guaifenesin (Mucinex) 1,200 mg PO BID [facility] Last Admin: 03/13/19 22:02 Dose: 1,200 mg Documented by: Heparin Sodium (Porcine) (Heparin Na) 5,000 unit SC Q12 [facility] Last Admin: 03/13/19 22:02 Dose: 5,000 unit Documented by: Meropenem 1 gm/ Sodium (Chloride) 120 mls @ 33 mls/hr IV Q12 [facility] Sodium Chloride () 1,000 mls @ 100 mls/hr IV .Q10H [facility] Last Admin: 03/14/19 01:35 Dose: 100 mls/hr Documented by: Sodium Chloride () 250 mls @ 15 mls/hr IV .[id number] PRN PRN Reason: Saline Flush Sodium Chloride () 250 mls @ 15 mls/hr IV .[id number] PRN PRN Reason: Additional IVPB Infusion Iron Sucrose 200 mg/ Sodium (Chloride) 110 mls @ 220 mls/hr IV X1 ONE Stop: 03/14/19 09:09 Influenza Virus Vaccine Quadrival (Flucelvax /Fluzone ) 0.5 ml IM .ONCE ONE Stop: 03/14/19 10:01 Methylprednisolone (Solu-Medrol) 40 mg IV Q6 [facility] Last Admin: 03/14/19 06:08 Dose: 40 mg Documented by: Metoprolol Tartrate (Lopressor (Beta Jenna)) 12.5 mg PO BID [facility] Last Admin: 03/13/19 22:01 Dose: 12.5 mg Documented by: Mirtazapine (Remeron) 30 mg PO QHS [facility] Last Admin: 03/13/19 22:02 Dose: 30 mg Documented by: Nutritional Formula (Lactose Free) (Ensure Enlive) 120 ml PO 4X/DAY [facility] Last Admin: 03/13/19 22:02 Dose: 120 ml Documented by: Ondansetron HCl (Zofran) 4 mg PO Q6H PRN PRN PRN Reason: NAUSEA Sodium Chloride () 10 - 40 ml IV UD PRN PRN Reason: SALINE FLUSH Last Admin: 03/13/19 22:02 Dose: 10 ml Documented by: STROKE Vital Signs/Narrative: Vital Signs Temp Pulse Resp BP Pulse Ox 03/14/19 07:01 100 18 99 03/14/19 06:00 36.8 C 100 18 157/97 H 99 Medical Necessity - Tobacco Use Smoking Status: Current every day smoker Tobacco Use: Cigarettes Assessment/Plan All Active Problems Severe sepsis (Acute) E-coli UTI (Acute) Septic shock (Acute) Acute UTI (Acute) Encephalopathy acute (Acute) GURVINDER (acute kidney injury) (Acute) Polysubstance abuse (Acute) UTI (urinary tract infection) (Acute) Hypokalemia due to inadequate potassium intake (Acute) Normocytic anemia (Acute) Generalized weakness (Acute) Contusion of knee, left (Acute) Contusion of knee, right (Acute) Delirium (Acute) CHF (congestive heart failure) (Acute) Fall (Acute) Opioid withdrawal (Acute) Barbiturate withdrawal (Acute) Acute UTI (Acute) 1. Acute hypoxic and hypercapnic respiratory failure 2/2 copd was on NRB at one point, now down to NC at 3l/m CXR personally reviewed showed emphysematous changes. no infiltrate. 2. Acute COPD exacerbation improving continue methylpred and BDs will decrease methylpred to TID from Q6h 3. Lactic acidosis patient was hypoxic on initial presentation, which could explain elevated lactate UA abnormal, but only 25-50 WBCs. This could be explained by self-cath On Meropenem given her h/o ESBL E. coli. If cultures are negative, then would DC meropenem. And if cultures are negative, then severe sepsis could effectively be ruled out. 4. Encephalopathy ongoing review of records show that in the H+P from January 2018, she was A+Ox3, then in April 2018 was oriented to only self and place. 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 TSH, low, but FT4 slightly high. No need for methimazole Will recheck B12, folate (previously normal) Avoid potentiating medications (DC'd oxycodone) 5. Iron deficiency anemia iron sucrose 6. VTE prophylaxis: SQ heparin Code Visit Inpatient E&M: 67922 Subs Hosp L3
[2019-03-14] MEDS: 0.9% Saline Lock 10 ML Syringe IV ×3 (10:04→14:59)
[2019-03-14] MEDS: Heparin Injection (Vial) 5,000 UNIT/ML VIAL 5000 UNIT SC ×2 (10:11→20:20)
[2019-03-14] MEDS: FLUoxetine 10 MG Capsule PO (10:11)
[2019-03-14] MEDS: Metoprolol Tartrate 25 MG Tablet 12.5 MG PO ×2 (10:12→20:19)
[2019-03-14] MEDS: Fluticasone 0.05% 1 SPRAY NASAL.SRY 2 SPRAY NASAL (10:15)
[2019-03-14] MEDS: guaiFENesin 1,200 MG Tablet 1200 MG PO ×2 (10:15→20:20)
[2019-03-14] MEDS: Acetaminophen 325 MG Tablet 650 MG PO ×2 (10:18→20:20)
[2019-03-14] MEDS: Albuterol 2.5 MG/3 ML VIAL.NEB. INHALATION (10:26)
--- NOTE | 2019-03-14 12:53 | CASEMGMT ---
SOCIAL WORK ATTEMPTED TO MEET WITH PATIENT TO COMPLETE ASSESSMENT. PATIENT IS DIFFICULT TO AROUSE. PATIENT'S O2 ON BRIDGE OF NOSE, NURSE UPDATED. PATIENT WOULD OPEN EYES BRIEFLY FOR NURSE AND GO RIGHT BACK TO SLEEP. PATIENT UNABLE TO PARTICIPATE WITH ASSESSMENT AT THIS TIME. Ganesh ALFARO, COPY TECHNICIAN, MOTOR PATROL OPERATOR.
--- NOTE | 2019-03-14 14:09 | NURSING ---
Pt had to be Sternal rubbed to wake up. Even then pt went back to sleep. CPS here and Adiel BALLARDdie baker called and aware. Vitals obtained, see intervention. Hard to get a spo2, pt had cool hands. tried to get a warm blanket and spo2 to read 83-88% on 2L via nc. CPS turned oxygen back up to 3L NC and then we were able to get a pulse ox that goes on pt ear. Spo2 via ear read 100% on 3L. Dr. Pritchett here and seeing pt. Ordered ABG's. CPS obtaining.
[2019-03-14 14:11] LABS: Bedside Glucose 124 mg/dL (70-110)
[2019-03-14 14:41] LABS: Base Excess 2 mmol/L (-2 to +2); Bicarbonate 29.6 mmol/L (22-26); Blood Gas Specimen Type ART; O2 Delivery Device Nasal Can; PO2 91 mmHG (75-100); SITE R Brachial; SO2 95 % (95-99); Time Given 1430; Total Carbon Dioxide 32 mmol/L; pCO2 68.7 mmHg (35-45); pH 7.24 (7.35-7.45)
--- NOTE | 2019-03-14 15:11 | CPS ---
Critical ABG results coretexted by MS3 charge nurse to at 1450p [employer]
--- NOTE | 2019-03-14 15:15 | NURSING ---
Report given to Bijal RN on PCU at this time. Bijal is aware that this nurse was not able to st. cath at 1400 as it was due.
--- NOTE | 2019-03-14 15:20 | NURSING ---
Called Pt's son, Дмитрий and update given at this time.
[2019-03-14] MEDS: Mirtazapine 30 MG Tablet PO (20:18)
[2019-03-15] VITALS (22 sets, daily range): BP systolic 98–135; BP diastolic 56–80; PULSE 88–105; RESP 12–22; TEMP 36.2–37.2; O2SAT 93–98
[2019-03-15 06:46] LABS: Absolute Lymphocyte Count 0.22 X10^3/uL (0.83-4.51); Basophil# 0.01 X10^3/uL; Basophil% 0.1 % (0-1); Hematocrit 26.8 % (37-47); Hemoglobin 7.3 g/dL (12.0-15.0); Lymphocyte # 0.22 X10^3/ul (4.0); Lymphocyte % 2.3 % (19-41); Mean Corp Hgb Conc 27.2 g/dL (32-36); Mean Corpuscular Hgb 24.4 pg (27.0-32.0); Mean Corpuscular Volume 89.6 fL (81-99); Mean Platelet Vol. 12.1 fl (6.2-12.0); Monocyte# 0.41 X10^3/uL; Monocyte% 4.2 % (0-10); NRBC Flagged by Analyzer 0.2 % (0-5); Neutrophil # 9.04 X10^3/uL (2.7-7.7); POSITIVE DIFFERENTIAL YES; Platelet Count 174 K/mm3 (150-450); RBC Distribution Width CV 18.9 % (11.6-14.6); RBC Distribution Width SD 62.2 fl (35.1-43.9); Red Blood Count 2.99 M/mm3 (4.2-5.4); White Blood Count 9.7 K/mm3 (4.4-11.0)
[2019-03-15 06:55] LABS: Anion Gap 4 (5-15); BUN 19 mg/dL (7-18); BUN/Creat Ratio 18.8 RATIO (10-20); Calcium,Total 8.8 mg/dL (8.5-10.1); Chloride 119 mmol/L (98-107); Creatinine, Serum 1.01 mg/dL (0.55-1.02); EST Glomerular Filtration Rate 60 mL/min (>60); Est Glom Filt Rate - Afr Amer 72 mL/min (>60); Estimated Creatinine Clearance 41.27 ml/min; Glucose 128 mg/dL (74-106); Potassium 4.3 mmol/L (3.5-5.1); Sodium Level 147 mmol/L (136-145)
[2019-03-15 07:12] LABS: Differential Indicated SCAN CRITERIA MET
[2019-03-15 07:40] LABS: Anisocytosis 2+; Hypochromasia 1+
[2019-03-15] MEDS: Ipratropium/Albuterol Sulfate 3 ML AMPUL.NEB INHALATION ×2 (07:42→19:50)
--- NOTE | 2019-03-15 09:56 | CON.PCM_ITS ---
Problem List (1) Severe sepsis Status: Acute (2) Nicotine abuse Status: Chronic (3) E-coli UTI Status: Acute (4) Encephalopathy acute Status: Acute (5) GURVINDER (acute kidney injury) Status: Acute Reason for Consult Date of Consultation: 03/15/19 Reason for Consultation: Respiratory insufficiency History of Present Illness: The patient is a 58 year old F, with past medical history listed below, who presented to [facility] on 03/13/2019 secondary to progressive shortness of breath, fever and loose stools. Patient had denied any chest pain, hemoptysis or vomiting. Patient is a known smoker and states that she has been on supplemental oxygen in the hospital, but does not have this at home. Patient was recently hospitalized with similar type of presentation. In the ER, patient had a chest x-ray that was relatively unremarkable and sinus tachycardia at 123 bpm. Patient did have a leukocytosis and hemoglobin of 8. Patient's creatinine was 1.6 and UA was suggestive of a urinary tract infection. Patient was also treated with duo nebs, aerosols and IV Solu-Medrol given her reported history of COPD. Patient was then admitted to the PCU for further evaluation. While in [facility], patient was noted to be more somnolent. Patient had an ABG showing a hypercarbic respiratory failure. Patient was initiated on BiPAP therapy and transferred to the PCU for further evaluation. Given requirements for BiPAP therapy, pulmonary consult was obtained. On my evaluation this morning, patient was much improved from reported clinical condition. Patient was on 3 L nasal cannula and tolerating well. Patient did state that the BiPAP was helpful overnight. Patient is unclear if she is ever required BiPAP previously. Patient reports she has been told that she has COPD in the past, but has never seen a sanitary aide or had pulmonary function test in the past. Patient does not report any significant chest pain at baseline. Patient does report a 40+-pack-year smoking history and states that she is limited mobility at baseline. Patient does use Zyrtec-D as needed for allergies, but is never been diagnosed with asthma. Patient has had several issues with ESBL E. coli in her urine and states that this continues to be a problem because I have to self cath. Review of systems otherwise negative from a constitutional, HEENT, respiratory, cardiovascular, GI, genitourinary, musculoskeletal, skin, neurologic, psychiatric and hematologic system unless stated above. Past Medical History Past Medical History (Chronic Problems): Chronic Problems Nicotine abuse (Chronic) COPD exacerbation (Chronic) RSD lower limb (Chronic) Chronic abdominal pain (Chronic) COPD (chronic obstructive pulmonary disease) (Chronic) Severe protein-calorie malnutrition (Chronic) Debility (Chronic) Anemia (Chronic) Pulmonary HTN (Chronic) Vitamin D deficiency (Chronic) Tobacco user (Chronic) Reflex sympathetic dystrophy (Chronic) Allergies amoxicillin trihydrate [From Augmentin] Allergy (Verified 03/13/19 16:24) Abd cramps/diarrhea azithromycin [From Zithromax Z-Piter] Allergy (Verified 03/13/19 10:05) Abd cramps/diarrhea cat dander Allergy (Verified 03/13/19 16:24) Itching erythromycin base Allergy (Verified 03/13/19 16:24) Unknown geranium Allergy (Verified 03/13/19 16:24) Itching levofloxacin [From Levaquin] Allergy (Verified 03/13/19 10:05) Abd cramps/diarrhea nitrofurantoin [From Macrobid] Allergy (Verified 03/13/19 16:24) Abd cramps/diarrhea/racing heart rate nitrofurantoin macrocrystalline [From Macrobid] Allergy (Verified 03/13/19 10:05) Abd cramps/diarrhea potassium clavulanate [From Augmentin] Allergy (Verified 03/13/19 10:05) Abd cramps/diarrhea citalopram [From Celexa] Adverse Reaction (Verified 03/13/19 16:24) tiredness egg Adverse Reaction (Verified 03/13/19 16:24) Diarrhea fentanyl Adverse Reaction (Verified 03/13/19 16:24) FAST HEART RATE, DIZZINESS FAST HEART RATE, DIZZINESS ibuprofen [From Advil] Adverse Reaction (Verified 03/13/19 16:24) Abd cramps/diarrhea naproxen sodium [From Aleve] Adverse Reaction (Verified 03/13/19 16:24) Abd cramps/diarrhea pregabalin [From Lyrica] Adverse Reaction (Verified 03/13/19 16:24) PAIN IN HEAD PAIN IN HEAD Home Medications: Ambulatory Orders Medication Instructions Recorded Fluoxetine [Prozac] 10 mg PO DAILY 05/01/18 Fluticasone 0.05% [Flonase Nasal 2 spray NASAL DAILY 05/01/18 [place]] Metoprolol Tartrate 12.5 mg PO BID 05/01/18 Acetaminophen/Butalbital/Caffe 1 - 2 tablet PO Q6H PRN PRN tablet 05/06/18 [Fioricet] Albuterol Aerosols [Ventolin 2.5 mg INHALATION Q4H PRN PRN 03/13/19 Aerosols] Butalb/Acetaminophen/Caffeine 1 tab PO Q6H PRN 03/13/19 [Fmgugk-Mfcommno-Vhxp 50-325-40] Cetirizine HCl/Pseudoephedrine 1 - 2 ea PO DAILY PRN 03/13/19 [Zyrtec-D Tablet] Ciprofloxacin [Cipro] 250 mg PO DAILY 03/13/19 Dicyclomine HCl [Bentyl] 10 mg PO ACHS PRN 03/13/19 Famotidine 20 mg PO BID PRN 03/13/19 Loperamide [Imodium] 2 mg PO BID PRN 03/13/19 Surgical History: appendectomy, cholecystectomy, tonsillectomy, - - Laparotomy x2 Psychiatric History: Anxiety, Depression STEPDOWN NURSE History: No pertinent STEPDOWN NURSE history Lives: With Family Smoking Status: Current every day smoker Tobacco Use: Cigarettes Alcohol: None Drugs: None - *Family History Maternal Family History: Family History (Last Reviewed 03/13/19 @ 15:14 by STACI Webber) Father Alzheimers disease Mother Heart problem History Items: Heart Disease Paternal Family History: Family History (Last Reviewed 03/13/19 @ 15:14 by STACI Webber) Father Alzheimers disease Mother Heart problem History Items: - - Father with history of Alzheimer's disease. Review of Systems Comment: See HPI Patient Problems: Active and Suspected Problems Severe sepsis (Acute) Objective: Chest x-ray was personally reviewed. This does show hyperinflation, but no acute infiltrates are appreciated. - Physical Exam Vitals/I&O's: Vital Signs Temp Pulse Resp BP Pulse Ox 36.6 C 101 H 16 112/58 L 93 03/15/19 04:00 03/15/19 07:42 03/15/19 07:42 03/15/19 05:00 03/15/19 07:42 Oxygen Flow Rate (L/min) 2 Oxygen Delivery Method Nasal Cannula Weight: 43.59 kg Body Mass Index (BMI) 18.1 Finger Stick Blood Glucose 99 Intake and Output for Last 24 Hours 03/13/19 03/14/19 03/15/19 23:59 23:59 23:59 Intake Total 1031.67 / 1031.67 1652.17 / 1892.17 480 / 480 Output Total 1000 / 1000 900 / 1050 350 / 350 Balance 31.67 / 31.67 752.17 / 842.17 130 / 130 General: Alert, Oriented x3, Cooperative, - - Mild conversational dyspnea. Cachectic. Appears older than stated age. HEENT: Atraumatic, PERRLA, EOMI, Normocephalic, - - No scleral icterus or injection noted Oral: Moist Mucosa, No Gingival or Mucosal Lesions/ Ulcerations, - - No tongue or lip swelling appreciated. Neck: Supple, No JVD, No Nodes, Trachea Midline Lungs: No rhonchi, No rales, Diminished, Wheezes - End exhalation only, - - Symmetric expansion. Cardiovascular: Regular rate, Regular Rhythm, Normal S1, Normal S2, No murmurs, No rub noted, No Gallop Abdomen: Bowel Sounds Present, Soft, Non Tender, Non-Distended Extremities: No clubbing, No cyanosis, Capillary Refill Less than 3 Seconds, Edema - Trace to 1+ lower extremity Skin: No rashes, No breakdown Musculoskeletal: No Tenderness to Palpation of Joints or Extremities Lymphatic: No Cervical, Supraclavicular, or Inguinal Adenopathy Neurological: Cranial nerves II-XII grossly intact, - - Diminished muscle tone noted throughout, but variable effort noted Psych/Mental Status: Anxious, Restless Microbiology Past 72 Hours 03/13/19 10:45 Urine, Catheterized Urine Culture - Preliminary Presumptive E. coli 03/13/19 10:10 Blood Culture (Wb) - Anticubital Right Blood Culture - Preliminary No growth in 48 hours. 03/13/19 09:55 Blood Culture (Wb) - Right Wrist Blood Culture - Preliminary No growth in 48 hours. 03/13/19 20:00 Mucosa - Nasopharyngeal Respiratory Panel (PCR) - Final Laboratory Results 03/14/19 09:45: Vitamin B12 Pending, Vitamin D 25-Hydroxy Pending 03/14/19 09:45: RBC Folate Hemolysate Pending, RBC Folate Pending, Hematocrit Pending 03/14/19 14:06: POC Glucose 124 H 03/14/19 14:33: Specimen Type ART, Sample Site R Brachial, pH 7.24 L, Bicarbonate Actual 29.6 H, POC Total CO2 32, Base Excess 2, O2 Saturation 95, ABG pCO2 68.7 H*, ABG pO2 91, O2 Delivery Device Nasal Can, Liter Flow 2.0, Blood Gas Notified Whom [facility] , Blood Gas Notified Time 1430 03/15/19 05:17: WBC 9.7, RBC 2.99 L, Hgb 7.3 L, Hct 26.8 L, MCV 89.6, MCH 24.4 L , MCHC 27.2 L, RDW Std Deviation 62.2 H, RDW Coeff of Caren 18.9 H, Plt Count 174, MPV 12.1 H, Immature Gran % (Auto) 0.400, Neut % (Auto) 93.0 H, Lymph % (Auto) 2.3 L, Dougherty % (Auto) 4.2, Eos % (Auto) 0.0, Baso % (Auto) 0.1, Absolute Neuts (auto) 9.0 H, Absolute Lymphs (auto) 0.22 L, Nucleated RBC % 0.2, Hypochromasia 1+, Anisocytosis 2+ 03/15/19 05:17: Sodium 147 H, Potassium 4.3, Chloride 119 H, Carbon Dioxide 2 4.0, Anion Gap 4 L, BUN 19 H, Creatinine 1.01, Estim Creat Clear Calc 41.27, Est GFR (MDRD) Af Amer 72, Est GFR (MDRD) Non-Af 60, BUN/Creatinine Ratio 18.8, Glucose 128 H, Calcium 8.8 Current Medications Acetaminophen (Tylenol) 650 mg PO Q6H PRN PRN PRN Reason: Pain or Fever Last Admin: 03/14/19 20:20 Dose: 650 mg Documented by: Albuterol Sulfate (Ventolin Aerosols) 2.5 mg INHALATION Q2H PRN PRN PRN Reason: SOB &/OR WHEEZING Last Admin: 03/14/19 10:26 Dose: 2.5 mg Documented by: Albuterol/Ipratropium (Duoneb) 3 ml INHALATION Q6HWA.RT KINJAL Last Admin: 03/15/19 07:42 Dose: 3 ml Documented by: Fluoxetine HCl (Prozac) 10 mg PO DAILY [facility] Last Admin: 03/14/19 10:11 Dose: 10 mg Documented by: Fluticasone Propionate (Flonase Nasal [place]) 2 spray NASAL DAILY [facility] Last Admin: 03/14/19 10:15 Dose: 2 spray Documented by: Guaifenesin (Mucinex) 1,200 mg PO BID [facility] Last Admin: 03/14/19 20:20 Dose: 1,200 mg Documented by: Heparin Sodium (Porcine) (Heparin Na) 5,000 unit SC Q12 [facility] Last Admin: 03/14/19 20:20 Dose: 5,000 unit Documented by: Meropenem 1 gm/ Sodium (Chloride) 120 mls @ 33 mls/hr IV Q12 [facility] Last Infusion: 03/15/19 03:55 Dose: Infused Documented by: Sodium Chloride () 250 mls @ 15 mls/hr IV .[id number] PRN PRN Reason: Saline Flush Last Infusion: 03/14/19 10:54 Dose: 0 mls/hr Documented by: Sodium Chloride () 250 mls @ 15 mls/hr IV .[id number] PRN PRN Reason: Additional IVPB Infusion Methylprednisolone (Solu-Medrol) 40 mg IV Q8 [facility] Last Admin: 03/15/19 06:53 Dose: 40 mg Documented by: Metoprolol Tartrate (Lopressor (Beta Jenna)) 12.5 mg PO BID [facility] Last Admin: 03/14/19 20:19 Dose: 12.5 mg Documented by: Mirtazapine (Remeron) 30 mg PO QHS [facility] Last Admin: 03/14/19 20:18 Dose: 30 mg Documented by: Nutritional Formula (Lactose Free) (Ensure Enlive) 120 ml PO 4X/DAY [facility] Last Admin: 03/14/19 20:22 Dose: 120 ml Documented by: Ondansetron HCl (Zofran) 4 mg PO Q6H PRN PRN PRN Reason: NAUSEA Polysaccharide Iron Complex (Ferrex 150) 150 mg PO DAILYCM [facility] Sodium Chloride () 10 - 40 ml IV UD PRN PRN Reason: SALINE FLUSH Last Admin: 03/14/19 14:59 Dose: 10 ml Documented by: Clinical Impression(s) from Imaging Studies Chest X-Ray 03/13/19 12:17 IMPRESSION: Hyperinflation. No acute abnormality is seen. Electronically Signed: Karan Cruz, at 12:41 EST , Service support , Assessment/Plan All Active Problems Severe sepsis (Acute) E-coli UTI (Acute) Septic shock (Acute) Acute UTI (Acute) Encephalopathy acute (Acute) GURVINDER (acute kidney injury) (Acute) Polysubstance abuse (Acute) UTI (urinary tract infection) (Acute) Hypokalemia due to inadequate potassium intake (Acute) Normocytic anemia (Acute) Generalized weakness (Acute) Contusion of knee, left (Acute) Contusion of knee, right (Acute) Delirium (Acute) CHF (congestive heart failure) (Acute) Fall (Acute) Opioid withdrawal (Acute) Barbiturate withdrawal (Acute) Acute UTI (Acute) RECOMMENDATIONS: 1. Wean oxygen as tolerated 2. Likely transition to prednisone therapy tomorrow and complete a 5-day course 3. Continue treatment for ESBL E. coli UTI 4. Outpatient pulmonary work-up for COPD versus asthma 5. Walking oximetry prior to discharge IMPRESSIONS: 1. Acute combined respiratory failure Unclear etiology at this time. Patient does have a reported history of COPD, but is never had pulmonary function test for confirmation. Patient is currently on methylprednisolone and bronchodilators. Patient did receive BiPAP therapy overnight and appears to be at her baseline at this time. Patient will need pulmonary function test as an outpatient for quantification and clarification of lung function. Reasonable to transition to prednisone therapy tomorrow to complete a 5-day course. Unclear if this is truly a COPD exacerbation or advanced COPD with failure to compensate for increased metabolic demand associated with ESBL E. coli UTI. Continue to use BiPAP rescue as necessary. No indication for transfer to the intensive care unit in my perspective. 2. Severe sepsis secondary to ESBL E. coli Patient is growing greater than 100,000 colonies of ESBL E. coli from her urine. Consider infectious disease consult. Patient remains hemodynamically stable at this time. Patient still appears somewhat clinically dry and may benefit from fluid boluses if develops hypotension 3. Metabolic encephalopathy Patient appears to be improving. Patient did have CO2 retention on previous ABG. Given clinical status, it is likely not necessary to repeat ABG. Continue to follow clinically. 4. Reflex sympathetic dystrophy/nicotine abuse/chronic pain syndrome/history of polysubstance abuse/reported pulmonary hypertension Complicates care, management, recovery and prognosis. Likely okay to continue with baseline medications from my perspective. Defer to hospitalist. Renal function appears to be improving with hydration indicating a probable prerenal etiology. Code Visit Inpatient E&M: 07642 Init Hosp L3
[2019-03-15] MEDS: Metoprolol Tartrate 25 MG Tablet 12.5 MG PO ×2 (10:05→22:31)
[2019-03-15] MEDS: Fluticasone 0.05% 1 SPRAY NASAL.SRY 2 SPRAY NASAL (10:06)
[2019-03-15] MEDS: Heparin Injection (Vial) 5,000 UNIT/ML VIAL 5000 UNIT SC ×2 (10:06→22:04)
[2019-03-15] MEDS: FLUoxetine 10 MG Capsule PO (10:07)
[2019-03-15] MEDS: guaiFENesin 1,200 MG Tablet 1200 MG PO ×2 (10:07→22:05)
[2019-03-15] MEDS: Iron Polysaccharide Complex 150 MG CAPSULE PO (11:40)
--- NOTE | 2019-03-15 13:19 | PN_ITS ---
<Santos Trevizo - Last Filed: 03/15/19 13:19> Patient Problems: Active and Suspected Problems Severe sepsis (Acute) Reason for Visit: SOB Subjective: Patient is alert and oriented, in no acute distress, lying comfortably in bed. No fevers or chills. She has no shortness of breath while lying in bed talking to me. She does report that she does urinate on her own sometimes and has been having discomfort with urination. No abdominal pain, nausea, vomiting. Nonproductive cough. No dizziness or lightheadedness. Currently not complaining of any pain. Vitals/I&O's: Vital Signs Temp Pulse Resp BP Pulse Ox 98.1 F 102 H 20 H 111/80 96 03/15/19 10:00 03/15/19 10:05 03/15/19 10:00 03/15/19 10:03/15/19 10:00 Oxygen Flow Rate (L/min) 2 Oxygen Delivery Method Nasal Cannula Weight: 96 lb 1.592 oz Body Mass Index (BMI) 18.1 Finger Stick Blood Glucose 99 Intake and Output for Last 24 Hours 03/13/19 03/14/19 03/15/19 23:59 23:59 23:59 Intake Total 1031.67 / 1031.67 1652.17 / 1892.17 532.8 / 532.8 Output Total 1000 / 1000 900 / 1050 350 / 350 Balance 31.67 / 31.67 752.17 / 842.17 182.8 / 182.8 General: Alert, Oriented x3, Cooperative, - - Frail HEENT: Atraumatic, PERRLA, EOMI, Normocephalic Neck: Supple, No JVD, Negative Carotid Bruits Lungs: Diminished Cardiovascular: Regular rate, No murmurs Abdomen: Bowel Sounds Present, Soft, Non Tender Extremities: No edema, Capillary Refill Less than 3 Seconds Skin: No rashes, No breakdown Musculoskeletal: No Tenderness to Palpation of Joints or Extremities Neurological: Cranial nerves II-XII grossly intact Psych/Mental Status: Normal Affect, Appropriate, Alert and oriented to time, place, person, mood and affect Microbiology Past 72 Hours 03/13/19 10:45 Urine, Catheterized Urine Culture - Preliminary Presumptive E. coli 03/13/19 10:10 Blood Culture (Wb) - Anticubital Right Blood Culture - Preliminary No growth in 48 hours. 03/13/19 09:55 Blood Culture (Wb) - Right Wrist Blood Culture - Preliminary No growth in 48 hours. 03/13/19 20:00 Mucosa - Nasopharyngeal Respiratory Panel (PCR) - Final Laboratory Results 03/14/19 14:06: POC Glucose 124 H 03/14/19 14:33: Specimen Type ART, Sample Site R Brachial, pH 7.24 L, Bicarbonate Actual 29.6 H, POC Total CO2 32, Base Excess 2, O2 Saturation 95, ABG pCO2 68.7 H*, ABG pO2 91, O2 Delivery Device Nasal Can, Liter Flow 2.0, Blood Gas Notified Whom JAIOSN ACEVEDO, Blood Gas Notified Time 1430 03/15/19 05:17: WBC 9.7, RBC 2.99 L, Hgb 7.3 L, Hct 26.8 L, MCV 89.6, MCH 24.4 L , MCHC 27.2 L, RDW Std Deviation 62.2 H, RDW Coeff of Caren 18.9 H, Plt Count 174, MPV 12.1 H, Immature Gran % (Auto) 0.400, Neut % (Auto) 93.0 H, Lymph % (Auto) 2.3 L, Nolan % (Auto) 4.2, Eos % (Auto) 0.0, Baso % (Auto) 0.1, Absolute Neuts (auto) 9.0 H, Absolute Lymphs (auto) 0.22 L, Nucleated RBC % 0.2, Hypochromasia 1+, Anisocytosis 2+ 03/15/19 05:17: Sodium 147 H, Potassium 4.3, Chloride 119 H, Carbon Dioxide 24.0 , Anion Gap 4 L, BUN 19 H, Creatinine 1.01, Estim Creat Clear Calc 41.27, Est GFR (MDRD) Af Amer 72, Est GFR (MDRD) Non-Af 60, BUN/Creatinine Ratio 18.8, Glucose 128 H, Calcium 8.8 Current Medications Acetaminophen (Tylenol) 650 mg PO Q6H PRN PRN PRN Reason: Pain or Fever Last Admin: 03/14/19 20:20 Dose: 650 mg Documented by: Albuterol Sulfate (Ventolin Aerosols) 2.5 mg INHALATION Q2H PRN PRN PRN Reason: SOB &/OR WHEEZING Last Admin: 03/14/19 10:26 Dose: 2.5 mg Documented by: Albuterol/Ipratropium (Duoneb) 3 ml INHALATION Q6HWA.RT [facility] Last Admin: 03/15/19 07:42 Dose: 3 ml Documented by: Fluoxetine HCl (Prozac) 10 mg PO DAILY [facility] Last Admin: 03/15/19 10:07 Dose: 10 mg Documented by: Fluticasone Propionate (Flonase Nasal [place]) 2 spray NASAL DAILY [facility] Last Admin: 03/15/19 10:06 Dose: 2 spray Documented by: Guaifenesin (Mucinex) 1,200 mg PO BID [facility] Last Admin: 03/15/19 10:07 Dose: 1,200 mg Documented by: Heparin Sodium (Porcine) (Heparin Na) 5,000 unit SC Q12 [facility] Last Admin: 03/15/19 10:06 Dose: 5,000 unit Documented by: Sodium Chloride () 250 mls @ 15 mls/hr IV .[id number] PRN PRN Reason: Saline Flush Last Infusion: 03/14/19 10:54 Dose: 0 mls/hr Documented by: Sodium Chloride () 250 mls @ 15 mls/hr IV .[id number] PRN PRN Reason: Additional IVPB Infusion Methylprednisolone (Solu-Medrol) 40 mg IV Q8 [facility] Last Admin: 03/15/19 06:53 Dose: 40 mg Documented by: Metoprolol Tartrate (Lopressor (Beta Jenna)) 12.5 mg PO BID [facility] Last Admin: 03/15/19 10:05 Dose: 12.5 mg Documented by: Mirtazapine (Remeron) 30 mg PO QHS [facility] Last Admin: 03/14/19 20:18 Dose: 30 mg Documented by: Nutritional Formula (Lactose Free) (Ensure Enlive) 120 ml PO 4X/DAY [facility] Last Admin: 03/15/19 10:07 Dose: 120 ml Documented by: Ondansetron HCl (Zofran) 4 mg PO Q6H PRN PRN PRN Reason: NAUSEA Polysaccharide Iron Complex (Ferrex 150) 150 mg PO DAILYCM [facility] Last Admin: 03/15/19 11:40 Dose: 150 mg Documented by: Sodium Chloride () 10 - 40 ml IV UD PRN PRN Reason: SALINE FLUSH Last Admin: 03/14/19 14:59 Dose: 10 ml Documented by: Trimethoprim/Sulfamethoxazole (Bactrim Ds) 1 tablet PO BIDCM [facility] Vital Signs/Narrative: Vital Signs Temp Pulse Resp BP Pulse Ox 03/15/19 10:05 102 H 111/80 03/15/19 10:00 98.1 F 99 20 H 111/80 96 Medical Necessity - Tobacco Use Smoking Status: Current every day smoker Tobacco Use: Cigarettes Assessment/Plan All Active Problems Severe sepsis (Acute) E-coli UTI (Acute) Septic shock (Acute) Acute UTI (Acute) Encephalopathy acute (Acute) GURVINDER (acute kidney injury) (Acute) Polysubstance abuse (Acute) UTI (urinary tract infection) (Acute) Hypokalemia due to inadequate potassium intake (Acute) Normocytic anemia (Acute) Generalized weakness (Acute) Contusion of knee, left (Acute) Contusion of knee, right (Acute) Delirium (Acute) CHF (congestive heart failure) (Acute) Fall (Acute) Opioid withdrawal (Acute) Barbiturate withdrawal (Acute) Acute UTI (Acute) 1. Acute severe sepsis 2/2 recurrent UTI, 2/2 straight cath for neurogenic bladder - prior ESBL+ E coli. Continue Bactrim. Leukocytosis resolved. Renal function improved. Blood cultures negative. Respiratory panel negative. 2. GURVINDER suspect due to sepsis / dehydration -resolved. 3. Acute mixed respiratory failure 2/2 COPD exacerbation -continue BiPAP nightly. Pulmonary medicine following. Continue duo nebs and Solu-Medrol. 4. Acute toxic vs metabolic encephalopathy -resolved. She should remain off of barbiturates and opiates. 5. Hx prior strokes -she has not been treated as an outpatient with aspirin or statin for unclear reasons. 6. Chronic anemia -iron deficiency. Venofer, Ferrex. 7. Exopthalmos, tachycardia, encephalopathic - obtain TSH/FT4/FT3 8. Hx RSD - hold gabapentin/fioricet 9. Depression - continue remeron and prozac 10. Severe protein calorie malnutrition - dietary consult DVT ppx: heparin DC planning: Patient likely needs retirement placement. This patient was seen by Santos Trevizo PA-C under the supervision of Dr. Pritchett <David Pritchett - Last Filed: 03/15/19 13:34> Vitals/I&O's: Vital Signs Temp Pulse Resp BP Pulse Ox 36.7 C 102 H 20 H 111/80 96 03/15/19 10:00 03/15/19 10:05 03/15/19 10:00 03/15/19 10:05 03/15/19 10:00 Oxygen Flow Rate (L/min) 2 Oxygen Delivery Method Nasal Cannula Weight: 43.59 kg Body Mass Index (BMI) 18.1 Finger Stick Blood Glucose 99 Intake and Output for Last 24 Hours 03/13/19 03/14/19 03/15/19 23:59 23:59 23:59 Intake Total 1031.67 / 1031.67 1652.17 / 1892.17 532.8 / 532.8 Output Total 1000 / 1000 900 / 1050 350 / 350 Balance 31.67 / 31.67 752.17 / 842.17 182.8 / 182.8 General: Alert, Cooperative, - Lungs: Diminished, - - faint wheezes Cardiovascular: Regular rate, Regular Rhythm, Normal S1, Normal S2, No murmurs Abdomen: Bowel Sounds Present, Soft, Non Tender, Non-Distended Psych/Mental Status: Normal Affect, Appropriate Microbiology Past 72 Hours 03/13/19 10:45 Urine, Catheterized Urine Culture - Preliminary Presumptive E. coli 03/13/19 10:10 Blood Culture (Wb) - Anticubital Right Blood Culture - Preliminary No growth in 48 hours. 03/13/19 09:55 Blood Culture (Wb) - Right Wrist Blood Culture - Preliminary No growth in 48 hours. 03/13/19 20:00 Mucosa - Nasopharyngeal Respiratory Panel (PCR) - Final Laboratory Results 03/14/19 14:06: POC Glucose 124 H 03/14/19 14:33: Specimen Type ART, Sample Site R Brachial, pH 7.24 L, Bicarbonate Actual 29.6 H, POC Total CO2 32, Base Excess 2, O2 Saturation 95, ABG pCO2 68.7 H*, ABG pO2 91, O2 Delivery Device Nasal Can, Liter Flow 2.0, Blood Gas Notified Whom JAISON ACEVEDO, Blood Gas Notified Time 1430 03/15/19 05:17: WBC 9.7, RBC 2.99 L, Hgb 7.3 L, Hct 26.8 L, MCV 89.6, MCH 24.4 L , MCHC 27.2 L, RDW Std Deviation 62.2 H, RDW Coeff of Caren 18.9 H, Plt Count 174, MPV 12.1 H, Immature Gran % (Auto) 0.400, Neut % (Auto) 93.0 H, Lymph % (Auto) 2.3 L, Nolan % (Auto) 4.2, Eos % (Auto) 0.0, Baso % (Auto) 0.1, Absolute Neuts (auto) 9.0 H, Absolute Lymphs (auto) 0.22 L, Nucleated RBC % 0.2, Hypochromasia 1+, Anisocytosis 2+ 03/15/19 05:17: Sodium 147 H, Potassium 4.3, Chloride 119 H, Carbon Dioxide 24.0, Anion Gap 4 L, BUN 19 H, Creatinine 1.01, Estim Creat Clear Calc 41.27, Est GFR (MDRD) Af Amer 72, Est GFR (MDRD) Non-Af 60, BUN/Creatinine Ratio 18.8, Glucose 128 H, Calcium 8.8 Current Medications Acetaminophen (Tylenol) 650 mg PO Q6H PRN PRN PRN Reason: Pain or Fever Last Admin: 03/14/19 20:20 Dose: 650 mg Documented by: Albuterol Sulfate (Ventolin Aerosols) 2.5 mg INHALATION Q2H PRN PRN PRN Reason: SOB &/OR WHEEZING Last Admin: 03/14/19 10:26 Dose: 2.5 mg Documented by: Albuterol/Ipratropium (Duoneb) 3 ml INHALATION Q6HWA.RT [facility] Last Admin: 03/15/19 13:20 Dose: Not Given Documented by: Fluoxetine HCl (Prozac) 10 mg PO DAILY [facility] Last Admin: 03/15/19 10:07 Dose: 10 mg Documented by: Fluticasone Propionate (Flonase Nasal [place]) 2 spray NASAL DAILY [facility] Last Admin: 03/15/19 10:06 Dose: 2 spray Documented by: Guaifenesin (Mucinex) 1,200 mg PO BID [facility] Last Admin: 03/15/19 10:07 Dose: 1,200 mg Documented by: Heparin Sodium (Porcine) (Heparin Na) 5,000 unit SC Q12 [facility] Last Admin: 03/15/19 10:06 Dose: 5,000 unit Documented by: Sodium Chloride () 250 mls @ 15 mls/hr IV .[id number] PRN PRN Reason: Saline Flush Last Infusion: 03/14/19 10:54 Dose: 0 mls/hr Documented by: Sodium Chloride () 250 mls @ 15 mls/hr IV .[id number] PRN PRN Reason: Additional IVPB Infusion Methylprednisolone (Solu-Medrol) 40 mg IV Q8 [facility] Last Admin: 03/15/19 06:53 Dose: 40 mg Documented by: Metoprolol Tartrate (Lopressor (Beta Jenna)) 12.5 mg PO BID [facility] Last Admin: 03/15/19 10:05 Dose: 12.5 mg Documented by: Mirtazapine (Remeron) 30 mg PO QHS [facility] Last Admin: 03/14/19 20:18 Dose: 30 mg Documented by: Nutritional Formula (Lactose Free) (Ensure Enlive) 120 ml PO 4X/DAY [facility] Last Admin: 03/15/19 10:07 Dose: 120 ml Documented by: Ondansetron HCl (Zofran) 4 mg PO Q6H PRN PRN PRN Reason: NAUSEA Polysaccharide [facility] ([facility]rex 150) [facility] Last Admin: 03/15/19 11:40 Dose: 150 mg Documented by: Sodium Chloride () 10 - 40 ml IV UD PRN PRN Reason: SALINE FLUSH Last Admin: 03/14/19 14:59 Dose: 10 ml Documented by: Trimethoprim/Sulfamethoxazole (Bactrim Ds) [facility] Vital Signs/Narrative: Vital Signs Temp Pulse Resp BP Pulse Ox 03/15/19 10:05 102 H 111/80 03/15/19 10:00 36.7 C 99 20 H 111/80 96 Assessment/Plan Patient seen and examined independently. Data reviewed. I agree with the above note by the physician greenhouse assistant. 1. Acute hypoxic and hypercapnic respiratory failure * 2/2 copd * worsened, down changed back to nasal cannula * CXR personally reviewed showed emphysematous changes. no infiltrate. 2. Acute COPD exacerbation * improving * continue methylpred and BDs * will decrease methylpred to TID from Q6h 3. Lactic acidosis * patient was hypoxic on initial presentation, which could explain elevated lactate * UA abnormal, but only 25-50 WBCs. This could be explained by self-cath * On Meropenem given her h/o ESBL E. coli. * If cultures are negative, then would DC meropenem. And if cultures are negative, then severe sepsis could effectively be ruled out. 4. Encephalopathy * resolved * review of records show that in the H+P from January 2018, she was A+Ox3, then in April 2018 was oriented to only self and place. 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 * TSH, low, but FT4 slightly high. No need for methimazole * Will recheck B12, folate (previously normal) * Avoid potentiating medications (DC'd oxycodone) 5. Iron deficiency anemia * iron sucrose 6. VTE prophylaxis: SQ heparin Code Visit Inpatient E&M: 13897 Subs Hosp L2
[2019-03-15] MEDS: Acetaminophen 325 MG Tablet 650 MG PO ×2 (14:56→22:05)
[2019-03-15] MEDS: Smz/Tmp Ds Tablet 1 TABLET PO (18:24)
[2019-03-15] MEDS: 0.9% Saline Lock 10 ML Syringe IV (22:05)
[2019-03-15] MEDS: Mirtazapine 30 MG Tablet PO (22:05)
[2019-03-16] VITALS (18 sets, daily range): BP systolic 116–142; BP diastolic 52–78; PULSE 85–101; RESP 18–20; TEMP 35.7–37; O2SAT 92–96
--- NOTE | 2019-03-16 03:42 | CPS ---
settings altered for patient comfort. she stated that pap therapy at 10/5 was too much
--- NOTE | 2019-03-16 03:43 | CPS ---
patient stated that the pressure was too much and she couldnt handle it. patient informed of pap benefits but still denied therapy.
[2019-03-16] MEDS: Acetaminophen 325 MG Tablet 650 MG PO ×3 (04:49→21:36)
[2019-03-16] MEDS: 0.9% Saline Lock 10 ML Syringe IV ×4 (05:21→15:52)
[2019-03-16 07:04] LABS: Absolute Lymphocyte Count 0.26 X10^3/uL (0.83-4.51); Absolute Neutrophil Count 9.5 X10^3/uL (2.0-7.7); Hematocrit 25.6 % (37-47); Lymphocyte # 0.26 X10^3/ul (4.0); Lymphocyte % 2.6 % (19-41); Mean Corp Hgb Conc 27.3 g/dL (32-36); Mean Corpuscular Hgb 24.1 pg (27.0-32.0); Mean Platelet Vol. 11.9 fl (6.2-12.0); Monocyte# 0.26 X10^3/uL; Monocyte% 2.6 % (0-10); NRBC Flagged by Analyzer 0.6 % (0-5); Neutrophil # 9.54 X10^3/uL (2.7-7.7); Neutrophil % 93.6 % (47-70); POSITIVE DIFFERENTIAL YES; Platelet Count 154 K/mm3 (150-450); RBC Distribution Width CV 18.7 % (11.6-14.6); Red Blood Count 2.91 M/mm3 (4.2-5.4); White Blood Count 10.2 K/mm3 (4.4-11.0)
[2019-03-16 07:14] LABS: Anion Gap 2 (5-15); BUN 14 mg/dL (7-18); BUN/Creat Ratio 15.8 RATIO (10-20); Calcium,Total 8.3 mg/dL (8.5-10.1); Chloride 109 mmol/L (98-107); Creatinine, Serum 0.88 mg/dL (0.55-1.02); EST Glomerular Filtration Rate 69 mL/min (>60); Est Glom Filt Rate - Afr Amer 84 mL/min (>60); Estimated Creatinine Clearance 47.37 ml/min; Glucose 162 mg/dL (74-106); Potassium 3.5 mmol/L (3.5-5.1); Sodium Level 144 mmol/L (136-145)
[2019-03-16 07:22] LABS: Differential Indicated SCAN CRITERIA MET
[2019-03-16 07:23] LABS: Anisocytosis 1+; Hypochromasia 2+; Platelet Estimate ADEQUATE (ADEQ)
[2019-03-16 07:25] LABS: Stomatocyte 2+
[2019-03-16] MEDS: Ipratropium/Albuterol Sulfate 3 ML AMPUL.NEB INHALATION ×3 (07:26→20:30)
[2019-03-16] MEDS: Smz/Tmp Ds Tablet 1 TABLET PO ×2 (09:37→17:13)
[2019-03-16] MEDS: Fluticasone 0.05% 1 SPRAY NASAL.SRY 2 SPRAY NASAL (09:37)
[2019-03-16] MEDS: Iron Polysaccharide Complex 150 MG CAPSULE PO (09:37)
[2019-03-16] MEDS: FLUoxetine 10 MG Capsule PO (09:38)
[2019-03-16] MEDS: Metoprolol Tartrate 25 MG Tablet 12.5 MG PO ×2 (09:38→21:36)
[2019-03-16] MEDS: Heparin Injection (Vial) 5,000 UNIT/ML VIAL 5000 UNIT SC ×2 (09:38→21:36)
[2019-03-16] MEDS: guaiFENesin 1,200 MG Tablet 1200 MG PO ×2 (09:38→21:36)
[2019-03-16 11:13] LABS: Vitamin B12 1213 pg/mL (211-911); Vitamin D,25 Hydroxy 4.5 ng/mL (29.95-100.01)
--- NOTE | 2019-03-16 12:29 | CASEMGMT ---
PA indicated patient will need detention facility placement for rehab. JACKSON spoke with patient and confirmed she is in agreement with going somewhere for rehab. She has been to [facility] in the past and this is where she would prefer to go at d/c. JACKSON told her SW will make the referral. JACKSON faxed information to [facility]. JACKSON also left a voice mail for Ronit at [facility]. Mitra CLINE MSW
[2019-03-16] MEDS: hydrOXYzine PAM 25 MG Capsule PO ×2 (13:46→23:26)
[2019-03-16 14:08] LABS: Thyroid Peroxidase AB 16 IU/mL (0-34)
--- NOTE | 2019-03-16 14:11 | PCM.PN.PUL ---
Patient Problems: Active and Suspected Problems Severe sepsis (Acute) Subjective: The patient was seen and examined at the bedside this morning. Events from the last 24 hours have been reviewed. The patient is currently afebrile, hemodynamically stable and maintaining appropriate oxygen saturations on 3 L/min via nasal cannula. Objective: The patient's most recent lab work, culture data and imaging studies have all been personally reviewed. Urine culture reveals presumptive E. coli. - Physical Exam Vitals/I&O's: Vital Signs Temp Pulse Resp BP Pulse Ox 96.8 F L 89 20 H 126/64 H 93 03/16/19 13:17 03/16/19 13:22 03/16/19 13:22 03/16/19 13:17 03/16/19 13:17 Oxygen Flow Rate (L/min) 3 Oxygen Delivery Method Nasal Cannula Weight: 96 lb 1.592 oz Body Mass Index (BMI) 18.1 Finger Stick Blood Glucose 99 Intake and Output for Last 24 Hours 03/14/19 03/15/19 03/16/19 23:59 23:59 23:59 Intake Total 1652.17 / 1892.17 1874.8 / 1874.8 854 / 854 Output Total 900 / 1050 1100 / 1100 540 / 540 Balance 752.17 / 842.17 774.8 / 774.8 314 / 314 General: Alert, Cooperative HEENT: Atraumatic, Normocephalic Oral: No Gingival or Mucosal Lesions/ Ulcerations Neck: Supple, No Nodes, Trachea Midline Lungs: No rhonchi, No wheeze, No rales, Diminished Cardiovascular: Regular rate, Regular Rhythm, Normal S1, Normal S2, No murmurs Abdomen: Bowel Sounds Present, Soft, Non Tender Extremities: No clubbing, No cyanosis, Edema Skin: No breakdown Musculoskeletal: No Tenderness to Palpation of Joints or Extremities Lymphatic: No Cervical, Supraclavicular, or Inguinal Adenopathy Neurological: Neuro grossly intact Psych/Mental Status: Normal Affect Labs (Last 48 Hours) 03/14/19 03/14/19 03/15/19 09:45 14:33 05:17 WBC 9.7 RBC 2.99 L Hgb 7.3 L Hct 26.8 L MCV 89.6 MCH 24.4 L MCHC 27.2 L RDW Std Deviation 62.2 H RDW Coeff of Caren 18.9 H Plt Count 174 MPV 12.1 H Immature Gran % (Auto) 0.400 Neut % (Auto) 93.0 H Lymph % (Auto) 2.3 L [place] % (Auto) 4.2 Eos % (Auto) 0.0 Baso % (Auto) 0.1 Absolute Neuts (auto) 9.0 H Absolute Lymphs (auto) 0.22 L Nucleated RBC % 0.2 Differential Comment Platelet Estimate Hypochromasia 1+ Anisocytosis 2+ Stomatocytes Specimen Type ART Sample Site R Brachial pH 7.24 L Bicarbonate Actual 29.6 H POC Total CO2 32 Base Excess 2 O2 Saturation 95 ABG pCO2 68.7 H* ABG pO2 91 O2 Delivery Device Nasal Can Liter Flow 2.0 Blood Gas Notified Whom [facility] Blood Gas Notified Time 1430 Sodium Potassium Chloride Carbon Dioxide Anion Gap BUN Creatinine Estim Creat Clear Calc Est GFR (MDRD) Af Amer Est GFR (MDRD) Non-Af BUN/Creatinine Ratio Glucose Calcium Vitamin B12 1213 H Vitamin D 25-Hydroxy 4.5 L Blood Type Antibody Screen Crossmatch 03/15/19 03/16/19 03/16/19 05:17 06:44 06:44 WBC 10.2 RBC 2.91 L Hgb 7.0 L Hct 25.6 L MCV 88.0 MCH 24.1 L MCHC 27.3 L RDW Std Deviation 60.0 H RDW Coeff of Caren 18.7 H Plt Count 154 MPV 11.9 Immature Gran % (Auto) 1.200 H Neut % (Auto) 93.6 H Lymph % (Auto) 2.6 L [place] % (Auto) 2.6 Eos % (Auto) 0.0 Baso % (Auto) 0.0 Absolute Neuts (auto) 9.5 H Absolute Lymphs (auto) 0.26 L Nucleated RBC % 0.6 Differential Comment Platelet Estimate ADEQUATE Hypochromasia 2+ Anisocytosis 1+ Stomatocytes 2+ Specimen Type Sample Site pH Bicarbonate Actual POC Total CO2 Base Excess O2 Saturation ABG pCO2 ABG pO2 O2 Delivery Device Liter Flow Blood Gas Notified Whom Blood Gas Notified Time Sodium 147 H 144 Potassium 4.3 3.5 Chloride 119 H 109 H Carbon Dioxide 24.0 33.0 H Anion Gap 4 L 2 L BUN 19 H 14 Creatinine 1.01 0.88 Estim Creat Clear Calc 41.27 47.37 Est GFR (MDRD) Af Amer 72 84 Est GFR (MDRD) Non-Af 60 69 BUN/Creatinine Ratio 18.8 15.8 Glucose 128 H 162 H Calcium 8.8 8.3 L Vitamin B12 Vitamin D 25-Hydroxy Blood Type Antibody Screen Crossmatch 03/16/19 09:02 WBC RBC Hgb Hct MCV MCH MCHC RDW Std Deviation RDW Coeff of Caren Plt Count MPV Immature Gran % (Auto) Neut % (Auto) Lymph % (Auto) [place] % (Auto) Eos % (Auto) Baso % (Auto) Absolute Neuts (auto) Absolute Lymphs (auto) Nucleated RBC % Differential Comment Platelet Estimate Hypochromasia Anisocytosis Stomatocytes Specimen Type Sample Site pH Bicarbonate Actual POC Total CO2 Base Excess O2 Saturation ABG pCO2 ABG pO2 O2 Delivery Device Liter Flow Blood Gas Notified Whom Blood Gas Notified Time Sodium Potassium Chloride Carbon Dioxide Anion Gap BUN Creatinine Estim Creat Clear Calc Est GFR (MDRD) Af Amer Est GFR (MDRD) Non-Af BUN/Creatinine Ratio Glucose Calcium Vitamin B12 Vitamin D 25-Hydroxy Blood Type B NEGATIVE Antibody Screen NEGATIVE Crossmatch See Detail Microbiology 03/13/19 10:45 Urine, Catheterized Urine Culture - Final Presumptive E. coli 03/13/19 10:10 Blood Culture (Wb) - Anticubital Right Blood Culture - Preliminary No growth in 48 hours. 03/13/19 09:55 Blood Culture (Wb) - Right Wrist Blood Culture - Preliminary No growth in 48 hours. 03/13/19 20:00 Mucosa - Nasopharyngeal Respiratory Panel (PCR) - Final Clinical Impression(s) from Imaging Studies Chest X-Ray 03/13/19 12:17 IMPRESSION: Hyperinflation. No acute abnormality is seen. Electronically Signed: Karan Cruz, at 12:41 EST , Service support , Current Medications Acetaminophen (Tylenol) 650 mg PO Q6H PRN PRN PRN Reason: Pain or Fever Last Admin: 03/16/19 13:46 Dose: 650 mg Documented by: Albuterol Sulfate (Ventolin Aerosols) 2.5 mg INHALATION Q2H PRN PRN PRN Reason: SOB &/OR WHEEZING Last Admin: 03/14/19 10:26 Dose: 2.5 mg Documented by: Albuterol/Ipratropium (Duoneb) 3 ml INHALATION Q6HWA.RT [facility] Last Admin: 03/16/19 13:22 Dose: 3 ml Documented by: Ergocalciferol (Vitamin D) 50,000 unit PO Q7D@1000 [facility] Fluoxetine HCl (Prozac) 10 mg PO DAILY [facility] Last Admin: 03/16/19 09:38 Dose: 10 mg Documented by: Fluticasone Propionate (Flonase Nasal [place]) 2 spray NASAL DAILY [facility] Last Admin: 03/16/19 09:37 Dose: 2 spray Documented by: Gabapentin (Neurontin) 100 mg PO BID@1200,2200 [facility] Guaifenesin (Mucinex) 1,200 mg PO BID [facility] Last Admin: 03/16/19 09:38 Dose: 1,200 mg Documented by: Heparin Sodium (Porcine) (Heparin Na) 5,000 unit SC Q12 [facility] Last Admin: 03/16/19 09:38 Dose: 5,000 unit Documented by: Hydroxyzine Pamoate (Vistaril Pamoate Capsule) 25 mg PO TID PRN PRN PRN Reason: ANXIETY Last Admin: 03/16/19 13:46 Dose: 25 mg Documented by: Sodium Chloride () 250 mls @ 15 mls/hr IV .[id number] PRN PRN Reason: Saline Flush Last Infusion: 03/15/19 20:21 Dose: Infused Documented by: Sodium Chloride () 250 mls @ 15 mls/hr IV .[id number] PRN PRN Reason: Additional IVPB Infusion Menthol (Bengay Vanishing Scent) 1 applic TOPICAL 4X/DAY PRN PRN PRN Reason: Pain Score 1-10/10 Methylprednisolone (Solu-Medrol) 40 mg IV Q8 [facility] Last Admin: 03/16/19 13:45 Dose: 40 mg Documented by: Metoprolol Tartrate (Lopressor (Beta Jenna)) 12.5 mg PO BID [facility] Last Admin: 03/16/19 09:38 Dose: 12.5 mg Documented by: Mirtazapine (Remeron) 30 mg PO QHS [facility] Last Admin: 03/15/19 22:05 Dose: 30 mg Documented by: Nutritional Formula (Lactose Free) (Ensure Enlive) 120 ml PO 4X/DAY [facility] Last Admin: 03/16/19 13:45 Dose: 120 ml Documented by: Ondansetron HCl (Zofran) 4 mg PO Q6H PRN PRN PRN Reason: NAUSEA Pantoprazole Sodium (Protonix) 40 mg PO DAILY [facility] Polysaccharide Iron Complex (Ferrex 150) [facility] Last Admin: 03/16/19 09:37 Dose: 150 mg Documented by: Sodium Chloride () 10 - 40 ml IV UD PRN PRN Reason: SALINE FLUSH Last Admin: 03/16/19 13:45 Dose: 20 ml Documented by: Trimethoprim/Sulfamethoxazole (Bactrim Ds) [facility] Last Admin: 03/16/19 09:37 Dose: 1 tablet Documented by: Medical Necessity - Tobacco Use Smoking Status: Current every day smoker Tobacco Use: Cigarettes Assessment/Plan All Active Problems Severe sepsis (Acute) E-coli UTI (Acute) Septic shock (Acute) Acute UTI (Acute) Encephalopathy acute (Acute) GURVINDER (acute kidney injury) (Acute) Polysubstance abuse (Acute) UTI (urinary tract infection) (Acute) Hypokalemia due to inadequate potassium intake (Acute) Normocytic anemia (Acute) Generalized weakness (Acute) Contusion of knee, left (Acute) Contusion of knee, right (Acute) Delirium (Acute) CHF (congestive heart failure) (Acute) Fall (Acute) Opioid withdrawal (Acute) Barbiturate withdrawal (Acute) Acute UTI (Acute) RECOMMENDATIONS: 1. Wean supplemental oxygen to maintain saturations at or above 90%. 2. Continue scheduled bronchodilators. 3. Transition from IV steroids to prednisone 40 mg daily with plans to complete a 5-day burst. 4. Check BNP. 5. Transfuse for hemoglobin less than 7 g/dL. 6. Continue antibiotics. 7. Outpatient pulmonary work-up for COPD versus asthma. 8. Walking oximetry prior to discharge. IMPRESSIONS: 1. Acute combined respiratory failure The patient does have a reported history of COPD, but has never had pulmonary function test for confirmation. Patient is currently on methylprednisolone and bronchodilators. Patient will need pulmonary function test as an outpatient for quantification and clarification of lung function. Reasonable to transition to prednisone therapy today to complete a 5-day course. Unclear if this is truly a COPD exacerbation or advanced COPD with failure to compensate for increased metabolic demand associated with ESBL E. coli UTI. Continue to use BiPAP rescue as necessary. 2. Severe sepsis secondary to ESBL E. coli Patient is growing greater than 100,000 colonies of ESBL E. coli from her urine. Consider infectious disease consult. Patient remains hemodynamically stable at this time. 3. Reflex sympathetic dystrophy/nicotine abuse/chronic pain syndrome/history of polysubstance abuse/reported pulmonary hypertension Complicates care, management, recovery and prognosis. Likely okay to continue with baseline medications from my perspective. Defer to hospitalist. Renal function appears to be improving with hydration indicating a probable prerenal etiology. This note was generated with [employer], Part of [employer] dictation software. It may contain incorrect words, spelling, and punctuation that were not noted in checking the note before signing. Code Visit Inpatient E&M: 11185 Subs Hosp L2
--- NOTE | 2019-03-16 14:21 | CASEMGMT ---
Received a call from [facility] and they can accept patient. She will start the request for pre-cert. Plan: [facility] pending insurance approval. Mitra SIERRA
--- NOTE | 2019-03-16 14:32 | PCM.PN.HOSP ---
Patient Problems: Active and Suspected Problems Severe sepsis (Acute) Reason for Visit: sob Subjective: Pt is somewhat more anxious and sob this AM. She has a nonproductive cough. No fever/chills. No CP. No LH/Dizziness. She is very weak and has not been out of bed today. I have encouraged out of bed and spirometer use. She is agreeable to going to SNF. Vitals/I&O's: Vital Signs Temp Pulse Resp BP Pulse Ox 97.8 F 96 20 H 116/52 L 94 03/16/19 14:17 03/16/19 14:17 03/16/19 14:17 03/16/19 14:17 03/16/19 14:17 Oxygen Flow Rate (L/min) 1.5 Oxygen Delivery Method Nasal Cannula Weight: 96 lb 1.592 oz Body Mass Index (BMI) 18.1 Finger Stick Blood Glucose 99 Intake and Output for Last 24 Hours 03/14/19 03/15/19 03/16/19 23:59 23:59 23:59 Intake Total 1652.17 / 1892.17 1874.8 / 1874.8 854 / 854 Output Total 900 / 1050 1100 / 1100 540 / 540 Balance 752.17 / 842.17 774.8 / 774.8 314 / 314 General: Alert, Oriented x3, Cooperative, - - frail, appears older than stated age HEENT: Atraumatic, PERRLA, EOMI, Normocephalic Neck: Supple, No JVD, Negative Carotid Bruits Lungs: Diminished Cardiovascular: Regular rate, No murmurs Abdomen: Bowel Sounds Present, Soft, Non Tender Extremities: No edema, Capillary Refill Less than 3 Seconds Skin: No rashes, No breakdown Musculoskeletal: No Tenderness to Palpation of Joints or Extremities Neurological: Cranial nerves II-XII grossly intact Psych/Mental Status: Normal Affect, Appropriate Microbiology Past 72 Hours 03/13/19 10:45 Urine, Catheterized Urine Culture - Final Presumptive E. coli 03/13/19 10:10 Blood Culture (Wb) - Anticubital Right Blood Culture - Preliminary No growth in 48 hours. 03/13/19 09:55 Blood Culture (Wb) - Right Wrist Blood Culture - Preliminary No growth in 48 hours. 03/13/19 20:00 Mucosa - Nasopharyngeal Respiratory Panel (PCR) - Final Laboratory Results 03/14/19 09:45: Vitamin B12 1213 H, Vitamin D 25-Hydroxy 4.5 L 03/16/19 06:44: WBC 10.2, RBC 2.91 L, Hgb 7.0 L, Hct 25.6 L, MCV 88.0, MCH 24.1 L, MCHC 27.3 L, RDW Std Deviation 60.0 H, RDW Coeff of Caren 18.7 H, Plt Count 154, MPV 11.9, Immature Gran % (Auto) 1.200 H, Neut % (Auto) 93.6 H, Lymph % (Auto) 2.6 L, [place] % (Auto) 2.6, Eos % (Auto) 0.0, Baso % (Auto) 0.0, Absolute Neuts (auto) 9.5 H, Absolute Lymphs (auto) 0.26 L, Nucleated RBC % 0.6, Differential Comment , Platelet Estimate ADEQUATE, Hypochromasia 2+, Anisocytosis 1+, Stomatocytes 2+ 03/16/19 06:44: Sodium 144, Potassium 3.5, Chloride 109 H, Carbon Dioxide 33.0 H, Anion Gap 2 L, BUN 14, Creatinine 0.88, Estim Creat Clear Calc 47.37, Est GFR (MDRD) Af Amer 84, Est GFR (MDRD) Non-Af 69, BUN/Creatinine Ratio 15.8, Glucose 162 H, Calcium 8.3 L 03/16/19 06:44: B-Natriuretic Peptide Pending 03/16/19 09:02: Blood Type B NEGATIVE, Antibody Screen NEGATIVE, Crossmatch See Detail Current Medications Acetaminophen (Tylenol) 650 mg PO Q6H PRN PRN PRN Reason: Pain or Fever Last Admin: 03/16/19 13:46 Dose: 650 mg Documented by: Albuterol Sulfate (Ventolin Aerosols) 2.5 mg INHALATION Q2H PRN PRN PRN Reason: SOB &/OR WHEEZING Last Admin: 03/14/19 10:26 Dose: 2.5 mg Documented by: Albuterol/Ipratropium (Duoneb) 3 ml INHALATION Q6HWA.RT [facility] Last Admin: 03/16/19 13:22 Dose: 3 ml Documented by: Ergocalciferol (Vitamin D) 50,000 unit PO Q7D@1000 [facility] Fluoxetine HCl (Prozac) 10 mg PO DAILY [facility] Last Admin: 03/16/19 09:38 Dose: 10 mg Documented by: Fluticasone Propionate (Flonase Nasal [place]) 2 spray NASAL DAILY [facility] Last Admin: 03/16/19 09:37 Dose: 2 spray Documented by: Gabapentin (Neurontin) 100 mg PO BID@1200,2200 [facility] Guaifenesin (Mucinex) 1,200 mg PO BID [facility] Last Admin: 03/16/19 09:38 Dose: 1,200 mg Documented by: Heparin Sodium (Porcine) (Heparin Na) 5,000 unit SC Q12 [facility] Last Admin: 03/16/19 09:38 Dose: 5,000 unit Documented by: Hydroxyzine Pamoate (Vistaril Pamoate Capsule) 25 mg PO TID PRN PRN PRN Reason: ANXIETY Last Admin: 03/16/19 13:46 Dose: 25 mg Documented by: Sodium Chloride () 250 mls @ 15 mls/hr IV .[id number] PRN PRN Reason: Saline Flush Last Infusion: 03/15/19 20:21 Dose: Infused Documented by: Sodium Chloride () 250 mls @ 15 mls/hr IV .[id number] PRN PRN Reason: Additional IVPB Infusion Menthol (Bengay Vanishing Scent) 1 applic TOPICAL 4X/DAY PRN PRN PRN Reason: Pain Score 1-10/10 Methylprednisolone (Solu-Medrol) 40 mg IV Q8 [facility] Last Admin: 03/16/19 13:45 Dose: 40 mg Documented by: Metoprolol Tartrate (Lopressor (Beta Jenna)) 12.5 mg PO BID [facility] Last Admin: 03/16/19 09:38 Dose: 12.5 mg Documented by: Mirtazapine (Remeron) 30 mg PO QHS [facility] Last Admin: 03/15/19 22:05 Dose: 30 mg Documented by: Nutritional Formula (Lactose Free) (Ensure Enlive) 120 ml PO 4X/DAY [facility] Last Admin: 03/16/19 13:45 Dose: 120 ml Documented by: Ondansetron HCl (Zofran) 4 mg PO Q6H PRN PRN PRN Reason: NAUSEA Pantoprazole Sodium (Protonix) 40 mg PO DAILY [facility] Polysaccharide [facility] (Ferrex 150) [facility] Last Admin: 03/16/19 09:37 Dose: 150 mg Documented by: Sodium Chloride () 10 - 40 ml IV UD PRN PRN Reason: SALINE FLUSH Last Admin: 03/16/19 13:45 Dose: 20 ml Documented by: Trimethoprim/Sulfamethoxazole (Bactrim Ds) 1 tablet PO BIDCM [facility] Last Admin: 03/16/19 09:37 Dose: 1 tablet Documented by: STROKE Vital Signs/Narrative: Vital Signs Temp Pulse Resp BP Pulse Ox 03/16/19 14:17 97.8 F 96 20 H 116/52 L 94 03/16/19 13:22 89 20 H 03/16/19 13:17 96.8 F L 85 20 H 126/64 H 93 03/16/19 13:02 96.3 F L 86 18 127/70 H 93 03/16/19 11:12 92 Medical Necessity - Tobacco Use Smoking Status: Current every day smoker Tobacco Use: Cigarettes Assessment/Plan All Active Problems Severe sepsis (Acute) E-coli UTI (Acute) Septic shock (Acute) Acute UTI (Acute) Encephalopathy acute (Acute) GURVINDER (acute kidney injury) (Acute) Polysubstance abuse (Acute) UTI (urinary tract infection) (Acute) Hypokalemia due to inadequate potassium intake (Acute) Normocytic anemia (Acute) Generalized weakness (Acute) Contusion of knee, left (Acute) Contusion of knee, right (Acute) Delirium (Acute) CHF (congestive heart failure) (Acute) Fall (Acute) Opioid withdrawal (Acute) Barbiturate withdrawal (Acute) Acute UTI (Acute) 1. Acute severe sepsis 2/2 recurrent UTI, 2/2 straight cath for neurogenic bladder - prior ESBL+ E coli. Continue Bactrim. Leukocytosis resolved. Renal function improved. Blood cultures negative. Respiratory panel negative. 2. GURVINDER suspect due to sepsis / dehydration -resolved. 3. Acute mixed respiratory failure 2/2 COPD exacerbation -continue BiPAP nightly. Pulmonary medicine following. Continue duo nebs and Solu-Medrol. BNP pending. Transition to Prednisone. 4. Acute toxic vs metabolic encephalopathy -resolved. She should remain off of barbiturates and opiates. Conservative pain management. 5. Hx prior strokes -she has not been treated as an outpatient with aspirin or statin for unclear reasons. 6. Chronic anemia -iron deficiency. Venofer, Ferrex. T/C 1 unit PRBC. Obtain stool for occult blood if able to provide a sample. May need o/p endoscopy. b12 elevated, folate pending. 7. Hx RSD - restart low dose gabapentin with increased pain. Add K pad and bengay. 8. Depression - continue remeron and prozac 9. Severe protein calorie malnutrition - dietary consult 10. Severe vit D deficiency - added supplementation DVT ppx: heparin DC planning: Patient likely needs [place] [facility]. This patient was seen by Santos Trevizo PA-C under the supervision of Dr. Baires
[2019-03-16 15:30] LABS: BNP,B-Type NATRIURETIC PEPTIDE 479.6 pg/mL (0-100)
[2019-03-16 17:08] LABS: Thyroglobulin Antibody < 1.0 IU/mL (0.0-0.9)
[2019-03-16 20:07] LABS: Folate, RBC (Hct) Test 26.9 % (34.0-46.6)
[2019-03-16] MEDS: Mirtazapine 30 MG Tablet PO (21:36)
[2019-03-16] MEDS: Gabapentin 100 MG Capsule PO (21:36)
[2019-03-16 21:37] LABS: Folates, RBC Test 944 ng/mL (>498)
[2019-03-17] VITALS (20 sets, daily range): BP systolic 88–151; BP diastolic 59–91; PULSE 78–121; RESP 12–24; TEMP 36.5–37.3; O2SAT 88–99
[2019-03-17 05:54] LABS: Absolute Lymphocyte Count 0.82 X10^3/uL (0.83-4.51); Absolute Neutrophil Count 14.2 X10^3/uL (2.0-7.7); Basophil# 0.03 X10^3/uL; Basophil% 0.2 % (0-1); Hematocrit 35.5 % (37-47); Hemoglobin 10.5 g/dL (12.0-15.0); Lymphocyte # 0.82 X10^3/ul (4.0); Mean Corp Hgb Conc 29.6 g/dL (32-36); Mean Corpuscular Hgb 26.1 pg (27.0-32.0); Mean Corpuscular Volume 88.3 fL (81-99); Mean Platelet Vol. 11.8 fl (6.2-12.0); Monocyte% 7.3 % (0-10); NRBC Flagged by Analyzer 0.9 % (0-5); Neutrophil # 14.21 X10^3/uL (2.7-7.7); Neutrophil % 85.9 % (47-70); Platelet Count 108 K/mm3 (150-450); RBC Distribution Width CV 18.1 % (11.6-14.6); RBC Distribution Width SD 57.3 fl (35.1-43.9); Red Blood Count 4.02 M/mm3 (4.2-5.4); White Blood Count 16.5 K/mm3 (4.4-11.0)
[2019-03-17 06:44] LABS: Anion Gap 4 (5-15); BUN 15 mg/dL (7-18); BUN/Creat Ratio 15.6 RATIO (10-20); Calcium,Total 8.3 mg/dL (8.5-10.1); Chloride 111 mmol/L (98-107); Creatinine, Serum 0.96 mg/dL (0.55-1.02); EST Glomerular Filtration Rate 63 mL/min (>60); Est Glom Filt Rate - Afr Amer 76 mL/min (>60); Estimated Creatinine Clearance 43.42 ml/min; Glucose 109 mg/dL (74-106); Potassium 4.2 mmol/L (3.5-5.1); Sodium Level 144 mmol/L (136-145)
[2019-03-17] MEDS: Ipratropium/Albuterol Sulfate 3 ML AMPUL.NEB INHALATION ×2 (07:04→13:17)
[2019-03-17 08:59] LABS: BNP,B-Type NATRIURETIC PEPTIDE 424.2 pg/mL (0-100)
[2019-03-17] MEDS: Fluticasone 0.05% 1 SPRAY NASAL.SRY 2 SPRAY NASAL (09:34)
--- NOTE | 2019-03-17 09:34 | PCM.EXTCARCO ---
- Diet 03/13/19 15:57 Diet: Cardiac/Low Cholesterol - Routine Orders/Code Status Suppository Type: Dulcolax 10mg Suppository Frequency: Daily PRN O2 Frequency: Continuous Routine Lab Work: CBC - 5 days, BMP - 5 days Code Status: Full Code - Therapies Physical Therapy: Eval and Treat Occupational Therapy: Eval and Treat - Problem/Diagnosis (1) Severe sepsis Status: Acute Current Visit: Yes (2) COPD exacerbation Status: Acute Current Visit: Yes (3) GURVINDER (acute kidney injury) Status: Acute Current Visit: No (4) Acute UTI Status: Acute Current Visit: No (5) Encephalopathy acute Status: Acute Current Visit: No (6) Debility Status: Chronic Current Visit: No (7) COPD (chronic obstructive pulmonary disease) Status: Chronic Current Visit: No (8) Pulmonary HTN Status: Chronic Current Visit: No (9) Reflex sympathetic dystrophy Status: Chronic Current Visit: No (10) Nicotine abuse Status: Chronic Current Visit: Yes (11) Iron deficiency anemia Status: Chronic Current Visit: Yes - Allergies/Procedures Done in Hospital Allergies/Adverse Reactions: Allergies amoxicillin trihydrate [From Augmentin] Allergy (Verified 03/13/19 16:24) Abd cramps/diarrhea azithromycin [From Zithromax Z-Piter] Allergy (Verified 03/13/19 10:05) Abd cramps/diarrhea cat dander Allergy (Verified 03/13/19 16:24) Itching erythromycin base Allergy (Verified 03/13/19 16:24) Unknown geranium Allergy (Verified 03/13/19 16:24) Itching levofloxacin [From Levaquin] Allergy (Verified 03/13/19 10:05) Abd cramps/diarrhea nitrofurantoin [From Macrobid] Allergy (Verified 03/13/19 16:24) Abd cramps/diarrhea/racing heart rate nitrofurantoin macrocrystalline [From Macrobid] Allergy (Verified 03/13/19 10:05) Abd cramps/diarrhea potassium clavulanate [From Augmentin] Allergy (Verified 03/13/19 10:05) Abd cramps/diarrhea citalopram [From Celexa] Adverse Reaction (Verified 03/13/19 16:24) tiredness egg Adverse Reaction (Verified 03/13/19 16:24) Diarrhea fentanyl Adverse Reaction (Verified 03/13/19 16:24) FAST HEART RATE, DIZZINESS FAST HEART RATE, DIZZINESS ibuprofen [From Advil] Adverse Reaction (Verified 03/13/19 16:24) Abd cramps/diarrhea naproxen sodium [From Aleve] Adverse Reaction (Verified 03/13/19 16:24) Abd cramps/diarrhea pregabalin [From Lyrica] Adverse Reaction (Verified 03/13/19 16:24) PAIN IN HEAD PAIN IN HEAD Procedures: None - Type of Care/Length of Stay Estimated LOS: Convalescent Care Less Than 30 days Type of Care Needed: Skilled Rehab Potential: Fair Prognosis: Fair - Additional Orders/Day of Discharge Day of Discharge: 03/17/19 - Dietary and Speech Recommendations Dietitian Recommendations/Changes: Rec liberalize diet Regular. Will fortify foods when possible and continue to provide Ensure Enlive w/ medpass for additional calories/protein if consumed. Will provide magic cup a L&D. Rec [employer] consult as pt w/ hx of chewing/swallowing difficulty. - Follow Up Care Primary Care Physician: Florencio Stafford MD [Primary Care Provider] - Please follow up with your Primary Care Physician in: 1-2 weeks Please Follow Up With: Erum Carmichael MD When: 3-4 weeks Please Follow Up With: Joe Scott MD - Re: Anemia When: 3-4 weeks Please Follow Up With: Sai Escobedo DO When: 3-4 weeks
[2019-03-17] MEDS: Ondansetron 8 MG Tablet 4 MG PO (09:35)
[2019-03-17] MEDS: predniSONE 20 MG Tablet 40 MG PO (09:35)
[2019-03-17] MEDS: Smz/Tmp Ds Tablet 1 TABLET PO ×2 (09:35→17:04)
[2019-03-17] MEDS: Pantoprazole Sodium 40 MG Tablet PO (09:35)
[2019-03-17] MEDS: guaiFENesin 1,200 MG Tablet 1200 MG PO (09:35)
[2019-03-17] MEDS: Iron Polysaccharide Complex 150 MG CAPSULE PO (09:35)
[2019-03-17] MEDS: Acetaminophen 325 MG Tablet 650 MG PO (09:35)
[2019-03-17] MEDS: FLUoxetine 10 MG Capsule PO (09:36)
[2019-03-17] MEDS: Heparin Injection (Vial) 5,000 UNIT/ML VIAL 5000 UNIT SC ×2 (09:36→22:06)
[2019-03-17] MEDS: Metoprolol Tartrate 25 MG Tablet 12.5 MG PO (09:36)
[2019-03-17] MEDS: hydrOXYzine PAM 25 MG Capsule PO (10:11)
--- NOTE | 2019-03-17 10:30 | PHA.DC.MR ---
Pharmacy Service has performed discharge medication reconciliation for this patient upon discharge to [facility]. The patient's discharge medication list was reviewed for discrepancies and discrepancies were resolved. Home Medications Fluoxetine [Prozac] 10 mg PO DAILY 05/01/18 Fluticasone 0.05% [Flonase Nasal [place]] 2 spray NASAL DAILY 05/01/18 Metoprolol Tartrate 12.5 mg PO BID 05/01/18 Cetirizine HCl/Pseudoephedrine [Zyrtec-D Tablet] 1 - 2 ea PO DAILY PRN 03/13/19 Dicyclomine HCl [Bentyl] 10 mg PO ACHS PRN 03/13/19 Acetaminophen [Tylenol Tablet] 650 mg PO Q6H PRN PRN tab 03/17/19 Albuterol Aerosols [Ventolin Aerosols] 2.5 mg INHALATION Q6H PRN PRN vial.neb. 03/17/19 Ensure Enlive 120 ml PO 4X/DAY liquid 03/17/19 Ergocalciferol [Vitamin D] 50,000 unit PO Q7D@1000 cap 03/17/19 Ipratropium/Albuterol Sulfate [Duoneb] 3 ml INHALATION Q6HWA.RT ampul.neb 03/17/19 Iron Polysaccharide Complex [Ferrex 150] 150 mg PO DAILYCM cap 03/17/19 Loperamide [Imodium] 2 mg PO BID PRN PRN #0 03/17/19 Menthol [Bengay Vanishing Scent] 1 applic TOPICAL 4X/DAY PRN PRN tube 03/17/19 Mirtazapine [Remeron] 30 mg PO QHS tab 03/17/19 Ondansetron [Zofran] 4 mg PO Q6H PRN PRN tab 03/17/19 Pantoprazole Sodium [Protonix] 40 mg PO DAILY tab 03/17/19 Prednisone 10 mg PO UD #30 tab 03/17/19 Smz/Tmp Ds [Bactrim Ds] 1 tab PO BID #8 tab 03/17/19 hydrOXYzine pamoate capsule [Vistaril pamoate capsule] 25 mg PO TID PRN PRN cap 03/17/19
[2019-03-17] MEDS: Gabapentin 100 MG Capsule PO (13:09)
--- NOTE | 2019-03-17 14:23 | PCM.DC.SUM ---
Discharge Date and Diagnosis - Problem List Patient Problems: Active and Suspected Problems Severe sepsis (Acute) COPD exacerbation (Acute) Date of Admission: 03/13/19 Date of Discharge: 03/17/19 - Primary Discharge Diagnosis Active and Suspected Problems Severe sepsis (Acute) 2/2 UTI 2/2 self cath for neurogenic bladder COPD exacerbation (Acute) GURVINDER 2/2 sepsis, resolved Acute toxic and metabolic encephalopathy Hx strokes Chronic iron deficiency anemia Hx RSD Depression Severe protein calorie malnutrition severe vit D deficiency - Secondary Discharge Diagnosis Chronic Problems Nicotine abuse (Chronic) Iron deficiency anemia (Chronic) RSD lower limb (Chronic) Chronic abdominal pain (Chronic) COPD (chronic obstructive pulmonary disease) (Chronic) Severe protein-calorie malnutrition (Chronic) Debility (Chronic) Anemia (Chronic) Pulmonary HTN (Chronic) Vitamin D deficiency (Chronic) Tobacco user (Chronic) Reflex sympathetic dystrophy (Chronic) Hospital Course and Treatment Imaging Results: RAD/Chest 1 View (Portable) IMPRESSION: Hyperinflation. No acute abnormality is seen. Consults: Pulmonary medicine - Toy / Gregg Operations: None Procedures: None Summary of Care Provided: Hospital Course: The patient is a 58 year old F with past medical history of RSD with prior admissions for toxic encephalopathy secondary to her sedating medications at home, history of prior UTIs secondary to self cathing for neurogenic bladder, history of severe protein calorie malnutrition, who presented to the emergency room with increased confusion. She was found to be hallucinating at home. In the ER she had shortness of breath, wheezing, evidence of UTI, acute kidney injury. She was initially 75% on room air and required 6 L/min oxygen via nasal cannula. She was admitted to the hospital and treated for acute sepsis secondary to UTI, GURVINDER secondary to sepsis, COPD exacerbation, and acute metabolic and toxic encephalopathy secondary to her acute medical conditions as well as sedating medications at home. She did require BiPAP initially on the first night and had respiratory acidosis with ABG showing pH of 7.24. Prior urinary tract infections had E. coli that with ESBL so she was initially treated with meropenem however it was susceptible to Bactrim so she was able to be transitioned to Bactrim once her renal function improved. Renal function improved with IV fluids and holding nephrotoxic agents. Her mental status improved to normal off of her sedating meds. While here she was also noted to be significantly anemic with iron deficiency. This was treated with Venofer, oral iron, and 1 unit of packed red blood cells. She responded well to this therapy. She was recommended to have outpatient follow-up for this with general surgery regarding possible need for endoscopy. She was placed on Protonix. She was transitioned to a prednisone taper for her breathing. She was able to be weaned to 1 L of oxygen. She remained significantly debilitated and senior care was recommended. She was agreeable. She was discharged to senior care in stable condition. She will need follow-up with pain management as an outpatient 3 to 4 weeks, follow-up with pulmonary medicine in 3 to 4 weeks, follow-up with PCP in 1 to 2 weeks, and follow-up with general surgery in 3 to 4 weeks. This patient was seen by Santos Trevizo PA-C under the supervision of Doctor Baires. [] Patient Problems: Active and Suspected Problems Severe sepsis (Acute) COPD exacerbation (Acute) - Physical Exam Vitals/I&O's: Vital Signs Temp Pulse Resp BP Pulse Ox 98.9 F 102 H 20 H 136/91 H 94 03/17/19 09:30 03/17/19 13:17 03/17/19 13:17 03/17/19 09:30 03/17/19 13:05 Oxygen Flow Rate (L/min) [ 1 AMBULATION with Oxygen] Oxygen Flow Rate (L/min) [ 0 AMBULATING on Room Air] Oxygen Flow Rate (L/min) [At 0 REST on Room Air] Oxygen Flow Rate (L/min) 1 Oxygen Delivery Method Nasal Cannula Weight: 96 lb 1.592 oz Body Mass Index (BMI) 18.1 Finger Stick Blood Glucose 99 Intake and Output for Last 24 Hours 03/15/19 03/16/19 03/17/19 23:59 23:59 23:59 Intake Total 1874.8 / 1874.8 1414 / 1414 390 / 390 Output Total 1100 / 1100 1065 / 1065 450 / 450 Balance 774.8 / 774.8 349 / 349 -60 / -60 General: Alert, Oriented x3, Cooperative HEENT: Atraumatic, PERRLA, EOMI, Normocephalic Neck: Supple, No JVD, Negative Carotid Bruits Lungs: Clear to auscultation, Diminished Cardiovascular: Regular rate, No murmurs Abdomen: Bowel Sounds Present, Soft, Non Tender Extremities: No edema, Capillary Refill Less than 3 Seconds Skin: No rashes, No breakdown Musculoskeletal: No Tenderness to Palpation of Joints or Extremities Neurological: Cranial nerves II-XII grossly intact Psych/Mental Status: Normal Affect, Appropriate, Anxious Microbiology Past 72 Hours 03/13/19 10:45 Urine, Catheterized Urine Culture - Final Presumptive E. coli 03/13/19 10:10 Blood Culture (Wb) - Anticubital Right Blood Culture - Preliminary No growth in 48 hours. 03/13/19 09:55 Blood Culture (Wb) - Right Wrist Blood Culture - Preliminary No growth in 48 hours. Laboratory Results 03/13/19 09:55: Thyroglobulin Antibody < 1.0, Thyroid Peroxidase Ab 16 03/14/19 09:45: RBC Folate Hemolysate 254.0, RBC Folate 944, Hematocrit 26.9 L 03/16/19 09:02: Crossmatch See Detail 03/16/19 14:55: B-Natriuretic Peptide 479.6 H 03/17/19 05:30: WBC 16.5 H, RBC 4.02 L, Hgb 10.5 L, Hct 35.5 L, MCV 88.3, MCH 26.1 L, MCHC 29.6 L, RDW Std Deviation 57.3 H, RDW Coeff of Caren 18.1 H, Plt Count 108 L, MPV 11.8, Immature Gran % (Auto) 1.600 H, Neut % (Auto) 85.9 H, Lymph % (Auto) 5.0 L, [place] % (Auto) 7.3, Eos % (Auto) 0.0, Baso % (Auto) 0.2, Absolute Neuts (auto) 14.2 H, Absolute Lymphs (auto) 0.82 L, Nucleated RBC % 0.9 03/17/19 05:30: Sodium 144, Potassium 4.2, Chloride 111 H, Carbon Dioxide 29.0, Anion Gap 4 L, BUN 15, Creatinine 0.96, Estim Creat Clear Calc 43.42, Est GFR (MDRD) Af Amer 76, Est GFR (MDRD) Non-Af 63, BUN/Creatinine Ratio 15.6, Glucose 109 H, Calcium 8.3 L 03/17/19 05:30: B-Natriuretic Peptide 424.2 H Current Medications Acetaminophen (Tylenol) 650 mg PO Q6H PRN PRN PRN Reason: Pain or Fever Last Admin: 03/17/19 09:35 Dose: 650 mg Documented by: Albuterol Sulfate (Ventolin Aerosols) 2.5 mg INHALATION Q2H PRN PRN PRN Reason: SOB &/OR WHEEZING Last Admin: 03/14/19 10:26 Dose: 2.5 mg Documented by: Albuterol/Ipratropium (Duoneb) 3 ml INHALATION Q6HWA.RT [facility] Last Admin: 03/17/19 13:17 Dose: 3 ml Documented by: Ergocalciferol (Vitamin D) 50,000 unit PO Q7D@1000 [facility] Last Admin: 03/16/19 15:52 Dose: 50,000 unit Documented by: Fluoxetine HCl (Prozac) 10 mg PO DAILY [facility] Last Admin: 03/17/19 09:36 Dose: 10 mg Documented by: Fluticasone Propionate (Flonase Nasal [place]) 2 spray NASAL DAILY [facility] Last Admin: 03/17/19 09:34 Dose: 2 spray Documented by: Gabapentin (Neurontin) 100 mg PO BID@1200,2200 [facility] Last Admin: 03/17/19 13:09 Dose: 100 mg Documented by: Guaifenesin (Mucinex) 1,200 mg PO BID [facility] Last Admin: 03/17/19 09:35 Dose: 1,200 mg Documented by: Heparin Sodium (Porcine) (Heparin Na) 5,000 unit SC Q12 [facility] Last Admin: 03/17/19 09:36 Dose: 5,000 unit Documented by: Hydroxyzine Pamoate (Vistaril Pamoate Capsule) 50 mg PO TID PRN PRN PRN Reason: ANXIETY Sodium Chloride () 250 mls @ 15 mls/hr IV .[id number] PRN PRN Reason: Saline Flush Last Infusion: 03/15/19 20:21 Dose: Infused Documented by: Sodium Chloride () 250 mls @ 15 mls/hr IV .[id number] PRN PRN Reason: Additional IVPB Infusion Menthol (Bengay Vanishing Scent) 1 applic TOPICAL 4X/DAY PRN PRN PRN Reason: Pain Score 1-10/10 Last Admin: 03/16/19 22:09 Dose: 1 applic Documented by: Metoprolol Tartrate (Lopressor (Beta Jenna)) 12.5 mg PO BID [facility] Last Admin: 03/17/19 09:36 Dose: 12.5 mg Documented by: Mirtazapine (Remeron) 30 mg PO QHS [facility] Last Admin: 03/16/19 21:36 Dose: 30 mg Documented by: Nutritional Formula (Lactose Free) (Ensure Enlive) 120 ml PO 4X/DAY [facility] Last Admin: 03/17/19 13:09 Dose: 120 ml Documented by: Ondansetron HCl (Zofran) 4 mg PO Q6H PRN PRN PRN Reason: NAUSEA Last Admin: 03/17/19 09:35 Dose: 4 mg Documented by: Pantoprazole Sodium (Protonix) 40 mg PO DAILY [facility] Last Admin: 03/17/19 09:35 Dose: 40 mg Documented by: Polysaccharide Iron Complex (Ferrex 150) [facility] Last Admin: 03/17/19 09:35 Dose: 150 mg Documented by: Prednisone () 40 mg PO DAILY@0800 [facility] Stop: 03/22/19 08:01 Last Admin: 03/17/19 09:35 Dose: 40 mg Documented by: Sodium Chloride () 10 - 40 ml IV UD PRN PRN Reason: SALINE FLUSH Last Admin: 03/16/19 15:52 Dose: 10 ml Documented by: Trimethoprim/Sulfamethoxazole ([facility]actrim Ds) [facility] Last Admin: 03/17/19 09:35 Dose: 1 tablet Documented by: Discharge Diet: Low fat/ Low Cholesterol, 2000 mg Sodium Diet Discharge Activity: Return to Normal Activity Home Medications: Medications to take at Discharge Fluoxetine [Prozac] 10 mg PO DAILY 05/01/18 Fluticasone 0.05% [Flonase Nasal [place]] 2 spray NASAL DAILY 05/01/18 Metoprolol Tartrate 12.5 mg PO BID 05/01/18 Cetirizine HCl/Pseudoephedrine [Zyrtec-D Tablet] 1 - 2 ea PO DAILY PRN 03/13/19 Dicyclomine HCl [Bentyl] 10 mg PO ACHS PRN 03/13/19 Acetaminophen [Tylenol Tablet] 650 mg PO Q6H PRN PRN tab 03/17/19 Albuterol Aerosols [Ventolin Aerosols] 2.5 mg INHALATION Q6H PRN PRN vial.neb. 03/17/19 Ensure Enlive 120 ml PO 4X/DAY liquid 03/17/19 Ergocalciferol [Vitamin D] 50,000 unit PO Q7D@1000 cap 03/17/19 Ipratropium/Albuterol Sulfate [Duoneb] 3 ml INHALATION Q6HWA.RT ampul.neb 03/17/19 Iron Polysaccharide Complex [Ferrex 150] 150 mg PO DAILYCM cap 03/17/19 Loperamide [Imodium] 2 mg PO BID PRN PRN #0 03/17/19 Menthol [Bengay Vanishing Scent] 1 applic TOPICAL 4X/DAY PRN PRN tube 03/17/19 Mirtazapine [Remeron] 30 mg PO QHS tab 03/17/19 Ondansetron [Zofran] 4 mg PO Q6H PRN PRN tab 03/17/19 Pantoprazole Sodium [Protonix] 40 mg PO DAILY tab 03/17/19 Prednisone 10 mg PO UD #30 tab 03/17/19 Smz/Tmp Ds [Bactrim Ds] 1 tab PO BID #8 tab 03/17/19 hydrOXYzine pamoate capsule [Vistaril pamoate capsule] 25 mg PO TID PRN PRN cap 03/17/19 Following Prescrptions Were Given to Patient: Smz/Tmp Ds [Bactrim Ds] 1 tab PO BID #8 tab Prednisone 10 mg PO UD #30 tab Primary Care Physician: Florencio Stafford MD [Primary Care Provider] - Please follow up with your Primary Care Physician in: 1-2 weeks Please Follow Up With: Erum Carmichael MD When: 3-4 weeks Please Follow Up With: Joe Scott MD - Re: Anemia When: 3-4 weeks Please Follow Up With: Sai Escobedo DO When: 3-4 weeks [facility] Minutes spent on discharge:: 40 Patient Condition:: Stable Medical Necessity - Tobacco Use Smoking Status: Current every day smoker Tobacco Use: Cigarettes Meaningful Use Info Meaningful Use Diagnoses (Choose all that apply): None applicable
--- NOTE | 2019-03-17 15:03 | PCM.PN.HOSP ---
Patient Problems: Active and Suspected Problems Severe sepsis (Acute) COPD exacerbation (Acute) Reason for Visit: anxiety Subjective: pt more anxious today, and with increased anxiety she gets somewhat sob. No increased O2 demand. No LE edema. No Fever/chills. No abd pain. Does not want to go with cath. Self caths at baseline. Vitals/I&O's: Vital Signs Temp Pulse Resp BP Pulse Ox 98.9 F 102 H 20 H 136/91 H 94 03/17/19 09:30 03/17/19 13:17 03/17/19 13:17 03/17/19 09:30 03/17/19 13:05 Oxygen Flow Rate (L/min) [ 1 AMBULATION with Oxygen] Oxygen Flow Rate (L/min) [ 0 AMBULATING on Room Air] Oxygen Flow Rate (L/min) [At 0 REST on Room Air] Oxygen Flow Rate (L/min) 1 Oxygen Delivery Method Nasal Cannula Weight: 96 lb 1.592 oz Body Mass Index (BMI) 18.1 Finger Stick Blood Glucose 99 Intake and Output for Last 24 Hours 03/15/19 03/16/19 03/17/19 23:59 23:59 23:59 Intake Total 1874.8 / 1874.8 1414 / 1414 390 / 390 Output Total 1100 / 1100 1065 / 1065 450 / 450 Balance 774.8 / 774.8 349 / 349 -60 / -60 General: Alert, Oriented x3, Cooperative, - - frail, appears older than stated age HEENT: Atraumatic, PERRLA, EOMI, Normocephalic Neck: Supple, No JVD, Negative Carotid Bruits Lungs: Normal air movement, Diminished Cardiovascular: Regular rate, No murmurs Abdomen: Bowel Sounds Present, Soft, Non Tender Extremities: No edema, Capillary Refill Less than 3 Seconds Skin: No rashes, No breakdown Musculoskeletal: No Tenderness to Palpation of Joints or Extremities Neurological: Cranial nerves II-XII grossly intact Psych/Mental Status: Anxious, Alert and oriented to time, place, person, mood and affect Microbiology Past 72 Hours 03/13/19 10:45 Urine, Catheterized Urine Culture - Final Presumptive E. coli 03/13/19 10:10 Blood Culture (Wb) - Anticubital Right Blood Culture - Preliminary No growth in 48 hours. 01/24/20 09:55 Blood Culture (Wb) - Right Wrist Blood Culture - Preliminary No growth in 48 hours. Laboratory Results 03/13/19 09:55: Thyroglobulin Antibody < 1.0, Thyroid Peroxidase Ab 16 03/14/19 09:45: RBC Folate Hemolysate 254.0, RBC Folate 944, Hematocrit 26.9 L 03/16/19 09:02: Crossmatch See Detail 03/16/19 14:55: B-Natriuretic Peptide 479.6 H 03/17/19 05:30: WBC 16.5 H, RBC 4.02 L, Hgb 10.5 L, Hct 35.5 L, MCV 88.3, MCH 26.1 L, MCHC 29.6 L, RDW Std Deviation 57.3 H, RDW Coeff of Caren 18.1 H, Plt Count 108 L, MPV 11.8, Immature Gran % (Auto) 1.600 H, Neut % (Auto) 85.9 H, Lymph % (Auto) 5.0 L, [place] % (Auto) 7.3, Eos % (Auto) 0.0, Baso % (Auto) 0.2, Absolute Neuts (auto) 14.2 H, Absolute Lymphs (auto) 0.82 L, Nucleated RBC % 0.9 03/17/19 05:30: Sodium 144, Potassium 4.2, Chloride 111 H, Carbon Dioxide 29.0, Anion Gap 4 L, BUN 15, Creatinine 0.96, Estim Creat Clear Calc 43.42, Est GFR (MDRD) Af Amer 76, Est GFR (MDRD) Non-Af 63, BUN/Creatinine Ratio 15.6, Glucose 109 H, Calcium 8.3 L 03/17/19 05:30: B-Natriuretic Peptide 424.2 H Current Medications Acetaminophen (Tylenol) 650 mg PO Q6H PRN PRN PRN Reason: Pain or Fever Last Admin: 03/17/19 09:35 Dose: 650 mg Documented by: Albuterol Sulfate (Ventolin Aerosols) 2.5 mg INHALATION Q2H PRN PRN PRN Reason: SOB &/OR WHEEZING Last Admin: 03/14/19 10:26 Dose: 2.5 mg Documented by: Albuterol/Ipratropium (Duoneb) 3 ml INHALATION Q6HWA.RT [facility] Last Admin: 03/17/19 13:17 Dose: 3 ml Documented by: Ergocalciferol (Vitamin D) 50,000 unit PO Q7D@1000 [facility] Last Admin: 03/16/19 15:52 Dose: 50,000 unit Documented by: Fluoxetine HCl (Prozac) 10 mg PO DAILY [facility] Last Admin: 03/17/19 09:36 Dose: 10 mg Documented by: Fluticasone Propionate (Flonase Nasal [place]) 2 spray NASAL DAILY [facility] Last Admin: 03/17/19 09:34 Dose: 2 spray Documented by: Gabapentin (Neurontin) 100 mg PO BID@1200,2200 [facility] Last Admin: 03/17/19 13:09 Dose: 100 mg Documented by: Guaifenesin (Mucinex) 1,200 mg PO BID [facility] Last Admin: 03/17/19 09:35 Dose: 1,200 mg Documented by: Heparin Sodium (Porcine) (Heparin Na) 5,000 unit SC Q12 [facility] Last Admin: 03/17/19 09:36 Dose: 5,000 unit Documented by: Hydroxyzine Pamoate (Vistaril Pamoate Capsule) 50 mg PO TID PRN PRN PRN Reason: ANXIETY Sodium Chloride () 250 mls @ 15 mls/hr IV .[id number] PRN PRN Reason: Saline Flush Last Infusion: 03/15/19 20:21 Dose: Infused Documented by: Sodium Chloride () 250 mls @ 15 mls/hr IV .[id number] PRN PRN Reason: Additional IVPB Infusion Menthol (Bengay Vanishing Scent) 1 applic TOPICAL 4X/DAY PRN PRN PRN Reason: Pain Score 1-10/10 Last Admin: 03/16/19 22:09 Dose: 1 applic Documented by: Metoprolol Tartrate (Lopressor (Beta Jenna)) 12.5 mg PO BID [facility] Last Admin: 03/17/19 09:36 Dose: 12.5 mg Documented by: Mirtazapine (Remeron) 30 mg PO QHS [facility] Last Admin: 03/16/19 21:36 Dose: 30 mg Documented by: Nutritional Formula (Lactose Free) (Ensure Enlive) 120 ml PO 4X/DAY [facility] Last Admin: 03/17/19 13:09 Dose: 120 ml Documented by: Ondansetron HCl (Zofran) 4 mg PO Q6H PRN PRN PRN Reason: NAUSEA Last Admin: 03/17/19 09:35 Dose: 4 mg Documented by: Pantoprazole Sodium (Protonix) 40 mg PO DAILY [facility] Last Admin: 03/17/19 09:35 Dose: 40 mg Documented by: Polysaccharide Iron Complex (Ferrex 150) [facility] Last Admin: 03/17/19 09:35 Dose: 150 mg Documented by: Prednisone () 40 mg PO DAILY@0800 [facility] Stop: 03/22/19 08:01 Last Admin: 03/17/19 09:35 Dose: 40 mg Documented by: Sodium Chloride () 10 - 40 ml IV UD PRN PRN Reason: SALINE FLUSH Last Admin: 03/16/19 15:52 Dose: 10 ml Documented by: Trimethoprim/Sulfamethoxazole (Bactrim Ds) [facility] Last Admin: 03/17/19 09:35 Dose: 1 tablet Documented by: STROKE Vital Signs/Narrative: Vital Signs Pulse Resp Pulse Ox Pulse Ox Pulse Ox Pulse Ox 03/17/19 13:17 102 H 20 H 03/17/19 13:05 88 91 94 03/17/19 12:47 99 Medical Necessity - Tobacco Use Smoking Status: Current every day smoker Tobacco Use: Cigarettes Assessment/Plan All Active Problems Severe sepsis (Acute) COPD exacerbation (Acute) E-coli UTI (Acute) Septic shock (Acute) Acute UTI (Acute) Encephalopathy acute (Acute) GURVINDER (acute kidney injury) (Acute) Polysubstance abuse (Acute) UTI (urinary tract infection) (Acute) Hypokalemia due to inadequate potassium intake (Acute) Normocytic anemia (Acute) Generalized weakness (Acute) Contusion of knee, left (Acute) Contusion of knee, right (Acute) Delirium (Acute) CHF (congestive heart failure) (Acute) Fall (Acute) Opioid withdrawal (Acute) Barbiturate withdrawal (Acute) Acute UTI (Acute) 1. Acute severe sepsis 2/2 recurrent UTI, 2/2 straight cath for neurogenic bladder - bactrim for total 10 days. 2. GURVINDER suspect due to sepsis / dehydration -resolved. 3. Acute mixed respiratory failure 2/2 COPD exacerbation - prednisone taper, aerosols, IS. 4. Acute toxic vs metabolic encephalopathy -resolved. She should remain off of barbiturates and opiates. Conservative pain management. Refer to pain management as o/p. 5. Hx prior strokes -she has not been treated as an outpatient with aspirin or statin for unclear reasons. 6. Chronic anemia -iron deficiency. Replaced. s/p 1 unit prbc. referral to gen surgery as o/p for endoscopy. 7. Hx RSD - again, she would benefit from referral to pain management as o/p 8. Depression - continue remeron and prozac 9. Severe protein calorie malnutrition - dietary consult 10. Severe vit D deficiency - added supplementation DVT ppx: heparin DC planning: To SNF when precert obtained. This patient was seen by Santos Trevizo PA-C under the supervision of Dr. Baires
--- NOTE | 2019-03-17 15:05 | CASEMGMT ---
SW received a call from [facility] and they still have not heard from insurance. Mitra CLINE MSW
--- NOTE | 2019-03-17 20:40 | RAD_ITS ---
STUDY: X-RAY CHEST REASON FOR EXAM: Female, 58 years old. Shortness of breath TECHNIQUE: Single AP portable view of the chest. COMPARISON: Prior study of 03/13/2019 FINDINGS: quality assurance monitor chassis leads are present. There is a hazy right basilar infiltrate. There are minimal bibasilar pleural effusions. Normal size heart. Normal mediastinum and olga. Normal visualized pulmonary arteries. Normal visualized aortic arch and descending thoracic aorta. Normal visualized thoracic spine. Normal visualized ribs, clavicles, and shoulders. There is no demonstrated abnormality of the visualized soft tissue structures of the upper abdomen. RAD/Chest 1 View (Portable) IMPRESSION: Hazy right lower lobe infiltrate and small bibasilar pleural effusions, new in the interval. Electronically Signed: Raman Galeas MD at 21:31 EST , Service support ,
--- NOTE | 2019-03-17 21:16 | CPS ---
Addendum entered by Zelda Preston 03/23/19 13:10: Original Note: results back to dr. montenegro
[2019-03-17 21:25] LABS: Base Excess 7 mmol/L (-2 to +2); Blood Gas Specimen Type ART; EPAP 6; FI02 35; IPAP 12; PO2 72 mmHG (75-100); RR 24; SITE R Radial; SO2 93 % (95-99); Total Carbon Dioxide 34 mmol/L; pCO2 56.5 mmHg (35-45); pH 7.36 (7.35-7.45)
[2019-03-18] VITALS (24 sets, daily range): BP systolic 92–130; BP diastolic 56–71; PULSE 103–123; RESP 12–25; TEMP 36.4–37.3; O2SAT 95–99
--- NOTE | 2019-03-18 01:22 | NURSING ---
This RN told pt that she is getting transfered to [facility] in [place]. Pt was upset that she was going there because she did not have a good experience there before. Told pt that she did not have a choice on where she was going because she is pink slipped. Norma Domínguez RN attempted to check vitals signs but pt refused.
[2019-03-18 03:20] LABS: Bedside Glucose 94 mg/dL (70-110)
[2019-03-18 05:31] LABS: Absolute Lymphocyte Count 0.98 X10^3/uL (0.83-4.51); Absolute Neutrophil Count 13.1 X10^3/uL (2.0-7.7); Basophil# 0.02 X10^3/uL; Basophil% 0.1 % (0-1); Hemoglobin 8.9 g/dL (12.0-15.0); Lymphocyte # 0.98 X10^3/ul (4.0); Lymphocyte % 6.4 % (19-41); Mean Corp Hgb Conc 29.7 g/dL (32-36); Mean Corpuscular Hgb 25.8 pg (27.0-32.0); Mean Platelet Vol. 11.8 fl (6.2-12.0); Monocyte# 1.21 X10^3/uL; Monocyte% 7.9 % (0-10); NRBC Flagged by Analyzer 0.3 % (0-5); Neutrophil # 13.05 X10^3/uL (2.7-7.7); Neutrophil % 84.7 % (47-70); Platelet Count 114 K/mm3 (150-450); RBC Distribution Width CV 18.6 % (11.6-14.6); RBC Distribution Width SD 57.4 fl (35.1-43.9); Red Blood Count 3.45 M/mm3 (4.2-5.4); White Blood Count 15.4 K/mm3 (4.4-11.0)
[2019-03-18 05:49] LABS: Anion Gap 0 (5-15); BUN 16 mg/dL (7-18); Chloride 110 mmol/L (98-107); EST Glomerular Filtration Rate 60 mL/min (>60); Est Glom Filt Rate - Afr Amer 73 mL/min (>60); Estimated Creatinine Clearance 41.68 ml/min; Glucose 142 mg/dL (74-106); Potassium 3.7 mmol/L (3.5-5.1); Sodium Level 144 mmol/L (136-145)
--- NOTE | 2019-03-18 06:56 | CPS ---
During 8PM tx on date 03/17 pt. was noted to be lethargic and not very responsive. Decision was made to increase BiPAP settings to help with ventilation. Volumes on 09/21 bipap settings were 100-150 mL for VT. Pts. settings increased to 12/6 with volumes much improved. Physician aware of change and Blood gas order was put in shortly after.
--- NOTE | 2019-03-18 07:00 | CPS ---
Pts. BiPAP settings were decreased to 10/. Volumes on 01/23 at this time were 1000mL and up. To help decrease Minute ventilation, settings were decreased. Minute ventilation was much improved on 10 BiPAP setting. RN aware of change.
[2019-03-18] MEDS: Ipratropium/Albuterol Sulfate 3 ML AMPUL.NEB INHALATION ×3 (07:34→21:45)
[2019-03-18] MEDS: Furosemide 40 MG/4 ML Vial IV ×2 (10:19→19:09)
[2019-03-18] MEDS: 0.9% Saline Lock 10 ML Syringe IV ×2 (10:21→19:09)
[2019-03-18] MEDS: Vancomycin IV 1,000 MG/200 ML BAG 200 MG IV (10:23)
--- NOTE | 2019-03-18 10:24 | PN_ITS ---
Patient Problems: Active and Suspected Problems Severe sepsis (Acute) COPD exacerbation (Acute) Subjective: The patient was seen and examined at the bedside this morning. Events from the last 24 hours have been reviewed. The patient is currently afebrile, hemodynamically stable and maintaining appropriate oxygen saturations on 6 L/min via nasal cannula. Although the patient was initially slated to be discharged yesterday, she apparently developed worsening in her respiratory status and the need for increasing supplemental oxygen. Therefore, her discharge was canceled. Objective: The patient's most recent lab work, culture data and imaging studies have all been personally reviewed. - Physical Exam Vitals/I&O's: Vital Signs Temp Pulse Resp BP Pulse Ox 98.6 F 122 H 17 103/56 L 98 03/18/19 08:27 03/18/19 08:27 03/18/19 08:27 03/18/19 08:27 03/18/19 08:27 Oxygen Flow Rate (L/min) [ 1 AMBULATION with Oxygen] Oxygen Flow Rate (L/min) [ 0 AMBULATING on Room Air] Oxygen Flow Rate (L/min) [At 0 REST on Room Air] Oxygen Flow Rate (L/min) 6 Oxygen Delivery Method Nasal Cannula Weight: 96 lb 1.592 oz Body Mass Index (BMI) 18.1 Finger Stick Blood Glucose 99 Intake and Output for Last 24 Hours 03/16/19 03/17/19 03/18/19 23:59 23:59 23:59 Intake Total 1414 / 1414 630.5 / 630.5 261.46 / 261.46 Output Total 1065 / 1065 925 / 925 300 / 300 Balance 349 / 349 -294.5 / -294.5 -38.54 / -38.54 General: Alert, Cooperative, No apparent distress HEENT: Atraumatic, Normocephalic Oral: Dry Mucosa Neck: Supple, No Nodes, Trachea Midline Lungs: No rhonchi, No wheeze, No rales, Diminished Cardiovascular: Normal S1, Normal S2, No murmurs, Tachycardic Abdomen: Bowel Sounds Present, Soft, Non-Distended Extremities: No clubbing, No cyanosis Skin: No breakdown Musculoskeletal: No Tenderness to Palpation of Joints or Extremities Lymphatic: No Cervical, Supraclavicular, or Inguinal Adenopathy Neurological: Neuro grossly intact Psych/Mental Status: Normal Affect, Appropriate Labs (Last 48 Hours) 03/13/19 03/14/19 03/14/19 09:55 09:45 09:45 WBC RBC Hgb Hct MCV MCH MCHC RDW Std Deviation RDW Coeff of Caren Plt Count MPV Immature Gran % (Auto) Neut % (Auto) Lymph % (Auto) [place] % (Auto) Eos % (Auto) Baso % (Auto) Absolute Neuts (auto) Absolute Lymphs (auto) Nucleated RBC % Specimen Type Sample Site pH Bicarbonate Actual POC Total CO2 Base Excess O2 Saturation O2 % ABG pCO2 ABG pO2 Shar Test Respiration Rate O2 Delivery Device EPAP IPAP Blood Gas Notified Whom Sodium Potassium Chloride Carbon Dioxide Anion Gap BUN Creatinine Estim Creat Clear Calc Est GFR (MDRD) Af Amer Est GFR (MDRD) Non-Af BUN/Creatinine Ratio Glucose Calcium B-Natriuretic Peptide Vitamin B12 1213 H Vitamin D 25-Hydroxy 4.5 L RBC Folate Hemolysate 254.0 RBC Folate 944 Hematocrit 26.9 L Thyroglobulin Antibody < 1.0 Thyroid Peroxidase Ab 16 MRSA (PCR) POC Glucose Blood Type Antibody Screen Crossmatch 03/16/19 03/16/19 03/17/19 09:02 14:55 05:30 WBC 16.5 H RBC 4.02 L Hgb 10.5 L Hct 35.5 L MCV 88.3 MCH 26.1 L MCHC 29.6 L RDW Std Deviation 57.3 H RDW Coeff of Caren 18.1 H Plt Count 108 L MPV 11.8 Immature Gran % (Auto) 1.600 H Neut % (Auto) 85.9 H Lymph % (Auto) 5.0 L [place] % (Auto) 7.3 Eos % (Auto) 0.0 Baso % (Auto) 0.2 Absolute Neuts (auto) 14.2 H Absolute Lymphs (auto) 0.82 L Nucleated RBC % 0.9 Specimen Type Sample Site pH Bicarbonate Actual POC Total CO2 Base Excess O2 Saturation O2 % ABG pCO2 ABG pO2 Shar Test Respiration Rate O2 Delivery Device EPAP IPAP Blood Gas Notified Whom Sodium Potassium Chloride Carbon Dioxide Anion Gap BUN Creatinine Estim Creat Clear Calc Est GFR (MDRD) Af Amer Est GFR (MDRD) Non-Af BUN/Creatinine Ratio Glucose Calcium B-Natriuretic Peptide 479.6 H Vitamin B12 Vitamin D 25-Hydroxy RBC Folate Hemolysate RBC Folate Hematocrit Thyroglobulin Antibody Thyroid Peroxidase Ab MRSA (PCR) POC Glucose Blood Type B NEGATIVE Antibody Screen NEGATIVE Crossmatch See Detail 03/17/19 03/17/19 03/17/19 05:30 05:30 21:17 WBC RBC Hgb Hct MCV MCH MCHC RDW Std Deviation RDW Coeff of Caren Plt Count MPV Immature Gran % (Auto) Neut % (Auto) Lymph % (Auto) [place] % (Auto) Eos % (Auto) Baso % (Auto) Absolute Neuts (auto) Absolute Lymphs (auto) Nucleated RBC % Specimen Type ART Sample Site R Radial pH 7.36 Bicarbonate Actual 32.0 H POC Total CO2 34 Base Excess 7 H O2 Saturation 93 L O2 % 35 ABG pCO2 56.5 H ABG pO2 72 L Shar Test NA Respiration Rate 24 O2 Delivery Device Bi / C PAP EPAP 6 IPAP 12 Blood Gas Notified Whom HOSP Sodium 144 Potassium 4.2 Chloride 111 H Carbon Dioxide 29.0 Anion Gap 4 L BUN 15 Creatinine 0.96 Estim Creat Clear Calc 43.42 Est GFR (MDRD) Af Amer 76 Est GFR (MDRD) Non-Af 63 BUN/Creatinine Ratio 15.6 Glucose 109 H Calcium 8.3 L B-Natriuretic Peptide 424.2 H Vitamin B12 Vitamin D 25-Hydroxy RBC Folate Hemolysate RBC Folate Hematocrit Thyroglobulin Antibody Thyroid Peroxidase Ab MRSA (PCR) POC Glucose Blood Type Antibody Screen Crossmatch 03/18/19 03/18/19 03/18/19 02:26 05:15 05:15 WBC 15.4 H RBC 3.45 L Hgb 8.9 L Hct 30.0 L MCV 87.0 MCH 25.8 L MCHC 29.7 L RDW Std Deviation 57.4 H RDW Coeff of Caren 18.6 H Plt Count 114 L MPV 11.8 Immature Gran % (Auto) 0.900 Neut % (Auto) 84.7 H Lymph % (Auto) 6.4 L [place] % (Auto) 7.9 Eos % (Auto) 0.0 Baso % (Auto) 0.1 Absolute Neuts (auto) 13.1 H Absolute Lymphs (auto) 0.98 Nucleated RBC % 0.3 Specimen Type Sample Site pH Bicarbonate Actual POC Total CO2 Base Excess O2 Saturation O2 % ABG pCO2 ABG pO2 Shar Test Respiration Rate O2 Delivery Device EPAP IPAP Blood Gas Notified Whom Sodium 144 Potassium 3.7 Chloride 110 H Carbon Dioxide 34.0 H Anion Gap 0 L BUN 16 Creatinine 1.00 Estim Creat Clear Calc 41.68 Est GFR (MDRD) Af Amer 73 Est GFR (MDRD) Non-Af 60 BUN/Creatinine Ratio 16.0 Glucose 142 H Calcium 8.0 L B-Natriuretic Peptide Vitamin B12 Vitamin D 25-Hydroxy RBC Folate Hemolysate RBC Folate Hematocrit Thyroglobulin Antibody Thyroid Peroxidase Ab MRSA (PCR) POC Glucose 94 Blood Type Antibody Screen Crossmatch 03/18/19 08:27 WBC RBC Hgb Hct MCV MCH MCHC RDW Std Deviation RDW Coeff of Caren Plt Count MPV Immature Gran % (Auto) Neut % (Auto) Lymph % (Auto) [place] % (Auto) Eos % (Auto) Baso % (Auto) Absolute Neuts (auto) Absolute Lymphs (auto) Nucleated RBC % Specimen Type Sample Site pH Bicarbonate Actual POC Total CO2 Base Excess O2 Saturation O2 % ABG pCO2 ABG pO2 Shar Test Respiration Rate O2 Delivery Device EPAP IPAP Blood Gas Notified Whom Sodium Potassium Chloride Carbon Dioxide Anion Gap BUN Creatinine Estim Creat Clear Calc Est GFR (MDRD) Af Amer Est GFR (MDRD) Non-Af BUN/Creatinine Ratio Glucose Calcium B-Natriuretic Peptide Vitamin B12 Vitamin D 25-Hydroxy RBC Folate Hemolysate RBC Folate Hematocrit Thyroglobulin Antibody Thyroid Peroxidase Ab MRSA (PCR) Pending POC Glucose Blood Type Antibody Screen Crossmatch Microbiology 03/13/19 10:45 Urine, Catheterized Urine Culture - Final Presumptive E. coli Clinical Impression(s) from Imaging Studies Chest X-Ray 03/13/19 12:17 IMPRESSION: Hyperinflation. No acute abnormality is seen. Electronically Signed: Karan Cruz, at 12:41 EST , Service support , Chest X-Ray 03/17/19 20:40 IMPRESSION: Hazy right lower lobe infiltrate and small bibasilar pleural effusions, new in the interval. Electronically Signed: Raman Galeas MD at 21:31 EST , Service support , Current Medications Acetaminophen (Tylenol) 650 mg PO Q6H PRN PRN PRN Reason: Pain or Fever Last Admin: 03/17/19 09:35 Dose: 650 mg Documented by: Albuterol Sulfate (Ventolin Aerosols) 2.5 mg INHALATION Q2H PRN PRN PRN Reason: SOB &/OR WHEEZING Last Admin: 03/14/19 10:26 Dose: 2.5 mg Documented by: Albuterol/Ipratropium (Duoneb) 3 ml INHALATION Q6HWA.RT COUNT INCLUDES THE [facility] Last Admin: 03/18/19 07:34 Dose: 3 ml Documented by: Ergocalciferol (Vitamin D) 50,000 unit PO Q7D@1000 COUNT INCLUDES THE [facility] Last Admin: 03/16/19 15:52 Dose: 50,000 unit Documented by: Fluoxetine HCl (Prozac) 10 mg PO DAILY COUNT INCLUDES THE [facility] Last Admin: 03/17/19 09:36 Dose: 10 mg Documented by: Fluticasone Propionate (Flonase Nasal [place]) 2 spray NASAL DAILY COUNT INCLUDES THE [facility] Last Admin: 03/17/19 09:34 Dose: 2 spray Documented by: Furosemide (Lasix) 40 mg IV BID@1000,1800 COUNT INCLUDES [facility] Gabapentin (Neurontin) 100 mg PO BID@1200,2200 COUNT INCLUDES [facility] Last Admin: 03/17/19 22:06 Dose: Not Given Documented by: Guaifenesin (Mucinex) 1,200 mg PO BID COUNT INCLUDES THE [facility] Last Admin: 03/17/19 22:06 Dose: Not Given Documented by: Heparin Sodium (Porcine) (Heparin Na) 5,000 unit SC Q12 COUNT INCLUDES THE [facility] Last Admin: 03/17/19 22:06 Dose: 5,000 unit Documented by: Hydroxyzine Pamoate (Vistaril Pamoate Capsule) 50 mg PO TID PRN PRN PRN Reason: ANXIETY Sodium Chloride () 250 mls @ 15 mls/hr IV .[id number] PRN PRN Reason: Saline Flush Last Infusion: 03/17/19 23:24 Dose: 0 mls/hr Documented by: Sodium Chloride () 250 mls @ 15 mls/hr IV .[id number] PRN PRN Reason: Additional IVPB Infusion Piperacillin Sod/Tazobactam (Sod 3.375 gm/ Sodium Chloride) 50 mls @ 12.5 mls/hr IV Q8 COUNT INCLUDES THE [facility] Last Infusion: 03/18/19 06:00 Dose: 12.5 mls/hr Documented by: Vancomycin IV Pharmacy to Dose (1 ea/ Sodium Chloride) 500 mls @ 250 mls/hr IV X1 PRN; Protocol PRN Reason: Rx to Dose Menthol (Bengay Vanishing Scent) 1 applic TOPICAL 4X/DAY PRN PRN PRN Reason: Pain Score 1-10/10 Last Admin: 03/16/19 22:09 Dose: 1 applic Documented by: Metoprolol Tartrate (Lopressor (Beta Jenna)) 12.5 mg PO BID COUNT INCLUDES THE [facility] Last Admin: 03/17/19 22:06 Dose: Not Given Documented by: Mirtazapine (Remeron) 30 mg PO QHS COUNT INCLUDES THE [facility] Last Admin: 03/17/19 22:06 Dose: Not Given Documented by: Nutritional Formula (Lactose Free) (Ensure Enlive) 120 ml PO 4X/DAY COUNT INCLUDES THE [facility] Last Admin: 03/17/19 22:05 Dose: Not Given Documented by: Ondansetron HCl (Zofran) 4 mg PO Q6H PRN PRN PRN Reason: NAUSEA Last Admin: 03/17/19 09:35 Dose: 4 mg Documented by: Pantoprazole Sodium (Protonix) 40 mg PO DAILY COUNT INCLUDES [facility] Last Admin: 03/17/19 09:35 Dose: 40 mg Documented by: Polysaccharide [facility] ([facility]rex 150) [facility] Last Admin: 03/17/19 09:35 Dose: 150 mg Documented by: Prednisone () 40 mg PO DAILY@0800 COUNT INCLUDES [facility] Stop: 03/22/19 08:01 Last Admin: 03/17/19 09:35 Dose: 40 mg Documented by: Sodium Chloride () 10 - 40 ml IV UD PRN PRN Reason: SALINE FLUSH Last Admin: 03/16/19 15:52 Dose: 10 ml Documented by: Medical Necessity - Tobacco Use Smoking Status: Current every day smoker Tobacco Use: Cigarettes Assessment/Plan All Active Problems Severe sepsis (Acute) COPD exacerbation (Acute) E-coli UTI (Acute) Septic shock (Acute) Acute UTI (Acute) Encephalopathy acute (Acute) GURVINDER (acute kidney injury) (Acute) Polysubstance abuse (Acute) UTI (urinary tract infection) (Acute) Hypokalemia due to inadequate potassium intake (Acute) Normocytic anemia (Acute) Generalized weakness (Acute) Contusion of knee, left (Acute) Contusion of knee, right (Acute) Delirium (Acute) CHF (congestive heart failure) (Acute) Fall (Acute) Opioid withdrawal (Acute) Barbiturate withdrawal (Acute) Acute UTI (Acute) RECOMMENDATIONS: 1. Wean supplemental oxygen to maintain saturations at or above 90%. 2. Continue scheduled bronchodilators. 3. Continue prednisone 40 mg daily with plans to complete a 5-day burst. 4. Transfuse for hemoglobin less than 7 g/dL. 5. Continue antibiotics for E. coli UTI 6. Outpatient pulmonary work-up for COPD versus asthma. 7. Walking oximetry prior to discharge. IMPRESSIONS: 1. Acute combined respiratory failure The patient does have a reported history of COPD, but has never had pulmonary function test for confirmation. Patient is currently on steroids and bronchodilators. Patient will need pulmonary function test as an outpatient for quantification and clarification of lung function. Unclear if this is truly a COPD exacerbation or advanced COPD with failure to compensate for increased metabolic demand associated with ESBL E. coli UTI. Continue to use BiPAP rescue as necessary. I do not see that the patient needs antimicrobial therapy for a pneumonia. 2. Severe sepsis secondary to ESBL E. coli Patient is growing greater than 100,000 colonies of ESBL E. coli from her urine. Consider infectious disease consult. Patient remains hemodynamically stable at this time. 3. Reflex sympathetic dystrophy/nicotine abuse/chronic pain syndrome/history of polysubstance abuse/reported pulmonary hypertension Complicates care, management, recovery and prognosis. Likely okay to continue with baseline medications from my perspective. Defer to hospitalist. This note was generated with [employer] dictation software. It may contain incorrect words, spelling, and punctuation that were not noted in checking the note before signing. Code Visit Inpatient E&M: 38598 Subs Hosp L2
[2019-03-18] MEDS: predniSONE 20 MG Tablet 40 MG PO (10:26)
[2019-03-18] MEDS: Pantoprazole Sodium 40 MG Tablet PO (10:26)
[2019-03-18] MEDS: FLUoxetine 10 MG Capsule PO (10:26)
[2019-03-18] MEDS: guaiFENesin 1,200 MG Tablet 1200 MG PO ×2 (10:27→21:48)
[2019-03-18] MEDS: Metoprolol Tartrate 25 MG Tablet 12.5 MG PO ×2 (10:30→21:48)
[2019-03-18] MEDS: Iron Polysaccharide Complex 150 MG CAPSULE PO (10:30)
[2019-03-18] MEDS: Heparin Injection (Vial) 5,000 UNIT/ML VIAL 5000 UNIT SC ×2 (10:33→21:48)
[2019-03-18] MEDS: Fluticasone 0.05% 1 SPRAY NASAL.SRY 2 SPRAY NASAL (10:35)
--- NOTE | 2019-03-18 11:37 | PCM.RX.CS ---
Consult Pharmacy has been consulted to manage selected antiobiotic: Vancomycin Type of Consult: New start Suspected Infection: Other Labs: Sodium 144 mmol/L (136-145) 03/18/19 05:15 Potassium 3.7 mmol/L (3.5-5.1) 03/18/19 05:15 Chloride 110 mmol/L (98-107) H 03/18/19 05:15 Carbon Dioxide 34.0 mmol/L (21.0-32.0) H 03/18/19 05:15 Anion Gap 0 (5-15) L 03/18/19 05:15 BUN 16 mg/dL (7-18) 03/18/19 05:15 Creatinine 1.00 mg/dL (0.55-1.02) 03/18/19 05:15 Est GFR (MDRD) Af Amer 73 mL/min (>60) 03/18/19 05:15 Est GFR (MDRD) Non-Af 60 mL/min (>60) 03/18/19 05:15 BUN/Creatinine Ratio 16.0 RATIO (10-20) 03/18/19 05:15 Glucose 142 mg/dL (74-106) H 03/18/19 05:15 Microbiology: Microbiology 03/18/19 10:40 Urine Catheter - Olson Streptococcus pneumoniae Antigen (M - Final 03/13/19 10:45 Urine, Catheterized Urine Culture - Final Presumptive E. coli 03/13/19 10:10 Blood Culture (Wb) - Anticubital Right Blood Culture - Preliminary No growth in 48 hours. 03/13/19 09:55 Blood Culture (Wb) - Right Wrist Blood Culture - Preliminary No growth in 48 hours. 03/13/19 20:00 Mucosa - Nasopharyngeal Respiratory Panel (PCR) - Final Weight used for dosin.6 kg Estimated Creatinine Clearance: 41.7ML/MIN Goal Trough: 15-20 mcg/mL Pharmacy Plan for Drug Dosing: Give initial loading dose of 1000mg IV x1, then continue with 750mg IV q24h. Will draw a vancomycin trough level before the 3rd dose. Pharmacy Service will continue to monitor and adjust dosing as required. Follow-Up Labs: Trough Vancomycin Labs to be done on [date and time ordered]: 03/20/19 09:30
[2019-03-18 12:11] LABS: M R Staph aureus DNA By PCR Negative (Negative); Probe Check PASS; Specimen Processing Control PASS
[2019-03-18] MEDS: Gabapentin 100 MG Capsule PO ×2 (12:20→21:49)
--- NOTE | 2019-03-18 12:22 | PCM.PN.HOSP ---
Patient Problems: Active and Suspected Problems Severe sepsis (Acute) COPD exacerbation (Acute) Reason for Visit: sob. Subjective: This AM pt without increased SOB. No fevers chills. Denies any cough whatsoever. No CP. Pt has not been getting out of bed at all. She still has khoury cath. No abd pain. Vitals/I&O's: Vital Signs Temp Pulse Resp BP Pulse Ox 98.5 F 122 H 19 H 105/68 98 03/18/19 10:20 03/18/19 10:30 03/18/19 10:20 03/18/19 10:20 03/18/19 10:20 Oxygen Flow Rate (L/min) [ 1 AMBULATION with Oxygen] Oxygen Flow Rate (L/min) [ 0 AMBULATING on Room Air] Oxygen Flow Rate (L/min) [At 0 REST on Room Air] Oxygen Flow Rate (L/min) 6 Oxygen Delivery Method Nasal Cannula Weight: 96 lb 1.592 oz Body Mass Index (BMI) 18.1 Finger Stick Blood Glucose 99 Intake and Output for Last 24 Hours 03/16/19 03/17/19 03/18/19 23:59 23:59 23:59 Intake Total 1414 / 1414 630.5 / 630.5 261.46 / 261.46 Output Total 1065 / 1065 925 / 925 300 / 300 Balance 349 / 349 -294.5 / -294.5 -38.54 / -38.54 General: Alert, Oriented x3, Cooperative HEENT: Atraumatic, PERRLA, EOMI, Normocephalic Neck: Supple, No JVD, Negative Carotid Bruits Lungs: Diminished, Wheezes - faint expiratory Cardiovascular: Regular rate, No murmurs, Tachycardic Abdomen: Bowel Sounds Present, Soft, Non Tender Extremities: No edema, Capillary Refill Less than 3 Seconds Skin: No rashes, No breakdown Musculoskeletal: No Tenderness to Palpation of Joints or Extremities Neurological: Cranial nerves II-XII grossly intact Psych/Mental Status: Normal Affect, Appropriate, Alert and oriented to time, place, person, mood and affect Microbiology Past 72 Hours 03/13/19 10:10 Blood Culture (Wb) - Anticubital Right Blood Culture - Final No growth in 5 days. 03/13/19 09:55 Blood Culture (Wb) - Right Wrist Blood Culture - Final No growth in 5 days. 03/18/19 10:40 Urine Catheter - Khoury Streptococcus pneumoniae Antigen (M - Final 03/13/19 10:45 Urine, Catheterized Urine Culture - Final Presumptive E. coli Laboratory Results 03/17/19 21:17: Specimen Type ART, Sample Site R Radial, pH 7.36, Bicarbonate Actual 32.0 H, POC Total CO2 34, Base Excess 7 H, O2 Saturation 93 L, O2 % 35, ABG pCO2 56.5 H, ABG pO2 72 L, Shar Test NA, Respiration Rate 24, O2 Delivery Device Bi / C PAP, EPAP 6, IPAP 12, Blood Gas Notified Whom HOSP 03/18/19 02:26: POC Glucose 94 03/18/19 05:15: WBC 15.4 H, RBC 3.45 L, Hgb 8.9 L, Hct 30.0 L, MCV 87.0, MCH 25.8 L, MCHC 29.7 L, RDW Std Deviation 57.4 H, RDW Coeff of Caren 18.6 H, Plt Count 114 L, MPV 11.8, Immature Gran % (Auto) 0.900, Neut % (Auto) 84.7 H, Lymph % (Auto) 6.4 L, Will % (Auto) 7.9, Eos % (Auto) 0.0, Baso % (Auto) 0.1, Absolute Neuts (auto) 13.1 H, Absolute Lymphs (auto) 0.98, Nucleated RBC % 0.3 03/18/19 05:15: Sodium 144, Potassium 3.7, Chloride 110 H, Carbon Dioxide 34.0 H, Anion Gap 0 L, BUN 16, Creatinine 1.00, Estim Creat Clear Calc 41.68, Est GFR (MDRD) Af Amer 73, Est GFR (MDRD) Non-Af 60, BUN/Creatinine Ratio 16.0, Glucose 142 H, Calcium 8.0 L 03/18/19 08:27: MRSA (PCR) Negative Current Medications Acetaminophen (Tylenol) 650 mg PO Q6H PRN PRN PRN Reason: Pain or Fever Last Admin: 03/17/19 09:35 Dose: 650 mg Documented by: Albuterol Sulfate (Ventolin Aerosols) 2.5 mg INHALATION Q2H PRN PRN PRN Reason: SOB &/OR WHEEZING Last Admin: 03/14/19 10:26 Dose: 2.5 mg Documented by: Albuterol/Ipratropium (Duoneb) 3 ml INHALATION Q6HWA.RT [facility] Last Admin: 03/18/19 07:34 Dose: 3 ml Documented by: Ergocalciferol (Vitamin D) 50,000 unit PO Q7D@1000 [facility] Last Admin: 03/16/19 15:52 Dose: 50,000 unit Documented by: Fluoxetine HCl (Prozac) 10 mg PO DAILY [facility] Last Admin: 03/18/19 10:26 Dose: 10 mg Documented by: Fluticasone Propionate (Flonase Nasal [place]) 2 spray NASAL DAILY [facility] Last Admin: 03/18/19 10:35 Dose: 2 spray Documented by: Furosemide (Lasix) 40 mg IV BID@1000,1800 [facility] Last Admin: 03/18/19 10:19 Dose: 40 mg Documented by: Gabapentin (Neurontin) 100 mg PO BID@1200,2200 [facility] Last Admin: 03/17/19 22:06 Dose: Not Given Documented by: Guaifenesin (Mucinex) 1,200 mg PO BID [facility] Last Admin: 03/18/19 10:27 Dose: 1,200 mg Documented by: Heparin Sodium (Porcine) (Heparin Na) 5,000 unit SC Q12 [facility] Last Admin: 03/18/19 10:33 Dose: 5,000 unit Documented by: Hydroxyzine Pamoate (Vistaril Pamoate Capsule) 50 mg PO TID PRN PRN PRN Reason: ANXIETY Sodium Chloride () 250 mls @ 15 mls/hr IV .[id number] PRN PRN Reason: Saline Flush Last Infusion: 03/17/19 23:24 Dose: 0 mls/hr Documented by: Sodium Chloride () 250 mls @ 15 mls/hr IV .[id number] PRN PRN Reason: Additional IVPB Infusion Piperacillin Sod/Tazobactam (Sod 3.375 gm/ Sodium Chloride) 50 mls @ 12.5 mls/hr IV Q8 [facility] Last Infusion: 03/18/19 06:00 Dose: 12.5 mls/hr Documented by: Vancomycin IV Pharmacy to Dose (1 ea/ Sodium Chloride) 500 mls @ 250 mls/hr IV X1 PRN; Protocol PRN Reason: Rx to Dose Vancomycin HCl 750 mg/ Sodium (Chloride) 265 mls @ 250 mls/hr IV Q24H [facility] Menthol (Bengay Vanishing Scent) 1 applic TOPICAL 4X/DAY PRN PRN PRN Reason: Pain Score 1-10/10 Last Admin: 03/16/19 22:09 Dose: 1 applic Documented by: Metoprolol Tartrate (Lopressor (Beta Jenna)) 12.5 mg PO BID [facility] Last Admin: 03/18/19 10:30 Dose: 12.5 mg Documented by: Mirtazapine (Remeron) 30 mg PO QHS [facility] Last Admin: 03/17/19 22:06 Dose: Not Given Documented by: Nutritional Formula (Lactose Free) (Ensure Enlive) 120 ml PO 4X/DAY [facility] Last Admin: 03/18/19 10:19 Dose: 120 ml Documented by: Ondansetron HCl (Zofran) 4 mg PO Q6H PRN PRN PRN Reason: NAUSEA Last Admin: 03/17/19 09:35 Dose: 4 mg Documented by: Pantoprazole Sodium (Protonix) 40 mg PO DAILY [facility] Last Admin: 03/18/19 10:26 Dose: 40 mg Documented by: Polysaccharide Iron Complex (Ferrex 150) 150 mg PO DAILYCM [facility] Last Admin: 03/18/19 10:30 Dose: 150 mg Documented by: Prednisone () 40 mg PO DAILY@0800 [facility] Stop: 03/22/19 08:01 Last Admin: 03/18/19 10:26 Dose: 40 mg Documented by: Sodium Chloride () 10 - 40 ml IV UD PRN PRN Reason: SALINE FLUSH Last Admin: 03/18/19 10:21 Dose: 10 ml Documented by: STROKE Vital Signs/Narrative: Vital Signs Temp Pulse Resp BP Pulse Ox 03/18/19 10:30 122 H 03/18/19 10:20 98.5 F 123 H 19 H 105/68 98 03/18/19 08:27 98.6 F 122 H 17 103/56 L 98 Medical Necessity - Tobacco Use Smoking Status: Current every day smoker Tobacco Use: Cigarettes Assessment/Plan All Active Problems Severe sepsis (Acute) COPD exacerbation (Acute) E-coli UTI (Acute) Septic shock (Acute) Acute UTI (Acute) Encephalopathy acute (Acute) GURVINDER (acute kidney injury) (Acute) Polysubstance abuse (Acute) UTI (urinary tract infection) (Acute) Hypokalemia due to inadequate potassium intake (Acute) Normocytic anemia (Acute) Generalized weakness (Acute) Contusion of knee, left (Acute) Contusion of knee, right (Acute) Delirium (Acute) CHF (congestive heart failure) (Acute) Fall (Acute) Opioid withdrawal (Acute) Barbiturate withdrawal (Acute) Acute UTI (Acute) 1. Acute severe sepsis 2/2 recurrent UTI, 2/2 straight cath for neurogenic bladder - bactrim for total 10 days. 2. GURVINDER suspect due to sepsis / dehydration -resolved. 3. Acute mixed respiratory failure 2/2 COPD exacerbation, component of systolic CHF and pulmonary htn - prednisone taper, aerosols, IS. Pt needs to be up out of bed, ambulating. Elevated BNP and CXR with pleural effusions. Doubt pna. Lasix started. Monitor overnight. No cough, no fever, WBC elevation 2/2 steroids. Continue Bipap qhs. ABG pCO2 still improved from prior. 4. Acute toxic vs metabolic encephalopathy -resolved. She should remain off of barbiturates and opiates. Conservative pain management. Refer to pain management as o/p. 5. Hx prior strokes -she has not been treated as an outpatient with aspirin or statin for unclear reasons. 6. Chronic anemia -iron deficiency. Replaced iron. s/p 1 unit prbc. referral to gen surgery as o/p for endoscopy. We need to obtain stool for occult blood. 7. Hx RSD - again, she would benefit from referral to pain management as o/p 8. Depression - continue remeron and prozac 9. Severe protein calorie malnutrition - dietary consult 10. Severe vit D deficiency - added supplementation DVT ppx: heparin DC planning: monitor breathing overnight. This patient was seen by Santos Trevizo PA-C under the supervision of Dr. Baires
--- NOTE | 2019-03-18 15:09 | CASEMGMT ---
JACKSON sent updates to [facility] and left a message for Ronit letting her know patient is now not ready today, but likely tomorrow. Mitra CLINE MSW
--- NOTE | 2019-03-18 15:34 | CASEMGMT ---
JACKSON received a call from Ronit at [facility] and she received pre-cert for patient. JACKSON let her know she is not ready today, but possibly tomorrow. Plan: [facility] when medically ready. Mitra CLINE MSW
--- NOTE | 2019-03-18 16:16 | CT_ITS ---
STUDY: CT CHEST WITHOUT CONTRAST REASON FOR EXAM: Female, 58 years old. SOB, CHF, COPD RADIATION DOSAGE (If Supplied By Facility): CTDIvol = ( 6.04 ) mGy, DLP = ( 176.70 ) mGycm TECHNIQUE: Transaxial imaging was performed without the administration of intravenous contrast material. Individualized dose optimization techniques were used for this CT. COMPARISON: None. FINDINGS: There is a small focus of scarring of the right upper lobe. There are mild diffuse emphysematous changes of the lungs. There is bilateral lower lobe atelectasis. There are small bilateral pleural effusions. The heart size is within normal limits. There is no pericardial effusion. Normal mediastinum. Normal hilar regions. There is attenuation of the pulmonary vasculature consistent with a history of COPD. Normal aorta arch and descending thoracic aorta. There are old compression deformities of the T6, T9, and T12 vertebrae. There is no demonstrated abnormality of the visualized upper abdomen. CT/Chest without Contrast IMPRESSION: 1. Small focus of scarring of the right upper lobe. 2. Diffuse emphysematous changes of the lungs. Attenuation of pulmonary vasculature consistent with history of COPD. 3. Bilateral lower lobe atelectasis. Small bilateral pleural effusions. 4. Old compression deformities of the T6, T9, and T12 vertebrae. Electronically Signed: Raman Galeas MD at 17:40 EST , Service support ,
[2019-03-18] MEDS: Mirtazapine 30 MG Tablet PO (21:49)
[2019-03-19] VITALS (11 sets, daily range): BP systolic 101–110; BP diastolic 55–62; PULSE 104–112; RESP 12–18; TEMP 36.5–37.6; O2SAT 90–97
[2019-03-19 06:54] LABS: Hematocrit 26.6 % (37-47); Hemoglobin 8.1 g/dL (12.0-15.0); POSITIVE COUNT YES
[2019-03-19 07:11] LABS: Anion Gap 1 (5-15); BUN 14 mg/dL (7-18); BUN/Creat Ratio 14.6 RATIO (10-20); Calcium,Total 7.8 mg/dL (8.5-10.1); Chloride 104 mmol/L (98-107); Creatinine, Serum 0.96 mg/dL (0.55-1.02); EST Glomerular Filtration Rate 63 mL/min (>60); Est Glom Filt Rate - Afr Amer 76 mL/min (>60); Estimated Creatinine Clearance 43.42 ml/min; Glucose 101 mg/dL (74-106); Potassium 3.4 mmol/L (3.5-5.1); Sodium Level 143 mmol/L (136-145)
[2019-03-19] MEDS: Ipratropium/Albuterol Sulfate 3 ML AMPUL.NEB INHALATION (07:25)
[2019-03-19] MEDS: predniSONE 20 MG Tablet 40 MG PO (08:26)
[2019-03-19] MEDS: Acetaminophen 325 MG Tablet 650 MG PO (08:26)
[2019-03-19] MEDS: Iron Polysaccharide Complex 150 MG CAPSULE PO (08:27)
[2019-03-19] MEDS: Smz/Tmp Ds Tablet 1 TABLET PO (08:27)
--- NOTE | 2019-03-19 09:17 | PN_ITS ---
Subjective: The patient was seen and examined at the bedside this morning. Events from the last 24 hours have been reviewed. The patient is currently afebrile, hemodynamically stable and maintaining appropriate oxygen saturations on 2 L/min via nasal cannula. Oxygenation status has improved in the setting of diuretic therapy and noninvasive positive pressure ventilatory support. Objective: The patient's most recent lab work, culture data and imaging studies have all been personally reviewed. - Physical Exam Vitals/I&O's: Vital Signs Temp Pulse Resp BP Pulse Ox 98.9 F 110 H 16 102/58 L 90 03/19/19 05:15 03/19/19 07:25 03/19/19 07:25 03/19/19 05:15 03/19/19 08:05 Oxygen Flow Rate (L/min) [ 1 AMBULATION with Oxygen] Oxygen Flow Rate (L/min) [ 0 AMBULATING on Room Air] Oxygen Flow Rate (L/min) [At 0 REST on Room Air] Oxygen Flow Rate (L/min) 2 Oxygen Delivery Method Nasal Cannula Weight: 96 lb 1.592 oz Body Mass Index (BMI) 18.1 Finger Stick Blood Glucose 99 Intake and Output for Last 24 Hours 03/17/19 03/18/19 03/19/19 23:59 23:59 23:59 Intake Total 630.5 / 630.5 1717.08 / 1717.08 300 / 300 Output Total 925 / 925 2350 / 2350 300 / 300 Balance -294.5 / -294.5 -632.92 / -632.92 0 / 0 General: Alert, No apparent distress HEENT: Atraumatic, Normocephalic Oral: No Gingival or Mucosal Lesions/ Ulcerations Neck: Supple, No Nodes, Trachea Midline Lungs: No rhonchi, No wheeze, No rales, Diminished Cardiovascular: Normal S1, Normal S2, No murmurs, Tachycardic Abdomen: Bowel Sounds Present, Soft, Non Tender Extremities: No clubbing, No cyanosis Skin: No breakdown Musculoskeletal: No Tenderness to Palpation of Joints or Extremities Lymphatic: No Cervical, Supraclavicular, or Inguinal Adenopathy Neurological: Neuro grossly intact Psych/Mental Status: Normal Affect, Appropriate Labs (Last 48 Hours) 03/17/19 03/18/19 03/18/19 21:17 02:26 05:15 WBC 15.4 H RBC 3.45 L Hgb 8.9 L Hct 30.0 L MCV 87.0 MCH 25.8 L MCHC 29.7 L RDW Std Deviation 57.4 H RDW Coeff of Caren 18.6 H Plt Count 114 L MPV 11.8 Immature Gran % (Auto) 0.900 Neut % (Auto) 84.7 H Lymph % (Auto) 6.4 L Victoria % (Auto) 7.9 Eos % (Auto) 0.0 Baso % (Auto) 0.1 Absolute Neuts (auto) 13.1 H Absolute Lymphs (auto) 0.98 Nucleated RBC % 0.3 Specimen Type ART Sample Site R Radial pH 7.36 Bicarbonate Actual 32.0 H POC Total CO2 34 Base Excess 7 H O2 Saturation 93 L O2 % 35 ABG pCO2 56.5 H ABG pO2 72 L Shar Test NA Respiration Rate 24 O2 Delivery Device Bi / C PAP EPAP 6 IPAP 12 Blood Gas Notified Whom HOSP MD Sodium Potassium Chloride Carbon Dioxide Anion Gap BUN Creatinine Estim Creat Clear Calc Est GFR (MDRD) Af Amer Est GFR (MDRD) Non-Af BUN/Creatinine Ratio Glucose Calcium MRSA (PCR) POC Glucose 94 03/18/19 03/18/19 03/19/19 05:15 08:27 06:45 WBC RBC Hgb 8.1 L Hct 26.6 L MCV MCH MCHC RDW Std Deviation RDW Coeff of Caren Plt Count MPV Immature Gran % (Auto) Neut % (Auto) Lymph % (Auto) Victoria % (Auto) Eos % (Auto) Baso % (Auto) Absolute Neuts (auto) Absolute Lymphs (auto) Nucleated RBC % Specimen Type Sample Site pH Bicarbonate Actual POC Total CO2 Base Excess O2 Saturation O2 % ABG pCO2 ABG pO2 Shar Test Respiration Rate O2 Delivery Device EPAP IPAP Blood Gas Notified Whom Sodium 144 Potassium 3.7 Chloride 110 H Carbon Dioxide 34.0 H Anion Gap 0 L BUN 16 Creatinine 1.00 Estim Creat Clear Calc 41.68 Est GFR (MDRD) Af Amer 73 Est GFR (MDRD) Non-Af 60 BUN/Creatinine Ratio 16.0 Glucose 142 H Calcium 8.0 L MRSA (PCR) Negative POC Glucose 03/19/19 06:45 WBC RBC Hgb Hct MCV MCH MCHC RDW Std Deviation RDW Coeff of Caren Plt Count MPV Immature Gran % (Auto) Neut % (Auto) Lymph % (Auto) Victoria % (Auto) Eos % (Auto) Baso % (Auto) Absolute Neuts (auto) Absolute Lymphs (auto) Nucleated RBC % Specimen Type Sample Site pH Bicarbonate Actual POC Total CO2 Base Excess O2 Saturation O2 % ABG pCO2 ABG pO2 Shar Test Respiration Rate O2 Delivery Device EPAP IPAP Blood Gas Notified Whom Sodium 143 Potassium 3.4 L Chloride 104 Carbon Dioxide 38.0 H Anion Gap 1 L BUN 14 Creatinine 0.96 Estim Creat Clear Calc 43.42 Est GFR (MDRD) Af Amer 76 Est GFR (MDRD) Non-Af 63 BUN/Creatinine Ratio 14.6 Glucose 101 Calcium 7.8 L MRSA (PCR) POC Glucose Microbiology 03/18/19 07:50 Mucosa - Nasopharyngeal Respiratory Panel (PCR) - Final 03/13/19 10:10 Blood Culture (Wb) - Anticubital Right Blood Culture - Final No growth in 5 days. 03/13/19 09:55 Blood Culture (Wb) - Right Wrist Blood Culture - Final No growth in 5 days. 03/18/19 10:40 Urine Catheter - Olson Streptococcus pneumoniae Antigen (M - Final Clinical Impression(s) from Imaging Studies Chest X-Ray 03/13/19 12:17 IMPRESSION: Hyperinflation. No acute abnormality is seen. Electronically Signed: Karan Cruz, at 12:41 EST , Service support , Chest X-Ray 03/17/19 20:40 IMPRESSION: Hazy right lower lobe infiltrate and small bibasilar pleural effusions, new in the interval. Electronically Signed: Raman Galeas MD at 21:31 EST , Service support , Chest CT 03/18/19 16:16 IMPRESSION: 1. Small focus of scarring of the right upper lobe. 2. Diffuse emphysematous changes of the lungs. Attenuation of pulmonary vasculature consistent with history of COPD. 3. Bilateral lower lobe atelectasis. Small bilateral pleural effusions. 4. Old compression deformities of the T6, T9, and T12 vertebrae. Electronically Signed: Raman Galeas MD at 17:40 EST , Service support , Current Medications Acetaminophen (Tylenol) 650 mg PO Q6H PRN PRN PRN Reason: Pain or Fever Last Admin: 03/19/19 08:26 Dose: 650 mg Documented by: Albuterol Sulfate (Ventolin Aerosols) 2.5 mg INHALATION Q2H PRN PRN PRN Reason: SOB &/OR WHEEZING Last Admin: 03/14/19 10:26 Dose: 2.5 mg Documented by: Albuterol/Ipratropium (Duoneb) 3 ml INHALATION Q6HWA.RT [facility] Last Admin: 03/19/19 07:25 Dose: 3 ml Documented by: Ergocalciferol (Vitamin D) 50,000 unit PO Q7D@1000 [facility] Last Admin: 03/16/19 15:52 Dose: 50,000 unit Documented by: Fluoxetine HCl (Prozac) 10 mg PO DAILY [facility] Last Admin: 03/18/19 10:26 Dose: 10 mg Documented by: Fluticasone Propionate (Flonase Nasal [place]) 2 spray NASAL DAILY [facility] Last Admin: 03/18/19 10:35 Dose: 2 spray Documented by: Furosemide (Lasix) 40 mg IV BID@1000,1800 [facility] Last Admin: 03/18/19 19:09 Dose: 40 mg Documented by: Gabapentin (Neurontin) 100 mg PO BID@1200,2200 [facility] Last Admin: 03/18/19 21:49 Dose: 100 mg Documented by: Guaifenesin (Mucinex) 1,200 mg PO BID [facility] Last Admin: 03/18/19 21:48 Dose: 1,200 mg Documented by: Heparin Sodium (Porcine) (Heparin Na) 5,000 unit SC Q12 [facility] Last Admin: 03/18/19 21:48 Dose: 5,000 unit Documented by: Hydroxyzine Pamoate (Vistaril Pamoate Capsule) 50 mg PO TID PRN PRN PRN Reason: ANXIETY Sodium Chloride () 250 mls @ 15 mls/hr IV .[id number] PRN PRN Reason: Saline Flush Last Infusion: 03/17/19 23:24 Dose: 0 mls/hr Documented by: Sodium Chloride () 250 mls @ 15 mls/hr IV .[id number] PRN PRN Reason: Additional IVPB Infusion Menthol (Bengay Vanishing Scent) 1 applic TOPICAL 4X/DAY PRN PRN PRN Reason: Pain Score 1-10/10 Last Admin: 03/16/19 22:09 Dose: 1 applic Documented by: Metoprolol Tartrate (Lopressor (Beta Jenna)) 12.5 mg PO BID [facility] Last Admin: 03/18/19 21:48 Dose: 12.5 mg Documented by: Mirtazapine (Remeron) 30 mg PO QHS [facility] Last Admin: 03/18/19 21:49 Dose: 30 mg Documented by: Nutritional Formula (Lactose Free) (Ensure Enlive) 120 ml PO 4X/DAY [facility] Last Admin: 03/18/19 21:48 Dose: 120 ml Documented by: Ondansetron HCl (Zofran) 4 mg PO Q6H PRN PRN PRN Reason: NAUSEA Last Admin: 03/17/19 09:35 Dose: 4 mg Documented by: Pantoprazole Sodium (Protonix) 40 mg PO DAILY [facility] Last Admin: 03/18/19 10:26 Dose: 40 mg Documented by: Polysaccharide Iron Complex ([facility]rex 150) [facility] Last Admin: 03/19/19 08:27 Dose: 150 mg Documented by: Prednisone () 40 mg PO DAILY@0800 [facility] Stop: 03/22/19 08:01 Last Admin: 03/19/19 08:26 Dose: 40 mg Documented by: Sodium Chloride () 10 - 40 ml IV UD PRN PRN Reason: SALINE FLUSH Last Admin: 03/18/19 19:09 Dose: 20 ml Documented by: Trimethoprim/Sulfamethoxazole (Bactrim Ds) [facility] Last Admin: 03/19/19 08:27 Dose: 1 tablet Documented by: Medical Necessity - Tobacco Use Smoking Status: Current every day smoker Tobacco Use: Cigarettes Assessment/Plan All Active Problems Severe sepsis (Acute) COPD exacerbation (Acute) E-coli UTI (Acute) Septic shock (Acute) Acute UTI (Acute) Encephalopathy acute (Acute) GURVINDER (acute kidney injury) (Acute) Polysubstance abuse (Acute) UTI (urinary tract infection) (Acute) Hypokalemia due to inadequate potassium intake (Acute) Normocytic anemia (Acute) Generalized weakness (Acute) Contusion of knee, left (Acute) Contusion of knee, right (Acute) Delirium (Acute) CHF (congestive heart failure) (Acute) Fall (Acute) Opioid withdrawal (Acute) Barbiturate withdrawal (Acute) Acute UTI (Acute) RECOMMENDATIONS: 1. Wean supplemental oxygen to maintain saturations at or above 90%. 2. Continue scheduled bronchodilators. 3. Continue prednisone 40 mg daily with plans to complete a 5-day burst. 4. Transfuse for hemoglobin less than 7 g/dL. 5. Continue antibiotics for E. coli UTI 6. Outpatient pulmonary work-up for COPD versus asthma. 7. Walking oximetry prior to discharge. IMPRESSIONS: 1. Acute combined respiratory failure The patient does have a reported history of COPD, but has never had pulmonary function test for confirmation. Patient is currently on steroids and bronchodilators. Patient will need pulmonary function test as an outpatient for quantification and clarification of lung function. Unclear if this is truly a COPD exacerbation or advanced COPD with failure to compensate for increased metabolic demand associated with ESBL E. coli UTI. Continue to use BiPAP rescue as necessary. I do not see that the patient needs antimicrobial therapy for a pneumonia. 2. Severe sepsis secondary to ESBL E. coli Patient is growing greater than 100,000 colonies of ESBL E. coli from her urine. Consider infectious disease consult. Patient remains hemodynamically stable at this time. 3. Reflex sympathetic dystrophy/nicotine abuse/chronic pain syndrome/history of polysubstance abuse/reported pulmonary hypertension Complicates care, management, recovery and prognosis. Likely okay to continue with baseline medications from my perspective. Defer to hospitalist. This note was generated with [employer] dictation software. It may contain incorrect words, spelling, and punctuation that were not noted in checking the note before signing. Code Visit Inpatient E&M: 24319 Subs Hosp L2
--- NOTE | 2019-03-19 09:36 | CASEMGMT ---
Patient will likely be discharged to [facility] today. She will need bipap at night. JACKSON called and left a message letting Ronit know about this and settings were faxed. SW also called [facility] and arranged for patient to get picked up at 1p via van. Await orders. Mitra CLINE MSW
[2019-03-19] MEDS: Fluticasone 0.05% 1 SPRAY NASAL.SRY 2 SPRAY NASAL (10:25)
[2019-03-19] MEDS: Furosemide 40 MG/4 ML Vial IV (10:26)
[2019-03-19] MEDS: Pantoprazole Sodium 40 MG Tablet PO (10:26)
[2019-03-19] MEDS: Metoprolol Tartrate 25 MG Tablet 12.5 MG PO (10:26)
[2019-03-19] MEDS: Heparin Injection (Vial) 5,000 UNIT/ML VIAL 5000 UNIT SC (10:26)
[2019-03-19] MEDS: guaiFENesin 1,200 MG Tablet 1200 MG PO (10:26)
[2019-03-19] MEDS: FLUoxetine 10 MG Capsule PO (10:27)
[2019-03-19] MEDS: Gabapentin 100 MG Capsule PO (10:28)
--- NOTE | 2019-03-19 10:42 | CASEMGMT ---
Faxed orders to [facility]. Completed convalescent on HENS. Notified RN, patient, CHARGE HISTOTECHNOLOGIST, Ronit at [facility], and patient's son of d/c and sweet pickled fruit maker time of 1p. Plan: d/c to [facility] under skilled level of care on a convalescent stay. [facility] transported via van. Mitra CLINE MSW
--- NOTE | 2019-03-19 10:55 | DS.PCM_ITS ---
Discharge Date and Diagnosis Date of Admission: 03/13/19 Date of Discharge: 03/19/19 - Primary Discharge Diagnosis Active and Suspected Problems 1. Acute severe sepsis secondary to acute complicated ESBL E. coli UTI secondary to neurogenic bladder requiring straight catheterization 2. Acute combined respiratory failure secondary to COPD exacerbation versus asthma and mild systolic CHF 3. GURVINDER 4. Acute on chronic normocytic anemia 5. Abnormal thyroid studies 6. Acute metabolic encephalopathy, likely secondary to #1/#2 7. Chronic pain syndrome with RSD with narcotic seeking behavior 8. Vitamin D deficiency 9. Severe protein calorie malnutrition 10. Anxiety and depression 11. Tobacco abuse 12. GERD - Secondary Discharge Diagnosis Chronic Problems Nicotine abuse (Chronic) Iron deficiency anemia (Chronic) RSD lower limb (Chronic) Chronic abdominal pain (Chronic) COPD (chronic obstructive pulmonary disease) (Chronic) Severe protein-calorie malnutrition (Chronic) Debility (Chronic) Anemia (Chronic) Pulmonary HTN (Chronic) Vitamin D deficiency (Chronic) Tobacco user (Chronic) Reflex sympathetic dystrophy (Chronic) Hospital Course and Treatment Imaging Results: Diagnostic Data Chest X-Ray 03/17/19 20:40 IMPRESSION: Hazy right lower lobe infiltrate and small bibasilar pleural effusions, new in the interval. Electronically Signed: Raman Galeas MD at 21:31 EST , Service support , Chest CT 03/18/19 16:16 IMPRESSION: 1. Small focus of scarring of the right upper lobe. 2. Diffuse emphysematous changes of the lungs. Attenuation of pulmonary vasculature consistent with history of COPD. 3. Bilateral lower lobe atelectasis. Small bilateral pleural effusions. 4. Old compression deformities of the T6, T9, and T12 vertebrae. Electronically Signed: Raman Galeas MD at 17:40 EST , Service support , Dr. Yeager/Dr. Escobedo- Pulmonary medicine Operations: None Procedures: None Summary of Care Provided: The patient is a 58 year old F admitted 03/13/2019 due to confusion. 1. Acute severe sepsis secondary to acute complicated ESBL E. coli UTI secondary to neurogenic bladder requiring straight catheterization-continue Bactrim for 10 days at discharge. 2. Acute combined respiratory failure secondary to COPD exacerbation versus asthma and mild systolic CHF-pulmonary medicine following during admission. Continue supplement oxygen to maintain O2 at or above 90%. Prednisone taper at discharge. Follow-up with pulmonary medicine for outpatient work-up for COPD versus asthma at discharge. Chest CT completed which showed small bilateral pleural effusions. Patient did receive IV Lasix with improvement in breathing. Echocardiogram January 2018 demonstrated an EF of 40 to 45%, stage I diastolic dysfunction. 3. GURVINDER-secondary to dehydration, resolved. 4. Acute on chronic normocytic anemia-status post 1 unit PRBC. Continue iron supplementation. Recommend outpatient follow-up for endoscopy. 5. Abnormal thyroid studies-questionable primary hypothyroidism. TSH 0.29. Free T4 1.49. T3 1.9. Recommend repeat thyroid studies in 4 to 6 weeks following resolution of acute illness. 6. Acute metabolic encephalopathy, likely secondary to #1/#2-resolved. 7. Chronic pain syndrome with RSD with narcotic seeking behavior-avoid narcotics. 8. Vitamin D deficiency-continue supplementation. 9. Severe protein calorie malnutrition-dietitian consult during admission. Recommend continued Ensure supplementation. 10. Anxiety and depression-continue Remeron, Prozac regimen. 11. Tobacco abuse-encourage cessation. 12. GERD-continue PPI. General: Alert, Oriented x3, Cooperative HEENT: Atraumatic, PERRLA, EOMI, Normocephalic Neck: Supple, No JVD, Negative Carotid Bruits Lungs: Diminished, mild scattered expiratory wheezes Cardiovascular: Regular rate, No murmurs, Tachycardic Abdomen: Bowel Sounds Present, Soft, Non Tender Extremities: No edema, Capillary Refill Less than 3 Seconds Skin: No rashes, No breakdown Musculoskeletal: No Tenderness to Palpation of Joints or Extremities Neurological: Cranial nerves II-XII grossly intact Psych/Mental Status: Normal Affect, Appropriate Patient seen and examined prior to discharge. Physical assessment as noted above. Patient is stable for discharge with follow up recommendations as noted above. This patient was seen by JONES Saleh under the supervision of Dr. Baires. - Physical Exam Vitals/I&O's: Vital Signs Temp Pulse Resp BP Pulse Ox 97.7 F L 105 H 18 101/55 L 93 03/19/19 10:22 03/19/19 10:26 03/19/19 10:22 03/19/19 10:22 03/19/19 10:22 Oxygen Flow Rate (L/min) [ 1 AMBULATION with Oxygen] Oxygen Flow Rate (L/min) [ 0 AMBULATING on Room Air] Oxygen Flow Rate (L/min) [At 0 REST on Room Air] Oxygen Flow Rate (L/min) 3 Oxygen Delivery Method Nasal Cannula Weight: 96 lb 1.592 oz Body Mass Index (BMI) 18.1 Finger Stick Blood Glucose 99 Intake and Output for Last 24 Hours 03/17/19 03/18/19 03/19/19 23:59 23:59 23:59 Intake Total 630.5 / 630.5 1717.08 / 1717.08 300 / 300 Output Total 925 / 925 2350 / 2350 300 / 300 Balance -294.5 / -294.5 -632.92 / -632.92 0 / 0 Microbiology Past 72 Hours 03/18/19 07:50 Mucosa - Nasopharyngeal Respiratory Panel (PCR) - Final 03/13/19 10:10 Blood Culture (Wb) - Anticubital Right Blood Culture - Final No growth in 5 days. 03/13/19 09:55 Blood Culture (Wb) - Right Wrist Blood Culture - Final No growth in 5 days. 03/18/19 10:40 Urine Catheter - Olson Streptococcus pneumoniae Antigen (M - Final 03/13/19 10:45 Urine, Catheterized Urine Culture - Final Presumptive E. coli Laboratory Results 03/18/19 08:27: MRSA (PCR) Negative 03/19/19 06:45: Hgb 8.1 L, Hct 26.6 L 03/19/19 06:45: Sodium 143, Potassium 3.4 L, Chloride 104, Carbon Dioxide 38.0 H , Anion Gap 1 L, BUN 14, Creatinine 0.96, Estim Creat Clear Calc 43.42, Est GFR (MDRD) Af Amer 76, Est GFR (MDRD) Non-Af 63, BUN/Creatinine Ratio 14.6, Glucose 101, Calcium 7.8 L Current Medications Acetaminophen (Tylenol) 650 mg PO Q6H PRN PRN PRN Reason: Pain or Fever Last Admin: 03/19/19 08:26 Dose: 650 mg Documented by: Albuterol Sulfate (Ventolin Aerosols) 2.5 mg INHALATION Q2H PRN PRN PRN Reason: SOB &/OR WHEEZING Last Admin: 03/14/19 10:26 Dose: 2.5 mg Documented by: Albuterol/Ipratropium (Duoneb) 3 ml INHALATION Q6HWA.RT [facility] Last Admin: 03/19/19 07:25 Dose: 3 ml Documented by: Ergocalciferol (Vitamin D) 50,000 unit PO Q7D@1000 [facility] Last Admin: 03/16/19 15:52 Dose: 50,000 unit Documented by: Fluoxetine HCl (Prozac) 10 mg PO DAILY [facility] Last Admin: 03/19/19 10:27 Dose: 10 mg Documented by: Fluticasone Propionate (Flonase Nasal Cameron) 2 spray NASAL DAILY [facility] Last Admin: 03/19/19 10:25 Dose: 2 spray Documented by: Furosemide (Lasix) 40 mg IV BID@1000,1800 [facility] Last Admin: 03/19/19 10:26 Dose: 40 mg Documented by: Gabapentin (Neurontin) 100 mg PO BID@1200,2200 [facility] Last Admin: 03/19/19 10:28 Dose: 100 mg Documented by: Guaifenesin (Mucinex) 1,200 mg PO BID [facility] Last Admin: 03/19/19 10:26 Dose: 1,200 mg Documented by: Heparin Sodium (Porcine) (Heparin Na) 5,000 unit SC Q12 [facility] Last Admin: 03/19/19 10:26 Dose: 5,000 unit Documented by: Hydroxyzine Pamoate (Vistaril Pamoate Capsule) 50 mg PO TID PRN PRN PRN Reason: ANXIETY Sodium Chloride () 250 mls @ 15 mls/hr IV .[id number] PRN PRN Reason: Saline Flush Last Infusion: 03/17/19 23:24 Dose: 0 mls/hr Documented by: Sodium Chloride () 250 mls @ 15 mls/hr IV .[id number] PRN PRN Reason: Additional IVPB Infusion Menthol (Bengay Vanishing Scent) 1 applic TOPICAL 4X/DAY PRN PRN PRN Reason: Pain Score 1-10/10 Last Admin: 03/16/19 22:09 Dose: 1 applic Documented by: Metoprolol Tartrate (Lopressor (Beta Jenna)) 12.5 mg PO BID [facility] Last Admin: 03/19/19 10:26 Dose: 12.5 mg Documented by: Mirtazapine (Remeron) 30 mg PO QHS [facility] Last Admin: 03/18/19 21:49 Dose: 30 mg Documented by: Nutritional Formula (Lactose Free) (Ensure Enlive) 120 ml PO 4X/DAY [facility] Last Admin: 03/19/19 10:25 Dose: 120 ml Documented by: Ondansetron HCl (Zofran) 4 mg PO Q6H PRN PRN PRN Reason: NAUSEA Last Admin: 03/17/19 09:35 Dose: 4 mg Documented by: Pantoprazole Sodium (Protonix) 40 mg PO DAILY [facility] Last Admin: 03/19/19 10:26 Dose: 40 mg Documented by: Pol[facility]accharide [facility] Last Admin: 03/19/19 08:27 Dose: 150 mg Documented by: Prednisone () 40 mg PO DAILY@0800 [facility] Stop: 03/22/19 08:01 Last Admin: 03/19/19 08:26 Dose: 40 mg Documented by: Sodium Chloride () 10 - 40 ml IV UD PRN PRN Reason: SALINE FLUSH Last Admin: 03/18/19 19:09 Dose: 20 ml Documented by: Trimethoprim/[facility]ulfameth[facility]s) [facility] Last Admin: 03/19/19 08:27 Dose: 1 tablet Documented by: Discharge Diet: Low fat/ Low Cholesterol, 2000 mg Sodium Diet Discharge Activity: Return to Normal Activity Home Medications: Medications to take at Discharge Fluoxetine [Prozac] 10 mg PO DAILY 05/01/18 Fluticasone 0.05% [Flonase Nasal Cameron] 2 spray NASAL DAILY 05/01/18 Metoprolol Tartrate 12.5 mg PO BID 05/01/18 Cetirizine HCl/Pseudoephedrine [Zyrtec-D Tablet] 1 - 2 ea PO DAILY PRN 03/13/19 Dicyclomine HCl [Bentyl] 10 mg PO ACHS PRN 03/13/19 Acetaminophen [Tylenol Tablet] 650 mg PO Q6H PRN PRN tab 03/17/19 Albuterol Aerosols [Ventolin Aerosols] 2.5 mg INHALATION Q6H PRN PRN vial.neb. 03/17/19 Ensure Enlive 120 ml PO 4X/DAY liquid 03/17/19 Ergocalciferol [Vitamin D] 50,000 unit PO Q7D@1000 cap 03/17/19 Ipratropium/Albuterol Sulfate [Duoneb] 3 ml INHALATION Q6HWA.RT ampul.neb 03/17/19 Iron Polysaccharide Complex [Ferrex 150] 150 mg PO DAILYCM cap 03/17/19 Loperamide [Imodium] 2 mg PO BID PRN PRN #0 03/17/19 Menthol [Bengay Vanishing Scent] 1 applic TOPICAL 4X/DAY PRN PRN tube 03/17/19 Mirtazapine [Remeron] 30 mg PO QHS tab 03/17/19 Ondansetron [Zofran] 4 mg PO Q6H PRN PRN tab 03/17/19 Pantoprazole Sodium [Protonix] 40 mg PO DAILY tab 03/17/19 Prednisone 10 mg PO UD #30 tab 03/17/19 hydrOXYzine pamoate capsule [Vistaril pamoate capsule] 25 mg PO TID PRN PRN cap 03/17/19 Smz/Tmp Ds [Bactrim Ds] 1 tab PO BIDCM tab 03/19/19 Following Prescrptions Were Given to Patient: Prednisone 10 mg PO UD #30 tab Primary Care Physician: Florencio Stafford MD [Primary Care Provider] - Please follow up with your Primary Care Physician in: 1-2 weeks Please Follow Up With: Eurm Carmichael MD When: 3-4 weeks Please Follow Up With: Joe Scott MD - Re: Anemia When: 3-4 weeks Please Follow Up With: Sai Escobedo DO When: 3-4 weeks Disposition: Group Home facility Minutes spent on discharge:: 35 Patient Condition:: Stable Medical Necessity - Tobacco Use Smoking Status: Current every day smoker Tobacco Use: Cigarettes Meaningful Use Info Meaningful Use Diagnoses (Choose all that apply): None applicable
== END 2019-03-19 13:29 | disposition skilled nursing facility (03) | DRG 466 ==
LOC: ED 11:24 → MS3 15:44 → PCU 03-14 15:24
PROVIDERS: Hospitalist; Internal Medicine Critical Care Medicine; Physician Assistant; Admitting Provider Internal Medicine; Emergency Provider Emergency Medicine; PCP Family Medicine; Visit Provider Family Medicine
DX: T83.518A Infection and inflammatory reaction due to other urinary catheter, initial encounter (principal); R65.20 Severe sepsis without septic shock; G93.41 Metabolic encephalopathy; N17.9 Acute kidney failure, unspecified; N31.9 Neuromuscular dysfunction of bladder, unspecified; E43 Unspecified severe protein-calorie malnutrition; Z68.1 Body mass index [BMI] 19.9 or less, adult; J44.1 Chronic obstructive pulmonary disease with (acute) exacerbation; J96.02 Acute respiratory failure with hypercapnia; J96.01 Acute respiratory failure with hypoxia; D64.9 Anemia, unspecified; Z23 Encounter for immunization; G89.4 Chronic pain syndrome; E55.9 Vitamin D deficiency, unspecified; F41.9 Anxiety disorder, unspecified; F32.9 Major depressive disorder, single episode, unspecified; K21.9 Gastro-esophageal reflux disease without esophagitis; F17.210 Nicotine dependence, cigarettes, uncomplicated; N39.0 Urinary tract infection, site not specified; A41.51 Sepsis due to Escherichia coli [E. coli]; Z16.12 Extended spectrum beta lactamase (ESBL) resistance; E87.6 Hypokalemia; E87.2 Acidosis; E86.0 Dehydration; Z86.73 Personal history of transient ischemic attack (TIA), and cerebral infarction without residual deficits; G90.50 Complex regional pain syndrome I, unspecified; I50.20 Unspecified systolic (congestive) heart failure
CPT/HCPCS: 36415; 36600; 71045; 71250; 80048; 80053; 80307; 81001; 82140; 82306; 82607; 82728; 82747; 82803; 82962; 83540; 83550; 83605; 83735; 83880; 84100; 84439; 84443; 84481; 85014; 85018; 85025; 85610; 85730; 86376; 86800; 86850; 86900; 86901; 86920; 86922; 87040; 87086; 87088; 87186; 87449; 87633; 87641; 93005; 94002; 94003; 94640; 97162; 97165; 97530; 97535; 97802; 97803; 99285; 99406; J1756; J2185; J7030; J7040; J7050; P9016; P9612; 90686; A4216; J1940

== ENCOUNTER → 2019-05-14 13:10 | Outpatient (CLI) | payer MEDICAID, SELFPAY ==
[2019-04-14 08:31] VITALS: BMI 18.1
--- NOTE | 2019-05-14 13:13 | RAD_ITS ---
STUDY: X-RAY - CERVICAL SPINE REASON FOR EXAM: Female, 58 years old. Pain in cervical spine for some time now getting worse. No known recent injury. TECHNIQUE: 3 view(s) of the cervical spine were obtained. COMPARISON: None FINDINGS: Normal anterior atlantoaxial articulation. Normal odontoid process. Straightening of the cervical spine and a mild anterolisthesis of C4 secondary to facet arthrosis. Normal vertebral bodies and endplates. Mild degenerative disc changes. Mild uncovertebral arthrosis. Bilateral facet arthrosis most notably at C3, C4 and C5, right greater than left. Bilateral carotid artery calcifications. RAD/Cerv Spine 2 or 3 Views IMPRESSION: Straightening of the cervical spine and a mild anterolisthesis of C4 on C5 secondary to facet arthrosis. Negative for fracture, osteolytic or blastic bone lesion. Disc narrowing is mild at most cervical levels. Facet arthrosis and hypertrophy is significant and maximal at C3, C4 and C5, right greater than left. Electronically Signed: Carmella Gibson MD at 17:47 EDT , Service support ,
--- NOTE | 2019-05-14 13:14 | RAD_ITS ---
STUDY: X-RAY - LUMBAR SPINE REASON FOR EXAM: Female, 58 years old. No known recent injury. Pain in lower back for some time now getting worse. TECHNIQUE: 3 view(s) of the lumbar spine were obtained. COMPARISON: None FINDINGS: Normal lumbar lordosis. Slight levocurvature. There is a normal alignment of the vertebrae. Demineralized osseous structures are without fracture, osteolytic or blastic bone lesion. No substantial disc narrowing. Atherosclerotic vascular calcifications. Status post tubal ligation. RAD/Lumbar Spine 2 or 3 Views IMPRESSION: Slight levocurvature with otherwise normal alignment. Negative for osteolytic or blastic bone lesion. No substantial degenerative disc changes. Electronically Signed: Carmella Gibson MD at 17:49 EDT , Service support ,
== END ==
PROVIDERS: PCP Family Medicine; Referring Provider Anesthesiology Pain Medicine; Visit Provider Anesthesiology Pain Medicine
DX: M54.2 Cervicalgia (principal); M54.9 Dorsalgia, unspecified
CPT/HCPCS: 72040; 72100

== ENCOUNTER → 2020-10-26 08:04 | Outpatient (REF) | payer MEDICAID, SELFPAY ==
[2020-10-26 08:04] LABS: Bacteria 0 SEEN /hpf (None Seen); Mucous, Urine 0 SEEN /hpf (<or=2+); Red Blood Cells-Urine 0 SEEN /hpf (0-5); Squamous Epithelial Cells - UA 0 SEEN /hpf (5-10)
[2020-10-26 08:24] LABS: Glucose, Dipstick Normal (Normal); Ketone-Dipstick Negative (Negative); Leukocyte Esterase-Dipstick 500 /ul (Negative); Nitrite-Dipstick Negative (Negative); Occult Blood-Urine 250 /ul (Negative); Protein-Dipstick 30 mg/dl (Negative); Urine Bilirubin Dipstick Negative (Negative); Urine Clarity Sl. Cloudy (Clear); Urine Urobilinogen Normal (Normal); Urine pH 6.5 (5.0 - 8.0)
[2020-10-26 08:26] LABS: Color, Urine SEE COMMENT BELOW (Yellow)
[2020-10-26 08:29] LABS: White Blood Cells >100 SEEN /hpf (0-5)
== END ==
LOC: OLS.SW500 08:04
PROVIDERS: PCP Family Medicine; Visit Provider Family Medicine
DX: R30.0 Dysuria (principal); R33.9 Retention of urine, unspecified
CPT/HCPCS: 81001; 87077; 87086; 87088; 87186

== ENCOUNTER → 2020-11-22 04:00 | Outpatient (REF) | payer MEDICAID, SELFPAY ==
[2020-11-22 07:14] LABS: Hematocrit 38.6 % (37-47); Hemoglobin 11.9 g/dL (12.0-15.0); Mean Corp Hgb Conc 30.8 g/dL (32-36); Mean Corpuscular Hgb 32.1 pg (27.0-32.0); Mean Platelet Vol. 10.5 fl (6.2-12.0); Platelet Count 223 K/mm3 (150-450); RBC Distribution Width CV 12.2 % (11.6-14.6); Red Blood Count 3.71 M/mm3 (4.2-5.4); White Blood Count 6.5 K/mm3 (4.4-11.0)
[2020-11-22 07:27] LABS: ALB/GLOB Ratio 0.7 RATIO (0.9-2.4); AST(SGOT) 12 U/L (15-37); Alanine Aminotransfer ALT/SGPT 18 U/L (13-56); Albumin, Serum 3.1 g/dL (3.2-5.0); Alkaline Phosphatase 203 U/L (45-117); Anion Gap 3 (5-15); BUN 17 mg/dL (7-18); BUN/Creat Ratio 18.8 RATIO (10-20); Calcium,Total 8.9 mg/dL (8.5-10.1); Chloride 104 mmol/L (98-107); EST Glomerular Filtration Rate 67 mL/min (>60); Est Glom Filt Rate - Afr Amer 82 mL/min (>60); Globulin 4.5 g/dL (2.2-4.2); Glucose 106 mg/dL (74-106); Protein, Total 7.6 g/dL (6.4-8.2); Sodium Level 140 mmol/L (136-145)
[2020-11-22 08:02] LABS: Vitamin D,25 Hydroxy 30.6 ng/mL
== END ==
LOC: OLS.SW500 04:00
PROVIDERS: PCP Family Medicine; Visit Provider Family Medicine
DX: J44.9 Chronic obstructive pulmonary disease, unspecified (principal); R53.83 Other fatigue; E55.9 Vitamin D deficiency, unspecified
CPT/HCPCS: 36415; 80053; 82306; 85027; 87070; 87205

== ENCOUNTER → 2021-05-22 | Outpatient (REF) | payer MEDICAID, SELFPAY ==
[2021-05-22 07:32] LABS: Hematocrit 37.3 % (37-47); Hemoglobin 11.7 g/dL (12.0-15.0); Mean Corp Hgb Conc 31.4 g/dL (32-36); Mean Corpuscular Hgb 32.9 pg (27.0-32.0); Mean Corpuscular Volume 104.8 fL (81-99); Mean Platelet Vol. 10.6 fl (6.2-12.0); Platelet Count 221 K/mm3 (150-450); RBC Distribution Width CV 12.7 % (11.6-14.6); RBC Distribution Width SD 49.4 fl (35.1-43.9); Red Blood Count 3.56 M/mm3 (4.2-5.4); White Blood Count 6.1 K/mm3 (4.4-11.0)
[2021-05-22 07:48] LABS: ALB/GLOB Ratio 0.9 RATIO (0.9-2.4); AST(SGOT) 13 U/L (15-37); Alanine Aminotransfer ALT/SGPT 20 U/L (13-56); Albumin, Serum 3.5 g/dL (3.2-5.0); Alkaline Phosphatase 187 U/L (45-117); Anion Gap 3 (5-15); BUN 19 mg/dL (7-18); BUN/Creat Ratio 19.4 RATIO (10-20); Calcium,Total 8.5 mg/dL (8.5-10.1); Chloride 102 mmol/L (98-107); Creatinine, Serum 0.98 mg/dL (0.55-1.02); EST Glomerular Filtration Rate 61 mL/min (>60); Est Glom Filt Rate - Afr Amer 74 mL/min (>60); Glucose 116 mg/dL (74-106); Potassium 4.5 mmol/L (3.5-5.1); Protein, Total 7.5 g/dL (6.4-8.2); Sodium Level 139 mmol/L (136-145)
[2021-05-22 08:47] LABS: Vitamin D,25 Hydroxy 22.6 ng/mL
== END | disposition home or self-care (01) ==
LOC: OLS.SW500 04:00
PROVIDERS: PCP Family Medicine; Visit Provider Family Medicine
DX: R53.83 Other fatigue (principal); J44.9 Chronic obstructive pulmonary disease, unspecified; E55.9 Vitamin D deficiency, unspecified
CPT/HCPCS: 36415; 80053; 82306; 85027

== ENCOUNTER → 2021-08-22 | Outpatient (REF) | payer MEDICAID, SELFPAY ==
[2021-08-22 07:21] LABS: Bacteria 0 SEEN /hpf (None Seen); Mucous, Urine 0 SEEN /hpf (<or=2+)
[2021-08-22 08:39] LABS: Glucose, Dipstick Normal (Normal); Ketone-Dipstick 5 mg/dl (Negative); Leukocyte Esterase-Dipstick 25 /ul (Negative); Nitrite-Dipstick Negative (Negative); Occult Blood-Urine 25 /ul (Negative); Protein-Dipstick 100 mg/dl (Negative); Specific Gravity, Urine 1.015 (1.002-1.030); Urine Bilirubin Dipstick Negative (Negative); Urine Clarity Clear (Clear); Urine Urobilinogen Normal (Normal); Urine pH 6.5 (5.0 - 8.0)
[2021-08-22 09:05] LABS: Color, Urine SEE COMMENT BELOW (Yellow)
[2021-08-22 09:32] LABS: Red Blood Cells-Urine 0-5 SEEN /hpf (0-5); Squamous Epithelial Cells - UA 0-5 SEEN /hpf (5-10); White Blood Cells 0-5 SEEN /hpf (0-5)
== END | disposition home or self-care (01) ==
LOC: OLS.SW500 07:20
PROVIDERS: PCP Family Medicine; Visit Provider Family Medicine
DX: N39.0 Urinary tract infection, site not specified (principal)
CPT/HCPCS: 81001; 87086

== ENCOUNTER → 2021-08-24 05:00 | Outpatient (REF) | payer MEDICAID, SELFPAY ==
[2021-08-24 16:00] LABS: Hematocrit 35.8 % (37-47); Hemoglobin 10.4 g/dL (12.0-15.0); Mean Corp Hgb Conc 29.1 g/dL (32-36); Mean Corpuscular Hgb 32.2 pg (27.0-32.0); Mean Corpuscular Volume 110.8 fL (81-99); Mean Platelet Vol. 10.8 fl (6.2-12.0); Platelet Count 183 K/mm3 (150-450); RBC Distribution Width CV 13.1 % (11.6-14.6); RBC Distribution Width SD 53.1 fl (35.1-43.9); Red Blood Count 3.23 M/mm3 (4.2-5.4); White Blood Count 4.7 K/mm3 (4.4-11.0)
[2021-08-24 16:17] LABS: ALB/GLOB Ratio 0.7 RATIO (0.9-2.4); AST(SGOT) 11 U/L (15-37); Alanine Aminotransfer ALT/SGPT 12 U/L (13-56); Albumin, Serum 2.8 g/dL (3.2-5.0); Alkaline Phosphatase 149 U/L (45-117); BUN 7 mg/dL (7-18); BUN/Creat Ratio 7.2 RATIO (10-20); Calcium,Total 8.8 mg/dL (8.5-10.1); Creatinine, Serum 0.97 mg/dL (0.55-1.02); EST Glomerular Filtration Rate 62 mL/min (>60); Est Glom Filt Rate - Afr Amer 75 mL/min (>60); Globulin 4.1 g/dL (2.2-4.2); Glucose 126 mg/dL (74-106); Protein, Total 6.9 g/dL (6.4-8.2); Sodium Level 142 mmol/L (136-145)
[2021-08-24 16:18] LABS: Chloride 87 mmol/L (98-107)
[2021-08-24 16:35] LABS: Potassium 2.6 mmol/L (3.5-5.1)
[2021-08-24 17:42] LABS: Carbon Dioxide > 45.0 mmol/L (21.0-32.0)
== END ==
LOC: OLS.SW500 05:00
PROVIDERS: PCP Family Medicine; Visit Provider Family Medicine
DX: J44.9 Chronic obstructive pulmonary disease, unspecified (principal)
CPT/HCPCS: 36415; 80053; 85027

== ENCOUNTER 2021-08-28 11:01 | Emergency (ER) | payer MEDICAID, SELFPAY ==
[2021-08-28 11:02] VITALS: BP 120/64; PULSE 98; RESP 18; TEMP 36.5; O2SAT 100; BMI 27.1
[2021-08-28 11:09] VITALS: PULSE 98; RESP 18; O2SAT 98
--- NOTE | 2021-08-28 11:40 | EKG12_ITS ---
Test Reason : Blood Pressure : / mmHG Vent. Rate : 085 BPM Atrial Rate : 085 BPM P-R Int : 124 ms QRS Dur : 074 ms QT Int : 354 ms P-R-T Axes : 079 067 080 degrees QTc Int : 421 ms Normal sinus rhythm Nonspecific ST and T wave abnormality Abnormal ECG Confirmed by PAMELA ACEVEDO, ROSY ([id number]), international editorial producer FARIHA HIDALGO ([id number]) on 08/29/2021 8:37:21 AM Referred By: Confirmed By:ROSY SANTIAGO MD
--- NOTE | 2021-08-28 11:47 | EDS_ITS ---
HPI History of Present Illness Chief Complaint: Anxiety Detail of Chief Complaint: sob Informant: patient Onset/Context/Timing Onset: Weeks (1-2) Context: gradual Timing: Continuous and Waxes and wanes Quality: Positive for Dyspnea on exertion and Wheezing (Sometimes); Negative for Orthopnea Current Severity: Moderate Maximum Severity: Moderate Worsened by: Exertion Relieved by: Rest Associated Symptoms Negative for cough Chest Pain: Positive for Intermittent (Sometimes tightness, sometimes grabbing. Retrosternal.) Narrative Narrative: Patient is a resident at a local [facility], she presents saying she feels very anxious and very short of breath. This is been going on for couple weeks just worse today. She states 2 weeks ago, she had similar symptoms and the [facility] physician saw her and put her on antibiotics and she got better but now she is getting worse again. She was coughing a lot then along with sputum but not so much now. She cannot tell necessarily if this is her COPD, panic attack, both, or something else. She denies any chest discomfort at this time. She denies any leg swelling or orthopnea. She has never tested positive for COVID, her last test was a week ago or so, and was negative. [facility] Medical History (Updated 08/28/21 @ 15:[address] Juan Antonio Pretty MD) Acute UTI Acute UTI GURVINDER (acute kidney injury) Anemia Barbiturate withdrawal CHF (congestive heart failure) Chronic abdominal pain Contusion of knee, left Contusion of knee, right COPD (chronic obstructive pulmonary disease) COPD exacerbation Debility Delirium E-coli UTI Encephalopathy acute Fall Generalized weakness Hypokalemia due to inadequate potassium intake Iron deficiency anemia Nicotine abuse Normocytic anemia Opioid withdrawal Polysubstance abuse Pulmonary HTN Reflex sympathetic dystrophy RSD lower limb Septic shock Severe protein-calorie malnutrition Severe sepsis Tobacco user UTI (urinary tract infection) Vitamin D deficiency Home Medications fluoxetine 10 mg capsule 10 mg PO DAILY DEPRESSION 05/01/18 [History Last Taken 03/12/19] fluticasone propionate 50 mcg/actuation nasal spray,suspension 2 spray NASAL DAILY allergies 05/01/18 [History Last Taken 03/12/19] metoprolol tartrate 25 mg tablet 12.5 mg PO BID HEART 05/01/18 [History Last Taken Unknown] cetirizine 5 mg-pseudoephedrine ER 120 mg tablet,extended release,12hr 1 - 2 ea PO DAILY PRN Allergies 03/13/19 [History Last Taken 03/12/19] dicyclomine 10 mg capsule 10 mg PO ACHS PRN gi upset 03/13/19 [History Last Taken Unknown] acetaminophen 325 mg tablet 650 mg PO Q6H PRN PRN Pain Or Fever 03/17/19 [Rx Last Taken Unknown] albuterol sulfate 2.5 mg (3 mL) inhalation Q6H PRN PRN Sob &/Or Wheezing 03/17/19 [Rx Last Taken Unknown] ergocalciferol (vitamin D2) 1,250 mcg (50,000 unit) capsule 50,000 unit PO Q7D@1000 03/17/19 [Rx Last Taken Unknown] food supplemt, lactose-reduced 0.08 gram-1.5 kcal/mL oral liquid 120 ml PO 4X/DAY 03/17/19 [Rx Last Taken Unknown] hydroxyzine pamoate 25 mg capsule 25 mg PO TID PRN PRN Anxiety 03/17/19 [Rx Last Taken Unknown] ipratropium 0.5 mg-albuterol 3 mg (2.5 mg base)/3 mL nebulization soln 3 ml inhalation Q6HWA.RT 03/17/19 [Rx Last Taken Unknown] loperamide 2 mg capsule 2 mg PO BID PRN PRN Diarrhea ##0 03/17/19 [Rx Last Taken 03/12/19] menthol 2.5 % topical gel 1 applic topical 4X/DAY PRN PRN Pain Score 1-10/10 03/17/19 [Rx Last Taken Unknown] mirtazapine 30 mg tablet 30 mg PO QHS 03/17/19 [Rx Last Taken Unknown] ondansetron HCl 8 mg tablet 4 mg PO Q6H PRN PRN Nausea 03/17/19 [Rx Last Taken Unknown] pantoprazole 40 mg tablet,delayed release 40 mg PO DAILY 03/17/19 [Rx Last Taken Unknown] polysaccharide iron complex 150 mg iron capsule 150 mg PO DAILYCM 03/17/19 [Rx Last Taken Unknown] prednisone 10 mg tablet 10 mg PO UD #30 tabs 03/17/19 [Rx Last Taken Unknown] sulfamethoxazole 800 mg-trimethoprim 160 mg tablet 1 tab PO BIDCM 03/19/19 [Rx Last Taken Unknown] albuterol sulfate 2.5 mg (3 mL) inhalation Q4H PRN #25 vials 08/28/21 [Rx Last Taken Unknown] doxycycline monohydrate 100 mg capsule 100 mg PO BID #14 CAPSULES 08/28/21 [Rx Last Taken Unknown] prednisone 20 mg tablet 40 mg PO DAILY #10 TABLETS 08/28/21 [Rx Last Taken Unknown] Allergy/AdvReac Type Severity Reaction Status Date / Time amoxicillin trihydrate Allergy Abd Verified 08/28/21 11:05 [From Augmentin] cramps/diarrhea azithromycin Allergy Abd Verified 08/28/21 11:05 [From Zithromax Z-Piter] cramps/diarrhea cat dander Allergy Itching Verified 08/28/21 11:05 erythromycin base Allergy Unknown Verified 08/28/21 11:05 geranium Allergy Itching Verified 08/28/21 11:05 levofloxacin [From Levaquin] Allergy Abd Verified 08/28/21 11:05 cramps/diarrhea nitrofurantoin Allergy Abd Verified 08/28/21 11:05 [From Macrobid] cramps/diarrhea/racing heart rate nitrofurantoin Allergy Abd Verified 08/28/21 11:05 macrocrystalline cramps/diarrhea [From Macrobid] potassium clavulanate Allergy Abd Verified 08/28/21 11:05 [From Augmentin] cramps/diarrhea citalopram [From Celexa] AdvReac tiredness Verified 08/28/21 11:05 egg AdvReac Diarrhea Verified 08/28/21 11:05 fentanyl AdvReac FAST HEART Verified 08/28/21 11:05 RATE, DIZZINESS ibuprofen [From Advil] AdvReac Abd Verified 08/28/21 11:05 cramps/diarrhea naproxen sodium [From Aleve] AdvReac Abd Verified 08/28/21 11:05 cramps/diarrhea pregabalin [From Lyrica] AdvReac PAIN IN Verified 08/28/21 11:05 HEAD Family History (Reviewed 04/14/19 @ 08:26 by Yenifer Meier RICE CLEANING MACHINE TENDER, RICE CLEANING MACHINE TENDER-C) Father Alzheimers disease Mother Heart problem Surgical History H/O section S/P exploratory laparotomy S/P laparoscopic cholecystectomy S/P right knee surgery Status post tubal ligation Social History Smoking Status: Current every day smoker tobacco type: cigarettes ROS ROS ED Constitutional Constitutional ED: Denies chills or fever(s) Eyes Eyes: Denies change in vision or diplopia ENT ENT ED: Denies rhinorrhea or sore throat Cardiovascular Cardiovascular: Reports chest pain; Denies leg edema or palpitations Respiratory/Chest Respiratory/Chest: Reports dyspnea and dyspnea on exertion; Denies cough Gastrointestinal Gastrointestinal: Denies abdominal pain, diarrhea, nausea or vomiting Genitourinary Genitourinary ED: Denies dysuria or hematuria Musculoskeletal Musculoskeletal: Denies back pain or neck pain Integumentary Denies abscess or rash Neurologic Neurologic: Denies headache(s), paresthesias or weakness Psychiatric Psychiatric: Reports anxiety; Denies suicidal thoughts EXAM Physical Exam Const Vital Signs: 08/28/21 11:02 08/28/21 11:08 08/28/21 11:09 Temperature 97.7 F L Temperature Source Temporal Pulse Rate 98 98 Respiratory Rate 18 18 Respiratory Effort Short of Breath Respiratory Pattern Blood Pressure 120/64 Blood Pressure Mean 82 Pulse Ox 100 98 Oxygen Delivery Method Room Air Nasal Cannula Oxygen Flow Rate (L/min) 3 08/28/21 11:49 08/28/21 13:13 Temperature Temperature Source Pulse Rate 45 L 80 Respiratory Rate 21 H 18 Respiratory Effort Respiratory Pattern Tachypnea Blood Pressure 116/58 L Blood Pressure Mean 77 Pulse Ox 98 Oxygen Delivery Method Room Air Oxygen Flow Rate (L/min) Positive well nourished and well developed General Appearance ED: well developed and NAD HEENT Reports moist mucous membranes normocephalic and atraumatic Eyes PERRL and EOMs intact bilaterally Neck full ROM and supple Resp Resp Narrative: Tachypneic. No distress. Severely diminished breath sounds throughout, symmetrically. This severely limits exam. No adventitious breath sounds. Trachea midline. Breath sounds symmetric. Cardio regular rate and regular rhythm Cardio Narrative: faint heart sounds GI non-tender and non-distended Auscultation: normoactive bowel sounds Palpation: soft Back/Spine no CVA tenderness General Back: other FROM Extremity normal to inspection General Extremety ED: Negative for edema, pulses abnormal or tenderness General Extremity: Negative for edema or pulses abnormal Neuro oriented x3, CN's II-XII intact bilaterally and no sensory deficits noted Sensorium / Orientation: awake and alert Motor Exam: strength 5/5 throughout Psych Mood & Affect: anxious Thought Process: normal thought process Skin no rashes or lesions noted and no wounds MDM MDM MDM Narrative Medical decision making narrative: Patient is doing much better after several aerosol treatments. No chest discomfort in the emergency department. Her work-up shows a significantly elevated bicarb, I obtained an ABG, it shows that her pH is near normal and her PCO2 is 76, consistent with significant chronic CO2 retention. She does not have acute hypercarbia. She has maintained keen level of alertness, she is actually asking for something for anxiety later although after nebulizer treatments her breathing was much better and her anxiety was improved as well. On my interpretation 1 view chest x-ray showing no pneumonia or other acute abnormality. Patient is feeling better enough to go back to the snf, will put her on a burst of prednisone as well as doxycycline to prevent bacterial superinfection, and I also prescribed her albuterol nebulizer solution, she states that those tend to work better than the MDI she has been using which I think is reasonable. Lab Data Attestation: I reviewed the patient's lab results. Labs: Laboratory Results - last 24 hr 08/28/21 08/28/21 08/28/21 12:15 12:15 12:15 WBC 4.9 RBC 3.38 L Hgb 10.8 L Hct 36.6 L MCV 108.3 H MCH 32.0 MCHC 29.5 L RDW Std Deviation 53.3 H RDW Coeff of Caren 13.3 Plt Count 165 MPV 10.3 Immature Gran % (Auto) 0.200 Neut % (Auto) 67.4 Lymph % (Auto) 16.4 L [place] % (Auto) 8.9 Eos % (Auto) 6.5 H Baso % (Auto) 0.6 Absolute Neuts (auto) 3.3 Absolute Lymphs (auto) 0.81 L Nucleated RBC % 0 Sodium 142 Potassium 4.0 Chloride 94 L Carbon Dioxide > 45.0 H* Anion Gap TNP BUN 8 Creatinine 0.94 Estim Creat Clear Calc 49.08 Est GFR (MDRD) Af Amer 78 Est GFR (MDRD) Non-Af 64 BUN/Creatinine Ratio 8.5 L Glucose 134 H Calcium 9.0 Troponin I High Sens 10 B-Natriuretic Peptide 49.6 ABG Data ABG results: ABG 08/28/21 13:39 Specimen Type ART Sample Site L Radial pH 7.37 Bicarbonate Actual 43.9 H Total CO2 46 Base Excess 19 H O2 Saturation 92 L ABG pCO2 76.2 H* ABG pO2 71 L O2 Delivery Device Cannula Liter Flow 3.0 Crit Call To/Read Back Yes Radiography Diagnostic Testing: Clinical Impression(s) from Imaging Studies Chest X-Ray 08/28/21 12:00 IMPRESSION: Hyperinflation. Mild increased markings at the lung bases suggestive of scarring. Electronically Signed: Karan Cruz MD at 12:45 EDT , Rhythm Strip Rhythm Strip: Sinus Rhythm Rate: 85 Ectopy: None EKG Initial EKG: Attestation: I personally reviewed and interpreted this EKG as follows: Interpretation: Sinus Rhythm, No Acute Injury Pattern and Non-Specific ST Changes Discharge Plan Triage Chief Complaint: Anxiety ED Provider: Juan Antonio Pretty Dx/Rx/DC Orders Clinical Impression: COPD exacerbation, Anxiety, Intermittent chest pain Instructions: ED COPD Flare Prescriptions: New albuterol sulfate 2.5 MG/3 ML solution for nebulization 2.5 mg inhalation Q4H PRN Qty: 25 0RF Rx Instructions: Use q4 hours and PRN for wheezing prednisone 20 MG tablet 40 mg PO DAILY Qty: 10 0RF doxycycline monohydrate 100 MG capsule 100 mg PO BID Qty: 14 0RF No Action fluoxetine 10 MG capsule 10 mg PO DAILY fluticasone propionate 1 SPRAY spray,suspension 2 spray NASAL DAILY metoprolol tartrate 25 MG tablet 12.5 mg PO BID dicyclomine 10 MG capsule 10 mg PO ACHS PRN (Reason: gi upset) cetirizine-pseudoephedrine 1 EACH tablet extended release 12 hr 1 - 2 ea PO DAILY PRN (Reason: Allergies) acetaminophen 325 MG tablet 650 mg PO Q6H PRN PRN (Reason: Pain Or Fever) 0RF ipratropium-albuterol 3 ML solution for nebulization 3 ml inhalation Q6HWA.RT 0RF albuterol sulfate 2.5 MG/3 ML solution for nebulization 2.5 mg inhalation Q6H PRN PRN (Reason: Sob &/Or Wheezing) 0RF ondansetron HCl 8 MG tablet 4 mg PO Q6H PRN PRN (Reason: Nausea) 0RF polysaccharide iron complex 150 MG capsule 150 mg PO DAILYCM 0RF pantoprazole 40 MG tablet 40 mg PO DAILY 0RF mirtazapine 30 MG tablet 30 mg PO QHS 0RF ergocalciferol (vitamin D2) 50,000 UNIT capsule 50,000 unit PO Q7D@1000 0RF hydroxyzine pamoate 25 MG capsule 25 mg PO TID PRN PRN (Reason: Anxiety) 0RF menthol 1 APPLIC gel 1 applic topical 4X/DAY PRN PRN (Reason: Pain Score 1-10/10) 0RF food supplemt, lactose-reduced 120 ML liquid 120 ml PO 4X/DAY 0RF prednisone 10 MG tablet 10 mg PO UD Qty: 30 0RF Rx Instructions: TAKE 4 TABLETS BY MOUTH DAILY WITH FOOD FOR 3 DAYS, THEN TAKE 3 TABLETS BY MOUTH DAILY WITH FOOD FOR 3 DAYS, THEN TAKE 2 TABLETS BY MOUTH DAILY WITH FOOD FOR 3 DAYS, THEN TAKE 1 TABLETS BY MOUTH DAILY WITH FOOD FOR 3 DAYS, THEN STOP loperamide 2 MG capsule 2 mg PO BID PRN PRN (Reason: Diarrhea) Qty: 0 0RF sulfamethoxazole-trimethoprim 1 TABLET tablet 1 tab PO BIDCM 0RF Rx Instructions: Continue for 5 days at discharge Primary Care Provider: Phong Denson Referrals: Phong Denson MD [Primary Care Provider] - 3-5 Days if not improving Disposition Disposition: Home, Self Care
[2021-08-28] MEDS: Ipratropium/Albuterol Sulfate 3 ML AMPUL.NEB INHALATION (11:48)
[2021-08-28 11:49] VITALS: PULSE 45; RESP 21
--- NOTE | 2021-08-28 12:00 | RAD_ITS ---
STUDY: X-RAY CHEST REASON FOR EXAM: Female, 61 years old. Sob TECHNIQUE: Single AP portable view of the chest. COMPARISON: Comparison is made with prior study dated 03/09/2019. FINDINGS: Hyperinflation. Stable mild increased markings at the lung bases suggestive of scarring slightly more prominent at the left lung base. There is no demonstrated pleural abnormality. Normal size heart. Normal mediastinum and olga. Normal visualized pulmonary arteries. There is atherosclerotic tortuosity of the aortic arch and descending thoracic aorta. There are degenerative changes of the visualized thoracic spine. Normal visualized ribs, clavicles, and shoulders. There is no demonstrated abnormality of the visualized soft tissue structures of the upper abdomen. RAD/Chest 1 View (Portable) IMPRESSION: Hyperinflation. Mild increased markings at the lung bases suggestive of scarring. Electronically Signed: Karan Cruz MD at 12:45 EDT ,
[2021-08-28] MEDS: Albuterol 2.5 MG/3 ML VIAL.NEB. INHALATION ×2 (12:08→15:37)
[2021-08-28 12:29] LABS: Absolute Lymphocyte Count 0.81 X10^3/uL (0.83-4.51); Absolute Neutrophil Count 3.3 X10^3/uL (2.0-7.7); Basophil# 0.03 X10^3/uL; Basophil% 0.6 % (0-1); Eosinophil# 0.32 X10^3/uL; Eosinophils% 6.5 % (0-5); Hematocrit 36.6 % (37-47); Hemoglobin 10.8 g/dL (12.0-15.0); Lymphocyte # 0.81 X10^3/ul (0.83-4.51); Lymphocyte % 16.4 % (19-41); Mean Corp Hgb Conc 29.5 g/dL (32-36); Mean Corpuscular Volume 108.3 fL (81-99); Mean Platelet Vol. 10.3 fl (6.2-12.0); Monocyte# 0.44 X10^3/uL; Monocyte% 8.9 % (0-10); NRBC Flagged by Analyzer 0 % (0-5); Neutrophil # 3.32 X10^3/uL (2.7-7.7); Neutrophil % 67.4 % (47-70); Platelet Count 165 K/mm3 (150-450); RBC Distribution Width CV 13.3 % (11.6-14.6); RBC Distribution Width SD 53.3 fl (35.1-43.9); Red Blood Count 3.38 M/mm3 (4.2-5.4); White Blood Count 4.9 K/mm3 (4.4-11.0)
[2021-08-28 12:50] LABS: BUN 8 mg/dL (7-18); BUN/Creat Ratio 8.5 RATIO (10-20); Carbon Dioxide > 45.0 mmol/L (21.0-32.0); Chloride 94 mmol/L (98-107); Creatinine, Serum 0.94 mg/dL (0.55-1.02); EST Glomerular Filtration Rate 64 mL/min (>60); Est Glom Filt Rate - Afr Amer 78 mL/min (>60); Estimated Creatinine Clearance 49.08 ml/min; Glucose 134 mg/dL (74-106); Sodium Level 142 mmol/L (136-145); Troponin-I HS 10 pg/mL (3.0-54.0)
[2021-08-28 13:13] VITALS: BP 116/58; PULSE 80; RESP 18; O2SAT 98
[2021-08-28 13:21] LABS: BNP,B-Type NATRIURETIC PEPTIDE 49.6 pg/mL (0-100)
[2021-08-28 13:45] LABS: Base Excess 19 mmol/L (-2 to +2); Bicarbonate 43.9 mmol/L (22-26); Blood Gas Specimen Type ART; O2 Delivery Device Cannula; PO2 71 mmHG (75-100); SITE L Radial; SO2 92 % (95-99); Total Carbon Dioxide 46 mmol/L; pCO2 76.2 mmHg (35-45); pH 7.37 (7.35-7.45)
--- NOTE | 2021-08-28 14:06 | CPS ---
NOTIFIED DR. PINON OF CRITICAL RESULTS
--- NOTE | 2021-08-28 14:56 | CM.ED ---
Social Work Note SW reviewed chart, pt has history of Anxiety. SW discussed with MD Pretty. Pt is care home resident, had COPD flare up and is now asking for something for Anxiety before she returns to the care home. states no further SW needs. Lauren Valdez ADVENTURE EDUCATION TEACHER, LINER WORKER
[2021-08-28] MEDS: MethylPREDNISolone 125 MG/2 ML Vial IV (15:24)
[2021-08-28] MEDS: hydrOXYzine PAM 25 MG Capsule 50 MG PO (15:24)
[2021-08-28 15:25] VITALS: BP 113/58; PULSE 95; RESP 18; O2SAT 96
--- NOTE | 2021-08-28 15:32 | CM.ED ---
Social Work Note JACKSON updated by RN that pt appeared distraught, hair is matted, may not get a lot of baths at [facility]. SW in to speak with pt. Pt states that she has been at [facility] for two years. Pt states that she does worry some about the care that she gets at [facility] somtimes. Pt states that she does better with breathing treatments and [facility] doesn't always give them to her when she thinks she needs them. Pt states that she has asked about this to [facility] and their answer is if she gets COVID then she will spread it to her roommate. Pt states that she has had the shot three times. SW spoke with pt that if she feels she is not getting adequate care of if she feels her care gets worse, she can call the Ombudsman program and make a report. SW provided pt with information on the Ombudsman and contact information. Lauren Valdez WRAPPER CASHIER, GRAVITY METER OPERATOR
--- NOTE | 2021-08-28 15:39 | ED.RN ---
called [facility] for update/report, dc instructions reviewed with nursing.
[2021-08-28 16:16] VITALS: PULSE 52; RESP 20
== END 2021-08-28 16:18 | disposition home or self-care (01) ==
PROVIDERS: Emergency Provider Emergency Medicine; PCP Family Medicine; Visit Provider Emergency Medicine
DX: J44.1 Chronic obstructive pulmonary disease with (acute) exacerbation (principal); I50.9 Heart failure, unspecified; I27.20 Pulmonary hypertension, unspecified; F17.210 Nicotine dependence, cigarettes, uncomplicated; F41.9 Anxiety disorder, unspecified; Z87.440 Personal history of urinary (tract) infections; E55.9 Vitamin D deficiency, unspecified; Z86.19 Personal history of other infectious and parasitic diseases; D50.9 Iron deficiency anemia, unspecified; G89.29 Other chronic pain; Z79.899 Other long term (current) drug therapy
CPT/HCPCS: 94640; 36415; 36600; 71045; 80048; 82803; 83880; 84484; 85025; 87428; 93005; 96374; 99285; A4216

== ENCOUNTER → 2021-09-01 | Outpatient (REF) | payer MEDICAID, SELFPAY ==
[2021-09-01 08:18] LABS: Anion Gap 5 (5-15); BUN 20 mg/dL (7-18); BUN/Creat Ratio 16.4 RATIO (10-20); Calcium,Total 8.8 mg/dL (8.5-10.1); Chloride 99 mmol/L (98-107); Creatinine, Serum 1.22 mg/dL (0.55-1.02); EST Glomerular Filtration Rate 48 mL/min (>60); Est Glom Filt Rate - Afr Amer 57 mL/min (>60); Glucose 132 mg/dL (74-106); Potassium 3.6 mmol/L (3.5-5.1); Sodium Level 142 mmol/L (136-145)
== END | disposition home or self-care (01) ==
LOC: OLS.SW500 04:00
PROVIDERS: PCP Family Medicine; Visit Provider Family Medicine
DX: J44.9 Chronic obstructive pulmonary disease, unspecified (principal); E87.2 Acidosis; E87.6 Hypokalemia
CPT/HCPCS: 36415; 80048; 82140

== ENCOUNTER → 2021-10-03 | Outpatient (REF) | payer MEDICAID, SELFPAY ==
[2021-10-03 08:41] LABS: Vitamin B12 720 pg/mL (211-911)
== END | disposition home or self-care (01) ==
LOC: OLS.SW500 04:00
PROVIDERS: PCP Family Medicine; Visit Provider Family Medicine
DX: D64.9 Anemia, unspecified (principal)
CPT/HCPCS: 36415; 82607

== ENCOUNTER → 2021-11-20 | Outpatient (REF) | payer MEDICAID, SELFPAY ==
[2021-11-20 09:00] LABS: Hematocrit 35.2 % (37-47); Hemoglobin 10.7 g/dL (12.0-15.0); Mean Corp Hgb Conc 30.4 g/dL (32-36); Mean Corpuscular Hgb 33.5 pg (27.0-32.0); Mean Corpuscular Volume 110.3 fL (81-99); Mean Platelet Vol. 11.1 fl (6.2-12.0); Platelet Count 216 K/mm3 (150-450); RBC Distribution Width SD 61.7 fl (35.1-43.9); Red Blood Count 3.19 M/mm3 (4.2-5.4); White Blood Count 6.4 K/mm3 (4.4-11.0)
[2021-11-20 09:14] LABS: Vitamin D,25 Hydroxy 24.1 ng/mL
[2021-11-20 09:15] LABS: ALB/GLOB Ratio 0.8 RATIO (0.9-2.4); AST(SGOT) 12 U/L (15-37); Alanine Aminotransfer ALT/SGPT 12 U/L (13-56); Albumin, Serum 3.2 g/dL (3.2-5.0); Alkaline Phosphatase 109 U/L (45-117); Anion Gap 5 (5-15); BUN 14 mg/dL (7-18); Chloride 97 mmol/L (98-107); Creatinine, Serum 0.88 mg/dL (0.55-1.02); EST Glomerular Filtration Rate 70 mL/min (>60); Est Glom Filt Rate - Afr Amer 84 mL/min (>60); Globulin 3.9 g/dL (2.2-4.2); Glucose 116 mg/dL (74-106); Potassium 4.2 mmol/L (3.5-5.1); Protein, Total 7.1 g/dL (6.4-8.2); Sodium Level 140 mmol/L (136-145)
== END | disposition home or self-care (01) ==
LOC: OLS.SW500 05:00
PROVIDERS: PCP Family Medicine; Visit Provider Family Medicine
DX: J44.9 Chronic obstructive pulmonary disease, unspecified (principal); E55.9 Vitamin D deficiency, unspecified
CPT/HCPCS: 36415; 80053; 82306; 85027

== ENCOUNTER → 2022-05-21 | Outpatient (REF) | payer MEDICAID, SELFPAY ==
[2022-05-21 09:00] LABS: Hematocrit 34.8 % (37-47); Hemoglobin 10.2 g/dL (12.0-15.0); Mean Corp Hgb Conc 29.3 g/dL (32-36); Mean Corpuscular Hgb 33.6 pg (27.0-32.0); Mean Corpuscular Volume 114.5 fL (81-99); Mean Platelet Vol. 10.4 fl (6.2-12.0); Platelet Count 158 K/mm3 (150-450); RBC Distribution Width CV 12.2 % (11.6-14.6); RBC Distribution Width SD 51.5 fl (35.1-43.9); Red Blood Count 3.04 M/mm3 (4.2-5.4); White Blood Count 4.8 K/mm3 (4.4-11.0)
[2022-05-21 09:12] LABS: ALB/GLOB Ratio 0.9 RATIO (0.9-2.4); AST(SGOT) 18 U/L (15-37); Alanine Aminotransfer ALT/SGPT 18 U/L (13-56); Albumin, Serum 3.3 g/dL (3.2-5.0); Alkaline Phosphatase 163 U/L (45-117); Anion Gap 0 (5-15); BUN 20 mg/dL (7-18); BUN/Creat Ratio 20.9 RATIO (10-20); Chloride 102 mmol/L (98-107); Creatinine, Serum 0.96 mg/dL (0.55-1.02); EST Glomerular Filtration Rate 63 mL/min (>60); Est Glom Filt Rate - Afr Amer 76 mL/min (>60); Globulin 3.5 g/dL (2.2-4.2); Glucose 119 mg/dL (74-106); Potassium 4.6 mmol/L (3.5-5.1); Protein, Total 6.8 g/dL (6.4-8.2); Sodium Level 139 mmol/L (136-145)
[2022-05-21 09:19] LABS: Vitamin D,25 Hydroxy 20.2 ng/mL
== END | disposition home or self-care (01) ==
LOC: OLS.SW 05:00
PROVIDERS: PCP Family Medicine; Visit Provider Family Medicine
DX: J44.9 Chronic obstructive pulmonary disease, unspecified (principal); E55.9 Vitamin D deficiency, unspecified; R53.83 Other fatigue
CPT/HCPCS: 36415; 80053; 82306; 85027

== ENCOUNTER → 2022-07-21 | Outpatient (REF) | payer MEDICAID, SELFPAY ==
[2022-07-23 08:27] LABS: Squamous Epithelial Cells - UA 0 SEEN /hpf (5-10)
[2022-07-23 09:00] LABS: Glucose, Dipstick Normal (Normal); Ketone-Dipstick Negative (Negative); Leukocyte Esterase-Dipstick 500 /ul (Negative); Nitrite-Dipstick Negative (Negative); Occult Blood-Urine 150 /ul (Negative); Protein-Dipstick 100 mg/dl (Negative); Specific Gravity, Urine 1.015 (1.002-1.030); Urine Bilirubin Dipstick Negative (Negative); Urine Urobilinogen Normal (Normal)
[2022-07-23 09:02] LABS: Color, Urine GREEN (Yellow); Urine Clarity Cloudy (Clear)
[2022-07-23 09:09] LABS: White Blood Cells >100 SEEN /hpf (0-5)
[2022-07-23 09:10] LABS: Red Blood Cells-Urine 0-5 SEEN /hpf (0-5)
[2022-07-23 09:11] LABS: Bacteria 4+ /hpf (None Seen); Mucous, Urine 1+ /hpf (<or=2+)
== END | disposition home or self-care (01) ==
LOC: OLS.SW 15:00
PROVIDERS: PCP Family Medicine; Referring Provider Family Medicine; Visit Provider Family Medicine
DX: N39.0 Urinary tract infection, site not specified (principal)
CPT/HCPCS: 81001; 87077; 87086; 87088; 87186

== ENCOUNTER → 2022-07-31 05:35 | Outpatient (REF) | payer MEDICAID, SELFPAY ==
[2022-07-31 08:58] LABS: Hematocrit 35.1 % (37-47); Hemoglobin 10.1 g/dL (12.0-15.0); Mean Corp Hgb Conc 28.8 g/dL (32-36); Mean Corpuscular Hgb 34.1 pg (27.0-32.0); Mean Corpuscular Volume 118.6 fL (81-99); Mean Platelet Vol. 11.7 fl (6.2-12.0); Platelet Count 169 K/mm3 (150-450); RBC Distribution Width CV 13.4 % (11.6-14.6); RBC Distribution Width SD 59.2 fl (35.1-43.9); Red Blood Count 2.96 M/mm3 (4.2-5.4); White Blood Count 6.6 K/mm3 (4.4-11.0)
[2022-07-31 09:13] LABS: Anion Gap 3 (5-15); BUN 10 mg/dL (7-18); BUN/Creat Ratio 12.7 RATIO (10-20); Chloride 100 mmol/L (98-107); Creatinine, Serum 0.79 mg/dL (0.55-1.02); EST Glomerular Filtration Rate 79 mL/min (>60); Est Glom Filt Rate - Afr Amer 95 mL/min (>60); Glucose 106 mg/dL (74-106); Potassium 4.4 mmol/L (3.5-5.1); Sodium Level 140 mmol/L (136-145)
== END ==
LOC: OLS.SW 05:35
PROVIDERS: PCP Family Medicine; Visit Provider Family Medicine
DX: N39.0 Urinary tract infection, site not specified (principal)
CPT/HCPCS: 36415; 80048; 85027

== ENCOUNTER → 2022-08-01 05:00 | Outpatient (REF) | payer MEDICAID, SELFPAY ==
[2022-08-01 10:39] LABS: Vitamin B12 358 pg/mL (211-911)
== END ==
LOC: OLS.SW 05:00
PROVIDERS: PCP Family Medicine; Visit Provider Family Medicine
DX: F22 Delusional disorders (principal); D64.9 Anemia, unspecified
CPT/HCPCS: 36415; 82607; 82746

== ENCOUNTER → 2022-08-31 05:00 | Outpatient (REF) | payer MEDICAID, SELFPAY ==
[2022-08-31 09:27] LABS: Absolute Lymphocyte Count 1.17 X10^3/uL (0.83-4.51); Absolute Neutrophil Count 3.1 X10^3/uL (2.0-7.7); Basophil# 0.02 X10^3/uL; Basophil% 0.4 % (0-1); Hematocrit 33.1 % (37-47); Hemoglobin 10.1 g/dL (12.0-15.0); Lymphocyte # 1.17 X10^3/ul (0.83-4.51); Lymphocyte % 23.8 % (19-41); Mean Corp Hgb Conc 30.5 g/dL (32-36); Mean Corpuscular Hgb 34.6 pg (27.0-32.0); Mean Corpuscular Volume 113.4 fL (81-99); Mean Platelet Vol. 11.6 fl (6.2-12.0); Monocyte# 0.53 X10^3/uL; Monocyte% 10.8 % (0-10); NRBC Flagged by Analyzer 0 % (0-5); Neutrophil # 3.06 X10^3/uL (2.7-7.7); Neutrophil % 62.4 % (47-70); POSITIVE COUNT YES; Platelet Count 132 K/mm3 (150-450); RBC Distribution Width CV 11.9 % (11.6-14.6); RBC Distribution Width SD 50.4 fl (35.1-43.9); Red Blood Count 2.92 M/mm3 (4.2-5.4); White Blood Count 4.9 K/mm3 (4.4-11.0)
[2022-08-31 10:07] LABS: Differential Indicated SCAN CRITERIA MET
== END ==
LOC: OLS.SW 05:00
PROVIDERS: PCP Family Medicine; Visit Provider Family Medicine
DX: E43 Unspecified severe protein-calorie malnutrition (principal)
CPT/HCPCS: 36415; 85025

== ENCOUNTER → 2022-09-12 05:00 | Outpatient (REF) | payer MEDICAID, SELFPAY | LOC: OLS.SW 05:00 | PROVIDERS: PCP Family Medicine; Visit Provider Family Medicine | DX: R44.3 Hallucinations, unspecified (principal) | CPT/HCPCS: 87077; 87086; 87088; 87186 ==

== ENCOUNTER → 2022-09-26 05:00 | Outpatient (REF) | payer MEDICAID, SELFPAY | LOC: OLS.SW 05:00 | PROVIDERS: PCP Family Medicine; Visit Provider Family Medicine | DX: E53.8 Deficiency of other specified B group vitamins (principal) | CPT/HCPCS: 36415; 82746 ==

== ENCOUNTER → 2022-10-16 05:00 | Outpatient (REF) | payer MEDICAID, SELFPAY ==
[2022-10-16 08:43] LABS: Hematocrit 33.9 % (37-47); Hemoglobin 9.9 g/dL (12.0-15.0); Mean Corp Hgb Conc 29.2 g/dL (32-36); Mean Corpuscular Hgb 34.4 pg (27.0-32.0); Mean Corpuscular Volume 117.7 fL (81-99); Mean Platelet Vol. 11.6 fl (6.2-12.0); Platelet Count 147 K/mm3 (150-450); RBC Distribution Width CV 11.9 % (11.6-14.6); Red Blood Count 2.88 M/mm3 (4.2-5.4); White Blood Count 6.4 K/mm3 (4.4-11.0)
[2022-10-16 09:23] LABS: BUN 13 mg/dL (7-18); BUN/Creat Ratio 14.1 RATIO (10-20); Carbon Dioxide > 45.0 mmol/L (21.0-32.0); Chloride 87 mmol/L (98-107); Creatinine, Serum 0.92 mg/dL (0.55-1.02); EST Glomerular Filtration Rate 66 mL/min (>60); Est Glom Filt Rate - Afr Amer 79 mL/min (>60); Glucose 119 mg/dL (74-106); Potassium 3.1 mmol/L (3.5-5.1); Sodium Level 143 mmol/L (136-145)
== END ==
LOC: OLS.SW 05:00
PROVIDERS: PCP Family Medicine; Visit Provider Family Medicine
DX: I10 Essential (primary) hypertension (principal); D64.9 Anemia, unspecified
CPT/HCPCS: 36415; 80048; 85027

== ENCOUNTER → 2022-10-19 | Outpatient (REF) | payer MEDICAID, SELFPAY ==
[2022-10-19 11:43] LABS: BUN 14 mg/dL (7-18); BUN/Creat Ratio 13.3 RATIO (10-20); Calcium,Total 9.2 mg/dL (8.5-10.1); Carbon Dioxide > 45.0 mmol/L (21.0-32.0); Chloride 92 mmol/L (98-107); Creatinine, Serum 1.05 mg/dL (0.55-1.02); EST Glomerular Filtration Rate 56 mL/min (>60); Est Glom Filt Rate - Afr Amer 68 mL/min (>60); Glucose 136 mg/dL (74-106); Potassium 3.6 mmol/L (3.5-5.1); Sodium Level 143 mmol/L (136-145)
== END | disposition home or self-care (01) ==
LOC: OLS.SW 09:20
PROVIDERS: PCP Family Medicine; Visit Provider Family Medicine
DX: E11.9 Type 2 diabetes mellitus without complications (principal)
CPT/HCPCS: 36415; 80048

== ENCOUNTER → 2022-10-22 15:00 | Outpatient (REF) | payer MEDICAID, SELFPAY ==
[2022-10-23 09:11] LABS: Mucous, Urine 0 SEEN /hpf (<or=2+); Red Blood Cells-Urine 0 SEEN /hpf (0-5); Squamous Epithelial Cells - UA 0 SEEN /hpf (5-10)
[2022-10-23 09:42] LABS: Color, Urine Yellow (Yellow); Glucose, Dipstick Normal (Normal); Ketone-Dipstick Negative (Negative); Leukocyte Esterase-Dipstick 500 /ul (Negative); Nitrite-Dipstick Negative (Negative); Occult Blood-Urine 25 /ul (Negative); Protein-Dipstick 30 mg/dl (Negative); Specific Gravity, Urine 1.015 (1.002-1.030); Urine Bilirubin Dipstick Negative (Negative); Urine Clarity Cloudy (Clear); Urine Urobilinogen Normal (Normal); Urine pH 6.5 (5.0 - 8.0)
[2022-10-23 09:48] LABS: Bacteria 3+ /hpf (None Seen); White Blood Cells >100 SEEN /hpf (0-5)
== END ==
LOC: OLS.SW 15:00
PROVIDERS: PCP Family Medicine; Referring Provider Family Medicine; Visit Provider Family Medicine
DX: N39.0 Urinary tract infection, site not specified (principal)
CPT/HCPCS: 81001; 87077; 87086; 87088; 87186

== ENCOUNTER → 2022-11-21 | Outpatient (REF) | payer MEDICAID, SELFPAY ==
[2022-11-21 10:39] LABS: BUN 14 mg/dL (7-18); BUN/Creat Ratio 17.8 RATIO (10-20); Calcium,Total 9.6 mg/dL (8.5-10.1); Carbon Dioxide > 45.0 mmol/L (21.0-32.0); Chloride 95 mmol/L (98-107); Creatinine, Serum 0.78 mg/dL (0.55-1.02); EST Glomerular Filtration Rate 79 mL/min (>60); Est Glom Filt Rate - Afr Amer 95 mL/min (>60); Glucose 104 mg/dL (74-106); Potassium 3.9 mmol/L (3.5-5.1); Sodium Level 141 mmol/L (136-145)
== END | disposition home or self-care (01) ==
LOC: OLS.SW 08:18
PROVIDERS: PCP Family Medicine; Visit Provider Family Medicine
DX: I10 Essential (primary) hypertension (principal); E87.6 Hypokalemia
CPT/HCPCS: 36415; 80048

== ENCOUNTER → 2022-12-28 | Outpatient (REF) | payer MEDICAID, SELFPAY ==
[2022-12-28 09:22] LABS: Vitamin D,25 Hydroxy 93.5 ng/mL
== END | disposition home or self-care (01) ==
LOC: OLS.SW 05:00
PROVIDERS: PCP Family Medicine; Visit Provider Family Medicine
DX: Z79.899 Other long term (current) drug therapy (principal)
CPT/HCPCS: 36415; 82306

== ENCOUNTER → 2023-01-14 | Outpatient (REF) | payer MEDICAID, SELFPAY ==
[2023-01-14 07:45] LABS: Mucous, Urine 0 SEEN /hpf (<or=2+); Red Blood Cells-Urine 0 SEEN /hpf (0-5); Squamous Epithelial Cells - UA 0 SEEN /hpf (5-10)
[2023-01-14 08:02] LABS: Color, Urine Yellow (Yellow); Glucose, Dipstick Normal (Normal); Ketone-Dipstick Negative (Negative); Leukocyte Esterase-Dipstick 500 /ul (Negative); Nitrite-Dipstick Negative (Negative); Occult Blood-Urine 25 /ul (Negative); Protein-Dipstick 30 mg/dl (Negative); Specific Gravity, Urine 1.015 (1.002-1.030); Urine Bilirubin Dipstick Negative (Negative); Urine Clarity Clear (Clear); Urine Urobilinogen Normal (Normal)
--- OUTSIDE RECORDS SUMMARY | 2023-01-14 08:04 | XMS RPT_ITS | CCD ---
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 Role Phone Natalia Becerril MD Primary Care Provider Allergies Allergy Classification Reported Allergen(s) Allergy Type Date of Onset Reaction(s) Facility (1 source) Amoxicillin Drug Allergy 05-24-19 19 Unknown [facility] Work Phone: (1 source) Amoxicillin / Clavulanate Drug Allergy 03-31-19 08 GI Upset [facility] Work Phone: (1 source) Azithromycin Drug Allergy 07-03-19 07 [facility] Work Phone: (1 source) Cat Propensity to adverse reactions 07-03-19 07 [facility] Work Phone: (1 source) Citalopram Drug Allergy 12-24-19 18 Other: See Comments [facility] (1 source) egg extract Drug Allergy 02-08-20 11 Diarrhea [facility] Work Phone: (1 source) Erythromycin Drug Allergy 07-03-19 07 [facility] Work Phone: (1 source) fentaNYL Drug Allergy 05-24-19 19 Unknown [facility] Work Phone: (1 source) Ibuprofen Drug Allergy 07-03-19 07 [facility] Work Phone: (1 source) levoFLOXacin Drug Allergy 07-03-19 07 [facility] Work Phone: (1 source) Naproxen Drug Allergy 02-27-19 08 [facility] Work Phone: (1 source) NITROFURANTOIN, MACROCRYSTALS / Nitrofurantoin, Monohydrate Drug Allergy 04-12-19 09 GI Upset [facility] (1 source) pregabalin Drug Allergy 04-27-19 16 Other: See Comments [facility] (1 source) Sulfamethoxazole / Trimethoprim Drug Allergy 07-03-19 07 GI Upset [facility] Work Phone: (1 source) Geranium Propensity to adverse reactions 07-03-19 07 [facility] Work Phone: (1 source) [place] Needle Oil Propensity to adverse reactions 07-03-19 07 [facility] Work Phone: Medications Completed/Discontinued Medications Medication Drug Class(es) Dates Sig (Normalized) Sig (Original) acetaminophen 650 mg rectal suppository (1 source) Start: 10-07-2018 acetaminophen (TYLENOL) 650 mg suppository Pt is taking oral Tylenol - prn 0 10/07/2018 Active Problems Active Problems Problem Classification Problem Date Documented Da te Episodic/Chronic Adjustment disorders (1 source) Adjustment disorder with depressed mood; Translations: [Adjustment disorder with depressed mood] Onset: 4 04-17-2013 Chronic Allergic reactions (1 source) Environmental allergy; Translations: [Other allergy status, other than to drugs and biological substances] 11-13-2013 Episodic Chronic obstructive pulmonary disease and bronchiectasis (1 source) Pulmonary emphysema; Translations: [Other emphysema] Onset: 9 10-10-2018 Chronic Esophageal disorders (1 source) Gastroesophageal reflux disease; Translations: [Gastro-esophageal reflux disease without esophagitis] Onset: 3 02-13-2021 Chronic Headache; including migraine (1 source) Headache; Translations: [Headache] 01-25-2015 Episodic Mood disorders (1 source) Recurrent major depression in remission; Translations: [Major depressive disorder, recurrent, in remission, unspecified] Onset: 8 10-09-2018 Chronic Nutritional deficiencies (1 source) Vitamin D deficiency; Translations: [Vitamin D deficiency, unspecified] 02-18-2013 Chronic Other connective tissue disease (1 source) Muscle pain; Translations: [Myalgia, unspecified site] 04-27-2015 Episodic Other diseases of bladder and urethra (1 source) Detrusor and sphincter dyssynergia; Translations: [Muscular disorders of urethra] Onset: 7 12-11-2006 Chronic Other gastrointestinal disorders (1 source) Irritable bowel syndrome; Translations: [Irritable bowel syndrome without diarrhea] Onset: 4 02-05-2014 Chronic Other nervous system disorders (1 source) Complex regional pain syndrome; Translations: [Complex regional pain syndrome I, unspecified] 02-13-2021 Chronic Other screening for suspected conditions (not mental disorders or infectious disease) (2 sources) Patient encounter status; Translations: [Encounter for screening mammogram for malignant neoplasm of breast] Onset: 8 Episodic Substance-related disorders (1 source) Tobacco user; Translations: [Nicotine dependence, unspecified, uncomplicated] 03-03-2007 Chronic Unclassified (1 source) PMH - PAST MEDICAL HISTORY OF Onset: 9 08-20-2007 Urinary tract infections (1 source) Chronic cystitis; Translations: [Other chronic cystitis without hematuria] Onset: 9 05-04-2008 Chronic Past or Other Problems Problem Classification Problem Date Documented Da te Episodic/Chronic Genitourinary symptoms and ill-defined conditions (1 source) Retention of urine; Translations: [Retention of urine, unspecified] Onset: 12-11-2006 02-13-2021 Episodic Spondylosis; intervertebral disc disorders; other back problems (1 source) Neck pain; Translations: [Cervicalgia] Onset: 08-20-2007 08-20-2007 Episodic Encounters Encounter Date Encounter Type Care Provider Facility Start: 08-16-2021 ambulatory Natalia hobson MD Work Phone: [facility] Procedures Date Procedure Procedure Detail Performing Clinician Start: 02-28-2015 Mammography Natalia crandall MD Work Phone: Start: 11-30-2013 Colonoscopy Natalia crandall MD Work Phone: Plan of Treatment Date Care Activity Detail Author Start: 12-01-2023 Colonoscopy COLONOSCOPY [facility] Start: 12-01-2023 COLORECTAL CANCER SCREENING COLORECTAL CANCER SCREENING [facility] Start: 10-08-2019 ANNUAL PCP TEAM CHRONIC DISEASE VISIT ANNUAL PCP TEAM CHRONIC DISEASE VISIT [facility] Start: 02-09-2018 LIPID SCREEN LIPID SCREEN [facility] Start: 11-14-2017 PNEUMOCOCCAL (2 - PCV) PNEUMOCOCCAL (2 - PCV) [facility] Start: 02-05-2017 DIABETES SCREEN DIABETES SCREEN [facility] Start: 02-29-2016 Mammography MAMMOGRAM [facility] Start: 08-18-2009 SHINGRIX VACCINE (1 of 2) SHINGRIX VACCINE (1 of 2) [facility] Start: 08-18-2004 COLOGUARD (FIT-DNA) COLOGUARD (FIT-DNA) [facility] Start: 08-18-[address] COLONOGRAPHY [facility] Start: 08-18-2004 FECAL OCCULT BLOOD FECAL OCCULT BLOOD [facility] Start: 08-18-2004 SIGMOIDOSCOPY SIGMOIDOSCOPY [facility] Start: 08-18-1989 HPV TESTING HPV TESTING [facility] Start: 08-18-1980 PAP TESTING PAP TESTING [facility] Start: 08-18-1978 Urine microalbumin profile DTAP,TDAP,TD (1 - Tdap) [facility] Start: 08-18-1977 HIV SCREENING HIV SCREENING [facility] Start: 08-18-1977 SPIROMETRY SPIROMETRY [facility] Start: 02-19-1960 COVID-19 VACCINE (#1) COVID-19 VACCINE (#1) [facility] End: 09-15-2022 Screening mammography bi 2-view breast inc cad DERECK SCREENING Radiology Routine Encounter for screening mammogram for breast cancer 1 Occurrences starting 08/16/2021 until 09/15/2022 [facility] Work Phone: Immunizations Immunization Date Immunization Notes Care Provider Elena jamison 11-14-2016 pneumococcal polysaccharide vaccine, 23 valent Natalia Becerril MD Work Phone: [facility] Payers Date Payer Category Payer Medicaid [employer] [id number] 2018-Present [phone] [address] [place] [address] Medicaid [id number] Social History Date Type Detail Facility Start: 10-07-2018 Tobacco smoking stat us NHIS Smokes tobacco daily [facility] History of tobacco use Cigarette Smoker 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 Stopped the entire time she was admitted [facility] Start: 1960 Sex Assigned At Not on file [facility] Clinical Note 08-16-2021 Note Date & Type Note Facility 08-16-2021 Note Patient Outreach (IN [facility]) FIDENCIO BARRIOS ([id number]) 1960 F Date Time Provider Department 08/16/21 NATALIA BECERRIL During your visit today, we recorded the following information about you: Allergies As of Date: 08/16/2021 Noted Allergy Reaction CELEXA (CITALOPRAM HYDROBROMIDE) 12/23/2017 14 - Other: See Comments Comments: Tiredness ADVIL (IBUPROFEN) 07/02/2006 ALEVE (NAPROXEN SODIUM) 02/27/2007 Comments: diarrhea AMOXACILLIN (AMOXICILLIN) 05/23/2018 16 - Unknown AUGMENTIN (AMOXICILLIN-POT CLAVUL*03/31/2007 8 - GI Upset Comments: Nausea, vomiting BACTRIM (SULFAMETHOXAZOLE-TRIMETH*07/02/2006 8 - GI Upset CATS 07/02/2006 EGGS (EGG) 02/07/2011 6 - Diarrhea ERYTHROMYCIN BASE 07/02/2006 FENTANYL 05/23/2018 16 - Unknown GERANIUM 07/02/2006 LEVAQUIN (LEVOFLOXACIN) 07/02/2006 LYRICA (PREGABALIN) 04/27/2015 14 - Other: See Comments Comments: Severe pain in the head MACROBID (NITROFURANTOIN MONOHYD/*04/12/2008 8 - GI Upset Comments: racing heart PINE NEEDLE OIL 07/02/2006 ZITHROMAX Z-PATTI (AZITHROMYCIN) 07/02/2006 Date Reviewed: 02/02/2020 Reviewed by: Bijal Fitzgerald Ma - Fully Assessed Visit Diagnosis:Encounter for screening mammogram for breast cancer [Z12.31] Order(s):[facility] SCREENING [[id number]] Order #: [id number] FUTURE Prescriptions as of 08/21/2021 - bisacodyl (DULCOLAX) 10 mg supp 10 mg by RECTAL route once daily as needed. - busPIRone (BUSPAR) 15 mg tablet Take 15 mg by mouth three times daily. - OXYGEN, HOME THERAPY, 4 L/min by Nasal Cannula route continuous. - albuterol (PROVENTIL) 2.5 mg /3 mL (0.083 %) nebulizer solution Use 3 mL via nebulizer every 4 hours as needed for Wheezing/Shortness of Breath. Use over 5-15minutes. - metoprolol tartrate, short acting, (LOPRESSOR) 25 mg tablet Take 0.5 tablets by mouth twice daily. - acetaminophen 325 mg-caffeine 40 mg-butalbital 50 mg (FIORICET) per tablet EVERY 6 HOURS NEEDED PRN For Headache - Nebulizer NEBULIZER FOR HOME USE. DX: J43.9 - acetaminophen (TYLENOL) 650 mg suppository Pt is taking oral Tylenol - prn - famotidine (PEPCID) 20 mg tablet Take 1 tablet by mouth twice daily as needed (gi upset). - guaiFENesin (MUCINEX) 600 mg 12 hr tablet Take 1 tablet by mouth twice daily. - Mirtazapine (REMERON) 7.5 mg tablet Take 22.5 mg daily. Take 15 mg with 7.5 mg for depression. - FLUoxetine (PROZAC) 10 mg capsule Take 1 capsule by mouth once daily. - mirtazapine (REMERON) 15 mg tablet Take 1 tablet by mouth daily at bedtime. Take along with 7.5 mg pill - dicyclomine (BENTYL) 10 mg capsule Take 10 mg by mouth before meals and at bedtime. - loperamide HCl (IMODIUM A-D ORAL) Take by mouth twice daily. - Blood Pressure Cuff - Home Use BLOOD PRESSURE CUFF FOR HOME USE. - COMPOUNDED PRESCRIPTION Supplies for female urinary catheterization; supplies as needed for one month. Dx: N36.44, R33.9 - fluticasone (FLONASE) 50 mcg/actuation nasal spray Use 2 Sprays in each nostril once daily. Rinse mouth after use. - Jollzlk-Ejqyfjqswiehb-Ymhqhwqb (EXCEDRIN MIGRAINE) 250-250-65 mg per tablet Take 2 tablets by mouth every 6 hours as needed. - p-ephed hcl/cetirizine hcl(ZYRTEC-D 5 MG-120 MG 12 HR TAB) 1-2 tabs daily prn Meds Comments as of 10/07/2018: Takes Cipro prn. Problem List As Of Date 08/16/2021 Noted Resolved DETRUSOR SPHINCTER DYSSYNERGIA [N36.44] 12/11/2006 Retention of urine, unspecified [R33.9] 12/11/2006 Myalgia [M79.10] PMH - PAST MEDICAL HISTORY OF 11/18/1998 Reflex sympathetic dystrophy [G90.50] Headache [R51] TOBACCO USE DISORDER [F17.200] ABNORMAL LIVER FUNCTION STUDY [R94.5] 03/14/2007 CHOLELITHIASIS NOS [K80.20] 08/20/2007 08/20/2007 CERVICALGIA [M54.2] 08/20/2007 Recurrent major depressive disorder, in remissi*08/20/2007 CHRONIC CYSTITIS NEC [N30.20] 05/04/2008 GERD (gastroesophageal reflux disease) [K21.9] 05/01/2012 Vitamin D deficiency [E55.9] Adjustment disorder with depressed mood [F43.21]04/17/2013 Environmental allergies [Z91.09] IBS (irritable bowel syndrome) [K58.9] 11/30/2013 Other emphysema (HCC) [J43.8] 10/10/2018 Encounter Status:Closed by MORENA RILEY on 08/21/21 [facility] Clinical Note 09-09-2020 Note Date & Type Note Facility 09-09-2020 Note Patient Outreach (IN [facility]) FIDENCIO BARRIOS ([id number]) 1960 F Date Time Provider Department 09/09/20 NATALIA BECERRIL During your visit today, we recorded the following information about you: Allergies As of Date: 09/09/2020 Noted Allergy Reaction CELEXA (CITALOPRAM HYDROBROMIDE) 12/23/2017 14 - Other: See Comments Comments: Tiredness ADVIL (IBUPROFEN) 07/02/2006 ALEVE (NAPROXEN SODIUM) 02/27/2007 Comments: diarrhea AMOXACILLIN (AMOXICILLIN) 05/23/2018 16 - Unknown AUGMENTIN (AMOXICILLIN-POT CLAVUL*03/31/2007 8 - GI Upset Comments: Nausea, vomiting BACTRIM (SULFAMETHOXAZOLE-TRIMETH*07/02/2006 8 - GI Upset CATS 07/02/2006 EGGS (EGG) 02/07/2011 6 - Diarrhea ERYTHROMYCIN BASE 07/02/2006 FENTANYL 05/23/2018 16 - Unknown GERANIUM 07/02/2006 LEVAQUIN (LEVOFLOXACIN) 07/02/2006 LYRICA (PREGABALIN) 04/27/2015 14 - Other: See Comments Comments: Severe pain in the head MACROBID (NITROFURANTOIN MONOHYD/*04/12/2008 8 - GI Upset Comments: racing heart PINE NEEDLE OIL 07/02/2006 ZITHROMAX Z-PATTI (AZITHROMYCIN) 07/02/2006 Date Reviewed: 02/02/2020 Reviewed by: Bijal Fitzgerald Ma - Fully Assessed Visit Diagnosis:Encounter for screening mammogram for breast cancer [Z12.31] Order(s):[facility] SCREENING [[id number]] Order #: [id number] FUTURE Prescriptions as of 09/12/2020 - bisacodyl (DULCOLAX) 10 mg supp 10 mg by RECTAL route once daily as needed. - busPIRone (BUSPAR) 15 mg tablet Take 15 mg by mouth three times daily. - OXYGEN, HOME THERAPY, 4 L/min by Nasal Cannula route continuous. - albuterol (PROVENTIL) 2.5 mg /3 mL (0.083 %) nebulizer solution Use 3 mL via nebulizer every 4 hours as needed for Wheezing/Shortness of Breath. Use over 5-15minutes. - metoprolol tartrate, short acting, (LOPRESSOR) 25 mg tablet Take 0.5 tablets by mouth twice daily. - acetaminophen 325 mg-caffeine 40 mg-butalbital 50 mg (FIORICET) per tablet EVERY 6 HOURS NEEDED PRN For Headache - Nebulizer NEBULIZER FOR HOME USE. DX: J43.9 - acetaminophen (TYLENOL) 650 mg suppository Pt is taking oral Tylenol - prn - famotidine (PEPCID) 20 mg tablet Take 1 tablet by mouth twice daily as needed (gi upset). - guaiFENesin (MUCINEX) 600 mg 12 hr tablet Take 1 tablet by mouth twice daily. - Mirtazapine (REMERON) 7.5 mg tablet Take 22.5 mg daily. Take 15 mg with 7.5 mg for depression. - FLUoxetine (PROZAC) 10 mg capsule Take 1 capsule by mouth once daily. - mirtazapine (REMERON) 15 mg tablet Take 1 tablet by mouth daily at bedtime. Take along with 7.5 mg pill - dicyclomine (BENTYL) 10 mg capsule Take 10 mg by mouth before meals and at bedtime. - loperamide HCl (IMODIUM A-D ORAL) Take by mouth twice daily. - Blood Pressure Cuff - Home Use BLOOD PRESSURE CUFF FOR HOME USE. - COMPOUNDED PRESCRIPTION Supplies for female urinary catheterization; supplies as needed for one month. Dx: N36.44, R33.9 - fluticasone (FLONASE) 50 mcg/actuation nasal spray Use 2 Sprays in each nostril once daily. Rinse mouth after use. - Mkzkdnd-Dvkrradofddde-Zioxlqht (EXCEDRIN MIGRAINE) 250-250-65 mg per tablet Take 2 tablets by mouth every 6 hours as needed. - p-ephed hcl/cetirizine hcl(ZYRTEC-D 5 MG-120 MG 12 HR TAB) 1-2 tabs daily prn Meds Comments as of 10/07/2018: Takes Cipro prn. Problem List As Of Date 09/09/2020 Noted Resolved DETRUSOR SPHINCTER DYSSYNERGIA [N36.44] 12/11/2006 Retention of urine, unspecified [R33.9] 12/11/2006 Myalgia [M79.10] PMH - PAST MEDICAL HISTORY OF 11/18/1998 Reflex sympathetic dystrophy [G90.50] Headache [R51] TOBACCO USE DISORDER [F17.200] ABNORMAL LIVER FUNCTION STUDY [R94.5] 03/14/2007 CHOLELITHIASIS NOS [K80.20] 08/20/2007 08/20/2007 CERVICALGIA [M54.2] 08/20/2007 Recurrent major depressive disorder, in remissi*08/20/2007 CHRONIC CYSTITIS NEC [N30.20] 05/04/2008 GERD (gastroesophageal reflux disease) [K21.9] 05/01/2012 Vitamin D deficiency [E55.9] Adjustment disorder with depressed mood [F43.21]04/17/2013 Environmental allergies [Z91.09] IBS (irritable bowel syndrome) [K58.9] 11/30/2013 Other emphysema (HCC) [J43.8] 10/10/2018 Encounter Status:Closed by OSVALDO PRODUSER on 09/12/20 [facility] History of Past illness Narrative 08-20-2007 Note Date & Type Note Facility documented as of this encounter (statuses as of 08/21/2021) [facility] Evaluation note Note Date & Type Note Facility documented in this encounter [facility] Reason for referral (narrative) Diagnostic Procedure Only (Routine) - Pending Review Note Date & Type Note Facility Referral ID Status Reason Start Date Expiration Date Visits Requested Visits Authorized [id number] Pending Review Auto-Generat ed Referral 08/16/2021 09/15/2022 1 1 [facility] Summary Purpose Family History No Family History Records Found Advance Directives No Advanced Directives Records Found Additional Source Comments INFORMATION SOURCE (unrecogn ized section and content) Source Comments (unrecognize d section and content) In the event this informatio n is protected by the Federal Confidentiality of Alcohol and Drug Abuse Patient Records regulations: The Federal rules restrict any use of the information to criminally investigate or prosecute any alcohol or drug abuse patient.[facility] Care Teams (unrecognized sec tion and content) FOR RECORDS PERTAINING TO PATIENTS WHO ARE OR HAVE BEEN ENROLLED IN A CHEMICAL DEPENDENCY/SUBSTANCEABUSE PROGRAM, SOME INFORMATION MAY BE OMITTED. This clinical summary was aggregated from multiple sources. Caution should be exercised in using it in the provision of clinical care. This summary normalizes information from multiple sources, and as a consequence, information in this document may materially change the coding, format and clinical context of patient data. In addition, data may be omitted in some cases. CLINICAL DECISIONS SHOULD BE BASED ON THE PRIMARY CLINICAL RECORDS. [email or web address] [facility]. provides no warranty or guarantee of the accuracy or completeness of information in this document.
[2023-01-14 08:08] LABS: Bacteria 3+ /hpf (None Seen); White Blood Cells >100 SEEN /hpf (0-5)
== END | disposition home or self-care (01) ==
LOC: OLS.SW 02:00
PROVIDERS: PCP Family Medicine; Visit Provider Family Medicine
DX: R30.9 Painful micturition, unspecified (principal)
CPT/HCPCS: 81001; 87077; 87086; 87088; 87186